=== PATIENT | male | born 1940 | race Caucasian/White ===

== ENCOUNTER → 2018-01-30 08:17 | Outpatient (CLI) | payer MEDICARE, BC, SELFPAY ==
[2018-01-30 08:24] LABS: Bacteria 0 SEEN /hpf (None Seen); Mucous, Urine 0 SEEN /hpf (<or=2+); Red Blood Cells-Urine 0 SEEN /hpf (0-5); Squamous Epithelial Cells - UA 0 SEEN /hpf (0-5); White Blood Cells 0 SEEN /hpf (0-5)
[2018-01-30 08:40] LABS: Color, Urine Yellow (Yellow); Glucose, Dipstick Normal (Normal); Ketone-Dipstick Negative (Negative); Leukocyte Esterase-Dipstick Negative /ul (Negative); Nitrite-Dipstick Negative (Negative); Occult Blood-Urine Negative /ul (Negative); Protein-Dipstick Negative (Negative); Urine Bilirubin Dipstick Negative (Negative); Urine Clarity Clear (Clear); Urine Urobilinogen Normal (Normal)
[2018-01-30 08:49] LABS: Absolute Lymphocyte Count 3.23 X10^3/ul (0.83-4.51); Absolute Neutrophil Count 3.1 X10^3/uL (2.0-7.7); Basophil# 0.02 X10^3/uL; Basophil% 0.3 % (0-1); Eosinophil# 0.36 X10^3/uL; Eosinophils% 4.9 % (0-5); Hematocrit 42.1 % (40-54); Hemoglobin 13.7 g/dl (13.0-16.5); Lymphocyte # 3.23 X10^3/ul (4.0); Lymphocyte % 44.3 % (19-41); Mean Corp Hgb Conc 32.5 g/gl (32-36); Mean Corpuscular Hgb 29.4 pg (27.0-32.0); Mean Corpuscular Volume 90.3 fL (80-94); Mean Platelet Vol. 9.2 fl (6.2-12.0); Monocyte# 0.57 X10^3/uL; Monocyte% 7.8 % (0-10); Neutrophil % 42.6 % (47-70); Platelet Count 190 K/mm3 (150-450); RBC Distribution Width CV 13.6 % (11.6-14.6); RBC Distribution Width SD 44.4 fl (35.1-43.9); Red Blood Count 4.66 M/mm3 (4.6-6.2); White Blood Count 7.3 K/mm3 (4.4-11.0)
[2018-01-30 08:51] LABS: POSITIVE COUNT NO; POSITIVE DIFFERENTIAL NO; POSITIVE MORPHOLOGY NO
[2018-01-30 09:15] LABS: Microalbumin,Random Urine < 5.0 mg/L (NO RANGE EST.)
[2018-01-30 09:20] LABS: ALB/GLOB Ratio 0.9 RATIO (0.9-2.4); AST(SGOT) 22 U/L (15-37); Alanine Aminotransfer ALT/SGPT 15 U/L (16-61); Albumin, Serum 3.4 g/dL (3.2-5.0); Alkaline Phosphatase 64 U/L (45-117); Anion Gap 5 (5-15); BUN 14 mg/dL (7-18); BUN/Creat Ratio 13.3 RATIO (10-20); CRP, High Sensitivity Cardiac 1.38 mg/L; Calcium,Total 8.2 mg/dL (8.5-10.1); Chloride 102 mmol/L (98-107); Cholesterol 106 mg/dL (200); Creatinine, Serum 1.05 mg/dL (0.70-1.30); EST Glomerular Filtration Rate 73 mL/min (>60); Est Glom Filt Rate - Afr Amer 88 mL/min (>60); Globulin 3.7 g/dL (2.2-4.2); Glucose 92 mg/dL (74-106); High Density Lipoprotein 62 mg/dL; PSA,Total - Annual Screen 2.02 ng/mL (0.00-4.00); Potassium 4.5 mmol/L (3.5-5.1); Protein, Total 7.1 g/dL (6.4-8.2); Sodium Level 137 mmol/L (136-145); Thyroid Stim Hormone (TSH) 2.31 uIU/mL (0.358-3.74); Triglycerides 43 mg/dL; Very Low Density Lipoprotein 9 mg/dL (5-40)
[2018-02-01 03:06] LABS: CHOLESTEROL TOTAL 116 mg/dL (100-199); HDL-C 57 mg/dL (>39); SMALL LDL-P 232 nmol/L (<=527); TRIGLYCERIDES 46 mg/dL (0-149)
[2018-02-01 11:08] LABS: LDL SIZE 20.3 nm (>20.5); LDL-C 50 mg/dL (0-99); LDL-P 465 nmol/L (<1000); LP-IR SCORE ** 30 (<=45)
== END ==
PROVIDERS: Family Provider Internal Medicine; PCP Internal Medicine; Referring Provider Internal Medicine; Visit Provider Internal Medicine
DX: I25.10 Atherosclerotic heart disease of native coronary artery without angina pectoris (principal); E78.00 Pure hypercholesterolemia, unspecified; E16.2 Hypoglycemia, unspecified; N40.0 Benign prostatic hyperplasia without lower urinary tract symptoms; Z12.5 Encounter for screening for malignant neoplasm of prostate
CPT/HCPCS: 36415; 80053; 80061; 81001; 82043; 82570; 83704; 84153; 84443; 85025; 86141; G0103

== ENCOUNTER → 2018-08-21 13:40 | Outpatient (CLI) | payer MEDICARE, BC, SELFPAY ==
[2018-02-13 14:21] VITALS: BMI 23.2
[2018-08-21 14:34] LABS: PSA,Total- Diagnostic 1.34 ng/mL (0.0-4.0)
== END ==
PROVIDERS: Family Provider Internal Medicine; PCP Internal Medicine; Referring Provider Urology; Visit Provider Urology
DX: R97.20 Elevated prostate specific antigen [PSA] (principal)
CPT/HCPCS: 36415; 84153

== ENCOUNTER → 2019-02-06 07:32 | Outpatient (CLI) | payer MEDICARE, BC, SELFPAY ==
[2018-02-13 14:21] VITALS: BMI 23.2
[2019-02-06 08:10] LABS: PSA,Total- Diagnostic 1.12 ng/mL (0.0-4.0)
== END ==
PROVIDERS: Family Provider Internal Medicine; PCP Internal Medicine; Referring Provider Urology; Visit Provider Urology
DX: R97.20 Elevated prostate specific antigen [PSA] (principal)
CPT/HCPCS: 36415; 84153

== ENCOUNTER → 2019-02-13 08:15 | Outpatient (CLI) | payer MEDICARE, BC, SELFPAY ==
[2018-02-13 14:21] VITALS: BMI 23.2
[2019-02-13 09:07] LABS: Absolute Lymphocyte Count 2.75 X10^3/uL (0.83-4.51); Absolute Neutrophil Count 2.7 X10^3/uL (2.0-7.7); Basophil# 0.02 X10^3/uL; Basophil% 0.3 % (0-1); Eosinophil# 0.32 X10^3/uL; Eosinophils% 5.1 % (0-5); Hematocrit 42.4 % (40-54); Hemoglobin 13.9 g/dL (13.0-16.5); Lymphocyte # 2.75 X10^3/ul (4.0); Lymphocyte % 43.6 % (19-41); Mean Corp Hgb Conc 32.8 g/dL (32-36); Mean Corpuscular Hgb 29.6 pg (27.0-32.0); Mean Corpuscular Volume 90.2 fL (80-94); Mean Platelet Vol. 9.2 fl (6.2-12.0); Monocyte% 7.9 % (0-10); NRBC Flagged by Analyzer 0 % (0-5); Neutrophil # 2.71 X10^3/uL (2.7-7.7); Neutrophil % 42.9 % (47-70); Platelet Count 193 K/mm3 (150-450); RBC Distribution Width SD 42.9 fl (35.1-43.9); White Blood Count 6.3 K/mm3 (4.4-11.0)
[2019-02-13 09:33] LABS: AST(SGOT) 25 U/L (15-37); Alanine Aminotransfer ALT/SGPT 14 U/L (16-61); Albumin, Serum 3.6 g/dL (3.2-5.0); Alkaline Phosphatase 58 U/L (45-117); Anion Gap 8 (5-15); BUN 13 mg/dL (7-18); BUN/Creat Ratio 10.8 RATIO (10-20); Calcium,Total 8.6 mg/dL (8.5-10.1); Chloride 104 mmol/L (98-107); EST Glomerular Filtration Rate 62 mL/min (>60); Est Glom Filt Rate - Afr Amer 76 mL/min (>60); Globulin 3.6 g/dL (2.2-4.2); Glucose 95 mg/dL (74-106); Potassium 4.4 mmol/L (3.5-5.1); Protein, Total 7.2 g/dL (6.4-8.2); Sodium Level 140 mmol/L (136-145); Thyroid Stim Hormone (TSH) 2.84 uIU/mL (0.358-3.74)
[2019-02-16 12:07] LABS: CHOLESTEROL TOTAL 135 mg/dL (100-199); HDL-C 63 mg/dL (>39); HDL-P TOTAL 31.8 umol/L (>=30.5); SMALL LDL-P 168 nmol/L (<=527); TRIGLYCERIDES 48 mg/dL (0-149)
[2019-02-16 14:53] LABS: INSULIN RESISTANCE SCORE <25 (<=45); LDL SIZE 21.1 nm (>20.5); LDL-C 62 mg/dL (0-99); LDL-P 601 nmol/L (<1000)
== END ==
PROVIDERS: Family Provider Internal Medicine; PCP Internal Medicine; Referring Provider Internal Medicine; Visit Provider Internal Medicine
DX: E78.00 Pure hypercholesterolemia, unspecified (principal)
CPT/HCPCS: 36415; 80053; 80061; 83704; 84443; 85025

== ENCOUNTER → 2019-03-02 14:41 | Outpatient (CLI) | payer MEDICARE, BC, SELFPAY ==
[2019-02-19 13:06] VITALS: BMI 23.6
--- NOTE | 2019-03-02 14:43 | CT_ITS ---
STUDY: CTA CHEST REASON FOR EXAM: Male, 78 years old. A ascending aortic dilatation RADIATION DOSAGE (If Supplied By Facility): CTDIvol = ( 6.68 ) mGy, DLP = ( 219.56 ) mGycm TECHNIQUE: The examination was performed with the intravenous administration of IV Isovue 370 100. Post-processing of the angiographic images was performed, with multiplanar reformation and 3D reconstruction. Individualized dose optimization techniques were used for this CT. COMPARISON: February 20, 2016 FINDINGS: The ascending thoracic aorta measures 4.6 x 4.2 cm in diameter, previously measuring 4.5 x 4.2 cm in diameter by my measurements. The descending thoracic aorta measures 2.2 x 2.5 cm in diameter. There are peripheral calcifications of the aortic arch and descending thoracic aorta. Normal enhancement of the main pulmonary artery and right and left pulmonary arteries. Normal enhancement of the bilateral peripheral pulmonary arteries. There is no demonstrated pulmonary embolism. There are calcifications of the coronary arteries. Normal mediastinum. Normal hilar regions. Normal visualized trachea and bronchi. There is a stable subpleural 5.5 mm nodule within the left upper lobe. Normal chest wall structures. There are degenerative changes of thoracic spine. Normal visualized upper abdomen. CT/CTA Chest W/WO Contrast IMPRESSION: Interval increase in size of a ascending thoracic aortic aneurysm. Atherosclerosis. Electronically Signed: Evelyn Paniagua MD at 16:05 EST Tel , Service support ,
== END ==
PROVIDERS: Family Provider Internal Medicine; PCP Internal Medicine; Referring Provider Internal Medicine Cardiovascular Disease; Visit Provider Internal Medicine Cardiovascular Disease
DX: I77.810 Thoracic aortic ectasia (principal)
CPT/HCPCS: 71275; Q9967

== ENCOUNTER 2019-06-26 11:18 | Emergency (ER) | payer MEDICARE, BC, SELFPAY ==
[2019-02-19 13:06] VITALS: BMI 23.6
[2019-06-26 11:19] VITALS: BP 158/77; PULSE 52; RESP 17; TEMP 36.4; O2SAT 100; BMI 22.6
--- NOTE | 2019-06-26 11:36 | RAD_ITS ---
STUDY: X-RAY - LEFT HAND REASON FOR EXAM: Male, 79 years old. Fell yesterday, thumb pain TECHNIQUE: 3 view(s) of the hand. COMPARISON: None. FINDINGS: Normal radiocarpal articulation. Normal distal radioulnar joint. Normal visualized carpal bones. Normal carpal articulations Normal carpometacarpal articulation of the thumb. Normal second through fifth carpometacarpal joints. Normal metacarpi. Normal metacarpophalangeal joint of the thumb. Normal interphalangeal joint of the thumb. There is an intra-articular slightly displaced fracture of the base of the distal phalanx of the thumb. Normal metacarpophalangeal joints of the second through fifth fingers. Normal proximal and distal interphalangeal joints of the second through fifth fingers. Normal phalanges of the second through fifth fingers. The soft tissue structures are unremarkable. RAD/Hand Min 3 Views IMPRESSION: Fracture of the distal phalanx of the thumb. Electronically Signed: Rahul Pastor MD at 12:23 EDT Tel , Service support ,
--- NOTE | 2019-06-26 11:36 | RAD_ITS ---
STUDY: X-RAY - LEFT WRIST REASON FOR EXAM: Male, 79 years old. Thumb pain, fell yesterday TECHNIQUE: 3 view(s) of the wrist were obtained. COMPARISON: None. FINDINGS: Normal visualized distal radius and ulna. Normal radiocarpal articulation. Normal distal radioulnar articulation. There is questionable hairline nondisplaced fracture of the scaphoid seen only on the oblique view. Normal carpal articulations. There is mild degenerative arthrosis of the carpometacarpal articulation of the thumb. Normal second through fifth carpometacarpal articulations. Normal visualized metacarpal bones. The soft tissue structures are unremarkable. RAD/Wrist min 3 Views IMPRESSION: Questionable hairline nondisplaced fracture of the scaphoid. Electronically Signed: Rahul Pastor MD at 12:25 EDT Tel , Service support ,
--- NOTE | 2019-06-26 11:37 | ED.DCSUM_ITS ---
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 he has no other complaints Past Medical History - Allergies and Home Meds Allergies/Adverse Reactions: Allergies No Known Allergies Allergy (Verified 06/26/19 11:19) Primary Care Physician: Siva Willams MD [STAFF PHYSICIAN] - Sia Trevizo DO [Primary Care Provider] - Past Medical History: None Smoking Status: Never smoker Review of Systems General: Reports: - - Facial trauma left face chin Musculoskeletal: Reports: - - Left thumb trauma Physical Exam Vital Signs/Narrative: Vital Signs Temp Pulse Resp BP Pulse Ox 06/26/19 11:19 97.5 F L 52 L 17 158/77 H 100 General: Well nourished, Well developed, No Acute Distress, - - He has a small contusion to the left lateral chin his HEENT exam is unremarkable mouth opening closing unremarkable Head: Normocephalic, Atraumatic Eyes: Perrl, EOMI ENT: Moist mucous membranes, No rhinorrhea Neck: - - No complaints of neck pain full range of motion Cardiovascular: Regular rate, Regular rhythm Respiratory: No distress, CTA bilaterally, Chest nontender Extremities: - - Only complaint is pain to the left thumb there is contusion diffusely about the thumb he has normal flexion extension of the IP joint MCP joint nail nailbed intact, contusion at the level of the nailbed but the skin is intact as is the nailbed sensation intact finger exam unremarkable hand exam otherwise unremarkable skin is intact neurovascular function normal, the patient also complains of very mild left wrist discomfort forearm and elbow unremarkable Skin: Normal color, No rash Neurological: Alert, Oriented x3, Cranial nerves II-XII grossly intact, Normal Strength, Normal Sensation Psychological: Normal affect, Normal Mood Diagnostic/Tx/Re-eval - Medical Decision Making Given all the above x-rays were obtained X-rays of the hand and wrist obtained from radiology there appears to be a distal phalanx fracture of the wrist is unremarkable see those reports discussed this with the patient discussed the concept of an the fracture and other occult injury he is fitted with a thumb spica splint, ice elevation he is referred to Dr. willams of hand service and will return for change in symptoms Home stable final impression left thumb distal phalanx fracture injury ED Disposition - Plan for ED Patient: Diagnosis: Injury of thumb, left, Thumb fracture Instructions: FRACTURE, Thumb Referrals: Sia Trevizo DO [Primary Care Provider] - Siva Willams MD [STAFF PHYSICIAN] - Additional Instructions: Dr. Dunlap [facility] [phone] hand follow-up of thumb fracture if you cannot see Dr. willams
[2019-06-26 12:53] VITALS: RESP 16
== END 2019-06-26 12:53 | disposition home or self-care (01) ==
LOC: ED 11:41
PROVIDERS: Emergency Provider Emergency Medicine; PCP Internal Medicine
DX: S62.522A Displaced fracture of distal phalanx of left thumb, initial encounter for closed fracture (principal); W01.0XXA Fall on same level from slipping, tripping and stumbling without subsequent striking against object, initial encounter; Y93.01 Activity, walking, marching and hiking; Y92.9 Unspecified place or not applicable
CPT/HCPCS: 73110; 73130; 99283

== ENCOUNTER → 2019-09-10 10:32 | Outpatient (CLI) | payer MEDICARE, BC, SELFPAY ==
[2019-09-11 07:11] LABS: SARS-COV-2 TOTAL ABS Nonreactive (Nonreactive)
== END ==
PROVIDERS: PCP Internal Medicine; Referring Provider Otolaryngology; Visit Provider Otolaryngology
DX: Z11.59 Encounter for screening for other viral diseases (principal)
CPT/HCPCS: 86769; G2023

== ENCOUNTER → 2019-10-17 | Outpatient (CLI) | payer MEDICARE, BC, SELFPAY ==
--- NOTE | 2019-10-18 | IMM_PTH ---
PATIENT: KAT LEGER LOC: [facility] U#:[id number] AGE/SX: 79/M ROOM: RE10/17/[address]: Dr. Carl Leger MD : 1940 BED: DIS: 10/17/2019 SPEC #: [id number] RECD: 10/21/19 13:26 STATUS: MEIR REChamp #: [id number] ILEANA: 10/18/19 00:[address]: Carl Leger DEPT: IMMUNOHISTOCHEMISTRY RECD BY: Reagan Aggarwal ENTERED: 10/21/19 13:28 SP TYPE: IMMUNO OTHR DR: Dr. Sia Trevizo, Tissues: Skin of forehead Procedures: MART1 (add) S100 (initial) PHYSICIAN & INSTITUTION [place] [id number] SPECIMEN INFORMATION: Tissue Source: Forehead lesion Clinical Info: Forehead lesion Specimen Number: [id number] #2 CPT code: 62183, 92456 METHODOLOGY: Deparaffinized sections of prefer/formalin-fixed tissue or PAP/DQ stained slides are incubated with monoclonal/polyclonal antibodies/oligonucleotide probes. Localization is made via biotin free immunoperoxidase method. Appropriate controls are performed and reacted as expected. Results on target cell population are indicated in the following table: RESULTS: ANTIBODY / CLONE RESULT S-100 (4C4.9) positive MART-1 (A-103) positive These tests were developed and their performance characteristics determined by [facility]. They may not have been cleared or approved by the U.S. Food and Drug Administration. The FDA has determined that such clearance or approval is not necessary. The above immunohistochemical/dualISH markers are ordered and reviewed by the Pathologist. INTERPRETATION: Forehead lesion, excisional biopsy: Consistent with lentigo. SJ:toma 10/22/19 Case has been reviewed in consultation with Dr. Archuleta who concurs with the above diagnosis. IDC:AM
--- NOTE | 2019-10-18 16:08 | LES_PTH ---
PATIENT: KAT LEGER LOC: [facility] U#:[id number] AGE/SX: 79/M ROOM: RE10/17/[address]: Dr. Carl Leger MD : 1940 BED: DIS: 10/17/2019 SPEC #: [id number] RECD: 10/19/19 14:58 STATUS: MEIR FRIDA #: [id number] ILEANA: 10/18/19 16:[address]: Carl Leger DEPT: SURGICAL PATHOLOGY RECD BY: Chris Rosario ENTERED: 10/20/19 11:17 SP TYPE: Lesion OTHR DR: Dr. Sia Trevizo, [facility] Tissues: Skin of forehead Procedures: Surgery Specimen Level IV HEADER OPERATION: Excision forehead lesion PRE-OP DIAGNOSIS: Neoplasm of uncertain behavior of skin TISSUE SUBMITTED: Forehead lesion, short stitch at 6 o'clock, long stitch at 9 o'clock MICROSCOPIC DIAGNOSIS Forehead lesion, excisional biopsy: Consistent with lentigo. Negative for malignancy. See comment. NAIF:toma 10/21/19 COMMENT Clinical correlation and appropriate follow up are necessary. Immunohistochemistry ([id number]) supports the above diagnosis. Case has been reviewed in consultation with Dr. Archuleta who concurs with the above diagnosis. IDC:AM MICROSCOPIC DESCRIPTION Slides are reviewed. GROSS DESCRIPTION Received in fixative is one container labeled with the patient's name and designated forehead lesion. The specimen consists of a piece of powell-white skin measuring 1.5 x 0.7 cm and up to 0.3 cm in thickness. The specimen is oriented by a suture, short stitch at 6 o'clock and long stitch at 9 o'clock. The specimen is inked as follows: 6 o'clock tip - green, 9 o'clock tip - yellow, 12 o'clock margin - black and 6 o'clock margin - blue. The specimen is serially sectioned and submitted entirely in two cassettes. Cassette 1 contains the tips of skin ellipse. / NAIF:toma 10/20/19 TC:5 CPT: 81400
== END | disposition home or self-care (01) ==
PROVIDERS: PCP Internal Medicine; Referring Provider Otolaryngology; Visit Provider Otolaryngology
DX: D48.5 Neoplasm of uncertain behavior of skin (principal)
CPT/HCPCS: 88305; 88341; 88342

== ENCOUNTER → 2020-02-28 | Outpatient (CLI) | payer MEDICARE, BC, SELFPAY ==
[2020-02-18 12:51] VITALS: BMI 22.8
[2020-02-28 13:38] LABS: Bacteria 0 SEEN /hpf (None Seen); Mucous, Urine 0 SEEN /hpf (<or=2+); Squamous Epithelial Cells - UA 0 SEEN /hpf (0-5); White Blood Cells 0 SEEN /hpf (0-5)
[2020-02-28 14:12] LABS: Color, Urine Yellow (Yellow); Glucose, Dipstick Normal (Normal); Ketone-Dipstick Negative (Negative); Leukocyte Esterase-Dipstick Negative /ul (Negative); Nitrite-Dipstick Negative (Negative); Occult Blood-Urine 10 /ul (Negative); Protein-Dipstick Negative (Negative); Urine Bilirubin Dipstick Negative (Negative); Urine Clarity Clear (Clear); Urine Urobilinogen Normal (Normal)
[2020-02-28 14:28] LABS: Red Blood Cells-Urine 0-5 SEEN /hpf (0-5)
== END | disposition home or self-care (01) ==
LOC: LABSPEC 12:48
PROVIDERS: PCP Internal Medicine; Visit Provider Urology
DX: R31.9 Hematuria, unspecified (principal)
CPT/HCPCS: 81001

== ENCOUNTER → 2021-01-05 08:00 | Outpatient (CLI) | payer MEDICARE, BC, SELFPAY ==
--- NOTE | 2021-01-05 08:02 | CT_ITS ---
STUDY: CTA CHEST REASON FOR EXAM: Male, 80 years old. Dilated aorta RADIATION DOSAGE (If Supplied By Facility): CTDIvol = ( 7.74 ) mGy, DLP = ( 258.92 ) mGycm TECHNIQUE: The examination was performed with the intravenous administration of IV 75mL Isovue-300. Post-processing of the angiographic images was performed, with multiplanar reformation and 3D reconstruction. Individualized dose optimization techniques were used for this CT. COMPARISON: Comparison is made with prior study dated 03/02/2019. FINDINGS: Normal enhancement of the main pulmonary artery and right and left pulmonary arteries. Normal enhancement of the bilateral peripheral pulmonary arteries. There is no demonstrated pulmonary embolism. There is aneurysmal dilatation of the ascending aorta. The transverse diameter of the ascending aorta measures 44 mm''s. This is essentially unchanged. Scattered atherosclerotic plaque of the aortic arch and descending thoracic aorta. There is no demonstrated aortic dissection. There are calcifications of the coronary arteries. Normal mediastinum. Normal hilar regions. Normal visualized trachea and bronchi. The lungs are well expanded. Normal pulmonary parenchyma. Normal pleura. Normal chest wall structures. There are degenerative changes of thoracic spine. Small hiatal hernia. CT/CTA Chest W/WO Contrast IMPRESSION: Stable examination. Electronically Signed: Joshua Johnson MD at 9:18 EDT , Service support ,
== END ==
PROVIDERS: PCP Internal Medicine; Referring Provider Internal Medicine Cardiovascular Disease; Visit Provider Internal Medicine Cardiovascular Disease
DX: I77.810 Thoracic aortic ectasia (principal)
CPT/HCPCS: 71275; Q9967

== ENCOUNTER → 2021-01-09 | Outpatient (CLI) | payer MEDICARE, BC, SELFPAY | END | disposition home or self-care (01) | LOC: LABSPEC 15:47 | PROVIDERS: PCP Internal Medicine; Visit Provider Otolaryngology | DX: M27.2 Inflammatory conditions of jaws (principal) | CPT/HCPCS: 87070; 87075; 87077; 87186; 87205 ==

== ENCOUNTER → 2021-02-23 06:15 | Outpatient (CLI) | payer MEDICARE, BC, SELFPAY ==
--- NOTE | 2021-02-23 06:17 | ECHOD_ITS ---
Reason For Study: CAD Procedure This was a 2D Doppler, Color Flow transthoracic echocardiogram. Exam performed in department. Left Ventricle Normal LV size. Left ventricular systolic function is normal. The estimated ejection fraction is 65 %. Stage 1 diastolic dysfunction. No regional wall motion abnormalities noted. Right Ventricle Normal RV size. Normal systolic function. Atria Normal left atrium. Normal right atrium. Mitral Valve Normal mitral valve. Tricuspid Valve Normal tricuspid valve. Mild tricuspid valve insufficiency. Pulmonary artery systolic pressure is 26 mmHg. Aortic Valve Normal aortic valve. Trisinus/trileaflet aortic valve. Pulmonic Valve Normal pulmonic valve. Great Vessels Mildly dilated aortic root. The pulmonary artery is normal size. Normal inferior vena cava. Pericardium/Pleural No pericardial effusion. MMode/2D Measurements & Calculations LVIDd: 4.3 cm IVSd: 0.67 cm Ao root diam: 4.2 cm LVIDs: 2.8 cm LVPWd: 0.68 cm RVDd: 3.5 cm FS: 34.0 % LAV(MOD-bp): 28.1 ml LA A4 area: 11.9 cm2 LA dimension(2D): 3.7 cm LAV(MOD-bp) Indexed: 16.2 ml/m2 LAV(MOD-sp2): 27.8 ml LAV(MOD-sp4): 26.8 ml RA A4 area: 7.0 cm2 Doppler Measurements & Calculations MV E max marlon: 62.0 cm/sec Lat Peak E' Marlon: 9.8 cm/sec Med Peak E' Marlon: 6.2 cm/sec MV A max marlon: 111.0 cm/sec E/E' lat: 6.3 E/E' med: 10.0 MV E/A: 0.56 Ao V2 max: 118.6 cm/sec LV V1 max: 90.2 cm/sec TR max marlon: 235.8 cm/sec Ao max P.6 mmHg LV V1 max P.3 mmHg TR max P.2 mmHg ECHO/Echo Complete Interpretation Summary Normal LV size. Left ventricular systolic function is normal. The estimated ejection fraction is 65 %. Stage 1 diastolic dysfunction. Mildly dilated aortic root. Structurally normal valves. Ordering Physician: Dave Beckham Referring Physician: EMA TINAJERO Performed By: Tianna Zhu, RDCS, RVT
--- NOTE | 2021-02-23 09:39 | STRESSREP ---
Stress Test Report Exercise mild atrial perfusion stress test. 80-year-old man with a history of abnormal EKG. Stress protocol: Resting EKG demonstrates sinus bradycardia with a rate of 50 bpm resting blood pressure is 140/78 mmHg. The patient exercised according to the regular Waylon protocol for a total duration of 10 minutes. Patient completed 1 minute into stage IV of the Waylon protocol. The maximum heart rate attained was 171 bpm which was 120% of max impact at heart rate the maximum workload was 13.4 metabolic equivalents. At rest there were no ST or T wave changes noted to suggest ischemia and at peak exercise upsloping ST changes were noted with did not meet the criteria for ischemia. No clinical angina was noted. The test was terminated due to attainment of target heart rate. Occasional premature ventricular complexes was noted. At peak exercise there was development of a left bundle branch block morphology present. The peak blood pressure was 180/80 mmHg. Myocardial perfusion protocol. 11.5 mCi of technetium 99m sestamibi was injected at rest. The patient exercised according to regular Waylon protocol for total duration of 10 minutes and at peak exercise 33.7 mCi of technetium 99m sestamibi was injected stress images were obtained stress and rest images were reconstructed and compared in the short axis vertical long and horizontal long axis. Gated images were also obtained. Perfusion SPECT analysis: Review of the stress images demonstrate normal uptake of tracer noted in all areas of the myocardium. The resting images similarly demonstrate normal uptake of tracer noted in all areas of the myocardium. No areas of reversibility are noted to suggest ischemia and no previous infarct is noted. Gated SPECT analysis: The gated ejection fraction is 87%. Conclusion: Normal exercise myocardial perfusion stress test at a high workload. No clinical angina noted. Excellent functional capacity.
== END ==
PROVIDERS: PCP Internal Medicine; Referring Provider Internal Medicine Cardiovascular Disease; Visit Provider Internal Medicine Cardiovascular Disease
DX: I25.10 Atherosclerotic heart disease of native coronary artery without angina pectoris (principal); I77.810 Thoracic aortic ectasia; E78.5 Hyperlipidemia, unspecified; R94.31 Abnormal electrocardiogram [ECG] [EKG]
CPT/HCPCS: 78452; 93017; 93306; A9500; A4216

== ENCOUNTER 2021-04-30 15:19 | Outpatient (CLI) | payer MEDICARE, BC, SELFPAY ==
--- NOTE | 2021-04-30 12:51 | LES_PTH ---
PATIENT: KAT LEGER LOC: [facility] U#:[id number] AGE/SX: 80/M ROOM: RE04/30/[address]: Dr. Carl Leger MD : 1940 BED: DIS: 04/30/2021 SPEC #: [id number] RECD: 04/30/21 15:05 STATUS: MEIR FRIDA #: [id number] ILEANA: 04/30/21 12:[address]: Carl Leger DEPT: SURGICAL PATHOLOGY RECD BY: Janina Hook ENTERED: 05/01/21 11:03 SP TYPE: Lesion OTHR DR: Dr. Sia Trevizo, [facility] Tissues: Skin of forehead Procedures: Surgery Specimen Level IV HEADER OPERATION: Excision left forehead lesion PRE-OP DIAGNOSIS: Left forehead lesion TISSUE SUBMITTED: Left forehead lesion, short stitch - medial, long stitch - interior MICROSCOPIC DIAGNOSIS Lesion of left forehead, excisional biopsy: Verrucoid keratosis, mildly inflamed. Solar elastosis. No evidence of malignancy. AM:toma 05/02/2021 COMMENT Case has been reviewed in consultation with Dr. Santana who concurs with the above diagnosis. IDC:NAIF MICROSCOPIC DESCRIPTION Slides are reviewed. GROSS DESCRIPTION Received in fixative is one container labeled with the patient's name and designated forehead lesion. The specimen consists of a piece of powell-white skin ellipse measuring 1 x 0.5 cm and up to 0.2 cm in thickness. The specimen is oriented by sutures as follows: short stitch ? medial and long stitch ? interior. The specimen is inked as follows: superior margin ? black, inferior margin ? blue, medial tip ? green and lateral trip ? yellow. The specimen is serially sectioned and submitted entirely in one cassette. / SJ:toma 05/01/2021 TC:5 CPT: 10648
== END 2021-04-30 23:59 | disposition short-term general hospital (02) ==
LOC: LABSPEC 15:23
PROVIDERS: PCP Internal Medicine; Visit Provider Otolaryngology
DX: L82.0 Inflamed seborrheic keratosis (principal); L57.8 Other skin changes due to chronic exposure to nonionizing radiation
CPT/HCPCS: 88305

== ENCOUNTER 2021-07-23 17:09 | Outpatient (CLI) | payer MEDICARE, BC, SELFPAY | END 2021-07-23 23:59 | disposition home or self-care (01) | PROVIDERS: PCP Internal Medicine; Visit Provider Otolaryngology Otolaryngology/Facial Plastic Surgery | DX: J32.9 Chronic sinusitis, unspecified (principal) | CPT/HCPCS: 87070; 87077; 87205 ==

== ENCOUNTER → 2021-12-21 | Outpatient (CLI) | payer MEDICARE, BC, SELFPAY ==
--- NOTE | 2021-12-21 06:52 | CT_ITS ---
STUDY: CT CHEST WITH CONTRAST REASON FOR EXAM: Male, 81 years old. Dilated aorta RADIATION DOSAGE (If Supplied By Facility): CTDIvol = ( 12.59 ) mGy, DLP = ( 305.60 ) mGycm TECHNIQUE: Transaxial imaging was performed following intravenous administration of IV 75mL Isovue-370. Multiplanar coronal and sagittal images were reformatted. Individualized dose optimization techniques were used for this CT. COMPARISON: Comparison is made with prior examination 01/05/2021. FINDINGS: CHEST Stable small benign-appearing bilateral axillary lymph nodes. Stable mild degree of scarring at the right lung apex. There is no demonstrated pleural abnormality. There are calcifications of the coronary arteries. Normal mediastinum. Normal hilar regions. Normal unenhanced pulmonary arteries. Stable mild dilatation of the root of the ascending thoracic aorta measuring 4.2 cm. Scattered atherosclerotic plaque formation is seen. There are degenerative changes of the thoracic spine. There is no demonstrated abnormality of the visualized upper abdomen. CT/Chest WITH Contrast IMPRESSION: Stable examination. Electronically Signed: Joshua Johnson MD at 8:57 EDT ,
[2021-12-21 07:20] LABS: CREATININE FINGERSTICK < 0.9 mg/dL (0.70-1.30); EGFR FINGERSTICK > 60.0000 mL/min (>60)
== END | disposition home or self-care (01) ==
PROVIDERS: PCP Internal Medicine; Referring Provider Internal Medicine Cardiovascular Disease; Visit Provider Internal Medicine Cardiovascular Disease
DX: I77.810 Thoracic aortic ectasia (principal)
CPT/HCPCS: 71260; Q9967; A4216

== ENCOUNTER → 2022-02-20 | Outpatient (CLI) | payer MEDICARE, BC, SELFPAY ==
[2022-02-20 14:17] LABS: PSA,Total - Annual Screen 1.19 ng/mL (0.00-4.00)
== END | disposition home or self-care (01) ==
LOC: LAB 11:32
PROVIDERS: PCP Internal Medicine; Referring Provider Urology; Visit Provider Urology
DX: Z12.5 Encounter for screening for malignant neoplasm of prostate (principal)
CPT/HCPCS: 36415; 84153; G0103

== ENCOUNTER → 2022-03-18 | Outpatient (CLI) | payer MEDICARE, BC, SELFPAY ==
[2022-03-18 18:04] LABS: Bacteria 0 SEEN /hpf (None Seen); Mucous, Urine 0 SEEN /hpf (<or=2+); Red Blood Cells-Urine 0 SEEN /hpf (0-5); Squamous Epithelial Cells - UA 0 SEEN /hpf (0-5); White Blood Cells 0 SEEN /hpf (0-5)
[2022-03-18 18:33] LABS: Color, Urine Yellow (Yellow); Glucose, Dipstick Normal (Normal); Ketone-Dipstick Negative (Negative); Leukocyte Esterase-Dipstick Negative /ul (Negative); Nitrite-Dipstick Negative (Negative); Occult Blood-Urine 10 /ul (Negative); Protein-Dipstick Negative (Negative); Specific Gravity, Urine 1.015 (1.002-1.030); Urine Bilirubin Dipstick Negative (Negative); Urine Clarity Clear (Clear); Urine Urobilinogen Normal (Normal)
== END | disposition home or self-care (01) ==
PROVIDERS: PCP Internal Medicine; Visit Provider Urology
DX: R31.21 Asymptomatic microscopic hematuria (principal)
CPT/HCPCS: 81001

== ENCOUNTER 2022-08-18 16:57 | Observation (INO) | payer MEDICARE, BC, SELFPAY ==
[2022-08-18 16:58] VITALS: BP 141/77; PULSE 83; RESP 18; TEMP 36.1; O2SAT 98; BMI 22.2
--- NOTE | 2022-08-18 17:02 | EDS_ITS ---
HPI History of Present Illness Chief Complaint: GI Bleed [facility] Medical History Abnormal electrocardiogram Ascending aorta dilatation Hyperlipidemia Home Medications simvastatin 10 mg tablet (Zocor) 10 mg PO QHS 02/13/18 [History Last Taken Unknown] Allergy/AdvReac Type Severity Reaction Status Date / Time No Known Allergies Allergy Verified 08/18/22 17:01 Family History Grandfather No problems noted. Father Sudden cardiac Age 65 Hypertension Other Heart disease Surgical History History of left heart catheterization (11/19/12) History of surgery on lower extremity Social History Smoking Status: Never smoker EXAM Physical Exam Const Vital Signs: 08/18/22 16:58 Temperature 96.9 F L Temperature Source Temporal Pulse Rate 83 Respiratory Rate 18 Blood Pressure 141/77 H Blood Pressure Mean 98 Pulse Ox 98 Oxygen Delivery Method Room Air MDM MDM MDM Narrative Medical decision making narrative: HISTORY OF PRESENT ILLNESS: 82 M here with abdominal pain. The patient states he developed acute onset of generalized abdominal pain started yesterday approximately 5 PM. He states this then turned to heartburn which lasted until about 4 AM. At this time he started developing dark but not coffee-ground vomitus. He states after this he started developing dark stools. He is concerned he may be having a GI bleed. Denies any liver dysfunction. Denies any history of esophageal pathology or varices. Denies any recent alcohol use. He denies any urinary complaints. Denies any fever. Denies any chest pain or shortness of breath at this time. REVIEW OF SYSTEMS: Pertinent positives: Abdominal pain, dark vomit, dark stools Pertinent negatives: Syncope, urinary complaint PHYSICAL EXAM: Nursing triage notes reviewed, Vital signs reviewed Constitutional: please see mdm HENT: MMM Eyes: Pupils equal round and reactive to light, Extraocular muscles intact Neck: No stridor, no JVD, full neck ROM Lungs: Clear to auscultation, No wheezing or rales. No increased work of breathing, no conversational dyspnea, no accessory muscle use, no nasal flaring. No respiratory distress noted Heart: Regular rate and rhythm, No murmurs, No rubs and No gallops, 2+ distal pulses (radial, femoral, posterior tibial) in all extremities Abdomen: Soft, there is no tenderness, rigidity, rebound or guarding, no obvious peritoneal signs, no palpable pulsatile abdominal masses, no auscultated abdominal bruit : No CVAT Rectal: No obvious melena or hematochezia noted on rectal exam. Will send for Hemoccult Extremities: No edema Neuro: No focal neurological deficits, cranial nerves II through XII intact, 5/5 strength in all extremities. Intact sensation to light touch in all extremities, 2+ reflexes bilateral patella tendons. Normal gait. No ataxia. Skin: No rash or lesions noted MEDICAL DECISION MAKING: Chief Complaint: Abdominal pain, melena External records reviewed: No recent advanced imaging of the abdomen or pelvis MDM Narrative: Patient was hemodynamically stable, afebrile, abdominal exam was benign, minimally tender. There are no peritoneal signs. He had no jaundice or signs of liver dysfunction. He had no signs of thrombocytopenia on exam. I considered the following differential diagnosis: GI bleed, acute intra- abdominal mass, acute intra-abdominal pathology including obstruction, perforation, mesenteric ischemia, pancreatitis, hepatobiliary obstruction, coagulopathy. I obtained a broad lab and imaging work-up to further elucidate the etiology the patient complaints. I treat the patient symptomatically with normal saline and Zofran. Labs without evidence of acute kidney injury, severe electrolyte abnormalities or signs of endorgan hypoperfusion with a negative anion gap and negative lactate (lower suspicion for mesenteric ischemia). CBC without leukocytosis to suggest systemic inflammation. CBC did show signs of hemoconcentration with elevated hemoglobin. BMP showed signs of mild renal insufficiency. These findings suggest dehydration. Fluid resuscitation was continued with 100 cc of normal saline per hour. No significant anemia to suggest severe GI bleed. EKG and troponin without evidence of myocardial ischemia. There is no evidence of liver dysfunction, acute hepatitis or signs of coagulopathy to explain the patient's bleeding. Chest x-ray showed NO evidence of pneumomediastinum to suggest esophageal rupture explain the patient's dark vomitus. CT scan abdomen pelvis was remarkable for signs of small bowel distention, possible partial bowel obstruction, enterocolitis. Given concerning findings I did consult general surgery Dr. Middleton. He reviewed the patient's history, labs, images and recommended inpatient admission for hydration and to advance his diet slowly. He agreed he agreed to admit the patient to his service. I had a shared decision-making discussion with the patient described his lab and imaging findings. Patient decided to be admitted. Patient admitted under the general surgery service in stable condition. Factors affecting care: Hyperlipidemia Social determinants of health: Never smoker, elderly History obtained from others: Shared decision making: I will have a discussion with the patient and or visitors regarding risk/benefits of further testing or admission. They will be made aware of of the risk/benefits inherent in this decision they will be given the opportunity to voice understanding. Consults: General surgery Lab Data Attestation: I reviewed the patient's lab results. Lab results narrative: EKG with normal sinus rhythm, left ax deviation, no intervals, no STEMI CBC without leukocytosis, severe anemia, no thrombocytopenia. No evidence of coagulopathy Lactate is wnl indicating no end-organ hypoperfusion and/or hypoxia. BMP with mild hyponatremia, no other significant electrolyte abnormalities, no acute kidney injury, no anion gap to suggest endorgan hypoperfusion LFTs with essentially baseline hyperbilirubinemia, no significant elevation liver enzymes, no obstructive liver pathology noted with a normal alkaline phosphatase Lipase is mildly elevated but not consistent with acute pancreatitis Troponin is negative, no evidence of myocardial ischemia Labs: Laboratory Results - last 24 hr 08/18/22 08/18/22 08/18/22 17:25 17:25 17:25 WBC 7.5 RBC 5.45 Hgb 16.0 Hct 49.8 MCV 91.4 MCH 29.4 MCHC 32.1 RDW Std Deviation 46.1 H RDW Coeff of Dalia 13.6 Plt Count 228 MPV 9.6 Immature Gran % (Auto) 0.300 Neut % (Auto) 75.3 H Lymph % (Auto) 16.1 L [place] % (Auto) 7.0 Eos % (Auto) 0.9 Baso % (Auto) 0.4 Absolute Neuts (auto) 5.6 Absolute Lymphs (auto) 1.20 Nucleated RBC % 0 PT INR APTT Sodium 133 L Potassium 4.7 Chloride 99 Carbon Dioxide 25.0 Anion Gap 9 BUN 24 H Creatinine 1.35 H Estim Creat Clear Calc 38.64 Est GFR (MDRD) Af Amer 65 Est GFR (MDRD) Non-Af 54 L BUN/Creatinine Ratio 17.8 Glucose 139 H Lactic Acid 1.7 Calcium 9.8 Total Bilirubin 1.30 H Direct Bilirubin 0.29 AST 33 ALT 18 Alkaline Phosphatase 69 Troponin I High Sens 5 Total Protein 8.7 H Albumin 4.0 Globulin 4.7 H Lipase 85 H 08/18/22 17:25 WBC RBC Hgb Hct MCV MCH MCHC RDW Std Deviation RDW Coeff of Dalia Plt Count MPV Immature Gran % (Auto) Neut % (Auto) Lymph % (Auto) [place] % (Auto) Eos % (Auto) Baso % (Auto) Absolute Neuts (auto) Absolute Lymphs (auto) Nucleated RBC % PT 13.1 INR 1.0 APTT 25.0 Sodium Potassium Chloride Carbon Dioxide Anion Gap BUN Creatinine Estim Creat Clear Calc Est GFR (MDRD) Af Amer Est GFR (MDRD) Non-Af BUN/Creatinine Ratio Glucose Lactic Acid Calcium Total Bilirubin Direct Bilirubin AST ALT Alkaline Phosphatase Troponin I High Sens Total Protein Albumin Globulin Lipase Radiography Chest X-Ray - ED: Read by ED Physician Diagnostic Testing: Clinical Impression(s) from Imaging Studies Abdomen/Pelvis CT 08/18/22 17:18 IMPRESSION: There are some nonspecific fluid-filled loops of proximal small bowel with gradual transition to some small fluid-filled loops of distal small bowel. No focal transition point appreciated. There is some colonic fluid. Consider infectious or inflammatory enterocolitis in the appropriate clinical setting. Partial early obstruction is not excluded given the disproportionate prominence of jejunal loops compared with more collapsed ileal loops. Electronically Signed: Thang Yeung MD at 18:54 EDT , Chest X-Ray 08/18/22 18:15 IMPRESSION: No acute cardiopulmonary disease identified radiographically. Electronically Signed: Thang Yeung MD at 18:31 EDT , I have personally reviewed the patient's chest x-ray. Chest x-ray is unremarkable for pulmonary edema, pneumothorax, pneumonia or focal cardiopulmonary abnormality. Specifically no signs of esophageal rupture, no pneumo-mediastinum Discharge Plan Triage Chief Complaint: GI Bleed ED Provider: Jean-Claude Fletcher Dx/Rx/DC Orders Primary Care Provider: Sia Trevzio
--- NOTE | 2022-08-18 17:18 | EKG12_ITS ---
Test Reason : Blood Pressure : / mmHG Vent. Rate : 072 BPM Atrial Rate : 072 BPM P-R Int : 196 ms QRS Dur : 088 ms QT Int : 382 ms P-R-T Axes : 016 -20 021 degrees QTc Int : 418 ms Normal sinus rhythm Inferior infarct , age undetermined Abnormal ECG Confirmed by LUIS GREENFIELD, LEORA ([id number]), index editor ABY MALONE ([id number]) on 08/20/2022 10:52:01 AM Referred By: Confirmed By:LEORA SMITH MD
--- NOTE | 2022-08-18 17:18 | CT_ITS ---
INDICATION: abdominal pain, n/v, EXAMINATION: CT ABDOMEN AND PELVIS WITH CONTRAST - CT Abdomen And Pelvis W/ Contrast Injection TECHNIQUE: Helically acquired images were obtained of the abdomen and pelvis following IV contrast. A radiation dose optimization technique was used for this scan. IV Contrast dosage and agent: 100 cc Isovue-300 Oral contrast: None. COMPARISON: None. FINDINGS: LOWER CHEST: Basilar atelectasis or scarring. Coronary artery disease. No cardiomegaly or pericardial effusion. LIVER: Homogeneous. No focal mass. GALLBLADDER AND BILIARY TREE: No calcified gallstones. No gallbladder distension or wall edema. No intra- or extrahepatic biliary ductal dilation. PANCREAS: No focal cystic or solid mass. SPLEEN: Normal size without focal cystic or solid mass. ADRENAL GLANDS: No nodules. KIDNEYS AND URETERS: Normal renal size and position. No hydronephrosis. PERITONEUM: No ascites or free air. No other fluid collection. BOWEL: Small hiatus hernia. Stomach is relatively collapsed. Duodenum is normal size. There are some prominent loops of proximal jejunum with fluid-filled loops of proximal and mid jejunum. There do appear to be fluid-filled loops of ileum within the deep pelvis and there appears to be gradual transition of prominent jejunal loops to decompressed bowel or distally. No focal transition. No appendicitis. LYMPH NODES: No enlarged mesenteric or retroperitoneal lymph nodes. VESSELS: Aorta is non-dilated. Atherosclerotic disease is present. URINARY BLADDER: Unremarkable. REPRODUCTIVE ORGANS: Enlarged prostate. ABDOMINAL WALL: No discrete abdominal or pelvic wall hernia. BONES: Degenerative changes of the spine. CT/Abdomen/Pelvis W IV Cont ONLY IMPRESSION: There are some nonspecific fluid-filled loops of proximal small bowel with gradual transition to some small fluid-filled loops of distal small bowel. No focal transition point appreciated. There is some colonic fluid. Consider infectious or inflammatory enterocolitis in the appropriate clinical setting. Partial early obstruction is not excluded given the disproportionate prominence of jejunal loops compared with more collapsed ileal loops. Electronically Signed: Thang Yeung MD at 18:54 EDT ,
[2022-08-18] MEDS: 0.9% Normal Saline 1,000 ML 1000 ML IV (17:34)
[2022-08-18] MEDS: Ondansetron 4 MG/2 ML Vial IV (17:34)
[2022-08-18 17:35] LABS: Absolute Neutrophil Count 5.6 X10^3/uL (2.0-7.7); Basophil# 0.03 X10^3/uL; Basophil% 0.4 % (0-1); Eosinophil# 0.07 X10^3/uL; Eosinophils% 0.9 % (0-5); Hematocrit 49.8 % (40-54); Lymphocyte % 16.1 % (19-41); Mean Corp Hgb Conc 32.1 g/dL (32-36); Mean Corpuscular Hgb 29.4 pg (27.0-32.0); Mean Corpuscular Volume 91.4 fL (80-94); Mean Platelet Vol. 9.6 fl (6.2-12.0); Monocyte# 0.52 X10^3/uL; NRBC Flagged by Analyzer 0 % (0-5); Neutrophil # 5.62 X10^3/uL (2.7-7.7); Neutrophil % 75.3 % (47-70); Platelet Count 228 K/mm3 (150-450); RBC Distribution Width CV 13.6 % (11.6-14.6); RBC Distribution Width SD 46.1 fl (35.1-43.9); Red Blood Count 5.45 M/mm3 (4.6-6.2); White Blood Count 7.5 K/mm3 (4.4-11.0)
[2022-08-18 17:55] LABS: AST(SGOT) 33 U/L (15-37); Alanine Aminotransfer ALT/SGPT 18 U/L (16-61); Alkaline Phosphatase 69 U/L (45-117); Anion Gap 9 (5-15); BUN 24 mg/dL (7-18); BUN/Creat Ratio 17.8 RATIO (10-20); Bilirubin, Direct 0.29 mg/dL (0.00-0.30); Calcium,Total 9.8 mg/dL (8.5-10.1); Chloride 99 mmol/L (98-107); Creatinine, Serum 1.35 mg/dL (0.70-1.30); EST Glomerular Filtration Rate 54 mL/min (>60); Est Glom Filt Rate - Afr Amer 65 mL/min (>60); Estimated Creatinine Clearance 38.64 ml/min; Globulin 4.7 g/dL (2.2-4.2); Glucose 139 mg/dL (74-106); Lipase 85 U/L (13-75); Potassium 4.7 mmol/L (3.5-5.1); Protein, Total 8.7 g/dL (6.4-8.2); Sodium Level 133 mmol/L (136-145); Troponin-I HS 5 pg/mL (3.0-78.0)
[2022-08-18 18:00] LABS: Prothrombin Time (Protime)PT. 13.1 SECONDS (11.7-14.9)
[2022-08-18 18:09] LABS: Lactic Acid 1.7 mmol/L (0.4-1.9)
--- NOTE | 2022-08-18 18:15 | RAD_ITS ---
INDICATION: chest pain EXAMINATION/TECHNIQUE: X-RAY - XR Chest 1 View COMPARISON: CT December 21. FINDINGS: The cardiac silhouette and mediastinal contours are within normal limits. No focal airspace consolidation or pleural effusion is definitively identified. There is no pneumothorax. Degenerative changes of the spine are present. RAD/Chest 1 View (Portable) IMPRESSION: No acute cardiopulmonary disease identified radiographically. Electronically Signed: Thang Yeung MD at 18:31 EDT ,
[2022-08-18] MEDS: 0.9% Normal Saline 1,000 ML 100 ML IV (19:40)
--- NOTE | 2022-08-18 20:17 | PCM.HP.STD ---
HPI - General HPI Narrative KAT LEGER, is a 82 M who presents with nausea diarrhea. Patient reports this started yesterday afternoon. He says that whenever he ate anything he began to have indigestion and hiccups. He says that he has been having dark diarrhea and dark vomiting. He had some epigastric pain but currently he is having no abdominal pain. He reports he does not know the last time he passed flatus but he has been having liquid stools. [facility] Medical History Abnormal electrocardiogram Ascending aorta dilatation Hyperlipidemia Home Medications simvastatin 10 mg tablet (Zocor) 10 mg PO QHS 02/13/18 [History Last Taken Unknown] Allergy/AdvReac Type Severity Reaction Status Date / Time No Known Allergies Allergy Verified 08/18/22 17:01 Family History Grandfather No problems noted. Father Sudden cardiac Age 65 Hypertension Other Heart disease Surgical History History of left heart catheterization (11/19/12) History of surgery on lower extremity Social History Smoking Status: Never smoker ROS Constitutional Constitutional: Reports anorexia; Denies chills or fatigue Eyes Eyes: Denies blurry vision ENT HEENT: Denies abnormal hearing Cardiovascular Cardiovascular: Denies chest pain Gastrointestinal Gastrointestinal: Reports abdominal pain, diarrhea, nausea and vomiting; Denies coffee ground emesis, constipation or rectal bleeding Genitourinary Genitourinary: Denies change in urinary stream Musculoskeletal Musculoskeletal: Denies abnormal gait Integumentary Integumentary: Denies new lesions Neurologic Neurologic: Denies abnormal gait Psychiatric Psychiatric: Denies anxiety Endocrine Endocrinology: Denies flushing Hematologic/Lymphatic Hematologic/Lymphatic: Denies easy bleeding Vital Signs Vital Signs Vital Signs: 08/18/22 16:58 Temperature 96.9 F L Temperature Source Temporal Pulse Rate 83 Respiratory Rate 18 Blood Pressure 141/77 H Blood Pressure Mean 98 Pulse Ox 98 Oxygen Delivery Method Room Air Weight Weight: 138 lb Body Mass Index (BMI) 22.2 Physical Exam Const oriented x3 Resp normal respiratory effort Cardio regular rate and regular rhythm GI normal to inspection, nondistended, normoactive bowel sounds Extremity normal to inspection Results Lab / Micro Data Result Diagrams: 08/18/22 17:25 08/18/22 17:25 Labs: Laboratory Results - last 24 hr 08/18/22 17:25: WBC 7.5, RBC 5.45, Hgb 16.0, Hct 49.8, MCV 91.4, MCH 29.4, MCHC 32.1, RDW Std Deviation 46.1 H, RDW Coeff of Dalia 13.6, Plt Count 228, MPV 9.6, Immature Gran % (Auto) 0.300, Neut % (Auto) 75.3 H, Lymph % (Auto) 16.1 L, [place] % (Auto) 7.0, Eos % (Auto) 0.9, Baso % (Auto) 0.4, Absolute Neuts (auto) 5.6, Absolute Lymphs (auto) 1.20, Nucleated RBC % 0 08/18/22 17:25: Sodium 133 L, Potassium 4.7, Chloride 99, Carbon Dioxide 25.0, Anion Gap 9, BUN 24 H, Creatinine 1.35 H, Estim Creat Clear Calc 38.64, Est GFR (MDRD) Af Amer 65, Est GFR (MDRD) Non-Af 54 L, BUN/Creatinine Ratio 17.8, Glucose 139 H, Calcium 9.8, Total Bilirubin 1.30 H, Direct Bilirubin 0.29, AST 33, ALT 18, Alkaline Phosphatase 69, Troponin I High Sens 5, Total Protein 8.7 H, Albumin 4.0, Globulin 4.7 H, Lipase 85 H 08/18/22 17:25: Lactic Acid 1.7 08/18/22 17:25: PT 13.1, INR 1.0, APTT 25.0 Micro: Microbiology 08/18/22 17:35 Stool Stool Occult Blood (SILVER) - Final Radiology Impression Abdomen/Pelvis CT 08/18/22 17:18 IMPRESSION: There are some nonspecific fluid-filled loops of proximal small bowel with gradual transition to some small fluid-filled loops of distal small bowel. No focal transition point appreciated. There is some colonic fluid. Consider infectious or inflammatory enterocolitis in the appropriate clinical setting. Partial early obstruction is not excluded given the disproportionate prominence of jejunal loops compared with more collapsed ileal loops. Electronically Signed: Thang Yeung MD at 18:54 EDT , Chest X-Ray 08/18/22 18:15 IMPRESSION: No acute cardiopulmonary disease identified radiographically. Electronically Signed: Thang Yeung MD at 18:31 EDT , Assessment & Plan Assessment/Plan (1) Gastroenteritis: PLAN: Patient came in with nausea vomiting and diarrhea. I reviewed the patient CT scan shows some dilation of bowel but it seems like before and after these areas of dilation there were normal caliber bowel with liquid. Patient is never had surgery so there is no reason for adhesions. White count is normal. Patient has also got a fluid-filled colon and he has been having diarrhea along with his vomiting. Patient denies any abdominal pain at this time but he did have some abdominal pain and epigastric pain earlier today. Patient likely has gastroenteritis. Due to his elevated creatinine and hematocrit I recommended him being admitted for observation and hydration. I will start him on IV fluids and clear liquids as tolerated. If he is tolerating clear liquids and his nausea has resolved tomorrow I will advance his diet and hopefully discharge him home. Shahriar Middleton MD Pager: [facility] [address] [place] [address], [address] [place] [address] Office:
[2022-08-18 20:36] VITALS: BP 138/64; PULSE 69; RESP 16; TEMP 37.2; O2SAT 94
[2022-08-18 21:31] VITALS: BMI 22.8
[2022-08-18 21:48] VITALS: BP 134/72; PULSE 69; RESP 16; TEMP 37.3; O2SAT 97
[2022-08-18] MEDS: Atorvastatin Calcium 10 MG Tablet 5 MG PO (22:14)
[2022-08-19] MEDS: 0.9% Normal Saline 1,000 ML 100 ML IV (01:55)
[2022-08-19 06:01] VITALS: BP 107/46; PULSE 54; RESP 16; TEMP 36.6; O2SAT 95
[2022-08-19 07:13] LABS: Anion Gap 6 (5-15); BUN 19 mg/dL (7-18); BUN/Creat Ratio 20.2 RATIO (10-20); Calcium,Total 7.8 mg/dL (8.5-10.1); Chloride 109 mmol/L (98-107); Creatinine, Serum 0.94 mg/dL (0.70-1.30); EST Glomerular Filtration Rate 82 mL/min (>60); Est Glom Filt Rate - Afr Amer 99 mL/min (>60); Estimated Creatinine Clearance 56.56 ml/min; Glucose 94 mg/dL (74-106); Potassium 4.2 mmol/L (3.5-5.1); Sodium Level 139 mmol/L (136-145)
--- NOTE | 2022-08-19 08:11 | PN.SURG_ITS ---
Subjective Subjective Patient reports feeling much better today. No nausea or vomiting. No epigastric pain. Objective Data Objective Data Vital Signs: Vital Signs Temp Pulse Resp BP Pulse Ox O2 Del Method 97.8 F 54 L 16 107/46 L 95 Room Air 08/19/22 06:01 08/19/22 06:01 08/19/22 06:01 08/19/22 06:01 08/19/22 06:01 08/19/22 06:01 Oxygen Delivery Method Room Air Weight: 142 lb Body Mass Index (BMI) 22.8 Intake & Output: Intake and Output for Last 24 Hours 08/17/22 08/18/22 08/19/22 23:59 23:59 23:59 Intake Total 1000 / 1300 1030 / 1030 Output Total 600 / 600 Balance 1000 / 1000 430 / 430 Lab / Micro Data Result Diagrams: 08/18/22 17:25 08/19/22 06:00 Labs: Laboratory Results - last 24 hr 08/18/22 17:25: WBC 7.5, RBC 5.45, Hgb 16.0, Hct 49.8, MCV 91.4, MCH 29.4, MCHC 32.1, RDW Std Deviation 46.1 H, RDW Coeff of Dalia 13.6, Plt Count 228, MPV 9.6, Immature Gran % (Auto) 0.300, Neut % (Auto) 75.3 H, Lymph % (Auto) 16.1 L, [place] % (Auto) 7.0, Eos % (Auto) 0.9, Baso % (Auto) 0.4, Absolute Neuts (auto) 5.6, Absolute Lymphs (auto) 1.20, Nucleated RBC % 0 08/18/22 17:25: Sodium 133 L, Potassium 4.7, Chloride 99, Carbon Dioxide 25.0, Anion Gap 9, BUN 24 H, Creatinine 1.35 H, Estim Creat Clear Calc 38.64, Est GFR (MDRD) Af Amer 65, Est GFR (MDRD) Non-Af 54 L, BUN/Creatinine Ratio 17.8, Glucose 139 H, Calcium 9.8, Total Bilirubin 1.30 H, Direct Bilirubin 0.29, AST 33, ALT 18, Alkaline Phosphatase 69, Troponin I High Sens 5, Total Protein 8.7 H , Albumin 4.0, Globulin 4.7 H, Lipase 85 H 08/18/22 17:25: Lactic Acid 1.7 08/18/22 17:25: PT 13.1, INR 1.0, APTT 25.0 08/19/22 06:00: Sodium 139, Potassium 4.2, Chloride 109 H, Carbon Dioxide 24.0, Anion Gap 6, BUN 19 H, Creatinine 0.94, Estim Creat Clear Calc 56.56, Est GFR (MDRD) Af Amer 99, Est GFR (MDRD) Non-Af 82, BUN/Creatinine Ratio 20.2 H, Glucose 94, Calcium 7.8 L Micro: Microbiology 08/18/22 17:35 Stool Stool Occult Blood (SILVER) - Final Radiography Diagnostic Testing: Radiology Impression Abdomen/Pelvis CT 08/18/22 17:18 IMPRESSION: There are some nonspecific fluid-filled loops of proximal small bowel with gradual transition to some small fluid-filled loops of distal small bowel. No focal transition point appreciated. There is some colonic fluid. Consider infectious or inflammatory enterocolitis in the appropriate clinical setting. Partial early obstruction is not excluded given the disproportionate prominence of jejunal loops compared with more collapsed ileal loops. Electronically Signed: Thang Yeung MD at 18:54 EDT , Chest X-Ray 08/18/22 18:15 IMPRESSION: No acute cardiopulmonary disease identified radiographically. Electronically Signed: Thang Yeung MD at 18:31 EDT , Physical Exam Const oriented x3 Resp normal respiratory effort GI soft to palpation and non-tender Assessment & Plan Assessment/Plan (1) Gastroenteritis: PLAN: Patient's creatinine has improved and he feels much better. As long as he is able to tolerate clear liquids and keep himself high. He can go home and advance diet as tolerated. Shahriar Middleton MD Pager: [facility] [address] [place] [address], [address] [place] [address] Office:
--- NOTE | 2022-08-19 08:12 | PCM.DC.SUM ---
Providers Date of Admission: 08/18/22 Primary Care Physician: Dr. Sia Trevizo DO Reason For Visit: GASTROENTERITIS Diagnosis Discharge Diagnosis (1) Gastroenteritis: Status: Acute Code(s): K52.9 - Noninfective gastroenteritis and colitis, unspecified Plan: Patient's creatinine has improved and he feels much better. As long as he is able to tolerate clear liquids and keep himself high. He can go home and advance diet as tolerated. Shahriar Middleton MD Pager: [facility] [address] [place] [address], [address] [place] [address] Office: Medications at Discharge Home Medications simvastatin 10 mg tablet (Zocor) 10 mg PO QHS 02/13/18 Hospital Course Summary of Care Provided Hospital Course: Patient was admitted due to dehydration and gastroenteritis. Overnight the patient says he is feeling better and he is tolerating clear liquids. Weight / BMI Weight Weight: 142 lb Body Mass Index (BMI) 22.8 ABG / Lab / Microbiology Data Result Diagrams: 08/18/22 17:25 08/19/22 06:00 Laboratory: Laboratory Results - last 24 hr 08/18/22 17:25: WBC 7.5, RBC 5.45, Hgb 16.0, Hct 49.8, MCV 91.4, MCH 29.4, MCHC 32.1, RDW Std Deviation 46.1 H, RDW Coeff of Dalia 13.6, Plt Count 228, MPV 9.6, Immature Gran % (Auto) 0.300, Neut % (Auto) 75.3 H, Lymph % (Auto) 16.1 L, Zapata % (Auto) 7.0, Eos % (Auto) 0.9, Baso % (Auto) 0.4, Absolute Neuts (auto) 5.6, Absolute Lymphs (auto) 1.20, Nucleated RBC % 0 08/18/22 17:25: Sodium 133 L, Potassium 4.7, Chloride 99, Carbon Dioxide 25.0, Anion Gap 9, BUN 24 H, Creatinine 1.35 H, Estim Creat Clear Calc 38.64, Est GFR (MDRD) Af Amer 65, Est GFR (MDRD) Non-Af 54 L, BUN/Creatinine Ratio 17.8, Glucose 139 H, Calcium 9.8, Total Bilirubin 1.30 H, Direct Bilirubin 0.29, AST 33, ALT 18, Alkaline Phosphatase 69, Troponin I High Sens 5, Total Protein 8.7 H, Albumin 4.0, Globulin 4.7 H, Lipase 85 H 08/18/22 17:25: Lactic Acid 1.7 08/18/22 17:25: PT 13.1, INR 1.0, APTT 25.0 08/19/22 06:00: Sodium 139, Potassium 4.2, Chloride 109 H, Carbon Dioxide 24.0, Anion Gap 6, BUN 19 H, Creatinine 0.94, Estim Creat Clear Calc 56.56, Est GFR (MDRD) Af Amer 99, Est GFR (MDRD) Non-Af 82, BUN/Creatinine Ratio 20.2 H, Glucose 94, Calcium 7.8 L Microbiology: Microbiology 08/18/22 17:35 Stool Stool Occult Blood (SILVER) - Final Radiography Diagnostic Testing: Radiology Impression Abdomen/Pelvis CT 08/18/22 17:18 IMPRESSION: There are some nonspecific fluid-filled loops of proximal small bowel with gradual transition to some small fluid-filled loops of distal small bowel. No focal transition point appreciated. There is some colonic fluid. Consider infectious or inflammatory enterocolitis in the appropriate clinical setting. Partial early obstruction is not excluded given the disproportionate prominence of jejunal loops compared with more collapsed ileal loops. Electronically Signed: Thang Yeung MD at 18:54 EDT Reading Location ID and State: [address] [place] [address] Tel , Service support , Chest X-Ray 08/18/22 18:15 IMPRESSION: No acute cardiopulmonary disease identified radiographically. Electronically Signed: Thang Yeung MD at 18:31 EDT , D/C Instructions Discharge Diet: Light diet - advance as tolerated Discharge Activity: Return to Normal Activity Call your doctor if your incision/area has: Increased Pain/ Swelling Call your doctor if you observe: Inability to have a bowel movement Please Follow Up With: Shahriar Middleton MD When: As needed [phone] Meaningful Use Info Meaningful Use Diagnoses (Choose all that apply): None applicable Discharge Plan Admission Admit Date/Time: 08/18/22 20:13 Attending Provider: Shahriar Middleton Primary Care Provider: Sia Trevizo Discharge Orders/Prescriptions Prescriptions: Continued simvastatin [Zocor] 10 mg tablet 10 mg PO QHS Referrals / Follow Up: Sia Trevizo DO [Primary Care Provider] - Disposition Disposition (needs filled in before D/C Order can be placed): Home, Self Care
[2022-08-19 08:30] VITALS: BP 118/62; PULSE 56; RESP 18; TEMP 36.4; O2SAT 96
--- NOTE | 2022-08-19 09:04 | PHA.DC.MR ---
Pharmacy Service has performed discharge medication reconciliation for this patient. The patient's discharge medication list was reviewed for discrepancies and discrepancies were resolved. Home Medications simvastatin 10 mg tablet (Zocor) 10 mg PO QHS 02/13/18
--- NOTE | 2022-08-19 09:28 | CASEMGMT ---
RN CM into pt room, pt sitting up in bed with at bedside. Pt denies any homegoing needs at this time.
== END 2022-08-19 10:24 | disposition home or self-care (01) ==
LOC: ED 20:23 → MS3 20:35
PROVIDERS: Admitting Provider Surgery; Emergency Provider Emergency Medicine; PCP Internal Medicine; Visit Provider Surgery
DX: K52.9 Noninfective gastroenteritis and colitis, unspecified (principal); E86.0 Dehydration; E78.5 Hyperlipidemia, unspecified; Z79.899 Other long term (current) drug therapy
CPT/HCPCS: 36415; 71045; 74177; 80048; 80076; 82274; 83605; 83690; 84484; 85025; 85610; 85730; 93005; 96361; 96374; 99221; 99284; J7030; Q9967; A4216; G0378; J2405

== ENCOUNTER → 2023-01-17 | Outpatient (CLI) | payer MEDICARE, BC, SELFPAY ==
--- NOTE | 2023-01-17 06:43 | ECHOD_ITS ---
Reason For Study: Chest pain, Dilated Ao root Procedure This was a 2D Doppler, Color Flow transthoracic echocardiogram. Exam performed in department. Left Ventricle Normal LV size. Left ventricular systolic function is normal. The estimated ejection fraction is 70 %. No regional wall motion abnormalities noted. Right Ventricle Normal RV size. Normal systolic function. Atria Normal left atrium. Normal right atrium. Bubble contrast study negative for right to left interatrial shunt. Mitral Valve Normal mitral valve. There is mild mitral annular calcification. Mild (1+) eccentric mitral valve insufficiency. Tricuspid Valve Normal tricuspid valve. Mild tricuspid valve insufficiency. Pulmonary artery systolic pressure is 24 mmHg. Aortic Valve Trisinus/trileaflet aortic valve. Pulmonic Valve Normal pulmonic valve. Mild (1+) pulmonic valve insufficiency. Great Vessels Mildly dilated aortic root. Compared to the previous the aortic root is unchanged. The pulmonary artery is normal size. Normal inferior vena cava. Pericardium/Pleural No pericardial effusion. Medication Performed a rapid injection of agitated mix of 9 cc saline and 1cc air to assess for atrial septal defect. MMode/2D Measurements & Calculations LVIDd: 3.4 cm IVSd: 0.99 cm Ao root diam: 4.2 cm LVIDs: 1.6 cm LVPWd: 0.91 cm RVDd: 3.8 cm FS: 52.4 % LAV(MOD-bp): 36.5 ml LVAd ap4: 21.7 cm2 LVAd ap2: 22.4 cm2 LAV(MOD-bp) Indexed: 21.1 ml/m2 LVLd ap4: 7.4 cm LVLd ap2: 7.5 cm LAV(MOD-sp2): 41.1 ml EDV(MOD-sp4): 51.1 ml EDV(MOD-sp2): 55.2 ml LAV(MOD-sp4): 33.8 ml EDV(sp4-el): 54.0 ml EDV(sp2-el): 56.6 ml LVAs ap4: 11.0 cm2 LVAs ap2: 11.1 cm2 LVLs ap4: 6.2 cm LVLs ap2: 6.3 cm ESV(MOD-sp4): 16.8 ml ESV(MOD-sp2): 17.1 ml ESV(sp4-el): 16.4 ml ESV(sp2-el): 16.6 ml EF(MOD-sp4): 67.1 % EF(MOD-sp2): 69.1 % EF(sp4-el): 69.6 % SV(MOD-sp4): 34.3 ml SV(MOD-sp2): 38.1 ml SV(sp4-el): 37.6 ml LA A4 area: 14.2 cm2 LA dimension(2D): 3.1 cm RA A4 area: 13.9 cm2 TAPSE: 2.1 cm Time Measurements MV dec time: 0.37 sec Doppler Measurements & Calculations MV E max marlon: 77.8 cm/sec Lat Peak E' Marlon: 11.7 cm/sec Med Peak E' Marlon: 4.9 cm/sec MV A max marlon: 113.8 cm/sec E/E' lat: 6.6 E/E' med: 15.8 MV E/A: 0.68 Ao V2 max: 145.2 cm/sec LV V1 max: 89.9 cm/sec MV dec slope: 207.5 cm/sec2 Ao max P.4 mmHg LV V1 max P.2 mmHg Ao V2 mean: 96.4 cm/sec LV V1 mean P.8 mmHg Ao mean P.3 mmHg LV V1 mean: 60.8 cm/sec Ao V2 VTI: 34.9 cm LV V1 VTI: 22.5 cm AV (velocity ratio): 0.64 PA V2 max: 89.8 cm/sec TR max marlon: 237.8 cm/sec TR max P.6 mmHg ECHO/Echo Complete Interpretation Summary Normal LV size. Left ventricular systolic function is normal. The estimated ejection fraction is 70 %. Mild (1+) eccentric mitral valve insufficiency. Mildly dilated aortic root. Compared to the previous the aortic root is unchanged. The global longitudinal strain is normal. The global longitudinal strain = -19. 8 % (normal). Ordering Physician: Dave Beckham Referring Physician: Sia Trevizo M.D. Performed By: Jamila, Paloma, RDCS
--- NOTE | 2023-01-17 19:28 | STRESSREP_ITS ---
Stress Test Report Exercise myocardial perfusion stress test. 82-year-old man with no evidence of coronary artery disease Stress protocol: Resting EKG demonstrates sinus bradycardia with a rate of 50 bpm resting blood pressure is 130/70 mmHg. The patient exercised according to the regular Waylon protocol for a total duration of 9 minutes and 15 seconds attaining a maximum heart rate of 137 bpm which was 97% of maximum predicted heart rate; the maximum workload was 10.8 metabolic equivalents. At rest there were no ST or T wave changes noted to suggest ischemia and at peak exercise upsloping ST changes only were noted which did not meet the criteria for ischemia. No clinical angina was noted the test was terminated due to the target heart rate being a chieved/fatigue. The peak blood pressure was 170/80 mmHg. Rate-pressure product was 22,600. Myocardial perfusion protocol. 11.5 mCi of technetium 99m sestamibi was injected at rest. The patient ex ercised according to regular Waylon protocol for total duration of 9 minutes and 15 seconds and at peak exercise 33.1 mCi of technetium 99m sestamibi was injected stress images were obtained stress and rest images were reconstructed in comparing the short axis vertical long and horizontal long axis. Gated images were also obtained. Perfusion SPECT analysis: Review of the stress images demonstrate normal uptake of tracer noted in all areas of the myocardium. The resting images similarly demonstrate normal uptake of tracer noted in all areas of the myocardium. No areas of reversibility are noted to suggest ischemia no previous infarct was noted. Gated SPECT analysis: The gated ejection fraction is 81%. Conclusion: Normal exercise myocardial perfusion stress test at a high workload Preserved ejection fraction.
== END | disposition home or self-care (01) ==
LOC: CVS 06:43
PROVIDERS: PCP Internal Medicine; Referring Provider Internal Medicine Cardiovascular Disease; Visit Provider Internal Medicine Cardiovascular Disease
DX: R07.9 Chest pain, unspecified (principal); I77.810 Thoracic aortic ectasia
CPT/HCPCS: 78452; 93017; 93306; A9500; A4216

== ENCOUNTER → 2023-03-25 | Outpatient (CLI) | payer MEDICARE, BC, SELFPAY ==
[2023-03-25 09:15] LABS: PSA,Total - Annual Screen 1.51 ng/mL (0.00-4.00)
== END | disposition home or self-care (01) ==
LOC: LAB 08:26
PROVIDERS: PCP Internal Medicine; Referring Provider Nurse Practitioner; Visit Provider Nurse Practitioner
DX: Z12.5 Encounter for screening for malignant neoplasm of prostate (principal)
CPT/HCPCS: 36415; 84153; G0103

== ENCOUNTER → 2024-01-03 | Outpatient (CLI) | payer MEDICARE, BC, SELFPAY ==
[2024-01-03 10:36] LABS: AST(SGOT) 24 U/L (15-37); Alanine Aminotransfer ALT/SGPT 13 U/L (16-61); Albumin, Serum 3.5 g/dL (3.2-5.0); Alkaline Phosphatase 67 U/L (45-117); Anion Gap 5 (5-15); BUN 14 mg/dL (7-18); BUN/Creat Ratio 13.5 RATIO (10-20); Bilirubin, Direct 0.26 mg/dL (0.00-0.30); Calcium,Total 8.9 mg/dL (8.5-10.1); Chloride 101 mmol/L (98-107); Cholesterol 119 mg/dL (200); Creatinine, Serum 1.04 mg/dL (0.70-1.30); EST Glomerular Filtration Rate 73 mL/min (>60); Est Glom Filt Rate - Afr Amer 88 mL/min (>60); Globulin 3.8 g/dL (2.2-4.2); Glucose 75 mg/dL (74-106); High Density Lipoprotein 66 mg/dL; Potassium 4.4 mmol/L (3.5-5.1); Protein, Total 7.3 g/dL (6.4-8.2); Sodium Level 133 mmol/L (136-145); Triglycerides 65 mg/dL; Very Low Density Lipoprotein 13 mg/dL (5-40)
== END | disposition home or self-care (01) ==
LOC: LAB 09:54
PROVIDERS: PCP Internal Medicine; Referring Provider Internal Medicine Cardiovascular Disease; Visit Provider Internal Medicine Cardiovascular Disease
DX: E78.5 Hyperlipidemia, unspecified (principal); I77.810 Thoracic aortic ectasia
CPT/HCPCS: 36415; 80048; 80061; 80076

== ENCOUNTER → 2024-03-26 | Outpatient (CLI) | payer MEDICARE, BC, SELFPAY ==
--- NOTE | 2024-03-26 18:40 | CT_ITS ---
STUDY: CTA Chest WO/W Contrast Injection 03/28/2024 9:50 PM REASON FOR EXAM: Male, 83 years old. aneurysm TECHNIQUE: The examination was performed with the intravenous administration of IV 75mL Isovue-370 contrast material. Post-processing of the angiographic images was performed, with axial imaging and 3D reconstruction. MIPS images were obtained. Individualized dose optimization techniques were used for this CT. COMPARISON: 12.21.21 FINDINGS: There are degenerative changes of the shoulders. There is no pneumothorax. There is no demonstrated pleural abnormality. There are calcifications of the coronary arteries. Normal mediastinum. Normal hilar regions. Normal pulmonary arteries. There is atherosclerotic calcification of the aortic arch with tortuosity and elongation of the aortic arch and descending thoracic aorta. There is aneurysmal dilatation of the ascending aorta. The transverse diameter of the ascending aorta measures (in mm): 47. There are multi-level degenerative changes of the thoracic spine. There are no acute findings of the upper abdomen. 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 This is slightly larger than the previous study. No PE Electronically Signed: Raji Bowen MD at 21:54 EST ,
[2024-03-26 18:47] LABS: CREATININE FINGERSTICK < 1.0 mg/dL (0.70-1.30); EGFR FINGERSTICK > 60.0000 mL/min (>60)
== END | disposition home or self-care (01) ==
LOC: CT 17:43
PROVIDERS: PCP Internal Medicine; Referring Provider Internal Medicine Cardiovascular Disease; Visit Provider Internal Medicine Cardiovascular Disease
DX: I77.810 Thoracic aortic ectasia (principal); E78.5 Hyperlipidemia, unspecified
CPT/HCPCS: 71275

== ENCOUNTER → 2024-03-27 | Outpatient (CLI) | payer MEDICARE, BC, SELFPAY ==
[2024-03-27 09:07] LABS: AST(SGOT) 28 U/L (15-37); Alanine Aminotransfer ALT/SGPT 16 U/L (16-61); Albumin, Serum 3.5 g/dL (3.2-5.0); Alkaline Phosphatase 66 U/L (45-117); Anion Gap 3 (5-15); BUN 16 mg/dL (7-18); BUN/Creat Ratio 15.4 RATIO (10-20); Calcium,Total 8.9 mg/dL (8.5-10.1); Chloride 104 mmol/L (98-107); Creatinine, Serum 1.04 mg/dL (0.70-1.30); EST Glomerular Filtration Rate 73 mL/min (>60); Est Glom Filt Rate - Afr Amer 88 mL/min (>60); Globulin 3.6 g/dL (2.2-4.2); Glucose 97 mg/dL (74-106); Potassium 4.8 mmol/L (3.5-5.1); Protein, Total 7.1 g/dL (6.4-8.2); Sodium Level 136 mmol/L (136-145)
[2024-03-30 03:06] LABS: PSA, Total 1.2 ng/mL (0.0-4.0)
== END | disposition home or self-care (01) ==
LOC: LAB 08:18
PROVIDERS: PCP Internal Medicine; Referring Provider Internal Medicine; Visit Provider Internal Medicine
DX: I25.10 Atherosclerotic heart disease of native coronary artery without angina pectoris (principal); Z12.5 Encounter for screening for malignant neoplasm of prostate
CPT/HCPCS: 36415; 80053; 84153

== ENCOUNTER → 2024-07-14 | Outpatient (CLI) | payer MEDICARE, BC, SELFPAY | END | disposition home or self-care (01) | LOC: LABSPEC 15:11 | PROVIDERS: PCP Internal Medicine; Referring Provider Otolaryngology; Visit Provider Otolaryngology | DX: J02.9 Acute pharyngitis, unspecified (principal) | CPT/HCPCS: 87070 ==

== ENCOUNTER → 2025-02-11 | Outpatient (CLI) | payer MEDICARE, BC, SELFPAY ==
--- NOTE | 2025-02-11 12:43 | CT_ITS ---
PROCEDURE: LIMITED CHEST CT CARDIAC ONLY 02/11/2025 REASON FOR EXAM: CHEST PAIN History of dilated aortic root. TECHNIQUE: Procedure Code: [id number] Modality: CT Procedure: LIMITED CHEST CT CARDIAC ONLY Coronal and Sagittal reconstruction series were provided. CONTRAST: Isovue 370 VOLUME: 56 mL One or more dose reduction techniques were used (e.g., Automated exposure control, adjustment of the mA and/or kV according to patient size, use of iterative reconstruction technique). RADIATION DOSE SUMMARY: CTDlvol: 32 mGy DLP: 1275.9 mGycm COMPARISON: Prior study dated March 26, 2024. FINDINGS: The root of the ascending thoracic aorta measures 42 mm in transverse dimension by 45 mm in AP dimension. This is essentially unchanged. Coronary artery calcification. Calcification of the aortic arch. The visualized portions of the lung are unremarkable. CT/Limited Chest CT Cardiac Only IMPRESSION: Stable examination. Reading Location: [id number]
[2025-02-11 12:59] VITALS: BP 169/58; PULSE 55; RESP 16; TEMP 36.2; O2SAT 99; BMI 22.6
[2025-02-11 13:04] VITALS: BP 169/58; PULSE 55
[2025-02-11] MEDS: Nitroglycerin SL (ED/IMG/CATH) 0.4 MG TABLET SL (13:04)
[2025-02-11 13:20] VITALS: BP 127/57; PULSE 62; RESP 18; O2SAT 98
--- NOTE | 2025-02-18 15:57 | CCTA.WCONT ---
CCTA w/Cont Coronary Arteries Date of Study:: 02/11/25 Hyperlipidemia dilated aortic root Coronary Calcium Scoring: High-resolution Computed Tomographic imaging of the chest was performed on [02/11/2025], with particular attention paid to the coronary arteries. Intravenous contrast agent was administered per protocol and images reconstructed and displayed. LEFT MAIN CORONARY ARTERY: This appears to be angiographically normal and bifurcates the left anterior descending artery and left circumflex artery. No significant calcification is noted in this vessel. [] LEFT ANTERIOR DESCENDING CORONARY ARTERY: This is a medium size vessel with proximal areas of calcification noted of at least moderate stenosis. There is a first diagonal vessel noted with mild focal calcification present. The left anterior descending artery continues towards the apex of the ventricle. [] LEFT CIRCUMFLEX CORONARY ARTERY: Nondominant vessel with proximal moderate calcification with likely moderate stenosis. The AV groove branch continues and gives off a second obtuse marginal branch with no significant calcification noted variant. [] RIGHT CORONARY ARTERY: Dominant large right coronary artery arising from the right coronary cusp with proximal and mid focal calcification with probable moderate stenosis and focal distal right coronary calcification present. [] THORACIC AORTA: Mildly dilated ascending aorta noted [] PULMONARY ARTERY: [] LEFT ATRIUM/APPENDAGE: [] MITRAL VALVE: [] AORTIC VALVE: [] LEFT VENTRICLE: [] CORONARY CALCIUM SCORE: [] Calcium Scoring Interpretation: Different methods to categorize the overall amount of coronary plaque. Overall amount CAC SIS Visual of coronary plaque P1 Mild -100 <2 1-2 vessels with mild amount of plaque P2 Moderate 101-300 3-4 1-2 vessels with moderate amount, 3 vessels with mild amount of plaque P3 Severe 301-999 5-7 3 vessels with moderate amount, 1 vessel with severe amount of plaque P4 Extensive >1000 >8 2-3 vessels with severe amount of plaque Conclusion: Moderate three-vessel calcification noted in the proximal to mid LAD, first obtuse marginal branch, and proximal and mid right coronary artery. There appears to be at least moderate stenosis present Mildly dilated aortic root noted.
== END | disposition home or self-care (01) ==
LOC: CT 12:35
PROVIDERS: PCP Internal Medicine; Referring Provider Internal Medicine Cardiovascular Disease; Visit Provider Internal Medicine Cardiovascular Disease
DX: R07.9 Chest pain, unspecified (principal); E78.5 Hyperlipidemia, unspecified
CPT/HCPCS: 75574; 76380; Q9967

== ENCOUNTER → 2025-02-24 | Outpatient (CLI) | payer MEDICARE, BC, SELFPAY ==
--- OUTSIDE RECORDS SUMMARY | 2025-02-24 07:10 | XMS RPT_ITS | CCD ---
Author Organization [facility] Care Team Providers Care Deputy Court Clerk Name Role Phone Sia Tinajero Unavailable Keren Vanessa Unavailable Raina Tatum Unavailable Unavailable Gravius, Rebekah Unavailable Unavailable Unavailable Unavailable JESENIA Montana Unavailable Unavailable Sia Tinajero Unavailable Keren Vanessa Unavailable Gravius, Rebekah Unavailable Unavailable Margie Hall Unavailable Unavailable Unavailable Unavailable Sia Tinajero DO Unavailable [phone] [place] , Dr. Michaud Unavailable Keren Vanessa MD Unavailable [phone] Myrna Hayward LPN Unavailable Unavailable Manbree MATA, Edna Unavailable Unavailable Unavailable Unavailable Sia Tinajero DO Attending Unavailable Keren Vanessa MD Referring Unavailable Sia Tinajero DO Consulting Unavailable Dr. Sia Tinajero Primary Care Provider [phone] Dr. Sia Tinajero Referring Provider [phone] Dr. Dave Beckham Attending Provider [phone] Sia Tinajero DO Unavailable [phone] Shauna MATA, Rebekah Unavailable Unavailable Hector Tamayo LPN Unavailable Unavailable Dr. Sia Tinajero Primary Care Provider [phone] Dr. Sia Tinajero Referring Provider Dr. Dave Beckham Attending Provider [phone] Sia Tinajero Primary Care Provider [phone] Dr. Jean-Claude Fletcher Emergency Provider [phone] Dr. Shahriar Middleton Attending Provider Dr. Shahriar Middleton Admit Provider [phone] Dr. Shahriar Middleton Other Provider Dr. Sia Tinajero Primary Care Provider [phone] Dr. Sia Tinajero Referring Provider [phone] Dr. Dave Beckham Attending Provider [employer], MEDICAL INSURANCE CODER-C Marcelino Diaz Attending Provider Dr. Sia Tinajero Primary Care Provider [phone] Dr. Sia Tinajero Referring Provider Dr. Dave Beckham Attending Provider [phone] [employer], MEDICAL INSURANCE CODER-C Marcelino Diaz Attending Provider Dr. Sia Tinajero DO Primary Care Provider [phone] Aleena GREENFIELD, Dr. Acosta Attending Provider Aleena GREENFIELD, Dr. Acosta Referring Provider Dr. Sia Tinajero DO Attending Provider [phone] Dr. Sia Tinajero DO Referring Provider [phone] Gail GREENFIELD, Dr. Kendall Rico Other Provider Dr. Wisam Sheets MD Attending Provider Dr. Wisam Sheets MD Referring Provider Dr. Sia Tinajero DO Primary Care Physician Referred, Self Attending Physician Unavailable Referred, Self Referring Provider Unavailable Dr. Sia Tinajero DO Referring Provider [phone] Aleena GREENFIELD, Dr. Acosta Attending Physician Sia Tinajero Primary Care Unavailable Dave Beckham Referring Unavailable Dave Beckham Attending Unavailable Sia Tinajero Primary Care Unavailable Sia Tinajero Referring Unavailable Aleena, Dustin Attending Unavailable Referred, Self Referring Unavailable Referred, Self Attending Unavailable Santhosh, Sia Primary Care Unavailable Sudeep, Pauler Referring Unavailabl e Wartmann, Robinopher Attending Unavailabl e Santhosh, Sia Primary Care Unavailable Santhosh, Sia Referring Unavailable Santhosh, Sia Attending Unavailable Santhosh, Sia Primary Care Unavailable Gail Tito Consulting Unavailable Santhosh, Sia Primary Care Unavailable Aleena, Dave Referring Unavailable Aleena, Dave Attending Unavailable Medications Current Medications Medication Drug Class(es) Dates Sig (Normalized) Sig (Original) simvastatin 10 mg oral tablet (20 sources) HMG-CoA Reductase Inhibitor Start: 02-13-2018 take 1 tablet by mouth at bedtime Simvastatin (Zocor) 10 mg tablet Active 10 mg PO AT BEDTIME February 13, 2018 1:00am Complies with drug therapy Start: 02-06-2018 take 1 tablet by lizette th once daily Zocor 10 MG Oral Tablet 1 Tablet QD for 0 days Quantity: 180 {Tablet} Refills: 1 Ordered: 06-Feb-2018 Raina Tatum LPN Start : 06-Feb-2018 Active Comments: patient would like 6 months at a time Start: 02-14-2017 take 1 tablet by lizette th once daily Zocor 10 MG Oral Tablet 1 Tablet QD for 0 days Quantity: 30 {Tablet} Refills: 5 Ordered: 14-Feb-2017 Santhosh DO, Sia Tinajero DOSia Start : 14-Feb-2017 Active Comment on above: patient would like 6 months at a time Completed/Discontinued Medications Medication Drug Class(es) Dates Sig (Normalized) Sig (Original) aspirin 81 mg delayed release oral tablet (20 sources) Nonsteroidal Anti-inflammatory Drug Start: 02-13-2018 End: 02-19-2019 take 1 tablet by mouth once daily Aspirin (Adult Aspirin Regimen) 81 mg tablet,delayed release (DR/EC) Discontinued 81 mg PO DAILY February 13, 2018 1:00am February 19, 2019 2:27pm End: 02-12-2019 take 1 tablet by mouth once daily ASPIRIN LOW DOSE, 81MG (PO Tab) 1 QD for 0 days Refills: 0 Ordered: 12-Feb-2019 Rebekah Villatoro CMA End : 12-Feb-2019 Discontinued Comments: This order discontinued per [facility]. Comment on above: This order discontin ued per [facility]. codeine phosphate 2 mg/ml / guaiFENesin 20 mg/ml oral solution (15 sources) Opioid Agonist Start: 03-10-20 End: 01-04-20 08 GUAIATUSSIN AC, 100-10MG/5ML (Oral Syrup) 1 Syrup QID/PRN for 0 days Quantity: 6 {Ounce(s)} Refills: 0 Ordered: 10-Mar-2007 JESENIA Montana LPN Start : 10-Mar-2007 End : 04-Jan-2008 Inactive tadalafil 10 mg oral tablet (15 sources) Phosphodiesterase 5 Inhibitor Start: 01-12-20 take 1 tablet by mouth every week as needed Cialis 10 MG Oral Tablet 1 Tablet 2times per week prn for 0 days Quantity: 10 {Tablet} Refills: 3 Ordered: 11-Jan-2022 Sia Tinajero DO, DO, Kathleen Start : 11-Jan-2022 Active Start: 12-28-2020 take 1 tablet by lizette th every week as needed Cialis 10 MG Oral Tablet 1 Tablet 2times per week prn for 0 days Quantity: 10 {Tablet} Refills: 3 Ordered: 28-Dec-2020 Sia Tinajero DO, DO, Kathleen Start : 28-Dec-2020 Active Start: 10-29-2011 End: 02-14-2017 Cialis 10 MG Oral Tablet 1 T ablet Tablet uad for 0 days Quantity: 10 {Tablet} Refills: 0 Ordered: 14-Feb-2017 Raina Tatum RN Start : 29-Oct-2011 End : 14-Feb-2017 Inactive 0.65 ml varicella-zoster vir us vaccine live (oka-merck) strain [id number] unt/ml injection (1 source) Start: 01-04-2008 End: 10-29-2011 ZOSTAVAX, 81800AEY/0.65ML (Subcutaneous Solution Reconstituted) 1 For Solution once for 0 days Quantity: 1 {For_Solution} Refills: 0 Ordered: 29-Oct-2011 Jordyn Mora LPN Start : 04-Jan-2008 End : 29-Oct-2011 Inactive Problems Active Problems Problem Classification Problem Date Documented Date Episodic/Chronic Aortic; peripheral; and visceral artery aneurysms (20 sources) Aortic aneurysm of unspecified site without mention of rupture; Translations: [Aortic aneurysm] Onset: 5 02-14-2017 Chronic Comment on above: will let aleena aguirre w will let aleena aguirre w-- no chg in 10+yrs stable - last ct 2 There is aneurysmal dilatation of the ascending aorta. The transversediameter of the ascending aorta measures [address] 01/2021 Chronic obstructive pulmonary disease and bronchiectasis (20 sources) Bronchitis; Translations: [Bronchitis] Resolved: 8 02-14-2017 Episodic Comment on above: viral getting better Chronic obstructive pulmonary disease and bronchiectasis (18 sources) Chronic obstructive pulmonary disease and bronchiectasis Coronary atherosclerosis and other heart disease (20 sources) Coronary arteriosclerosis; Translations: [Coronary artery disease] Onset: 5 01-19-2018 Chronic Comment on above: dr Beckham manages dr Beckham manages- to ld nomral cath Disorders of lipid metabolism (20 sources) Hypercholesterolemia; Translations: [Hypercholesteremia] Onset: 5 01-19-2018 Chronic Fluid and electrolyte disorders (8 sources) Dehydration; Translations: [Dehydration] 08-18-2022 Episodic Hyperplasia of prostate (20 sources) Benign prostatic hypertrophy without outflow obstruction; Translations: [BPH without urinary obstruction] 01-19-2018 Chronic Comment on above: sees dr Reinoso and follows psa and exam sees dr Reynolds and maribel strong psa and exam Noninfectious gastroenteritis (8 sources) Gastroenteritis; Translations: [Noninfective gastroenteritis and colitis, unspecified] 08-18-2022 Episodic Nonspecific chest pain (2 sources) Chest pain, unspecified; Translations: [Chest pain, unspecified] Onset: 5 Episodic Other endocrine disorders (20 sources) Hypoglycemia; Translations: [Hypoglycemia, unspecified] Resolved: 8 01-19-2018 Chronic Other gastrointestinal disorders (14 sources) Stool DNA-based colorectal cancer screening positive; Translations: [Positive colorectal cancer screening using Cologuard test] 01-31-2021 Episodic Other injuries and conditions due to external causes (10 sources) Thumb injury ; Translations: [Unspecified injury of left wrist, hand and finger(s), initial encounter] 06-27-2019 Episodic Other male genital disorders (20 sources) Impotence; Translations: [Male erectile dysfunction, unspecified] 02-12-2019 Chronic Comment on above: viagra 25 mg cause b ad headache. told about tyelnol with dose. try cialis lower dose talk about daily use Other male genital disorders (2 sources) Impotence of organic origin; Translations: [Erectile dysfunction] 02-14-2017 Chronic Comment on above: viagra 25 mg cause b ad headache. told about tyelnol with dose. try cialis lower dose talk about daily use Other male genital disorders (14 sources) Male erectile dysfunction, unspecified; Translations: [Erectile dysfunction] 02-11-2020 Chronic Comment on above: viagra 25 mg cause b ad headache. told about tyelnol with dose. try cialis lower dose talk about daily use Other nutritional; endocrine; and metabolic disorders (20 sources) Hypocalcemia; Translations: [Hypocalcemia] 02-06-2018 Chronic Comment on above: pt to do more calc r ich foods and nataliia - doesnt like taking big tabs Other nutritional; endocrine; and metabolic disorders (8 sources) Body mass index 25-29 - overweight; Translations: [BMI 28.0-28.9,adult] 02-06-2018 Chronic Other nutritional; endocrine; and metabolic disorders (9 sources) Body mass index 25-29 - overweight; Translations: [BMI 27.0-27.9,adult] 12-28-2020 Episodic Other nutritional; endocrine; and metabolic disorders (20 sources) Overweight in adulthood with body mass index of 25 or more but less than 30; Translations: [BMI 27.0-27.9,adult] 01-11-2022 Episodic Other screening for suspected conditions (not mental disorders or infectious disease) (20 sources) Patient encounter status; Translations: [Colon cancer screening (Renamed from Screening for colon cancer)] 12-28-2020 Episodic Comment on above: last colonoscopy 201 6- normal /jabuorsigned cologard 12/26 last psa 02/23 last colonoscopy 202 1 bengn polpy /jabuorsigned cologard 12/26 Residual codes; unclassified (17 sources) Other ill-defined conditions; Translations: [SYNDROME, NOS] Resolved: 8 02-14-2017 Episodic Comment on above: Anterior compartment , left leg Residual codes; unclassified (10 sources) Influenza vaccination declined; Translations: [Influenza vaccination declined (Renamed from Refused influenza vaccine)] 12-28-2020 Episodic Residual codes; unclassified (20 sources) Non-smoker; Translations: [Non-smoker] 12-28-2020 Episodic Unclassified (20 sources) Body mass index (BMI) 23.0-23.9, adult; Translations: [Other ill-defined conditions] Resolved: 8 02-14-2017 Episodic Comment on above: Anterior compartment , left leg Unclassified (20 sources) Hypercholesteremia Unclassified (20 sources) BPH without urinary obstruction Unclassified (20 sources) Unclassified (20 sources) WMV Resolved: 9 02-14-2017 Comment on above: angel 12-13 good ch shen up--psa lower ? testosterone low will checkscope 2005 , recommend shingles vaccine, talk about finishing vaccin hep b and a Unclassified (11 sources) Well Male Exam (V70.0) Unclassified (20 sources) Hypercholesteremia (272.0) Unclassified (20 sources) Hypoglycemia, unspecified Unclassified (11 sources) BPH without Urin. Obst (600.00) Unclassified (11 sources) SYNDROME, NOS (799.8) Unclassified (11 sources) BMI 23.0-23.9, adult Unclassified (20 sources) Non-smoker; Translations: [Non-smoker] 02-14-2017 Unclassified (19 sources) BMI 28.0-28.9,adult Unclassified (18 sources) Screening status; Translations: [Encounter for screening for malignant neoplasm of prostate (Renamed from Screening for prostate cancer)] 02-12-2019 Comment on above: last psa 02/23 Unclassified (11 sources) Colon cancer screening (Renamed from Screening for colon cancer) Unclassified (10 sources) Influenza vaccination declined; Translations: [Influenza vaccination declined (Renamed from Refused influenza vaccine)] 02-11-2020 Unclassified (6 sources) BMI 24.0-24.9, adult Unclassified (2 sources) BMI 27.0-27.9,adult Unclassified (4 sources) BRONCHITIS, NOT SPECIFIED ACUTE OR CHRONIC (490.) Past or Other Problems Problem Classification Problem Date Documented Date Episodic/Chronic Other upper respiratory infections (1 source) Acute pharyngitis, unspecified; Translations: [Acute pharyngitis, unspecified] Onset: 07-19-2024 Episodic Unclassified (15 sources) CATHETERIZATION 02-14-2017 Comment on above: Normal 2003 Unclassified (20 sources) Patient encounter status; Translations: [Encounter for routine history and physical exam for male] 02-14-2017 Comment on above: colonscopy 2006 last colonoscopy 201 6- normal /jabuor Unclassified (7 sources) Non-smoker; Translations: [Non-smoker] 02-12-2019 Unclassified (11 sources) Body mass index 20-24 - normal; Translations: [BMI 23.0-23.9, adult] Resolved: 02-06-2018 01-28-2020 Unclassified (9 sources) Annual Medicare Physical WITH abnormal findings (Renamed from Encounter for general adult medical examination with abnormal findings) Unclassified (2 sources) Positive colorectal cancer screening using Cologuard test Results Test Name Value Interpretation Reference Range Facility Limited Chest CT Cardiac Onl yo 02-11-[address] Cardiac Only [facility] [address] [place] [id number] Cardiac Only MR#: [id number] Acct: [id number] Name: KAT LEGER Rep #: [id number] : 1940 M 84 From: Joshua nolasco MD PCP: Dr. Sia Tinajero, Status: [facility] [address] Study: Limited Chest CT Cardiac Only Date of Exam: Exam# [id number] Ordering Dr: Dave Beckham MD PROCEDURE: LIMITED CHEST CT CARDIAC ONLY 02/11/2025 REASON FOR EXAM: CHEST PAIN History of dilated aortic root. TECHNIQUE: Procedure Code: CTCCTACHLIM Modality: CT Procedure: LIMITED CHEST CT CARDIAC ONLY Coronal and Sagittal reconstruction series were provided. CONTRAST: Isovue 370 VOLUME: 56 mL One or more dose reduction techniques were used (e.g., Automated exposure control, adjustment of the mA and/or kV according to patient size, use of iterative reconstruction technique). RADIATION DOSE SUMMARY: CTDlvol: 32 mGy DLP: 1275.9 mGycm COMPARISON: Prior study dated March 26, 2024. FINDINGS: The root of the ascending thoracic aorta measures 42 mm in transverse dimension by 45 mm in AP dimension. This is essentially unchanged. Coronary artery calcification. Calcification of the aortic arch. The visualized portions of the lung are unremarkable. CT/Limited Chest CT Cardiac Only IMPRESSION: Stable examination. Reading Location: [id number] CC: Dr. Dave Beckham MD; Dr. Sia Tinajero DO Hand Welt Butter: Signed Normal [facility] Cardiology Visit Reporton Cardiology Visit Report [facility] [address] [place] [address] OFFICE VISIT Date of Service: 12/23/24 MR#: [id number] Acct: [id number] Name: KAT LEGER Rep #: [id number] : 1940 Provider: Dr. Dave Beckham MD Age/Sex: 84/M Location: [facility] Status: Signed HPI HPI History of Present Illness Details: 84-year-old man with a history of hyperlipidemia mildly dilated aortic root who presents for a follow-up visit. He remains active and continues to play tennis and still works. He denies any chest pain or shortness of breath or paroxysmal nocturnal dyspnea or pedal edema, he has had no dizziness or diaphoresis no near syncope or syncope. He has been compliant with all his medications. He is actually on very little other than lipid-lowering medications. His blood pressure today is elevated and on recheck it was still elevated. His physical exam otherwise is unremarkable. He remembered that he underwent a stress test in January 2023 demonstrating no evidence of ischemia at a high workload. His echocardiogram also demonstrated preserved ejection fraction, mild mitral regurgitation and a mildly dilated aortic root. Intake Vital Signs 01/02/24 13:03 12/23/24 11:46 Height 5 ft 6 in 5 ft 6 in Weight: 140 lb BMI 22.6 BP 170/68 H Blood Pressure Location Lt brachial Position Sitting Respiration 16 Pulse 51 L Pulse Source Monitor Intake Visit Reasons: 1 Y [employer] Controller Required: No Accompanied by: Self Is patient in pain?: No Allergies No Known Allergies Allergy (Verified 12/23/24 11:50) Medications ???Medication ???Instructions ???Recorded ???Confirmed ???Type simvastatin 10 mg tablet (Zocor) 10 mg PO QHS 02/13/18 12/23/24 His tory Ejection fraction %: 70 Have you fallen in the past year?: No PFSH Medical History Abnormal electrocardiogram Ascending aorta dilatation Hyperlipidemia Surgical History History of surgery on lower extremity History of left heart catheterization (11/19/12) Family History Grandfather No problems noted. Father Sudden cardiac Age 65 Hypertension Other Heart disease Social History Smoking Status: Never smoker alcohol intake: current alcohol intake frequency: holidays/special occasions only substance use type: does not use caffeine: No ROS Const Const: Negative for fatigue, weakness, daytime sleepiness or difficulty sleeping ENT ENT: Negative for dizziness or Nosebleed/epistaxis Cardio Chest Pain: No Palpitations: No Edema: None Resp Respiratory: Negative for SOB with activity, SOB at rest, SOB orthopnea SOB lying down or Cough GI GI: Negative nausea, vomiting or heartburn Neuro Neuro: Negative for dizziness, lightheadedness, near syncope or weakness Endo Endo: Negative for fatigue Cardiology Exam Const Appearance: cooperative, healthy appearing, no acute distress, well developed and well groomed Nutritional Appearance: average body habitus and well nourished Orientation: alert, awake and oriented x3 Head Head: normal to inspection, normocephalic and atraumatic Ears: hearing grossly normal bilaterally and external ears normal Nose: external nose normal, nares normal, nasal mucous membranes and turbinates normal, septum normal and no nasal discharge Face and Sinus: face symmetric Mouth: oral mucosae normal, tongue normal, oropharynx normal and moist mucous membranes Teeth and gingiva: dentition normal Throat: posterior oropharynx normal, tonsils normal and uvula midline Eyes General: appearance normal, both eyes and all related structures Eyelids: eyelids normal Conjunctivae: conjunctivae normal Pupils: PERRL, normal by confrontation and accommodation normal EOM: EOM intact bilaterally Neck Neck: normal visual inspection, trachea midline and no JVD JVD: +5 Carotids: normal carotid upstroke and bounding pulses Chest Chest inspection: normal inspection of the chest, symmetric chest movement and normal respiratory effort Auscultation: Bilateral: Clear to Auscultation Cardio Palpation: normal PMI Rate: regular rate Rhythm: regular rhythm Heart sounds: S1 normal, S2 normal and normal, physiologic split S2; Negative rub, gallop or murmur GI GI: normal to inspection, soft, no hepatosplenomegaly and bowel sounds present Neuro General: patient alert, patient awake, patient oriented x3, gait normal, moves all extremities and no focal sensory deficit Skin Skin: no rashes or lesions noted Extremities Pulses: Normal: Right Femoral Pulse, Left Femoral Pulse, Right Dorsalis Pedis Pulse, Left D (more content not included)... Normal [facility] Culture, Throaton 07-16-2024 CUT Normal throat lenore isolated. No beta-hemolytic streptococcus isolated. Normal [facility] Comment on above: Performed By: #### M 100.1000 #### [facility] [address] [place], [place], [id number] PSA Total (Rflx Free)on 03-08 COMMENT Comment Normal . [facility] Comment on above: Result Comment: The percent free PSA is performed on a reflex basis only when the total PSA is between 4.0 and 10.0 ng/mL. Performed at: [address] [id number] Blood Tester Fowl: Jaswant Woodson PhD, Phone: [phone] Performed By: #### L 1158.0100, V989.8978 #### [facility] [address] [place], [place], [id number] PSA, TOTAL 1.2 ng/mL Normal 0.0-4.0 [facility] Comment on above: Result Comment: Danni PIERRE methodology. According to the [employer], Serum PSA should decrease and remain at undetectable levels after radical prostatectomy. The AUA defines biochemical recurrence as an initial PSA value 0.2 ng/mL or greater followed by a subsequent confirmatory PSA value 0.2 ng/mL or greater. Values obtained with different assay methods or kits cannot be used interchangeably. Results cannot be interpreted as absolute evidence of the presence or absence of malignant disease. Performed By: #### L 3110.0100, L500.4050 #### [facility] [address] [place], [place], [id number] Albumin to globulin ratioOrd ered By: Sia Tinajero on 03-27-2024 Albumin/Globulin [Mass ratio] 1.0 {ratio} 0.9-2.4 [facility] Bilirubin, totalOrdered By: Sia Tinajero on 03-27-2024 Bilirubin [Mass/Vol] 0.70 mg/dL 0.20-1.00 [facility] Comment on above: For patients on eltr ombopag therapy, use of Dimension Sandwich TBIL is not recommended. Blood urea nitrogen (BUN)/cr eatinine ratioOrdered By: Sia Tinajero on 03-27-2024 Urea nitrogen/Creatinine [Mass ratio] 15.4 mg/mg 10-20 [facility] Carbon dioxide measurementOr dered By: Sia Tinajero on 03-27-2024 CO2 [Moles/Vol] 30.0 mmol/L 21.0-32.0 [facility] Chloride measurementOrdered By: Sia Tinajero on 03-27-2024 Chloride [Moles/Vol] 104 mmol/L 98-107 [facility] Comprehensive Metabolic Prof ilon 03-27-2024 Albumin [Mass/Vol] 3.5 g/dL Normal 3.2-5.0 [facility] Comment on above: Order Comment: SEND PSA TO Performed By: #### L 3110.0100, L500.4050 #### [facility] [address] [place], [address] Albumin/Globulin [Mass ratio] 1.0 {ratio} Normal 0.9-2.4 [facility] Comment on above: Order Comment: SEND PSA TO Performed By: #### L 3110.0100, L500.4050 #### [facility] [address] [place], [address] ALK P 66 U/L Normal 45-117 [facility] Comment on above: Order Comment: SEND PSA TO Performed By: #### L 3110.0100, L500.4050 #### [facility] [address] [place], [address] ALT [Catalytic activity/Vol] 16 U/L Normal 16-61 [facility] Comment on above: Order Comment: SEND PSA TO Performed By: #### L 3110.0100, L500.4050 #### [facility] [address] [place], [address] AST [Catalytic activity/Vol] 28 U/L Normal 15-37 [facility] Comment on above: Order Comment: SEND PSA TO Performed By: #### L 3110.0100, L500.4050 #### [facility] [address] [place], [address] Bilirubin [Mass/Vol] 0.70 mg/dL Normal 0.20-1.00 [facility] Comment on above: Order Comment: SEND PSA TO Result Comment: For patients on eltrombopag therapy, use of Dimension Sandwich TBIL is not recommended. Performed By: #### L 3110.0100, L500.4050 #### [facility] [address] [place], [address] BUN/CRE 15.4 RATIO Normal 10-20 [facility] Comment on above: Order Comment: SEND PSA TO Performed By: #### L 3110.0100, L500.4050 #### [facility] [address] [place], [address] CA,Total 8.9 mg/dL Normal 8.5-10.1 [facility] Comment on above: Order Comment: SEND PSA TO Performed By: #### L 3110.0100, L500.4050 #### [facility] [address] [place], [address] Chloride [Moles/Vol] 104 mmol/L Normal 98-107 [facility] Comment on above: Order Comment: SEND PSA TO Performed By: #### L 3110.0100, L500.4050 #### [facility] [address] [place], [address] CO2 [Moles/Vol] 30.0 mmol/L Normal 21.0-32.0 [facility] Comment on above: Order Comment: SEND PSA TO Performed By: #### L 3110.0100, L500.4050 #### [facility] [address] [place], [address] Creatinine [Mass/Vol] 1.04 mg/dL Normal 0.70-1.30 [facility] Comment on above: Order Comment: SEND PSA TO Result Comment: The validity of the calculated GFR GFRAA in patients over 70 years has not been determined. Clinical correlation is essential. Performed By: #### L 3110.0100, L500.4050 #### [facility] [address] [place], [address] EST GFR - AA 88 mL/min Normal >60 [facility] Comment on above: Order Comment: SEND PSA TO Result Comment: Afri can Filipino GFR Calc Performed By: #### L 3110.0100, L500.4050 #### [facility] [address] [place], [address] GAP 3 Low 5-15 [facility] Comment on above: Order Comment: SEND PSA TO Performed By: #### L 3110.0100, L500.4050 #### [facility] [address] [place], [address] GFR/1.73 sq M.predicted among non-blacks MDRD (S/P/Bld) [Vol rate/Area] 73 mL/min/{1.73_m2} Normal >60 [facility] Comment on above: Order Comment: SEND PSA TO Result Comment: Non- GFR Calc Performed By: #### L 3110.0100, L500.4050 #### [facility] [address] [place], [address] Globulin (S) [Mass/Vol] 3.6 g/dL Normal 2.2-4.2 [facility] Comment on above: Order Comment: SEND PSA TO Performed By: #### L 3110.0100, L500.4050 #### [facility] [address] [place], [address] Glucose [Mass/Vol] 97 mg/dL Normal 74-106 [facility] Comment on above: Order Comment: SEND PSA TO Performed By: #### L 3110.0100, L500.4050 #### [facility] [address] [place], [address] Potassium [Moles/Vol] 4.8 mmol/L Normal 3.5-5.1 [facility] Comment on above: Order Comment: SEND PSA TO Performed By: #### L 3110.0100, L500.4050 #### [facility] [address] [place], [address] Sodium [Moles/Vol] 136 mmol/L Normal 136-145 [facility] Comment on above: Order Comment: SEND PSA TO Performed By: #### L 3110.0100, L500.4050 #### [facility] [address] [place], [address] T PROT 7.1 g/dL Normal 6.4-8.2 [facility] Comment on above: Order Comment: SEND PSA TO Performed By: #### L 3110.0100, L500.4050 #### [facility] [address] [place], [address] Urea nitrogen [Mass/Vol] 16 mg/dL Normal 7-18 [facility] Comment on above: Order Comment: SEND PSA TO Performed By: #### L 3110.0100, L500.4050 #### [facility] [address] [place], [address] Estimated glomerular filtrat ion rate (GFR) AmericanOrdered By: Sia Tinajero on 03-27-2024 Estimated GFR (MDRD) Amer 88 mL/min >60 [facility] Comment on above: GFR Calc Glomerular filtration rate ( GFR) estimationOrdered By: Sia Tinajero on 03-27-2024 Estimated GFR (MDRD) Non-Af Amer 73 mL/min >60 [facility] Comment on above: Non- GFR Calc Glucose measurementOrdered B y: Sia Tinajero on 03-27-2024 Glucose [Mass/Vol] 97 mg/dL 74-106 [facility] - Chemistry and C hemistry - challengeOrdered By: Sia Tinajero on 03-27-2024 AST [Catalytic activity/Vol] 28 U/L 15-37 [facility] No Panel InformationOrdered By: Sia Tinajero on 03-27-2024 Prostate Specific Antigen Comment . [facility] Comment on above: The percent free PSA is performed on a reflex basis onlywhen the total PSA is between 4.0 and 10.0 ng/mL.Performed at: - [facility] [id number] Director: Jaswant Woodson PhD, Phone: [phone] PSA, totalOrdered By: Alfred Tinajero on 03-27-2024 Prostate Specific Antigen Total 1.2 ng/mL 0.0-4.0 [facility] Comment on above: Ariana ECLIA methodol ogy.According to the [place] [employer], Serum PSAshould decrease and remain at undetectable levels afterradical prostatectomy. The AUA defines biochemicalrecurrence as an initial PSA value 0.2 ng/mL or greaterfollowed by a subsequent confirmatory PSA value 0.2 ng/mLor greater. Values obtained with different assay methods orkits cannot be used interchangeably. Results cannot beinterpreted as absolute evidence of the presence or absenceof malignant disease. Potassium measurementOrdered By: Sia Tinajero on 03-27-2024 Potassium [Moles/Vol] 4.8 mmol/L 3.5-5.1 [facility] Serum anion gap measurementO rdered By: Sia Tinajero on 03-27-2024 Anion gap [Moles/Vol] 3 mmol/L Low 5-15 [facility] Serum globulin measurementOr dered By: Sia Tinajero on 03-27-2024 Globulin (S) [Mass/Vol] 3.6 g/dL 2.2-4.2 [facility] Serum or plasma alanine hunt otransferase (ALT) measurementOrdered By: Sia Tinajero on 03-27-2024 ALT [Catalytic activity/Vol] 16 U/L 16-61 [facility] Serum or plasma albumin ji urement (mass/volume)Ordered By: Sia Tinajero on 03-27-2024 Albumin [Mass/Vol] 3.5 g/dL 3.2-5.0 [facility] Serum or plasma alkaline wilbert sphatase measurementOrdered By: Sia Tinajero on 03-27-2024 ALP [Catalytic activity/Vol] 66 U/L 45-117 [facility] Serum or plasma calcium ji urement (mass/volume)Ordered By: Sia Tinajero on 03-27-2024 Calcium [Mass/Vol] 8.9 mg/dL 8.5-10.1 [facility] Serum or plasma creatinine m easurement (mass/volume)Ordered By: Sia Tinajero on 03-27-2024 Creatinine [Mass/Vol] 1.04 mg/dL 0.70-1.30 [facility] Comment on above: The validity of the calculated GFR & GFRAA in patients over 70 years has not been determined. Clinical correlation is essential. Serum or plasma urea nitroge n measurement (mass/volume)Ordered By: Sia Tinajero on 03-27-2024 Urea nitrogen [Mass/Vol] 16 mg/dL 7-18 [facility] Sodium levelOrdered By: Mary Lou Hameedon on 03-27-2024 Sodium [Moles/Vol] 136 mmol/L 136-145 [facility] Total proteinOrdered By: Kori Tinajero on 03-27-2024 Protein [Mass/Vol] 7.1 g/dL 6.4-8.2 [facility] CREATININE FINGERSTICKon CREATININE WB < 1.0 Normal 0.70-1.30 [facility] Comment on above: Performed By: #### L 9100.0200 #### [facility] [address] [place], [address] EGFR WB > 60.0000 Normal >60 [facility] Comment on above: Performed By: #### L 9100.0200 #### [facility] [address] [place], [address] CTA Chest W/WO Contraston CTA Chest W/WO Contrast [facility] Services [address] [place], [place] [address] CTA Chest W/WO Contrast MR#: [id number] Acct: [id number] Name: KAT LEGER Rep #: [id number] : 1940 M 83 From: Raji Collins PCP: Dr. Sia Tinajero, DO Status: REG CLI Study: CTA Chest W/WO Contrast Date of Exam: 03/26/24 Exam# [id number] Ordering Dr: Dave Beckham MD ADDENDUM by Dr. Kianna Lacey MD on 03/29/24 at 0932 ADDENDUM [id number] The ascending aorta measures 4.5 cm in AP diameter on image 115/247, compared to 4.2 cm on image 66/120 of the prior examination. Electronically Signed: Kianna Lacey MD at 9:32 EST , 03/29/24 0932 Date cc: Dr. Dave Beckham MD; Dr. Sia Tinajero, DO * Signed ADDENDUM by Dr. Kianna Lacey MD on 03/29/[address]/CTA Chest W/WO Contrast IMPRESSION: undefined 03/29/24 0939 Date cc: Dr. Dave Beckham MD; Dr. Sia Tinajero, DO * Signed [id number] STUDY: CTA Chest WO/W Contrast Injection 03/28/2024 9:50 PM REASON FOR EXAM: Male, 83 years old. aneurysm TECHNIQUE: The examination was performed with the intravenous administration of IV 75mL Isovue-370 contrast material. Post-processing of the angiographic images was performed, with axial imaging and 3D reconstruction. MIPS images were obtained. Individualized dose optimization techniques were used for this CT. COMPARISON: 12.21.21 FINDINGS: There are degenerative changes of the shoulders. There is no pneumothorax. There is no demonstrated pleural abnormality. There are calcifications of the coronary arteries. Normal mediastinum. Normal hilar regions. Normal pulmonary arteries. There is atherosclerotic calcification of the aortic arch with tortuosity and elongation of the aortic arch and descending thoracic aorta. There is aneurysmal dilatation of the ascending aorta. The transverse diameter of the ascending aorta measures (in mm): 47. There are multi-level degenerative changes of the thoracic spine. There are no acute findings of the upper abdomen. 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 This is slightly larger than the previous study. No PE Electronically Signed: Raji Bowen MD at 21:54 EST , CC: Dr. Dave Beckham MD; Dr. Sia Tinajero DO Hand Welt Butter: Signed Normal [facility] Creatinine measurement at dsideOrdered By: Dave Beckham on 03-26-2024 Bedside Creatinine < 1.0 mg/dL 0.70-1.30 [facility] EGFROrdered By: Dave Beckham on 03-26-2024 Bedside Estimated GFR (eGFR) > 60.0000 mL/min >60 [facility] No Panel InformationOrdered By: Diane Holbrook on 03-25-2023 Prostate Specific Antigen Screen 1.51 ng/mL 0.00-4.00 [facility] Comment on above: This test was perfor med using the TPSA assay method for theDimension chemistry system. Values obtained with differentassay methods cannot be used interchangably.When changing PSA assays in the course of monitoring apatient, additional sequential testing should be carriedout to confirm baseline values. Basophil percentageOrdered B y: Dr. Middleton on 08-19-2022 Chloride [Moles/Vol] 109 mmol/L 98-107 [facility] Glucose [Mass/Vol] 94 mg/dL 74-106 [facility] Potassium [Moles/Vol] 4.2 mmol/L 3.5-5.1 [facility] Sodium [Moles/Vol] 139 mmol/L 136-145 [facility] - Chemistry and C hemistry - challengeOrdered By: Dr. Middleton on 08-19-2022 CO2 [Moles/Vol] 24.0 mmol/L 21.0-32.0 [facility] Urea nitrogen/Creatinine [Mass ratio] 20.2 mg/mg 10-20 [facility] No Panel InformationOrdered By: Dr. Middleton on 08-19-2022 Estimated Creatinine Clearance Calc 56.56 ml/min [facility] Estimated GFR (MDRD) Amer 99 mL/min >60 [facility] Comment on above: GFR Calc Estimated GFR (MDRD) Non-Af Amer 82 mL/min >60 [facility] Comment on above: Non- GFR Calc Serum or plasma calcium ji urement (mass/volume)Ordered By: Dr. Middleton on 08-19-2022 Calcium [Mass/Vol] 7.8 mg/dL 8.5-10.1 [facility] Serum or plasma creatinine m easurement (mass/volume)Ordered By: Dr. Middleton on 08-19-2022 Creatinine [Mass/Vol] 0.94 mg/dL 0.70-1.30 [facility] Comment on above: The validity of the calculated GFR & GFRAA in patients over 70 years has not been determined. Clinical correlation is essential. Serum or plasma urea nitroge n measurement (mass/volume)Ordered By: Dr. Middleton on 08-19-2022 Urea nitrogen [Mass/Vol] 19 mg/dL 7-18 [facility] Thin prep Papanicolaou smear with manual screeningOrdered By: Dr. Middleton on 08-19-2022 Thin prep Papanicolaou smear with manual screening 6 - [facility] Absolute lymphocyte countOrd ered By: Dr. Fletcher on 08-18-2022 Lymphocytes Auto (Unsp spec) [#/Vol] 1.20 10*3/uL 0.83-4.51 [facility] Basophil percentageOrdered B y: Dr. Fletcher on 08-18-2022 Basophils/100 WBC (Bld) 0.4 % 0-1 [facility] Bilirubin [Mass/Vol] 1.30 mg/dL 0.20-1.00 [facility] Comment on above: For patients on eltr ombopag therapy, use of Dimension Sandwich TBIL is not recommended. Chloride [Moles/Vol] 99 mmol/L 98-107 [facility] Eosinophils/100 WBC (Bld) 0.9 % 0-5 [facility] Glucose [Mass/Vol] 139 mg/dL 74-106 [facility] Comment on above: Fasting Glucose resu lt greater than or equal to 126 mg/dL suggests DIABETES MELLITUS per A.D.A. criteria. Lactate [Moles/Vol] 1.7 mmol/L 0.4-2.0 [facility] Neutrophils (Bld) [#/Vol] 5.6 10*3/uL 2.0-7.7 [facility] Neutrophils/100 WBC (Bld) 75.3 % 47-70 [facility] Potassium [Moles/Vol] 4.7 mmol/L 3.5-5.1 [facility] Protein [Mass/Vol] 8.7 g/dL 6.4-8.2 [facility] Sodium [Moles/Vol] 133 mmol/L 136-145 [facility] WBC (Bld) [#/Vol] 7.5 10*3/uL 4.4-11.0 [facility] Blood erythrocytes count (nu mber/volume)Ordered By: Dr. Fletcher on 08-18-2022 RBC (Bld) [#/Vol] 5.45 10*6/uL 4.6-6.2 [facility] Blood hemoglobin measurement (mass/volume)Ordered By: Dr. Fletcher on 08-18-2022 Hemoglobin (Bld) [Mass/Vol] 16.0 g/dL 13.0-16.5 [facility] Blood lymphocytes/100 leukoc ytesOrdered By: Dr. Fletcher on 08-18-2022 Lymphocytes/100 WBC (Bld) 16.1 % 19-41 [facility] Blood monocytes/100 leukocyt esOrdered By: Dr. Fletcher on 08-18-2022 Monocytes/100 WBC (Bld) 7.0 % 0-10 [facility] Blood platelet mean volumeOr dered By: Dr. Fletcher on 08-18-2022 Platelet mean volume (Bld) [Entitic vol] 9.6 fL 6.2-12.0 [facility] Determination of erythrocyte mean corpuscular volume (MCV)Ordered By: Dr. Fletcher on 08-18-2022 MCV (RBC) [Entitic vol] 91.4 fL 80-94 [facility] Direct bilirubinOrdered By: Dr. Fletcher on 08-18-2022 Bilirubin.direct [Mass/Vol] 0.29 mg/dL 0.00-0.30 [facility] Hematocrit Auto (Bld) [Volum e fraction]Ordered By: Dr. Fletcher on 08-18-2022 Hematocrit (Bld) [Volume fraction] 49.8 % 40-54 [facility] INR in Blood by Coagulation assayOrdered By: Dr. Fletcher on 08-18-2022 INR Coag (Bld) [Relative time] 1.0 {INR} [facility] - Chemistry and C hemistry - challengeOrdered By: Dr. Fletcher on 08-18-2022 ALP [Catalytic activity/Vol] 69 U/L 45-117 [facility] ALT [Catalytic activity/Vol] 18 U/L 16-61 [facility] CO2 [Moles/Vol] 25.0 mmol/L 21.0-32.0 [facility] Globulin (S) [Mass/Vol] 4.7 g/dL 2.2-4.2 [facility] Lipase [Catalytic activity/Vol] 85 U/L 13-75 [facility] Comment on above: Please note:LIPASE r evised reference range effective 22. New Lipase methodology. Expected to produce lower values than the previous assay method. NEW Reference Range: 13 - 75 U/L Urea nitrogen/Creatinine [Mass ratio] 17.8 mg/mg 10-20 [facility] - CoagulationOrde red By: Dr. Fletcher on 08-18-2022 aPTT Coag (Bld) [Time] 25.0 s 24.1-36.2 [facility] PT Coag (PPP) [Time] 13.1 s 11.7-14.9 [facility] - Hematology and Cell countsOrdered By: Dr. Fletcher on 08-18-2022 Erythrocyte distribution width (RBC) [Entitic vol] 46.1 fL 35.1-43.9 [facility] Erythrocyte distribution width (RBC) [Ratio] 13.6 % 11.6-14.6 [facility] Immature granulocytes/100 WBC (Bld) 0.300 % 0.0-0.9 [facility] Comment on above: IG% - Immature Granu locytes (promyelocytes, myelocytes and metamyelocytes) > 1% indicates that a LEFT SHIFT is Present. MCH (RBC) [Entitic mass] 29.4 pg 27.0-32.0 [facility] Nucleated RBC/100 WBC (Bld) [Ratio] 0 % 0-5 [facility] MCHC Auto (RBC) [Mass/Vol]Or dered By: Dr. Fletcher on 08-18-2022 MCHC (RBC) [Mass/Vol] 32.1 g/dL 32-36 [facility] No Panel InformationOrdered By: Dr. Fletcher on 08-18-2022 Estimated Creatinine Clearance Calc 38.64 ml/min [facility] Estimated GFR (MDRD) Amer 65 mL/min >60 [facility] Comment on above: GFR Calc Estimated GFR (MDRD) Non-Af Amer 54 mL/min >60 [facility] Comment on above: Non- GFR Calc Troponin I High Sensitivity 5 pg/mL 3.0-78.0 [facility] Comment on above: Please Note: [place] t Units and Gender Specific Reference Ranges. For more information see Policy Stat Procedure Sandwich High Sensitivity Troponin (TNIH) and attachments. Platelets bldOrdered By: Dr. Fletcher on 08-18-2022 Platelets (Bld) [#/Vol] 228 10*3/uL 150-450 [facility] Serum or plasma albumin ji urement (mass/volume)Ordered By: Dr. Fletcher on 08-18-2022 Albumin [Mass/Vol] 4.0 g/dL 3.2-5.0 [facility] Serum or plasma calcium ji urement (mass/volume)Ordered By: Dr. Fletcher on 08-18-2022 Calcium [Mass/Vol] 9.8 mg/dL 8.5-10.1 [facility] Serum or plasma creatinine m easurement (mass/volume)Ordered By: Dr. Fletcher on 08-18-2022 Creatinine [Mass/Vol] 1.35 mg/dL 0.70-1.30 [facility] Comment on above: The validity of the calculated GFR & GFRAA in patients over 70 years has not been determined. Clinical correlation is essential. Serum or plasma urea nitroge n measurement (mass/volume)Ordered By: Dr. Fletcher on 08-18-2022 Urea nitrogen [Mass/Vol] 24 mg/dL 7-18 [facility] Stool gastrointestinal hemog lobin detection by immunologic methodOrdered By: Dr. Fletcher on 08-18-2022 Lower GI hemoglobin IA Ql (Stl) [facility] Thin prep Papanicolaou smear with manual screeningOrdered By: Dr. Fletcher on 08-18-2022 Thin prep Papanicolaou smear with manual screening 33 U/L 15-37 [facility] Thin prep Papanicolaou smear with manual screening 9 5-15 [facility] Basophil percentageon 2021 Basophil percentage 0 SEEN /hpf 0-5 [facility] Work Phone: Bilirubin Test strip Ql (U)o n 03-18-2022 Bilirubin Ql (U) Negative Negative [facility] Work Phone: Ketones Test strip Ql (U)on 03-18-2022 Ketones Ql (U) Negative Negative [facility] Work Phone: Mucus LM Ql (Urine sed)on Mucus Ql (Urine sed) 0 SEEN /hpf [facility] Work Phone: Nitrite Test strip Ql (U)on 03-18-2022 Nitrite Ql (U) Negative Negative [facility] Work Phone: Protein Test strip Ql (U)on 03-18-2022 Protein Ql (U) Negative Negative [facility] Work Phone: Squamous epithelial cells de tection in urine sediment by light microscopyon 03-18-2022 Epithelial cells.squamous LM Ql (Urine sed) 0 SEEN /hpf 0-5 [facility] Work Phone: Urine blood detectionon 03-07 RBC Ql (U) 10 /ul Negative [facility] Work Phone: RBC Ql (U) 0 SEEN /hpf 0-5 [facility] Work Phone: Urine clarityon 03-18-2022 Clarity (U) Clear Clear [facility] Work Phone: Urine color determinationon 03-18-2022 Color (U) Yellow Yellow [facility] Work Phone: Urine glucose detectionon Glucose Ql (U) Normal mg/dl Normal [facility] Work Phone: Urine leukocyte esterase det ection by dipstickon 03-18-2022 Leukocyte esterase Test strip Ql (U) Negative Negative [facility] Work Phone: Urine pHon 03-18-2022 pH (U) 6.0 [pH] 5.0 - 8.0 [facility] Work Phone: Urine sediment bacteria coun t by microscopy (number/high power field)on 03-18-2022 Bacteria LM.HPF (Urine sed) [#/Area] 0 /[HPF] None Seen [facility] Work Phone: Urine specific gravity measu rementon 03-18-2022 Specific gravity (U) [Rel density] 1.015 1.002-1.03 0 [facility] Work Phone: Urobilinogen Auto test strip Ql (U)on 03-18-2022 Urobilinogen Ql (U) Normal mg/dl Normal [facility] Work Phone: No Panel Informationon 02-20 Prostate Specific Antigen Screen 1.19 ng/mL 0.00-4.00 [facility] Work Phone: Comment on above: This test was perfor med using the TPSA assay method for the[facility] chemistry system. Values obtained with differentassay methods cannot be used interchangably.When changing PSA assays in the course of monitoring apatient, additional sequential testing should be carriedout to confirm baseline values. Basophil percentageon 2021 Basophil percentage < 0.9 mg/dL 0.70-1.30 [facility] Work Phone: CBC, PLATELETS & AUT DIFF ([phone])Ordered By: Bed Maker on 12-21-2021 Basophils (Bld) [#/Vol] 0.0 10*3/uL Normal 0.0-0.2 [facility] Work Phone: Comment on above: PATIENT WAS FASTINGP ERFORMED BY: WANDY [facility] [id number]Dublin [place] [id number] Basophils/100 WBC (Bld) 1 % Normal [facility]; [facility] Work Phone: Comment on above: PATIENT WAS FASTINGP ERFORMED BY: WANDY [facility] [id number] RoadDublin [place] [id number] Eosinophils (Bld) [#/Vol] 0.2 10*3/uL Normal 0.0-0.4 [facility]; [facility] Work Phone: Comment on above: PATIENT WAS FASTINGP ERFORMED BY: WANDY [facility] [id number] RoadDublin [place] [id number] Eosinophils/100 WBC (Bld) 4 % Normal [facility]; [facility] Work Phone: Comment on above: PATIENT WAS FASTINGP ERFORMED BY: WANDY [facility] [id number] [facility] [place] [id number] Erythrocyte distribution width (RBC) [Ratio] 12.9 % Normal 11.6-15.4 [facility]; [facility] Work Phone: Comment on above: PATIENT WAS FASTINGP ERFORMED BY: CB [facility] [id number] RoadCarolinas Continuecare Hospital At [facility] Mountainin [place] [id number] Hematocrit (Bld) [Volume fraction] 43.8 % Normal 37.5-51.0 [facility]; [facility] Work Phone: Comment on above: PATIENT WAS FASTINGP ERFORMED BY: CB [facility] [id number] [facility] [place] [id number] Hemoglobin (Bld) [Mass/Vol] 14.6 g/dL Normal 13.0-17.7 [facility]; [facility] Work Phone: Comment on above: PATIENT WAS FASTINGP ERFORMED BY: [facility] [id number] [facility] [place] [id number] Immature granulocytes (Bld) [#/Vol] 0.0 10*3/uL Normal 0.0-0.1 [facility]; [facility] Work Phone: Comment on above: PATIENT WAS FASTINGP ERFORMED BY: [facility] [facility] [place] [id number] Immature granulocytes/100 WBC (Bld) 0 % Normal [facility]; [facility] Work Phone: Comment on above: PATIENT WAS FASTINGP ERFORMED BY: [place] [id number] [facility] [id number] Lymphocytes (Bld) [#/Vol] 2.3 10*3/uL Normal 0.7-3.1 [facility]; [facility] Work Phone: Comment on above: PATIENT WAS FASTINGP ERFORMED BY: [place] [id number] [facility] [id number] Lymphocytes/100 WBC (Bld) 41 % Normal [facility]; [facility] Work Phone: Comment on above: PATIENT WAS FASTINGP ERFORMED BY: [facility]6[address] [facility] [id number] MCH (RBC) [Entitic mass] 29.3 pg Normal 26.6-33.0 [facility]; [facility] Work Phone: Comment on above: PATIENT WAS FASTINGP ERFORMED BY: [facility] [facility] [id number] MCHC (RBC) [Mass/Vol] 33.3 g/dL Normal 31.5-35.7 [facility]; [facility] Work Phone: Comment on above: PATIENT WAS FASTINGP ERFORMED BY: [facility]6[address] [facility] [id number] MCV (RBC) [Entitic vol] 88 fL Normal 79-97 [facility]; [facility] Work Phone: Comment on above: PATIENT WAS FASTINGP ERFORMED BY: CB [facility] Ebtktj1377 [address] RoadDublin [place] [id number] Monocytes (Bld) [#/Vol] 0.6 10*3/uL Normal 0.1-0.9 [facility]; [facility] Work Phone: Comment on above: PATIENT WAS FASTINGP ERFORMED BY: CB [facility] Kxrgbl7346 [address] RoadDublin [place] [id number] Monocytes/100 WBC (Bld) 10 % Normal [facility]; [facility] Work Phone: Comment on above: PATIENT WAS FASTINGP ERFORMED BY: CB [facility] Hqikzk5594 [address] RoadDublin [place] [id number] Neutrophils (Bld) [#/Vol] 2.6 10*3/uL Normal 1.4-7.0 [facility]; [facility] Work Phone: Comment on above: PATIENT WAS FASTINGP ERFORMED BY: CB [facility] Tkfdcs9204 [address] RoadDublin [place] [id number] Neutrophils/100 WBC (Bld) 44 % Normal [facility]; [facility] Work Phone: Comment on above: PATIENT WAS FASTINGP ERFORMED BY: CB [facility] Hvimvk4541 [address] RoadDublin [place] [id number] Platelets (Bld) [#/Vol] 227 10*3/uL Normal 150-450 [facility]; [facility] Work Phone: Comment on above: PATIENT WAS FASTINGP ERFORMED BY: CB [facility] Lreewa2352 [address] RoadDublin [place] [id number] RBC (Bld) [#/Vol] 4.99 10*6/uL Normal 4.14-5.80 [facility]; [facility] Work Phone: Comment on above: PATIENT WAS FASTINGP ERFORMED BY: CB [facility] Lfcmbe8632 [address] RoadDublin [place] [id number] WBC (Bld) [#/Vol] 5.7 10*3/uL Normal 3.4-10.8 [facility]; [facility] Work Phone: Comment on above: PATIENT WAS FASTINGP ERFORMED BY: WANDY Labazeb BritoSsdlmw[address] [facility] [place] [id number] HEPATIC FUNCTION PANEL (8007 6)Ordered By: Bed Maker on 12-21-2021 Bilirubin.direct [Mass/Vol] 0.16 mg/dL Normal 0.00-0.40 [facility]; [facility] Work Phone: Comment on above: PATIENT WAS FASTINGP ERFORMED BY: WANDY Labazeb BritoGjhlsx2[address] [facility] [place] [id number] LIPID PANEL (86287)Ordered B y: Bed Maker on 12-21-2021 Cholesterol [Mass/Vol] 121 mg/dL Normal 100-199 [facility]; [facility] Work Phone: Comment on above: PATIENT WAS FASTINGP ERFORMED BY: WANDY Britolin[address] [facility] [id number] Cholesterol in HDL [Mass/Vol] 51 mg/dL Normal [facility]; [facility] Work Phone: Comment on above: PATIENT WAS FASTINGP ERFORMED BY: WANDY Avelinaazeb BritoIrkhou6661 [address] [facility] [id number] Triglyceride [Mass/Vol] 39 mg/dL Normal 0-149 [facility]; [facility] Work Phone: Comment on above: PATIENT WAS FASTINGP ERFORMED BY: WANDY Britolin6[address] [facility] [id number] LIPID PANEL (94285) 10 mg/dL Normal 5-40 Compr ensive Internal Medicine; [facility] Work Phone: Comment on above: PATIENT WAS FASTINGP ERFORMED BY: WANDY Labazeb BritoCdmbvn0894 [address] [facility] [place] [id number] LIPID PANEL (01551) 60 mg/dL Normal 0-99 Compr ehensive Internal Medicine; [facility] Work Phone: Comment on above: PATIENT WAS FASTINGP ERFORMED BY: WANDY Alicea Exbmyr9789 [facility] [id number] LIPID PANEL (15278) 1.2 {ratio} Normal 0.0-3.6 [facility] Internal Medicine; [facility] Work Phone: Comment on above: LDL/HDL Ratio Men Wo men 1/2 Avg.Risk 1.0 1.5 Avg.Risk 3.6 3.2 2X Avg.Risk 6.2 5.0 3X Avg.Risk 8.0 6.1 PATIENT WAS FASTINGP ERFORMED BY: WANDY Alicea Spsamd1811 [facility] [id number] METABOLIC PANEL, COMPREHENSI VE (34727)Ordered By: Bed Maker on 12-21-2021 Albumin [Mass/Vol] 4.2 g/dL Normal 3.7-4.7 [facility] Internal Medicine; [facility] Work Phone: Comment on above: PATIENT WAS FASTINGP ERFORMED BY: WANDY Alicea Zxkezg3635 [facility] [id number] Albumin/Globulin [Mass ratio] 1.6 {ratio} Normal 1.2-2.2 [facility]; [facility] Work Phone: Comment on above: PATIENT WAS FASTINGP ERFORMED BY: WANDY Britolin6370 [facility] [id number] ALP [Catalytic activity/Vol] 77 U/L Normal 44-121 [facility]; [facility] Work Phone: Comment on above: PATIENT WAS FASTINGP ERFORMED BY: WANDY Avelinaflora Odnehl7146 [facility] [id number] ALT [Catalytic activity/Vol] 10 U/L Normal 0-44 [facility]; [facility] Work Phone: Comment on above: PATIENT WAS FASTINGP ERFORMED BY: WANDY [facility]velinasaint [facility] Iwueic4403 [facility] [id number] AST [Catalytic activity/Vol] 22 U/L Normal 0-40 [facility]; [facility] Work Phone: Comment on above: PATIENT WAS FASTINGP ERFORMED BY: WANDY [facility]6[address] RoadDublin [place] [id number] Bilirubin [Mass/Vol] 0.5 mg/dL Normal 0.0-1.2 [facility] rehensive Internal Medicine; [facility] Work Phone: Comment on above: PATIENT WAS FASTINGP ERFORMED BY: Labsaint [facility] Spxern1450 [address] RoadDublin [place] [id number] Calcium [Mass/Vol] 8.9 mg/dL Normal 8.6-10.2 [facility] Internal Medicine; [facility] Work Phone: Comment on above: PATIENT WAS FASTINGP ERFORMED BY: LabChildren's Mercy HospitalZtrbkz9876 [address] RoadDublin [place] [id number] Chloride [Moles/Vol] 98 mmol/L Normal 96-106 [facility] rehensive Internal Medicine; [facility] Work Phone: Comment on above: PATIENT WAS FASTINGP ERFORMED BY: LabMcL[facility]6370 [address] Roadblin [place] [id number] CO2 [Moles/Vol] 25 mmol/L Normal 20-29 [facility]; [facility] Work Phone: Comment on above: PATIENT WAS FASTINGP ERFORMED BY: Labsaint [facility] Sbklyn2930 [address] [facility]blin [place] [id number] Creatinine [Mass/Vol] 1.05 mg/dL Normal 0.76-1.27 [facility]; [facility] Work Phone: Comment on above: PATIENT WAS FASTINGP ERFORMED BY: Labsaint [facility] Acytgl4[address] [facility]in [place] [id number] GFR/1.73 sq M.predicted among non-blacks MDRD (S/P/Bld) [Vol rate/Area] 72 mL/min/{1.73_m2} Normal Comprehensiv e Internal Medicine; [facility] Work Phone: Comment on above: PATIENT WAS FASTINGP ERFORMED BY: Labsaint [facility] Fnvbmp2556 [address] RoadDublin [place] [id number] Globulin (S) [Mass/Vol] 2.6 g/dL Normal 1.5-4.5 [facility] Internal Medicine; [facility] Work Phone: Comment on above: PATIENT WAS FASTINGP ERFORMED BY: CB [facility] Fhxdmc1549 [address] RoadDublin [place] [id number] Glucose [Mass/Vol] 92 mg/dL Normal 65-99 [facility] Internal Medicine; [facility] Work Phone: Comment on above: PATIENT WAS FASTINGP ERFORMED BY: CB [facility] Atlkzx1244 [address] RoadDublin [place] [id number] Potassium [Moles/Vol] 5.2 mmol/L Normal 3.5-5.2 [facility]; [facility] Work Phone: Comment on above: PATIENT WAS FASTINGP ERFORMED BY: CB [facility] Kajmpf5278 [address] RoadDublin [place] [id number] Protein [Mass/Vol] 6.8 g/dL Normal 6.0-8.5 [facility] Internal Medicine; [facility] Work Phone: Comment on above: PATIENT WAS FASTINGP ERFORMED BY: CB [facility] Enclrm8021 [address] RoadDublin [place] [id number] Sodium [Moles/Vol] 135 mmol/L Normal 134-144 [facility] Internal Medicine; [facility] Work Phone: Comment on above: PATIENT WAS FASTINGP ERFORMED BY: CB [facility] Ihzudt4341 [address] RoadDublin [place] [id number] Urea nitrogen [Mass/Vol] 14 mg/dL Normal 8-27 [facility] Internal Medicine; [facility] Work Phone: Comment on above: PATIENT WAS FASTINGP ERFORMED BY: CB [facility] Freyop5683 [address] RoadDublin [place] [id number] Urea nitrogen/Creatinine [Mass ratio] 13 mg/mg Normal 10-24 [facility] Internal Medicine; [facility] Work Phone: Comment on above: PATIENT WAS FASTINGP ERFORMED BY: CB [facility] Tzffki7236 [address] RoadDublin [place] [id number] No Panel Informationon 12-21 Bedside Estimated GFR (eGFR) > 60.0000 mL/min >60 [facility] Work Phone: TSH (THYROID STIMULATING HOR SID) (15951)Ordered By: Bed Maker on 12-21-2021 TSH Qn 3.600 {uIU/mL} Normal 0.450-4.50 0 [facility]; [facility] Work Phone: Comment on above: PATIENT WAS FASTINGP ERFORMED BY: ZANY OX6370 [facility] [place] [id number] Gram stain for investigation of transfusion reactionon 07-23-2021 Microscopic observation Gram stain Nom (Unsp spec) [facility] Work Phone: No Panel Informationon 07-23 Nasopharyngeal Culture Haemophilus influenzae [facility] Work Phone: PSA (PROSTATE SPECIFIC ANTIG EN) (V76.44)Ordered By: Bed Maker on 02-16-2021 Prostate specific Ag [Mass/Vol] 1.1 ng/mL Normal 0.0-4.0 [facility]; [facility] Work Phone: Comment on above: Ariana ECLIA methodol ogy. .According to the [employer] [employer], Serum PSA shoulddecrease and remain at undetectable levels after radicalprostatectomy. The AUA defines biochemical recurrence as an initialPSA value 0.2 ng/mL or greater followed by a subsequent confirmatoryPSA value 0.2 ng/mL or greater.Values obtained with different assay methods or kits cannot be usedinterchangeably. Results cannot be interpreted as absolute evidenceof the presence or absence of malignant disease. send results to dr clemencia stroud after 01-31-21; A courtesy copy of this report has been sent to [phone] NOT FASTINGPERFORMED BY: The [employer] [facility] [place] [id number] CBC, PLATELETS & MANUAL DIFF (75228)Ordered By: Bed Maker on 12-14-2020 Basophils (Bld) [#/Vol] 0.0 10*3/uL Normal 0.0-0.2 [facility]; [facility] Work Phone: Comment on above: Test(s) 458269-MBW-S ; 062773-DVW-V; 213747-Mdbnvzybvtjro; 483647-Uzbtzfggdys, Total; 632964-KLV-H (Total); 116384-Fbeue LDL-P; 866293-LSA Size; 348805-SV-FL Scorewas developed and its performance characteristics determinedby QReca!. It has not been cleared or approved by the Foodand Drug Administration.PATIENT WAS FASTINGPERFORMED BY: Fundbox [address] [id number] BY: 99 [employer] Lxuhrt5424 [facility] [id number] Basophils/100 WBC (Bld) 1 % Normal [facility]; [facility] Work Phone: Comment on above: Test(s) 747162-QVP-V ; 672757-NWJ-C; 260727-Ymblhucevncxs; 355276-Ghrzmpdtzal, Total; 072168-IGB-I (Total); 365546-Xbucj LDL-P; 890295-WTV Size; 354381-MZ-IT Scorewas developed and its performance characteristics determinedby QReca!. It has not been cleared or approved by the Foodand Drug Administration.PATIENT WAS FASTINGPERFORMED BY: [employer] [address] [id number] BY: 99 [employer] Aggpsx6979 [facility] [id number] Eosinophils (Bld) [#/Vol] 0.3 10*3/uL Normal 0.0-0.4 [facility]; [facility] Work Phone: Comment on above: Test(s) 159306-FXD-W ; 249528-JSI-H; 830944-Npmpaqgfxfizf; 444807-Bxkadqvmjvj, Total; 726527-SCK-P (Total); 923770-Sferz LDL-P; 684613-UNZ Size; 029683-WU-OA Scorewas developed and its performance characteristics determinedby QReca!. It has not been cleared or approved by the Foodand Drug Administration.PATIENT WAS FASTINGPERFORMED BY: BN LabCo[address] [id number] BY: RebelMouseEast Orange General HospitalZtrkiz8757 [facility] [id number] Eosinophils/100 WBC (Bld) 5 % Normal [facility]; [facility] Work Phone: Comment on above: Test(s) 552042-EKB-L ; 729509-EPU-J; 487251-Sqdnkhnaizefd; 292960-Krhstlpmjyi, Total; 752127-ZBF-A (Total); 892893-Ztboz LDL-P; 827857-OGP Size; 041011-XK-VB Scorewas developed and its performance characteristics determinedby QReca!. It has not been cleared or approved by the Foodand Drug Administration.PATIENT WAS FASTINGPERFORMED BY: [employer] [address] [id number] BY: LightSide Labslin[address] [facility] [id number] Erythrocyte distribution width (RBC) [Ratio] 12.9 % Normal 11.6-15.4 [facility]; [facility] Work Phone: Comment on above: Test(s) 002228-CYF-V ; 057793-WTL-Q; 986612-Nytglilxncxos; 892282-Pcduinjiykw, Total; 492118-XDT-S (Total); 248322-Lnzcr LDL-P; 707954-KBV Size; 759132-QU-IA Scorewas developed and its performance characteristics determinedby QReca!. It has not been cleared or approved by the Foodand Drug Administration.PATIENT WAS FASTINGPERFORMED BY: Phreesia[address] [id number] BY: RebelMouseEast Orange General HospitalXnbesj2369 [facility] [id number] Hematocrit (Bld) [Volume fraction] 42.2 % Normal 37.5-51.0 [facility]; [facility] Work Phone: Comment on above: Test(s) 638472-MPM-D ; 265632-LWH-E; 558610-Zryjmxdaznsjk; 759136-Ehklkrsfcwr, Total; 077200-IRE-Z (Total); 012319-Mvyqj LDL-P; 780190-WGE Size; 993712-KN-PQ Scorewas developed and its performance characteristics determinedby QReca!. It has not been cleared or approved by the Foodand Drug Administration.PATIENT WAS FASTINGPERFORMED BY: Fund[employer] [address] [id number] BY: [employer]70 [facility] [id number] Hemoglobin (Bld) [Mass/Vol] 14.1 g/dL Normal 13.0-17.7 [facility]; [facility] Work Phone: Comment on above: Test(s) 982618-MYE-Q ; 016529-UGZ-N; 357613-Cxbhpcztecvbx; 135352-Jilqrbcmgrk, Total; 823091-VKF-N (Total); 538105-Zgpee LDL-P; 162321-WAA Size; 686339-AL-SB Scorewas developed and its performance characteristics determinedby QReca!. It has not been cleared or approved by the Foodand Drug Administration.PATIENT WAS FASTINGPERFORMED BY: [employer] [address] [id number] BY: BridgeXs[address] [facility] [id number] Immature granulocytes (Bld) [#/Vol] 0.0 10*3/uL Normal 0.0-0.1 [facility]; [facility] Work Phone: Comment on above: Test(s) 359856-RYP-R ; 995732-FMW-Q; 963157-Oucmhjzyitadw; 932961-Draexzgzbcc, Total; 423518-TIV-D (Total); 022387-Zytfm LDL-P; 554433-OTE Size; 992602-FS-EV Scorewas developed and its performance characteristics determinedby QReca!. It has not been cleared or approved by the Foodand Drug Administration.PATIENT WAS FASTINGPERFORMED BY: Fundbox [address] [id number] BY: BridgeXs70 [facility] [id number] Immature granulocytes/100 WBC (Bld) 0 % Normal [facility]; [facility] Work Phone: Comment on above: Test(s) 164837-CGM-D ; 253891-OLJ-C; 759110-Rkhgvcehmltjj; 668565-Kyyoscmxnyr, Total; 295720-VAE-R (Total); 925886-Oexhy LDL-P; 226907-HCG Size; 135744-EP-OC Scorewas developed and its performance characteristics determinedby QReca!. It has not been cleared or approved by the Foodand Drug Administration.PATIENT WAS FASTINGPERFORMED BY: [employer] [address] [id number] BY: BridgeXs70 [facility] [id number] Lymphocytes (Bld) [#/Vol] 3.0 10*3/uL Normal 0.7-3.1 [facility]; [facility] Work Phone: Comment on above: Test(s) 202694-DZC-L ; 219383-KTM-S; 706921-Gmzbhihkyxjxc; 055105-Mccieipjydk, Total; 312054-BZR-A (Total); 083240-Ixuxq LDL-P; 064849-MYX Size; 376038-NB-OY Scorewas developed and its performance characteristics determinedby QReca!. It has not been cleared or approved by the Foodand Drug Administration.PATIENT WAS FASTINGPERFORMED BY: Fundbox [address] [id number] BY: LightSide Labslin6370 [facility] [id number] Lymphocytes/100 WBC (Bld) 45 % Normal [facility]; [facility] Work Phone: Comment on above: Test(s) 343097-YCA-V ; 361154-DKM-D; 372409-Nkcirnkgbwxse; 924737-Hcocgpqocuk, Total; 143827-BZK-C (Total); 895847-Hjjge LDL-P; 357336-ZMT Size; 633606-SV-BH Scorewas developed and its performance characteristics determinedby QReca!. It has not been cleared or approved by the Foodand Drug Administration.PATIENT WAS FASTINGPERFORMED BY: judo[address] [id number] BY: judoCibola General HospitalUyobsb8000 [facility] [id number] MCH (RBC) [Entitic mass] 30.1 pg Normal 26.6-33.0 [facility]; [facility] Work Phone: Comment on above: Test(s) 510361-CAY-E ; 216605-XJC-C; 873107-Xgwlbpqxzjrqn; 620029-Uoqbtznodmz, Total; 417324-TYW-C (Total); 018170-Zoklp LDL-P; 129808-YTZ Size; 800908-WI-DW Scorewas developed and its performance characteristics determinedby QReca!. It has not been cleared or approved by the Foodand Drug Administration.PATIENT WAS FASTINGPERFORMED BY: Fundbox [address] [id number] BY: [employer] [employer]70 [facility] [id number] MCHC (RBC) [Mass/Vol] 33.4 g/dL Normal 31.5-35.7 [facility] Internal Medicine; [facility] Work Phone: Comment on above: Test(s) 553429-XSB-D ; 313021-RKB-R; 102240-Izhjyhglswawl; 767077-Emwurucstlz, Total; 158500-GLL-C (Total); 264387-Zlwyy LDL-P; 485545-HJF Size; 203523-TN-AM Scorewas developed and its performance characteristics determinedby QReca!. It has not been cleared or approved by the Foodand Drug Administration.PATIENT WAS FASTINGPERFORMED BY: judo[address] [id number] BY: judoEast Orange General HospitalWeeeyr5399 [facility] [id number] MCV (RBC) [Entitic vol] 90 fL Normal 79-97 [facility]; [facility] Work Phone: Comment on above: Test(s) 913698-EHW-B ; 702460-RFO-X; 440312-Sugmcebpukpcr; 826291-Xesfxnnqgih, Total; 556908-ALJ-F (Total); 936780-Mveew LDL-P; 428563-XYH Size; 534853-GA-CR Scorewas developed and its performance characteristics determinedby QReca!. It has not been cleared or approved by the Foodand Drug Administration.PATIENT WAS FASTINGPERFORMED BY: Fundbox [address] [id number] BY: BridgeXs70 [facility]amarFirstHealth [facility] [id number] Monocytes (Bld) [#/Vol] 0.6 10*3/uL Normal 0.1-0.9 [facility]; [facility] Work Phone: Comment on above: Test(s) 236559-PVU-Z ; 980849-YAV-K; 432642-Ywshjjoveeppu; 148634-Pwkpqqzitjl, Total; 936766-YAF-P (Total); 645728-Renjt LDL-P; 838023-BVD Size; 729423-GQ-VD Scorewas developed and its performance characteristics determinedby QReca!. It has not been cleared or approved by the FoodCoreXchange Drug Administration.PATIENT WAS FASTINGPERFORMED BY: Fundbox [address] [id number] BY: The Optima[address] [facility] Bioimaging SystemsFirstHealth [facility] [id number] Monocytes/100 WBC (Bld) 9 % Normal [facility]; [facility] Work Phone: Comment on above: Test(s) 192420-EEU-Q ; 060800-MAL-I; 140113-Larifezhzefbp; 932080-Moqqpaakycr, Total; 079343-CSU-J (Total); 136935-Lpdxb LDL-P; 108372-IWK Size; 217772-DG-IH Scorewas developed and its performance characteristics determinedby QReca!. It has not been cleared or approved by the Foodand Drug Administration.PATIENT WAS FASTINGPERFORMED BY: Fundbox [address] [id number] BY: judo Cbobzt[address] [facility] PharmaceuticalsAtrium Health [facility] [id number] Neutrophils (Bld) [#/Vol] 2.6 10*3/uL Normal 1.4-7.0 [facility]; [facility] Work Phone: Comment on above: Test(s) 242134-LHI-J ; 054889-MSG-P; 956606-Pnjkhuuotdpjx; 073471-Vbbrzeatfpn, Total; 166359-LJG-T (Total); 147713-Jkfhb LDL-P; 857362-MBH Size; 495112-IX-JS Scorewas developed and its performance characteristics determinedby QReca!. It has not been cleared or approved by the Foodand Drug Administration.PATIENT WAS FASTINGPERFORMED BY: InterEx[address] [id number] BY: The Optima6370 [facility] [id number] Neutrophils/100 WBC (Bld) 40 % Normal [facility]; [facility] Work Phone: Comment on above: Test(s) 088868-YTV-D ; 114367-SSD-I; 728396-Plkknurrckzzz; 994934-Vpmqwbzgwcx, Total; 042184-FXW-O (Total); 866216-Gxzjf LDL-P; 661038-ZFX Size; 297639-IF-YX Scorewas developed and its performance characteristics determinedby QReca!. It has not been cleared or approved by the Foodand Drug Administration.PATIENT WAS FASTINGPERFORMED BY: Phreesia[address] [id number] BY: RebelMouseEast Orange General HospitalWkjpky9340 [facility] [id number] Platelets (Bld) [#/Vol] 215 10*3/uL Normal 150-450 [facility]; [facility] Work Phone: Comment on above: Test(s) 369718-SZU-R ; 724737-EUI-L; 311619-Lwhgdbiyippzq; 603796-Lxdqszviynr, Total; 858965-KCP-H (Total); 512425-Txqbt LDL-P; 294784-QKX Size; 431319-RK-AQ Scorewas developed and its performance characteristics determinedby QReca!. It has not been cleared or approved by the Foodand Drug Administration.PATIENT WAS FASTINGPERFORMED BY: WP [employer] [address] [id number] BY: WP [employer] Kjubwp6771 [facility] [id number] RBC (Bld) [#/Vol] 4.69 10*6/uL Normal 4.14-5.80 [facility] Internal Medicine; [facility] Work Phone: Comment on above: Test(s) 793787-LQZ-D ; 701976-PWN-C; 774239-Zjjoqmpmmzffy; 407230-Ypopswgeuzh, Total; 752651-MLI-T (Total); 501170-Ijxni LDL-P; 382622-BJB Size; 203881-GE-WP Scorewas developed and its performance characteristics determinedby QReca!. It has not been cleared or approved by the Foodand Drug Administration.PATIENT WAS FASTINGPERFORMED BY: WP [employer] [address] [id number] BY: judoCibola General HospitalJiniwa5500 [facility] [id number] WBC (Bld) [#/Vol] 6.5 10*3/uL Normal 3.4-10.8 [facility] Internal Medicine; [facility] Work Phone: Comment on above: Test(s) 976808-LVL-M ; 478916-QNB-G; 723771-Powlevxgohjur; 847912-Wkpixponpdf, Total; 604737-HBX-Y (Total); 054371-Lbggp LDL-P; 590653-KVH Size; 970589-SF-WZ Scorewas developed and its performance characteristics determinedby QReca!. It has not been cleared or approved by the Foodand Drug Administration.PATIENT WAS FASTINGPERFORMED BY: BN LabCo[address] [id number] BY: judo Lxelyr3144 [facility] [id number] METABOLIC PANEL, COMPREHENSI VE (71780)Ordered By: Bed Maker on 12-14-2020 Albumin [Mass/Vol] 4.1 g/dL Normal 3.7-4.7 [facility] Internal Medicine; [facility] Work Phone: Comment on above: Test(s) 300303-RFZ-D ; 730265-ZIF-N; 115609-Bkkficeguhtfw; 657392-Ilommilbfde, Total; 215136-VUU-M (Total); 148015-Wdjbk LDL-P; 062888-ATA Size; 450589-ZX-NL Scorewas developed and its performance characteristics determinedby QReca!. It has not been cleared or approved by the Foodand Drug Administration.PATIENT WAS FASTINGPERFORMED BY: Fundbox [address] [id number] BY: Keepy6370 [facility] [id number] Albumin/Globulin [Mass ratio] 1.5 {ratio} Normal 1.2-2.2 [facility]; [facility] Work Phone: Comment on above: Test(s) 913871-PFS-V ; 155645-SUA-O; 399696-Opcfemawgrlpv; 545067-Cdeqjtwkeow, Total; 554707-DRJ-K (Total); 832772-Anumt LDL-P; 395894-OJW Size; 231340-VL-UL Scorewas developed and its performance characteristics determinedby QReca!. It has not been cleared or approved by the Foodand Drug Administration.PATIENT WAS FASTINGPERFORMED BY: Fundbox [address] [id number] BY: WP Fail-Safe Mzdyoo4523 [facility] [id number] ALP [Catalytic activity/Vol] 63 U/L Normal 48-121 [facility]; [facility] Work Phone: Comment on above: Effective Septembe r 2020 Alkaline Phosphatase reference interval will be changing to: Age Male Female 0 - 5 days 47 - 127 47 - 127 6 - 10 days 29 - 242 29 - 242 11 - 20 days 109 - 357 109 - 357 21 - 30 days 94 - 494 94 - 494 1 - 2 months 149 - 539 149 - 539 3 - 6 months 131 - 452 131 - 452 7 - 11 months 117 - 401 117 - 401 12 months - 6 years 158 - 369 158 - 369 7 - 12 years 150 - 409 150 - 409 13 years 156 - 435 78 - 227 14 years 114 - 375 64 - 161 15 years 88 - 279 56 - 134 16 years 74 - 207 51 - 121 17 years 63 - 161 47 - 113 18 - 20 years 51 - 125 42 - 106 >20 years 44 - 121 44 - 121 Test(s) 303768-QLX-Z ; 070410-WLD-N; 128082-Stujlrninyess; 050848-Lnxkdzbtavg, Total; 407511-ATL-D (Total); 222616-Fzkdd LDL-P; 844417-TOG Size; 230210-QX-TP Scorewas developed and its performance characteristics determinedby QReca!. It has not been cleared or approved by the Foodand Drug Administration.PATIENT WAS FASTINGPERFORMED BY: Ala-Septic[address] [place] [address] [id number] BY: Siteminis [facility] [id number] ALT [Catalytic activity/Vol] 6 U/L Normal 0-44 [facility]; [facility] Work Phone: Comment on above: Test(s) 714079-QJM-E ; 622836-IMI-X; 765650-Kgcitictjkvrx; 206677-Geswkxixpas, Total; 958356-VCH-G (Total); 477039-Lxqdr LDL-P; 218256-QOF Size; 588370-AK-QC Scorewas developed and its performance characteristics determinedby QReca!. It has not been cleared or approved by the Foodand Drug Administration.PATIENT WAS FASTINGPERFORMED BY: InterEx[address] [id number] BY: [facility]aint [facility] [place] [facility] [place] [id number] AST [Catalytic activity/Vol] 27 U/L Normal 0-40 [facility]; [facility] Work Phone: Comment on above: Test(s) 228085-VAA-O ; 161970-WYX-T; 970425-Uhujteztffacg; 821407-Tsopbshdgxj, Total; 531589-CNF-G (Total); 727375-Fdaip LDL-P; 864762-DAT Size; 125438-JT-BC Scorewas developed and its performance characteristics determinedby QReca!. It has not been cleared or approved by the Foodand Drug Administration.PATIENT WAS FASTINGPERFORMED BY: InterEx[address] [id number] BY: The Optima6370 [facility] [id number] Bilirubin [Mass/Vol] 0.9 mg/dL Normal 0.0-1.2 [facility] Internal Medicine; [facility] Internal Medicine Work Phone: Comment on above: Test(s) 333821-ADO-Y ; 454865-CQU-G; 875151-Tmgdxeaxocuxr; 832390-Zfhpkmojryu, Total; 831662-UQJ-L (Total); 368284-Isrli LDL-P; 470562-HOR Size; 268816-DQ-IM Scorewas developed and its performance characteristics determinedby QReca!. It has not been cleared or approved by the Foodand Drug Administration.PATIENT WAS FASTINGPERFORMED BY: InterEx[address] [id number] BY: [address] Trkuye6280 [facility] [id number] Calcium [Mass/Vol] 9.0 mg/dL Normal 8.6-10.2 [facility] Internal Medicine; [facility] Internal Medicine Work Phone: Comment on above: Test(s) 152566-KJW-L ; 722252-IFN-C; 356158-Eichsxnkrwrwz; 043209-Xeikmiobrvh, Total; 993321-OHX-P (Total); 957674-Lerny LDL-P; 086339-TZX Size; 838095-NL-KG Scorewas developed and its performance characteristics determinedby QReca!. It has not been cleared or approved by the Foodand Drug Administration.PATIENT WAS FASTINGPERFORMED BY: Fundbox [address] [id number] BY: The Optima[address] [facility] [id number] Chloride [Moles/Vol] 101 mmol/L Normal 96-106 [facility]; [facility] Work Phone: Comment on above: Test(s) 954401-XER-R ; 206243-FTZ-B; 945298-Ndigxuiqpnpfr; 618396-Qlykmbycayr, Total; 314828-FCJ-C (Total); 862458-Hpusf LDL-P; 178626-GNN Size; 639971-BR-AZ Scorewas developed and its performance characteristics determinedby QReca!. It has not been cleared or approved by the Foodand Drug Administration.PATIENT WAS FASTINGPERFORMED BY: InterEx[address] [id number] BY: The Optima6370 [facility] [id number] CO2 [Moles/Vol] 25 mmol/L Normal 20-29 [facility] Internal Medicine; [facility] Work Phone: Comment on above: Test(s) 049226-TZB-K ; 209114-KPZ-V; 183627-Mnyswlrxrpjji; 679852-Mzdckssdroh, Total; 376057-KGT-P (Total); 689924-Tfyhk LDL-P; 971367-XFO Size; 198004-WH-AO Scorewas developed and its performance characteristics determinedby QReca!. It has not been cleared or approved by the Foodand Drug Administration.PATIENT WAS FASTINGPERFORMED BY: Fundbox [address] [id number] BY: The Optima6370 [facility] [id number] Creatinine [Mass/Vol] 1.17 mg/dL Normal 0.76-1.27 Com prehensive [facility]; [facility] Work Phone: Comment on above: Test(s) 294543-CLA-B ; 488787-VTZ-U; 717877-Llabuxygqiopg; 783418-Zlrqrceqmyc, Total; 236340-XOD-A (Total); 072712-Wimbl LDL-P; 827351-VWR Size; 238409-DV-ON Scorewas developed and its performance characteristics determinedby QReca!. It has not been cleared or approved by the Foodand Drug Administration.PATIENT WAS FASTINGPERFORMED BY: Fundbox [address] [id number] BY: WP Fail-Safe Gmvmgx6223 [facility] [id number] GFR/1.73 sq M.predicted among blacks CKD-EPI (S/P/Bld) [Vol rate/Area] 69 mL/min/1.73 Normal [facility]; [facility] Work Phone: Comment on above: [facility] currently reports eGFR in compliance with the current recommendations of the National Kid[employer]. [facility] will update reporting as new guidelines are published from the NKF-ASN Task force. Test(s) 161777-AFY-P ; 142227-PMU-P; 633691-Xquafcreqxsas; 550102-Aenvylneguv, Total; 011718-LAU-K (Total); 750480-Sfxea LDL-P; 777049-SIV Size; 640079-GV-CH Scorewas developed and its performance characteristics determinedby QReca!. It has not been cleared or approved by the Foodand Drug Administration.PATIENT WAS FASTINGPERFORMED BY: Fundbox [address] [id number] BY: WP Fail-Safe Zblvfn7121 [facility] [id number] GFR/1.73 sq M.predicted among non-blacks CKD-EPI (S/P/Bld) [Vol rate/Area] 59 mL/min/1.73 Abnormal [facility]; [facility] Work Phone: Comment on above: Test(s) 141889-JGL-P ; 198550-BUH-A; 798831-Ugfodjugyvpow; 434035-Qaynuimgrmy, Total; 353057-HJV-Y (Total); 998348-Ioulg LDL-P; 448582-XBG Size; 897043-GQ-TB Scorewas developed and its performance characteristics determinedby QReca!. It has not been cleared or approved by the Foodand Drug Administration.PATIENT WAS FASTINGPERFORMED BY: Fundbox [address] [id number] BY: BridgeXs70 [facility] [id number] Globulin (S) [Mass/Vol] 2.7 g/dL Normal 1.5-4.5 [facility] Internal Medicine; [facility] Work Phone: Comment on above: Test(s) 050102-FSO-K ; 839348-ILO-J; 560266-Gmqqahujcbqwc; 033264-Gkxxmxlhlev, Total; 582574-NDY-P (Total); 215097-Hjvfs LDL-P; 113107-LLR Size; 157629-DP-MB Scorewas developed and its performance characteristics determinedby QReca!. It has not been cleared or approved by the Foodand Drug Administration.PATIENT WAS FASTINGPERFORMED BY: Fundbox [address] [id number] BY: [address] Zevrxq5320 [facility] [id number] Glucose [Mass/Vol] 95 mg/dL Normal 65-99 [facility] Internal Medicine; [facility] Work Phone: Comment on above: Test(s) 602050-LXK-N ; 698521-QOG-B; 310528-Seyqdqewncpiz; 297554-Bbbvqgcuasy, Total; 803220-BMZ-M (Total); 478096-Jqear LDL-P; 151166-LED Size; 567917-QN-OB Scorewas developed and its performance characteristics determinedby QReca!. It has not been cleared or approved by the Foodand Drug Administration.PATIENT WAS FASTINGPERFORMED BY: Fundbox [address] [id number] BY: judo Djhpzd2475 [facility] [id number] Potassium [Moles/Vol] 4.8 mmol/L Normal 3.5-5.2 [facility]; [facility] Work Phone: Comment on above: Test(s) 833394-UQR-T ; 015118-RYX-N; 256785-Cxtqfxiroalsr; 283449-Gollwrtydxc, Total; 500763-JZO-T (Total); 749644-Bhldf LDL-P; 373316-WWO Size; 133583-YK-VD Scorewas developed and its performance characteristics determinedby QReca!. It has not been cleared or approved by the Foodand Drug Administration.PATIENT WAS FASTINGPERFORMED BY: Fundbox [address] [id number] BY: The Optima6370 [facility] [id number] Protein [Mass/Vol] 6.8 g/dL Normal 6.0-8.5 [facility] Internal Medicine; [facility] Work Phone: Comment on above: Test(s) 658866-CVM-S ; 268186-DTS-V; 639142-Kgbacejhtxals; 078159-Ystnfrbxjqf, Total; 065855-KEP-Y (Total); 350881-Hylhe LDL-P; 524196-NSD Size; 301344-PF-BD Scorewas developed and its performance characteristics determinedby QReca!. It has not been cleared or approved by the Foodand Drug Administration.PATIENT WAS FASTINGPERFORMED BY: judo[address] [id number] BY: judoEast Orange General HospitalRqkzob4456 [facility] [id number] Sodium [Moles/Vol] 137 mmol/L Normal 134-144 [facility] Internal Medicine; [facility] Work Phone: Comment on above: Test(s) 190540-GXG-Y ; 688308-WUZ-W; 687534-Etrvfxpntovws; 957958-Nzlljjpxipe, Total; 324200-EGG-U (Total); 583618-Pzves LDL-P; 577308-MEU Size; 218393-XJ-EV Scorewas developed and its performance characteristics determinedby QReca!. It has not been cleared or approved by the Foodand Drug Administration.PATIENT WAS FASTINGPERFORMED BY: Phreesia[address] [id number] BY: judo Nigeha9748 Lema21[facility] [id number] Urea nitrogen [Mass/Vol] 14 mg/dL Normal 8-27 [facility]; [facility] Work Phone: Comment on above: Test(s) 736791-ZBF-C ; 617421-GMB-T; 999239-Ouqygeckocnkx; 160980-Hbxfrmazhks, Total; 341936-PDM-K (Total); 949961-Naunn LDL-P; 038409-JOX Size; 247623-CX-QR Scorewas developed and its performance characteristics determinedby QReca!. It has not been cleared or approved by the Foodand Drug Administration.PATIENT WAS FASTINGPERFORMED BY: Fundbox [address] [id number] BY: BridgeXs70 Lema21[facility] [id number] Urea nitrogen/Creatinine [Mass ratio] 12 mg/mg Normal 10-24 [facility]; [facility] Work Phone: Comment on above: Test(s) 147591-TFG-O ; 861829-RAI-R; 193759-Flmvjbngwvprp; 787961-Lxlqzpuffva, Total; 838980-QAT-P (Total); 991273-Uskrw LDL-P; 400284-EZJ Size; 607359-DN-XP Scorewas developed and its performance characteristics determinedby QReca!. It has not been cleared or approved by the Foodand Drug Administration.PATIENT WAS FASTINGPERFORMED BY: Fundbox [address] [id number] BY: RebelMouse Eatlzm[address] [facility] [facility] [id number] NMR Profile (96134)Ordered B y: Bed Maker on 12-14-2020 Cholesterol [Mass/Vol] 135 mg/dL Normal 100-199 [facility]; [facility] Work Phone: Comment on above: Test(s) 735959-JRT-R ; 602443-LQS-W; 245236-Dzutixbmddcrm; 184041-Ucivgujtxcb, Total; 777611-NCQ-U (Total); 164252-Ghdyx LDL-P; 714628-QQK Size; 032044-ZR-WS Scorewas developed and its performance characteristics determinedby QReca!. It has not been cleared or approved by the Foodand Drug Administration.PATIENT WAS FASTINGPERFORMED BY: [facility] [id number] BY: [employer] Private LimitedLake [facility] [id number] Lipoprotein.alpha [Moles/Vol] 30.5 umol/L Normal [facility]; [facility] Work Phone: Comment on above: Test(s) 999487-QIE-E ; 699445-PBE-T; 870532-Ssunrzhbvfkzo; 107748-Lgkizpfsbmw, Total; 633738-BJE-C (Total); 434450-Kkibs LDL-P; 518623-GVV Size; 577541-YD-BU Scorewas developed and its performance characteristics determinedby QReca!. It has not been cleared or approved by the Foodand Drug Administration.PATIENT WAS FASTINGPERFORMED BY: [facility] [id number] BY: BridgeXs70 [facility] ResearchL[facility] [id number] Lipoprotein.beta.subp article [Entitic length] 20.6 nm Normal [facility]; [facility] Work Phone: Comment on above: INTERPRETATIVE INFORMATION PARTICLE CONCENTRATION AND SIZE <--Lower CVD Risk Higher CVD Risk--> LDL AND HDL PARTICLES Percentile in Reference Population HDL-P (total) High 75th 50th 25th Low >34.9 34.9 30.5 26.7 <26.7 . Small LDL-P Low 25th 50th 75th High <117 117 527 839 >839 . LDL Size <-Large (Pattern A)-> <-Small (Pattern B)-> 23.0 20.6 20.5 19.0 Small LDL-P and LDL Size are associated with CVD risk, but not afterLDL-P is taken into account. Test(s) 239706-XAO-A ; 625451-FFW-M; 346095-Glijavmdvlitq; 588880-Dcfmnvixyzh, Total; 208975-VEQ-C (Total); 817905-Nhedo LDL-P; 080459-OFQ Size; 931041-JU-IK Scorewas developed and its performance characteristics determinedby QReca!. It has not been cleared or approved by the Foodand Drug Administration.PATIENT WAS FASTINGPERFORMED BY: WP Fail-Safe [address] [id number] BY: WP Fail-Safe Hyuyse6970 [facility] [id number] Lipoprotein.beta.subp article [Moles/Vol] 577 nmol/L Normal Comprehensiv e Internal Medicine; [facility] Work Phone: Comment on above: Low < 1000 Moderate 1000 - 1299 Borderline-High 1300 - 1599 High 1600 - 2000 Very High > 2000 Test(s) 897989-DKU-F ; 519756-IJN-G; 889093-Mbvyrygmhblgl; 785851-Nqqqqgubrjs, Total; 142992-KWK-M (Total); 137952-Lcusu LDL-P; 904264-VWK Size; 375801-IB-KX Scorewas developed and its performance characteristics determinedby QReca!. It has not been cleared or approved by the Foodand Drug Administration.PATIENT WAS FASTINGPERFORMED BY: Fundbox [address] [id number] BY: judoEast Orange General HospitalPpnfra1981 [facility] [id number] Lipoprotein.beta.subp article.small [Moles/Vol] 164 nmol/L Normal [facility]; [facility] Work Phone: Comment on above: Test(s) 858826-BAY-R ; 709766-UUO-A; 132396-Ztelgqpslwvmc; 115624-Cishervucne, Total; 394335-JJR-F (Total); 688408-Tfevn LDL-P; 775567-FZE Size; 820420-LT-FN Scorewas developed and its performance characteristics determinedby QReca!. It has not been cleared or approved by the Foodand Drug Administration.PATIENT WAS FASTINGPERFORMED BY: Fundbox [address] [id number] BY: The Optima6370 [facility] [id number] Triglyceride [Mass/Vol] 45 mg/dL Normal 0-149 [facility]; [facility] Work Phone: Comment on above: Test(s) 203205-AMG-A ; 239743-MEL-B; 760518-Utjtqsvinzhzu; 275904-Mhqbhmmsrui, Total; 692146-PGH-X (Total); 041829-Gngra LDL-P; 234045-QGA Size; 345331-SL-AT Scorewas developed and its performance characteristics determinedby QReca!. It has not been cleared or approved by the Foodand Drug Administration.PATIENT WAS FASTINGPERFORMED BY: Fundbox [address] [id number] BY: RebelMouseEast Orange General HospitalLspxmn5677 [facility] [id number] NMR Profile (79224) 62 mg/dL Normal Compr ehensive Internal Medicine; [facility] Work Phone: Comment on above: . Optimal < 100 Abov e optimal 100 - 129 Borderline 130 - 159 High 160 - 189 Very high > 189 . Test(s) 312763-BRH-E ; 048653-MFM-R; 839015-Anqhrjwapjzby; 221915-Ndgdizooepy, Total; 167678-XRA-G (Total); 179543-Wfaab LDL-P; 955700-LUZ Size; 433567-RT-HA Scorewas developed and its performance characteristics determinedby QReca!. It has not been cleared or approved by the Foodand Drug Administration.PATIENT WAS FASTINGPERFORMED BY: Fundbox [address] [id number] BY: BridgeXs70 [facility] [id number] TSH (THYROID STIMULATING HOR SID) (96496)Ordered By: Bed Maker on 12-14-2020 TSH Qn 4.170 {uIU/mL} Normal 0.450-4.50 0 [facility]; [facility] Work Phone: Comment on above: Test(s) 925725-ULO-E ; 738460-UGR-X; 610457-Qwwpqvqvmovcr; 128546-Gtwtjbsnxyp, Total; 967053-HGJ-M (Total); 973212-Xirdj LDL-P; 485106-FMO Size; 921938-VX-PI Scorewas developed and its performance characteristics determinedby QReca!. It has not been cleared or approved by the Foodand Drug Administration.PATIENT WAS FASTINGPERFORMED BY: Fundbox [address] [id number] BY: The Optima6370 [facility] [id number] CBC, PLATELETS & AUT DIFF (8 9391)Ordered By: Bed Maker on 02-01-2020 Basophils (Bld) [#/Vol] 0.0 {x10E3/uL} Normal 0.0-0.2 [facility] Work Phone: Comment on above: Test(s) 975787-GBA-M ; 478590-VXK-G; 579831-Rajklqfjrophq; 862847-Yfzliidarmu, Total; 950513-DSN-R (Total); 716528-Oxoph LDL-P; 005520-MIQ Size; 604275-RT-MB Scorewas developed and its performance characteristics determinedby WP Fail-Safe. It has not been cleared or approved by the Foodand Drug Administration.PATIENT WAS FASTINGPERFORMED BY: Fundbox [address] [id number] BY: RebelMouse Ffvxpj8120 [facility] [id number] Basophils (Bld) [#/Vol] 0.0 10*3/uL Normal 0.0-0.2 [facility]; [facility] Work Phone: Comment on above: Test(s) 484023-RGQ-F ; 264513-RFK-F; 645062-Cgrxdtysaimtk; 241492-Mlyokogkbtd, Total; 909068-JOB-G (Total); 658239-Efxwm LDL-P; 685405-ILJ Size; 085618-RB-UM Scorewas developed and its performance characteristics determinedby WP Fail-Safe. It has not been cleared or approved by the Foodand Drug Administration.PATIENT WAS FASTINGPERFORMED BY: Fundbox [address] [id number] BY: BridgeXs70 [employer] [facility] Bioimaging SystemsFirstHealth [facility] [id number] Basophils/100 WBC (Bld) 0 % Normal [facility] Work Phone: Comment on above: Test(s) 237118-SNI-T ; 191995-CRU-C; 004046-Yqfiorzoefjsj; 833459-Pxmkuarpsme, Total; 546039-YWO-F (Total); 045837-Ovqya LDL-P; 117942-WXG Size; 190403-PS-YM Scorewas developed and its performance characteristics determinedby WP Fail-Safe. It has not been cleared or approved by the Foodand Drug Administration.PATIENT WAS FASTINGPERFORMED BY: Fundbox [address] [id number] BY: 99 [address] Neyfug4254 [facility] [id number] Eosinophils (Bld) [#/Vol] 0.3 {x10E3/uL} Normal 0.0-0.4 [facility] Work Phone: Comment on above: Test(s) 231596-LQU-I ; 739078-FOG-H; 601156-Fygalireragzt; 790761-Mcyfxneoavw, Total; 104053-RPJ-R (Total); 718553-Lfdzd LDL-P; 408958-HMC Size; 779548-EQ-CP Scorewas developed and its performance characteristics determinedby WP Fail-Safe. It has not been cleared or approved by the Foodand Drug Administration.PATIENT WAS FASTINGPERFORMED BY: Fundbox [address] [id number] BY: 99 [address] Grjdbk6620 [facility] [id number] Eosinophils (Bld) [#/Vol] 0.3 10*3/uL Normal 0.0-0.4 [facility]; [facility] Work Phone: Comment on above: Test(s) 410506-CZO-N ; 710271-TCS-L; 035515-Ydqtqzdmaiqqj; 696754-Qfnhncudcyy, Total; 159911-TYM-C (Total); 899692-Oxjjo LDL-P; 532425-KZC Size; 800549-UF-LY Scorewas developed and its performance characteristics determinedby WP Fail-Safe. It has not been cleared or approved by the Foodand Drug Administration.PATIENT WAS FASTINGPERFORMED BY: Fundbox [address] [id number] BY: 99 [address] Nxdmri3453 [facility] [id number] Eosinophils/100 WBC (Bld) 4 % Normal [facility] Work Phone: Comment on above: Test(s) 008989-YTI-V ; 364682-RPG-P; 448267-Kbcwmaxrxrfii; 593237-Klphlgtnrsy, Total; 456551-UBH-J (Total); 951108-Gmzpr LDL-P; 775408-VHM Size; 952341-UJ-GQ Scorewas developed and its performance characteristics determinedby WP Fail-Safe. It has not been cleared or approved by the Foodand Drug Administration.PATIENT WAS FASTINGPERFORMED BY: Fundbox [address] [id number] BY: judo Mupmtj0593 [facility] [id number] Erythrocyte distribution width (RBC) [Ratio] 12.6 % Normal 11.6-15.4 [facility] Work Phone: Comment on above: Test(s) 459063-BHA-N ; 765891-OYB-C; 798868-Ahzcynphyikcw; 026565-Ymjhmzwwxye, Total; 554988-BYK-P (Total); 487858-Oacmw LDL-P; 880857-LHI Size; 725424-LU-CU Scorewas developed and its performance characteristics determinedby WP Fail-Safe. It has not been cleared or approved by the Foodand Drug Administration.PATIENT WAS FASTINGPERFORMED BY: Fundbox [address] [id number] BY: The Optima6370 [facility] [id number] Hematocrit (Bld) [Volume fraction] 43.8 % Normal 37.5-51.0 [facility] Work Phone: Comment on above: Test(s) 387561-KUC-R ; 385533-ISQ-I; 987315-Edzvsldfyzadu; 725665-Qzcogiseyzq, Total; 270899-FBT-N (Total); 015754-Dskwb LDL-P; 224158-TPQ Size; 818315-OU-BO Scorewas developed and its performance characteristics determinedby WP Fail-Safe. It has not been cleared or approved by the Foodand Drug Administration.PATIENT WAS FASTINGPERFORMED BY: Fundbox [address] [id number] BY: RebelMouseEast Orange General HospitalQuynnw4735 [facility] [id number] Hemoglobin (Bld) [Mass/Vol] 15.0 g/dL Normal 13.0-17.7 [facility] Work Phone: Comment on above: Test(s) 338834-JOJ-V ; 229867-YPB-H; 632494-Jkpcgkhbkgirh; 200923-Rcgxpsdjcrn, Total; 824128-ZVW-P (Total); 333055-Bsjmo LDL-P; 580251-WMO Size; 061761-QA-BY Scorewas developed and its performance characteristics determinedby WP Fail-Safe. It has not been cleared or approved by the Foodand Drug Administration.PATIENT WAS FASTINGPERFORMED BY: WP Fail-Safe [address] [id number] BY: judoRachel Ville 9971570 [facility] [id number] Immature granulocytes (Bld) [#/Vol] 0.0 {x10E3/uL} Normal 0.0-0.1 [facility] Work Phone: Comment on above: Test(s) 536138-JIW-F ; 505627-VVT-Q; 764338-Czrgecqizpniu; 355229-Gmxawzcwzht, Total; 458943-OGR-B (Total); 276820-Txfxa LDL-P; 071016-SMO Size; 088160-IK-ZT Scorewas developed and its performance characteristics determinedby WP Fail-Safe. It has not been cleared or approved by the Foodand Drug Administration.PATIENT WAS FASTINGPERFORMED BY: WP Fail-Safe [address] [id number] BY: judoEast Orange General HospitalBragpn8090 [facility] [id number] Immature granulocytes (Bld) [#/Vol] 0.0 10*3/uL Normal 0.0-0.1 [facility]; [facility] Work Phone: Comment on above: Test(s) 541692-PMN-W ; 181658-MEZ-I; 635730-Yhqxvjvljmhgk; 121006-Jdokaouxfpa, Total; 037468-MNU-Q (Total); 871551-Fnfrh LDL-P; 827343-DRX Size; 406663-VV-NJ Scorewas developed and its performance characteristics determinedby WP Fail-Safe. It has not been cleared or approved by the Foodand Drug Administration.PATIENT WAS FASTINGPERFORMED BY: judo[address] [id number] BY: The Optima6370 [facility] [id number] Immature granulocytes/100 WBC (Bld) 0 % Normal [facility] Work Phone: Comment on above: Test(s) 880775-BHB-V ; 789289-YVI-Y; 611566-Hafrjrpfytlgv; 830493-Bnqnygsjeev, Total; 136180-KKN-Q (Total); 176289-Dnoin LDL-P; 564036-OTI Size; 231413-VM-WC Scorewas developed and its performance characteristics determinedby WP Fail-Safe. It has not been cleared or approved by the Foodand Drug Administration.PATIENT WAS FASTINGPERFORMED BY: InterEx[address] [id number] BY: The Optima6370 [facility] [id number] Lymphocytes (Bld) [#/Vol] 3.1 {x10E3/uL} Normal 0.7-3.1 [facility] Work Phone: Comment on above: Test(s) 964460-KYU-A ; 266036-WPU-A; 840303-Dsntvvevdjzzl; 749907-Hrakwlsztui, Total; 113527-LAN-W (Total); 880480-Kmlmy LDL-P; 024067-NBU Size; 773359-XB-HZ Scorewas developed and its performance characteristics determinedby WP Fail-Safe. It has not been cleared or approved by the Foodand Drug Administration.PATIENT WAS FASTINGPERFORMED BY: Fundbox [address] [id number] BY: 99 Fahrenheit Ylsbaj7638 [facility] [id number] Lymphocytes (Bld) [#/Vol] 3.1 10*3/uL Normal 0.7-3.1 [facility]; [facility] Work Phone: Comment on above: Test(s) 068902-JVQ-L ; 389450-YXB-Q; 128544-Rmyllzbuiykik; 024621-Tpormqewysw, Total; 056917-VHK-V (Total); 456581-Bdgnj LDL-P; 261320-IKF Size; 656073-PB-TF Scorewas developed and its performance characteristics determinedby WP Fail-Safe. It has not been cleared or approved by the Foodand Drug Administration.PATIENT WAS FASTINGPERFORMED BY: Phreesia[address] [id number] BY: [employer]70 [facility] [id number] Lymphocytes/100 WBC (Bld) 43 % Normal [facility] Work Phone: Comment on above: Test(s) 126176-GKM-N ; 447602-OXS-P; 779236-Kixucvbtmkwla; 533943-Kownnrwehkn, Total; 476690-CFQ-L (Total); 909753-Vbkgp LDL-P; 355127-WSJ Size; 926864-HC-TQ Scorewas developed and its performance characteristics determinedby WP Fail-Safe. It has not been cleared or approved by the Foodand Drug Administration.PATIENT WAS FASTINGPERFORMED BY: Fundbox [address] [id number] BY: BridgeXs70 [facility] [id number] MCH (RBC) [Entitic mass] 30.5 pg Normal 26.6-33.0 [facility] Internal Medicine Work Phone: Comment on above: Test(s) 426103-ZTP-P ; 676079-SBD-C; 780039-Kcjauxcuifgru; 529131-Hlqknthlquo, Total; 144550-LCF-J (Total); 175912-Vxwqd LDL-P; 902238-LKW Size; 824713-FY-BZ Scorewas developed and its performance characteristics determinedby WP Fail-Safe. It has not been cleared or approved by the Foodand Drug Administration.PATIENT WAS FASTINGPERFORMED BY: Fundbox [address] [id number] BY: LightSide Labslin6370 [facility] [id number] MCHC (RBC) [Mass/Vol] 34.2 g/dL Normal 31.5-35.7 [facility] Work Phone: Comment on above: Test(s) 836529-VLU-R ; 525918-MPW-R; 965986-Fimigzqbkxcee; 433462-Jrwwpjfnsuk, Total; 026400-MUT-F (Total); 509158-Brkht LDL-P; 275443-FCO Size; 970830-MT-NI Scorewas developed and its performance characteristics determinedby WP Fail-Safe. It has not been cleared or approved by the Foodand Drug Administration.PATIENT WAS FASTINGPERFORMED BY: Fundbox [address] [id number] BY: 99 F[address]heit Ehbpaa9123 [facility] [id number] MCV (RBC) [Entitic vol] 89 fL Normal 79-97 [facility] Internal Medicine Work Phone: Comment on above: Test(s) 348702-PQT-D ; 922373-FKL-Z; 066791-Etfxxwsfhuoch; 634092-Uwlbabibrzy, Total; 275283-VCP-T (Total); 020407-Vkqjj LDL-P; 750513-FHM Size; 153717-XN-KL Scorewas developed and its performance characteristics determinedby WP Fail-Safe. It has not been cleared or approved by the Foodand Drug Administration.PATIENT WAS FASTINGPERFORMED BY: Fundbox [address] [id number] BY: 99 F[address]heit Peevql0183 [facility] [id number] Monocytes (Bld) [#/Vol] 0.6 {x10E3/uL} Normal 0.1-0.9 [facility] Internal Medicine Work Phone: Comment on above: Test(s) 043116-TVZ-C ; 672436-MDS-H; 664308-Xaferhzaqyywf; 729405-Joiodafgrwo, Total; 793297-AEW-N (Total); 880537-Snyjw LDL-P; 293051-YYG Size; 507865-BG-HD Scorewas developed and its performance characteristics determinedby WP Fail-Safe. It has not been cleared or approved by the Foodand Drug Administration.PATIENT WAS FASTINGPERFORMED BY: Fundbox [address] [id number] BY: RebelMouse Ieedin3181 [facility] [id number] Monocytes (Bld) [#/Vol] 0.6 10*3/uL Normal 0.1-0.9 [facility]; [facility] Work Phone: Comment on above: Test(s) 380548-WAO-S ; 785231-FDX-N; 261728-Aefqkounftycq; 018510-Mgeekomlvsz, Total; 127964-XLX-E (Total); 081142-Ywnpa LDL-P; 968020-BBT Size; 599243-TG-WQ Scorewas developed and its performance characteristics determinedby WP Fail-Safe. It has not been cleared or approved by the Foodand Drug Administration.PATIENT WAS FASTINGPERFORMED BY: InterEx[address] [id number] BY: The Optima6370 [facility] [id number] Monocytes/100 WBC (Bld) 9 % Normal [facility] Work Phone: Comment on above: Test(s) 987339-AAN-D ; 189696-FJP-J; 624208-Blhfdtqflxrqv; 647846-Olqjxyshycc, Total; 374393-WOA-K (Total); 796503-Gsbyt LDL-P; 108318-DJZ Size; 770985-HB-EM Scorewas developed and its performance characteristics determinedby WP Fail-Safe. It has not been cleared or approved by the Foodand Drug Administration.PATIENT WAS FASTINGPERFORMED BY: Fundbox [address] [id number] BY: RebelMouse Fnpzwe8312 [facility] [id number] Neutrophils (Bld) [#/Vol] 3.1 {x10E3/uL} Normal 1.4-7.0 [facility] Work Phone: Comment on above: Test(s) 575557-DRU-U ; 931094-SCD-J; 256680-Ygyjvtpamhpqy; 075344-Rhbkgvyenzf, Total; 230372-PTU-V (Total); 773625-Qpzbi LDL-P; 643610-QIC Size; 433420-KH-FV Scorewas developed and its performance characteristics determinedby WP Fail-Safe. It has not been cleared or approved by the Foodand Drug Administration.PATIENT WAS FASTINGPERFORMED BY: Fundbox [address] [id number] BY: BridgeXs70 [facility] [id number] Neutrophils (Bld) [#/Vol] 3.1 10*3/uL Normal 1.4-7.0 [facility]; [facility] Work Phone: Comment on above: Test(s) 200850-IXW-D ; 074893-GNO-S; 021449-Pofothfefmakd; 559021-Duzwtceryze, Total; 093868-NGZ-Z (Total); 752455-Klpoa LDL-P; 833236-OSZ Size; 285209-JA-AQ Scorewas developed and its performance characteristics determinedby WP Fail-Safe. It has not been cleared or approved by the Foodand Drug Administration.PATIENT WAS FASTINGPERFORMED BY: Fundbox [address] [id number] BY: BridgeXs70 [facility] [id number] Neutrophils/100 WBC (Bld) 44 % Normal [facility] Work Phone: Comment on above: Test(s) 898626-NJW-Q ; 544803-STK-E; 716180-Odlcwxqdqcmtd; 831678-Hjxckjhobsx, Total; 118657-ZGL-W (Total); 839984-Immfg LDL-P; 416339-DBK Size; 826638-YO-QQ Scorewas developed and its performance characteristics determinedby WP Fail-Safe. It has not been cleared or approved by the Foodand Drug Administration.PATIENT WAS FASTINGPERFORMED BY: Fundbox [address] [id number] BY: BridgeXs[address] [facility] [id number] Platelets (Bld) [#/Vol] 230 {x10E3/uL} Normal 150-450 [facility] Internal Medicine Work Phone: Comment on above: Test(s) 078092-GXW-F ; 417061-OIV-J; 290579-Tvqflcgwwuqto; 272280-Mlypwverqsp, Total; 453877-EVM-F (Total); 726742-Mcvog LDL-P; 519014-QXF Size; 209285-KS-QJ Scorewas developed and its performance characteristics determinedby WP Fail-Safe. It has not been cleared or approved by the Foodand Drug Administration.PATIENT WAS FASTINGPERFORMED BY: InterEx[address] [id number] BY: The Optima6370 [facility] [id number] Platelets (Bld) [#/Vol] 230 10*3/uL Normal 150-450 [facility] Internal Medicine; [facility] Internal [facility] Work Phone: Comment on above: Test(s) 490513-YBM-E ; 169047-TLP-S; 301262-Zmvvwpuurgtmc; 843951-Dvblvcxkoez, Total; 554214-PQF-C (Total); 933491-Knqml LDL-P; 683493-QBY Size; 488201-MG-XP Scorewas developed and its performance characteristics determinedby WP Fail-Safe. It has not been cleared or approved by the Foodand Drug Administration.PATIENT WAS FASTINGPERFORMED BY: Fundbox [address] [id number] BY: The Optima6370 [facility] [id number] RBC (Bld) [#/Vol] 4.92 {x10E6/uL} Normal 4.14-5.80 [facility] Internal Medicine Work Phone: Comment on above: Test(s) 894922-JUA-W ; 581151-SOE-J; 955204-Heouywidvudqt; 602783-Yfxntsqnpmo, Total; 530439-SHY-Q (Total); 882817-Pmdqe LDL-P; 369349-DVJ Size; 834053-DR-PD Scorewas developed and its performance characteristics determinedby WP Fail-Safe. It has not been cleared or approved by the Foodand Drug Administration.PATIENT WAS FASTINGPERFORMED BY: Fundbox [address] [id number] BY: judoCibola General HospitalFdasjr2394 [facility] [id number] RBC (Bld) [#/Vol] 4.92 10*6/uL Normal 4.14-5.80 [facility] ehensive Internal Medicine; [facility] Internal Medicine Work Phone: Comment on above: Test(s) 541381-IBY-C ; 762950-KDP-B; 369087-Fbowmhojvygtx; 714095-Isnrwxypqzg, Total; 675573-OBZ-A (Total); 138802-Orwgk LDL-P; 380862-ENX Size; 715190-EK-NW Scorewas developed and its performance characteristics determinedby WP Fail-Safe. It has not been cleared or approved by the Foodand Drug Administration.PATIENT WAS FASTINGPERFORMED BY: Fundbox [address] [id number] BY: judo Vcviwq6826 [facility] [id number] WBC (Bld) [#/Vol] 7.1 {x10E3/uL} Normal 3.4-10.8 [facility] Internal Medicine Work Phone: Comment on above: Test(s) 710889-WWQ-M ; 086766-HYK-U; 341470-Ovdyiadrbdmgj; 127350-Lrkxfzctiev, Total; 844118-OWG-K (Total); 239692-Zhwjz LDL-P; 737753-DKC Size; 182724-CK-ZE Scorewas developed and its performance characteristics determinedby WP Fail-Safe. It has not been cleared or approved by the Foodand Drug Administration.PATIENT WAS FASTINGPERFORMED BY: Fundbox [address] [id number] BY: Keepy6370 [facility] [id number] WBC (Bld) [#/Vol] 7.1 10*3/uL Normal 3.4-10.8 [facility] Internal Medicine; [facility] Work Phone: Comment on above: Test(s) 062515-NEF-C ; 057496-OTV-Q; 188520-Sjvzxpfkwvluq; 015714-Uoqlzbkovlj, Total; 521558-IPM-I (Total); 073362-Nvnfz LDL-P; 309507-ZFK Size; 285047-CO-SR Scorewas developed and its performance characteristics determinedby WP Fail-Safe. It has not been cleared or approved by the Foodand Drug Administration.PATIENT WAS FASTINGPERFORMED BY: Ala-Septic1447 [facility] [id number] BY: BridgeXs70 Lema21[facility] [id number] METABOLIC PANEL, COMPREHENSI VE (28041)Ordered By: Bed Maker on 02-01-2020 Albumin [Mass/Vol] 4.3 g/dL Normal 3.7-4.7 [facility] Internal Medicine Work Phone: Comment on above: Test(s) 516106-DLB-M ; 131214-WQW-Y; 927262-Swwvczqxgooru; 330842-Zxokymimduv, Total; 937348-ZZV-K (Total); 318771-Ftbtj LDL-P; 844159-DQU Size; 446476-YN-KB Scorewas developed and its performance characteristics determinedby WP Fail-Safe. It has not been cleared or approved by the Foodand Drug Administration.PATIENT WAS FASTINGPERFORMED BY: InterEx[address] [id number] BY: BridgeXs70 Lema21[facility] [id number] Albumin/Globulin [Mass ratio] 1.4 {ratio} Normal 1.2-2.2 [facility] Internal Medicine Work Phone: Comment on above: Test(s) 205016-DWS-G ; 893849-FWL-H; 412772-Vjqaogfjxvudf; 265125-Dbmhnkqdfug, Total; 674976-TUB-D (Total); 531448-Seqjl LDL-P; 139563-DQZ Size; 867433-LL-LT Scorewas developed and its performance characteristics determinedby WP Fail-Safe. It has not been cleared or approved by the Foodand Drug Administration.PATIENT WAS FASTINGPERFORMED BY: judo[address] [id number] BY: judo Lcvzce4374 [employer] [facility] SystemsFirst[facility] [id number] ALP [Catalytic activity/Vol] 72 [iU]/L Normal 39-117 [facility] Work Phone: Comment on above: Test(s) 658324-NOT-Z ; 009833-TLS-U; 844408-Yisgupbtfmkbs; 072412-Jhmzzranvbg, Total; 508255-PXY-L (Total); 664490-Yvqfh LDL-P; 903843-CJI Size; 512695-KK-IP Scorewas developed and its performance characteristics determinedby WP Fail-Safe. It has not been cleared or approved by the Foodand Drug Administration.PATIENT WAS FASTINGPERFORMED BY: WP Fail-Safe [address] [id number] BY: [employer]70 [facility]amarFirst[facility] [id number] ALP [Catalytic activity/Vol] 72 U/L Normal 39-117 [facility]; [facility] Work Phone: Comment on above: Test(s) 964310-UGE-F ; 514394-VCQ-Q; 283848-Rmxnsfpwcwuqp; 862829-Xbrhfpkkiif, Total; 765318-BIP-O (Total); 232193-Ftvtr LDL-P; 248461-CKO Size; 853590-AE-UW Scorewas developed and its performance characteristics determinedby WP Fail-Safe. It has not been cleared or approved by the Foodand Drug Administration.PATIENT WAS FASTINGPERFORMED BY: judo[address] [id number] BY: judo Ztlopr5847 [employer] [facility] SystemsFirst[facility] [id number] ALT [Catalytic activity/Vol] 9 [iU]/L Normal 0-44 [facility] Work Phone: Comment on above: Test(s) 478984-CBO-E ; 749572-MFK-G; 066010-Duvycvmedkyxz; 048061-Bsgzchszoch, Total; 833701-FPE-I (Total); 036304-Apabg LDL-P; 549851-IZR Size; 607538-YA-QY Scorewas developed and its performance characteristics determinedby WP Fail-Safe. It has not been cleared or approved by the Foodand Drug Administration.PATIENT WAS FASTINGPERFORMED BY: Fundbox [address] [id number] BY: [facility]Time[facility] [id number] ALT [Catalytic activity/Vol] 9 U/L Normal 0-44 [facility]; [facility] Work Phone: Comment on above: Test(s) 792415-SHO-V ; 144459-TEV-I; 935867-Xgyfqrqtnfflp; 049567-Enrkvrqokzo, Total; 188733-OLZ-B (Total); 399845-Wkadu LDL-P; 401820-YLB Size; 772550-PF-HR Scorewas developed and its performance characteristics determinedby WP Fail-Safe. It has not been cleared or approved by the Foodand Drug Administration.PATIENT WAS FASTINGPERFORMED BY: WP [facility]ail-Safe [address] [id number] BY: BridgeXs70 [facility] [id number] AST [Catalytic activity/Vol] 27 [iU]/L Normal 0-40 [facility] Work Phone: Comment on above: Test(s) 675595-RIZ-L ; 814204-KVN-C; 612312-Tmgykbcsareky; 144482-Rlvwushgaqf, Total; 132169-MBV-Y (Total); 574930-Cfcgz LDL-P; 658964-ROQ Size; 344222-TR-NK Scorewas developed and its performance characteristics determinedby WP Fail-Safe. It has not been cleared or approved by the Foodand Drug Administration.PATIENT WAS FASTINGPERFORMED BY: Fundbox [address] [id number] BY: RebelMouse Gzirnb7654 [employer] [facility] Bio[facility] SystemsFirst[facility] [id number] AST [Catalytic activity/Vol] 27 U/L Normal 0-40 [facility]; [facility] Work Phone: Comment on above: Test(s) 545153-USL-R ; 464237-EFJ-M; 300134-Mhhblogfizuwe; 110295-Dddhawazxub, Total; 076669-PRV-O (Total); 645512-Cwunc LDL-P; 200177-SRB Size; 311180-AK-CY Scorewas developed and its performance characteristics determinedby WP Fail-Safe. It has not been cleared or approved by the Foodand Drug Administration.PATIENT WAS FASTINGPERFORMED BY: Fundbox [address] [id number] BY: The Optima6370 [place] [facility] Bio[facility] SystemsFirst[facility] [id number] Bilirubin [Mass/Vol] 0.9 mg/dL Normal 0.0-1.2 [facility] Internal Medicine Work Phone: Comment on above: Test(s) 957485-WQR-U ; 269106-HCX-Z; 565760-Llxhvjkhsajvb; 071458-Wsoccxqttie, Total; 077822-VIJ-T (Total); 230745-Yhzyz LDL-P; 252583-DZB Size; 512714-OR-AX Scorewas developed and its performance characteristics determinedby WP Fail-Safe. It has not been cleared or approved by the Foodand Drug Administration.PATIENT WAS FASTINGPERFORMED BY: Fundbox [address] [id number] BY: RebelMouse Zlgsed6755 [place] [facility] Bio[facility] SystemsFirstHealth [facility] [id number] Calcium [Mass/Vol] 9.4 mg/dL Normal 8.6-10.2 [facility] Internal Medicine Work Phone: Comment on above: Test(s) 352975-JRQ-S ; 865589-GKO-W; 053689-Laydahlgznwat; 017800-Wzfucvrggip, Total; 224234-LHZ-P (Total); 361160-Pnhjn LDL-P; 234262-MVP Size; 974421-AM-PE Scorewas developed and its performance characteristics determinedby WP Fail-Safe. It has not been cleared or approved by the Foodand Drug Administration.PATIENT WAS FASTINGPERFORMED BY: Fundbox [address] [id number] BY: BridgeXs70 Lema21[facility] [id number] Chloride [Moles/Vol] 98 mmol/L Normal 96-106 [facility] Internal Medicine Work Phone: Comment on above: Test(s) 828712-VOV-Q ; 455219-YDO-D; 555215-Meyemyjtclrtl; 004755-Mgjldwmhrla, Total; 658330-SFX-M (Total); 915542-Vrlvi LDL-P; 609012-MFQ Size; 410459-FF-PS Scorewas developed and its performance characteristics determinedby WP Fail-Safe. It has not been cleared or approved by the Foodand Drug Administration.PATIENT WAS FASTINGPERFORMED BY: InterEx[address] [id number] BY: BridgeXs70 Lema21[facility] [id number] CO2 [Moles/Vol] 26 mmol/L Normal 20-29 [facility] Internal Medicine Work Phone: Comment on above: Test(s) 172125-NJE-I ; 217144-KKG-Y; 742969-Ijtrikxtjgzeq; 987846-Tsnughjhsys, Total; 882096-FNJ-R (Total); 024009-Fncqf LDL-P; 746097-QBA Size; 713739-IW-KC Scorewas developed and its performance characteristics determinedby WP Fail-Safe. It has not been cleared or approved by the Foodand Drug Administration.PATIENT WAS FASTINGPERFORMED BY: Fundbox [address] [id number] BY: BridgeXs70 Lema21[facility] [id number] Creatinine [Mass/Vol] 1.06 mg/dL Normal 0.76-1.27 [facility] Internal Medicine Work Phone: Comment on above: Test(s) 450224-ZPJ-G ; 810650-KWS-U; 929675-Xsiqmezrsbazq; 334643-Ibedzlacaqs, Total; 312816-FAO-X (Total); 101077-Upliv LDL-P; 707304-FMQ Size; 374059-XT-XC Scorewas developed and its performance characteristics determinedby WP Fail-Safe. It has not been cleared or approved by the Foodand Drug Administration.PATIENT WAS FASTINGPERFORMED BY: InterEx[address] [id number] BY: BridgeXs70 [facility] [id number] GFR/1.73 sq M predicted among blacks CKD-EPI (S/P/Bld) [Vol rate/Area] 78 mL/min/1.73 [facility] Internal Medicine Work Phone: Comment on above: Test(s) 494381-WJB-U ; 654327-SWF-Z; 703111-Rjkxebecfpxwy; 654946-Nxhmukadxnq, Total; 531931-JME-H (Total); 908171-Pffgn LDL-P; 290331-NGH Size; 704768-LO-VP Scorewas developed and its performance characteristics determinedby WP Fail-Safe. It has not been cleared or approved by the Foodand Drug Administration.PATIENT WAS FASTINGPERFORMED BY: Fundbox [address] [id number] BY: 99 Fahrenheit Fbekfa4257 [facility] [id number] GFR/1.73 sq M predicted among non-blacks CKD-EPI (S/P/Bld) [Vol rate/Area] 67 mL/min/1.73 [facility] Internal Medicine Work Phone: Comment on above: Test(s) 822712-NHO-P ; 524933-JWY-L; 779716-Oesaibjxdkkdg; 679468-Ffapanubpsb, Total; 384403-FUT-O (Total); 574388-Bqqpl LDL-P; 773749-RDT Size; 062441-NY-QZ Scorewas developed and its performance characteristics determinedby WP Fail-Safe. It has not been cleared or approved by the Foodand Drug Administration.PATIENT WAS FASTINGPERFORMED BY: Phreesia[address] [id number] BY: judo Suymjq2078 [facility]amarFirstHealth [facility] [id number] Globulin (S) [Mass/Vol] 3.1 g/dL Normal 1.5-4.5 [facility] Internal Medicine Work Phone: Comment on above: Test(s) 136394-YAY-Y ; 686443-IRB-I; 926833-Yjzeakuwnbvdu; 085190-Nmisyksoubl, Total; 288324-QJB-C (Total); 229808-Rkgqo LDL-P; 240125-VQP Size; 401205-IE-BN Scorewas developed and its performance characteristics determinedby WP Fail-Safe. It has not been cleared or approved by the Foodand Drug Administration.PATIENT WAS FASTINGPERFORMED BY: Fundbox [address] [id number] BY: BridgeXs70 Lema21[facility] [id number] Glucose [Mass/Vol] 91 mg/dL Normal 65-99 [facility] Internal Medicine Work Phone: Comment on above: Test(s) 131032-JOM-Q ; 686841-YXT-W; 972765-Pwkklbygdmxzj; 304980-Lbfolwrfwaa, Total; 844090-JMD-I (Total); 791257-Zwtba LDL-P; 495648-XUX Size; 142544-BW-GR Scorewas developed and its performance characteristics determinedby WP Fail-Safe. It has not been cleared or approved by the Foodand Drug Administration.PATIENT WAS FASTINGPERFORMED BY: Fundbox [address] [id number] BY: The Optima6370 Lema21[facility] [id number] Potassium [Moles/Vol] 4.8 mmol/L Normal 3.5-5.2 [facility] Internal Medicine Work Phone: Comment on above: Test(s) 084485-BHL-F ; 509284-YYQ-B; 053473-Kicduifmkdcnc; 946303-Bgxgyaercep, Total; 316980-QDW-V (Total); 938561-Cugfc LDL-P; 025474-RRL Size; 206604-RT-XU Scorewas developed and its performance characteristics determinedby WP Fail-Safe. It has not been cleared or approved by the Foodand Drug Administration.PATIENT WAS FASTINGPERFORMED BY: Fundbox [address] [id number] BY: BridgeXs70 [facility]amarFirst[facility] [id number] Protein [Mass/Vol] 7.4 g/dL Normal 6.0-8.5 [facility] Internal Medicine Work Phone: Comment on above: Test(s) 452875-XYP-Z ; 679316-EDY-E; 928817-Sbusyyeefgybg; 262916-Czmfcdkdnxq, Total; 639492-AYX-P (Total); 602874-Aeojb LDL-P; 513341-XWH Size; 631189-OE-HK Scorewas developed and its performance characteristics determinedby WP Fail-Safe. It has not been cleared or approved by the Foodand Drug Administration.PATIENT WAS FASTINGPERFORMED BY: Fundbox [address] [id number] BY: The Optima[address] [facility] [id number] Sodium [Moles/Vol] 137 mmol/L Normal 134-144 [facility] Internal Medicine Work Phone: Comment on above: Test(s) 078943-OLI-S ; 750056-OMQ-W; 309428-Ustwrjgaapavi; 201899-Tnmltfnbail, Total; 781705-IIC-A (Total); 908897-Jcxqx LDL-P; 108632-EXF Size; 949353-KU-LZ Scorewas developed and its performance characteristics determinedby [employer]. It has not been cleared or approved by the Foodand Drug Administration.PATIENT WAS FASTINGPERFORMED BY: Phreesia[address] [id number] BY: judo Dfscqy2315 [facility] [id number] Urea nitrogen [Mass/Vol] 14 mg/dL Normal 8- [facility] Work Phone: Comment on above: Test(s) 672407-FSH-J ; 248785-WRH-T; 679237-Nqydntzhggjsh; 275111-Onliyreqhzb, Total; 067215-FXZ-D (Total); 726847-Oqxpp LDL-P; 007408-PEW Size; 638187-XF-AG Scorewas developed and its performance characteristics determinedby [employer]. It has not been cleared or approved by the Foodand Drug Administration.PATIENT WAS FASTINGPERFORMED BY: [employer] [address] [id number] BY: [facility]s[address] [facility] [id number] Urea nitrogen/Creatinine [Mass ratio] 13 mg/mg Normal 10- [facility] Work Phone: Comment on above: Test(s) 297137-GDU-N ; 579395-LME-K; 835433-Mewsokbqppfnj; 109427-Ispfujahfjx, Total; 440354-WRX-S (Total); 939017-Ouikt LDL-P; 944310-WDG Size; 597681-FW-PK Scorewas developed and its performance characteristics determinedby [employer]. It has not been cleared or approved by the Foodand Drug Administration.PATIENT WAS FASTINGPERFORMED BY: Phreesia[address] [id number] BY: RebelMouseEast Orange General HospitalTykoss8442 [facility] [id number] NMR Profile (51364)Ordered B y: Bed Maker on 02-01-2020 Cholesterol [Mass/Vol] 142 mg/dL Normal 100-199 [facility] Work Phone: Comment on above: Test(s) 048760-JGA-J ; 931259-HMZ-Q; 850969-Byrcpfczpsjov; 264178-Mrskncfxghq, Total; 610142-NBK-I (Total); 784469-Rttgw LDL-P; 041296-ODH Size; 402712-XG-JU Scorewas developed and its performance characteristics determinedby [employer]. It has not been cleared or approved by the Foodand Drug Administration.PATIENT WAS FASTINGPERFORMED BY: [employer] [address] [id number] BY: [employer]70 [facility] [id number] Cholesterol in HDL [Mass/Vol] 69 mg/dL Normal [facility] Work Phone: Comment on above: Test(s) 092420-PWE-W ; 456736-VOB-T; 833783-Xzcyungqqxwjr; 591328-Toavsravqll, Total; 808551-ZJM-T (Total); 665877-Inbzc LDL-P; 005873-YLO Size; 150443-LM-MO Scorewas developed and its performance characteristics determinedby [employer]. It has not been cleared or approved by the Foodand Drug Administration.PATIENT WAS FASTINGPERFORMED BY: [employer] [address] [id number] BY: BridgeXs70 [facility] [id number] Lipoprotein.alpha [Moles/Vol] 32.3 umol/L Normal [facility] Work Phone: Comment on above: Test(s) 748599-BUH-J ; 776786-RFD-D; 606362-Hwebtukwtpnah; 772849-Apjyxgrnpjt, Total; 353984-AVE-N (Total); 487286-Zcski LDL-P; 000843-JWL Size; 475397-RO-UO Scorewas developed and its performance characteristics determinedby [employer]. It has not been cleared or approved by the Foodand Drug Administration.PATIENT WAS FASTINGPERFORMED BY: Fund[employer] [address] [id number] BY: BridgeXs70 [address] RoadFirstHealth [facility] [id number] Lipoprotein.beta.subp article [Entitic length] 21.0 nm Normal [facility] Work Phone: Comment on above: INTERPRETATIVE INFORMATION PARTICLE CONCENTRATION AND SIZE <--Lower CVD Risk Higher CVD Risk--> LDL AND HDL PARTICLES Percentile in Reference Population HDL-P (total) High 75th 50th 25th Low >34.9 34.9 30.5 26.7 <26.7 . Small LDL-P Low 25th 50th 75th High <117 117 527 839 >839 . LDL Size <-Large (Pattern A)-> <-Small (Pattern B)-> 23.0 20.6 20.5 19.0 Small LDL-P and LDL Size are associated with CVD risk, but not afterLDL-P is taken into account. Test(s) 332263-EDW-O ; 019035-AET-G; 600804-Wobibrxpamhzr; 675390-Whxbjeconfj, Total; 754392-CJQ-H (Total); 414816-Gonhg LDL-P; 702392-PQF Size; 425326-SW-UJ Scorewas developed and its performance characteristics determinedby [employer]. It has not been cleared or approved by the Foodand Drug Administration.PATIENT WAS FASTINGPERFORMED BY: LabHonesty Online[address] [id number] BY: LabCoEast Orange General HospitalHpcwof3058 Eliu [facility] [id number] Lipoprotein.beta.subp article [Moles/Vol] 484 nmol/L Normal Comprehensiv e [facility] Work Phone: Comment on above: Low < 1000 Moderate 1000 - 1299 Borderline-High 1300 - 1599 High 1600 - 2000 Very High > 2000 Test(s) 340451-MQO-S ; 530892-KDO-I; 773177-Gjzkowwsdfeyl; 600912-Zxlcfeepneq, Total; 631169-XVB-A (Total); 453697-Iogup LDL-P; 630733-FET Size; 591437-GP-GX Scorewas developed and its performance characteristics determinedby [employer]. It has not been cleared or approved by the Foodand Drug Administration.PATIENT WAS FASTINGPERFORMED BY: InterEx[address] [id number] BY: BridgeXs70 [facility] [id number] Lipoprotein.beta.subp article.small [Moles/Vol] <90 Normal [facility] Work Phone: Comment on above: Test(s) 062642-UDA-Y ; 838012-ZJK-T; 319595-Gnpglfvwskhqc; 377136-Vfkwhefnqad, Total; 936417-NMV-M (Total); 775757-Fyjys LDL-P; 253384-RAQ Size; 263694-UE-QD Scorewas developed and its performance characteristics determinedby [employer]. It has not been cleared or approved by the Foodand Drug Administration.PATIENT WAS FASTINGPERFORMED BY: InterEx[address] [id number] BY: The [employer] [facility] [id number] Triglyceride [Mass/Vol] 46 mg/dL Normal 0-149 [facility] Work Phone: Comment on above: Test(s) 429068-RGQ-E ; 723321-VOL-T; 741173-Bgfbjwnwllynx; 109739-Jpnefuinwpf, Total; 591670-JHY-A (Total); 592457-Pempa LDL-P; 403775-TME Size; 551360-YI-LP Scorewas developed and its performance characteristics determinedby [facility] [employer]. It has not been cleared or approved by the Foodand Drug Administration.PATIENT WAS FASTINGPERFORMED BY: Fundbox [address] [id number] BY: [facility] [employer] Ncsssl5968 [facility] [id number] NMR Profile (85606) 62 mg/dL Normal 0-99 [facility] Internal Medicine Work Phone: Comment on above: . Optimal < 100 Abov e optimal 100 - 129 Borderline 130 - 159 High 160 - 189 Very high > 189 . Test(s) 757131-LVJ-F ; 442118-YDV-A; 281797-Vtwhnkzyqobpx; 245009-Kfhumwnwcpb, Total; 531710-KZN-P (Total); 929222-Ysfzr LDL-P; 551710-XLP Size; 423350-JR-AM Scorewas developed and its performance characteristics determinedby [facility] [employer]. It has not been cleared or approved by the Foodand Drug Administration.PATIENT WAS FASTINGPERFORMED BY: [facility] [address] [id number] BY: [facility] Szabmy5937 [facility] [id number] PSA (PROSTATE SPECIFIC ANTIG EN) (88169)Ordered By: Bed Maker on 02-01-2020 Prostate specific Ag [Mass/Vol] 1.0 ng/mL Normal 0.0-4.0 [facility] Internal Medicine Work Phone: Comment on above: Ariana ECLIA methodol ogy. .According to the [employer] [employer], Serum PSA shoulddecrease and remain at undetectable levels after radicalprostatectomy. The AUA defines biochemical recurrence as an initialPSA value 0.2 ng/mL or greater followed by a subsequent confirmatoryPSA value 0.2 ng/mL or greater.Values obtained with different assay methods or kits cannot be usedinterchangeably. Results cannot be interpreted as absolute evidenceof the presence or absence of malignant disease. Test(s) 450585-DAB-S ; 162263-UWT-A; 864175-Sxlrasirmpews; 793119-Bpbktwekwjs, Total; 122858-PQY-D (Total); 199856-Gdafe LDL-P; 675313-LEY Size; 940032-QH-AA Scorewas developed and its performance characteristics determinedby [employer]. It has not been cleared or approved by the Foodand Drug Administration.PATIENT WAS FASTINGPERFORMED BY: judo[address] [id number] BY: judoRachel Ville [id number] [facility] [id number] TSH (THYROID STIMULATING HOR SID) (97087)Ordered By: Bed Maker on 02-01-2020 TSH Qn 2.990 {uIU/mL} Normal 0.450-4.50 0 [facility] Work Phone: Comment on above: Test(s) 091904-TUB-Y ; 378255-QJH-T; 235220-Kgvuwufpimztf; 489689-Htrlnezsvsc, Total; 834830-UCL-M (Total); 740489-Viddt LDL-P; 545297-YHW Size; 098669-SJ-KV Scorewas developed and its performance characteristics determinedby [employer]. It has not been cleared or approved by the Foodand Drug Administration.PATIENT WAS FASTINGPERFORMED BY: [facility] Ewuadgjubv5222 [facility] [id number] BY: judoEast Orange General HospitalCvtnul6384 [facility] [id number] CBC W/Diff, AutomatedOrdered By: Bed Maker on 01-30-2018 Absolute Lymph 3.23 {X10_3/ul} Normal 0.83-4.51 Compr ehensive [facility] Medicine Work Phone: Absolute Neut 3.1 {X10_3/uL} Normal 2.0-7.7 Compreh ensive Internal Medicine Work Phone: Basophils/100 WBC Auto (Bld) 0.3 % Normal 0-1 [facility] Work Phone: Eosinophils/100 WBC Auto (Bld) 4.9 % Normal 0-5 [facility] Work Phone: Erythrocyte distribution width Auto Ratio (RBC) 13.6 % Normal 11.6-14.6 [facility] Work Phone: Hematocrit Auto Volume Fraction (Bld) 42.1 % Normal 40-54 Comprehens jane Internal Medicine Work Phone: Hemoglobin mass conc (Bld) 13.7 g/dL Normal 13.0-16.5 [facility] Work Phone: IM GRAN % 0.100 % Normal 0.0-0.9 [facility] Internal Medicine Work Phone: Comment on above: IG% - Immature Granu locytes (promyelocytes, myelocytes andmetamyelocytes) > 1% indicates that a LEFT SHIFT is Present. Lymphocytes/100 WBC Auto (Bld) 44.3 % Abnormal 19-41 [facility] Work Phone: MCH Auto Entitic mass (RBC) 29.4 pg Normal 27.0-32.0 [facility] Work Phone: MCHC Auto mass conc (RBC) 32.5 {g/gl} Normal 32-36 [facility] Internal Medicine Work Phone: MCV Auto Entitic volume (RBC) 90.3 fL Normal 80-94 [facility] Internal Medicine Work Phone: Monocytes/100 WBC Auto (Bld) 7.8 % Normal 0-10 [facility] Internal [facility] Work Phone: Neutrophils/100 WBC Auto (Bld) 42.6 % Abnormal 47-70 [facility] Internal [facility] Work Phone: Platelet mean volume Auto Entitic volume (Bld) 9.2 fL Normal 6.2-12.0 [facility] Internal Medicine Work Phone: Platelets Auto #/vol (Bld) 190 10*3/uL Normal 150-450 [facility] Internal Medicine Work Phone: RBC Auto #/vol (Bld) 4.66 {M/mm3} Normal 4.6-6.2 Co mprehensive [facility] Medicine Work Phone: RDW SD 44.4 fL Abnormal 35.1-43.9 [facility] Internal Medicine Work Phone: WBC Auto #/vol (Bld) 7.3 10*3/uL Normal 4.4-11.0 Com prehensive Internal Medicine Work Phone: CRP, High Sensitivity Cardia cOrdered By: Bed Maker on 01-30-2018 CRP HIGH SENS 1.38 mg/L Normal Comprehensi ve Internal Medicine Work Phone: Comment on above: Low Relative Risk of CVD <1.0 mg/L Average Relative Risk of CVD 1.0 - 3.0 mg/L High Relative Risk of CVD >3.0 mg/L Comprehensive Metabolic Prof ilOrdered By: Bed Maker on 01-30-2018 Comprehensive metabolic 2000 panel 88 mL/min Normal Comprehensi ve Internal Medicine Work Phone: Comment on above: GFR Calc Comprehensive metabolic 2000 panel 73 mL/min Normal Comprehensi ve [facility] Work Phone: Comment on above: Non- GFR Calc Comprehensive metabolic 2000 panel 1.05 mg/dL Normal 0.70-1.30 Comprehensi ve [facility] Work Phone: Comment on above: The validity of the calculated GFR AND GFRAA in patients over70 years has not been determined. Clinical correlation isessential. Comprehensive metabolic 2000 panel 14 mg/dL Normal 7-18 Comprehensi ve Internal Medicine Work Phone: Comprehensive metabolic 2000 panel 30.0 mmol/L Normal 21.0-32.0 Comprehensi ve [facility] Work Phone: Comprehensive metabolic 2000 panel 102 mmol/L Normal 98-107 Comprehensi ve [facility] Work Phone: Comprehensive metabolic 2000 panel 92 mg/dL Normal 74-106 Comprehensi ve [facility] Work Phone: Comment on above: Please note revised GLUCOSE reference range hgbuntmmm87/02/2018. Comprehensive metabolic 2000 panel 0.70 mg/dL Normal 0.20-1.00 Comprehensi ve [facility] Work Phone: Comprehensive metabolic 2000 panel 137 mmol/L Normal 136-145 Comprehensi ve [facility] Work Phone: Comprehensive metabolic 2000 panel 15 U/L Abnormal 16-61 Comprehensi ve [facility] Work Phone: Comprehensive metabolic 2000 panel 64 U/L Normal 45-117 Comprehensi ve [facility] Work Phone: Comprehensive metabolic 2000 panel 22 U/L Normal 15-37 Comprehensi ve [facility] Work Phone: Comprehensive metabolic 2000 panel 8.2 mg/dL Abnormal 8.5-10.1 Comprehensi ve [facility] Work Phone: Comprehensive metabolic 2000 panel 0.9 {RATIO} Normal 0.9-2.4 Comprehensi ve [facility] Work Phone: Comprehensive metabolic 2000 panel 5 1 Normal 5-15 Comprehensi ve [facility] Work Phone: Comprehensive metabolic 2000 panel 4.5 mmol/L Normal 3.5-5.1 Comprehensi ve [facility] Work Phone: Comprehensive metabolic 2000 panel 3.7 g/dL Normal 2.2-4.2 Comprehensi ve [facility] Work Phone: Comprehensive metabolic 2000 panel 3.4 g/dL Normal 3.2-5.0 Comprehensi ve [facility] Work Phone: Comprehensive metabolic 2000 panel 7.1 g/dL Normal 6.4-8.2 Comprehensi ve [facility] Work Phone: Comprehensive metabolic 2000 panel 13.3 {RATIO} Normal 10-20 Comprehensi ve [facility] Work Phone: Lipid ProfileOrdered By: Ileana tem Cobbler Sole on 01-30-2018 Cholesterol in HDL mass conc 62 mg/dL Normal [facility] Internal Medicine Work Phone: Comment on above: The drugs N-Acetylcy steine and Metamizole may falselydepress this assay. Reference Range HDL <40 mg/dL Low HDL Cholesterol HDL >or= 60 mg/dL High HDL Cholesterol Cholesterol in LDL mass conc 35 mg/dL Normal 0-130 [facility] Work Phone: Cholesterol in VLDL mass conc 9 mg/dL Normal 5-40 [facility] Work Phone: Cholesterol mass conc 106 mg/dL Normal Com prehensive Internal Medicine Work Phone: Comment on above: <200 mg/dL Desirable 200-240 mg/dL Borderline >240 mg/dL High Risk Triglyceride mass conc 43 mg/dL Normal [facility] Work Phone: Comment on above: The drugs N-Acetylcy steine and Metamizole may falselydepress this assay.Serum Triglycerides Reference Interval Normal <150 mg/dL Borderline high 150 - 199 mg/dL High 200 - 499 mg/dL Very High > or = 500 mg/dL MicroalbOrdered By: Do faye on 01-30-2018 Creatinine mass conc Test not performed Normal [facility] Work Phone: MICROALBUMIN,UR < 5.0 Normal Comprehen sive Internal Medicine Work Phone: UR CREAT 83.50 mg/dL Normal [facility] Work Phone: NMR LipoprofileOrdered By: Angeles hernandez Cobbler Sole on 01-30-2018 Cholesterol mass conc 116 mg/dL Normal 100-199 Com prehensive [facility] Medicine Work Phone: HDL-C 57 mg/dL Normal [facility] Work Phone: HDL-P TOTAL 31.0 umol/L Normal Comprehensiv e Internal Medicine Work Phone: LDL SIZE 20.3 nm Normal [facility] Work Phone: Comment on above: INTERPRETATIVE INFORMATION PARTICLE CONCENTRATION AND SIZE <--Lower CVD Risk Higher CVD Risk--> LDL AND HDL PARTICLES Percentile in Reference Population HDL-P (total) High 75th 50th 25th Low >34.9 34.9 30.5 26.7 <26.7 Small LDL-P Low 25th 50th 75th High <117 117 527 839 >839 LDL Size <-Large (Pattern A)-> <-Small (Pattern B)-> 23.0 20.6 20.5 19.0 Small LDL-P and LDL Size are associated with CVD risk, butnot after LDL-P is taken into account.These assays were developed and their performancecharacteristics determined by [employer]. These assayshave not been cleared by the [place] Food and DrugAdministration. The clinical utility of these laboratoryvalues have not been fully established. LDL-C 50 mg/dL Normal 0-99 [facility] Internal Medicine Work Phone: Comment on above: Optimal < 100 Above optimal 100 - 129 Borderline 130 - 159 High 160 - 189 Very high > 189LDL-C is inaccurate if patient is non-fasting. LDL-P 465 nmol/L Normal [facility] Internal Medicine Work Phone: Comment on above: Low < 1000 Moderate 1000 - 1299 Borderline-High 1300 - 1599 High 1600 - 2000 Very High > 2000 LIPIDS . Normal [facility] Internal Medicine Work Phone: LP-IR SCORE 30 1 Normal [facility] Work Phone: Comment on above: INSULIN RESISTANCE Salome VILLEGAS <--Insulin Sensitive Insulin Resistant--> Percentile in Reference PopulationInsulin Resistance ScoreLP-IR Score Low 25th 50th 75th High <27 27 45 63 >63LP-IR Score is inaccurate if patient is non-fasting.The LP-IR score is a laboratory developed index that hasbeen associated with insulin resistance and diabetes riskand should be used as one component of a physician'sclinical assessment. The LP-IR score listed above has notbeen cleared by the US Food and Drug Administration.Performed at: [address] [id number] Director: Erik Lucia MD, Phone: [phone] SMALL LDL-P 232 nmol/L Normal [facility] Internal Medicine Work Phone: Triglyceride mass conc 46 mg/dL Normal 0-149 [facility] Internal Medicine Work Phone: PSA,Total - Annual ScreenOrd ered By: Bed Maker on 01-30-2018 Prostate specific Ag mass conc 2.02 ng/mL Normal 0.00-4.00 [facility] Internal Medicine Work Phone: Comment on above: This test was perfor med using the TPSA assay method for the[employer] chemistry system. Values obtained with differentassay methods cannot be used interchangably.When changing PSA assays in the course of monitoring apatient, additional sequential testing should be carriedout to confirm baseline values. Thyroid Stim Hormone (TSH)Or dered By: Bed Maker on 01-30-2018 Thyrotropin Qn 2.31 {uIU/mL} Normal 0.358-3.74 Compreh ensive Internal Medicine Work Phone: Urinalysis, CompleteOrdered By: Bed Maker on 01-30-2018 RBC Test strip #/vol (U) 0 SEEN Normal 0-5 [facility] Work Phone: Urinalysis complete panel - Urine 0 SEEN Normal [facility] Work Phone: Urinalysis complete panel - Urine Negative Normal [facility] Work Phone: Urinalysis complete panel - Urine Yellow Normal [facility] Work Phone: Urinalysis complete panel - Urine Clear Normal [facility] Work Phone: Urinalysis complete panel - Urine Normal Normal [facility] Work Phone: Urinalysis complete panel - Urine 1.010 1 Normal 1.002-1.03 0 [facility] Work Phone: Urinalysis complete panel - Urine 7.0 1 Normal 5.0 - 8.0 [facility] Work Phone: CRPOrdered By: System Manage r on 01-28-2017 CRP High sensitivity method mass conc mg/L Normal 0.0-3.0 [facility] Internal Medicine Work Phone: Comment on above: C-Reactive Protein ( CRP) provides useful information for thediagnosis, therapy and monitoring of inflammatory processesand associated diseases. For the evaluation of Relative Riskfor Cardiovascular Disease, a High Sensitivity CRP (HSCRP)should be ordered. Lipid ProfileOrdered By: [employer] tem Cobbler Sole on 01-28-2017 Cholesterol in HDL mass conc 70 mg/dL Normal [facility] Work Phone: Comment on above: The drugs N-Acetylcy steine and Metamizole may falselydepress this assay. Reference Range HDL <40 mg/dL Low HDL Cholesterol HDL >or= 60 mg/dL High HDL Cholesterol Cholesterol in LDL mass conc 52 mg/dL Normal 0-130 [facility] Work Phone: Cholesterol in VLDL mass conc 10 mg/dL Normal 5-40 [facility] Internal Medicine Work Phone: Cholesterol mass conc 132 mg/dL Normal [facility] Work Phone: Comment on above: <200 mg/dL Desirable 200-240 mg/dL Borderline >240 mg/dL High Risk Triglyceride mass conc 48 mg/dL Normal [facility] Internal Medicine Work Phone: Comment on above: The drugs N-Acetylcy steine and Metamizole may falselydepress this assay.Serum Triglycerides Reference Interval Normal <150 mg/dL Borderline high 150 - 199 mg/dL High 200 - 499 mg/dL Very High > or = 500 mg/dL Liver ProfileOrdered By: Ileana tem Cobbler Sole on 01-28-2017 Albumin mass conc 4.0 g/dL Normal 3.4-5.0 [facility] Work Phone: Comment on above: Please note revised Albumin AND Globulin reference rangeeffective 2017. ALP enzyme act/vol 62 U/L Normal 45-117 [facility] Internal Medicine Work Phone: ALT enzyme act/vol 16 U/L Normal 12-78 [facility] Internal Medicine Work Phone: AST enzyme act/vol 25 U/L Normal 15-37 [facility] Internal Medicine Work Phone: Bilirubin mass conc 1.10 mg/dL Abnormal 0.20-1.00 [facility] Internal Medicine Work Phone: Bilirubin.direct mass conc 0.26 mg/dL Normal 0.00-0.30 [facility] Internal Medicine Work Phone: Globulin Calculated mass conc (S) 3.8 g/dL Normal 2.2-4.2 [facility] Internal Medicine Work Phone: Protein mass conc 7.8 g/dL Normal 6.4-8.2 [facility] Internal Medicine Work Phone: PSA,Total - Annual ScreenOrd ered By: Bed Maker on 01-28-2017 Prostate specific Ag mass conc 0.85 ng/mL Normal 0.00-4.00 [facility] Internal Medicine Work Phone: Comment on above: This test was perfor med using the TPSA assay method for [employer] chemistry system. Values obtained with differentassay methods cannot be used interchangably.When changing PSA assays in the course of monitoring apatient, additional sequential testing should be carriedout to confirm baseline values. COLON BIOPSY (CHOOSE SITE)Or dered By: Bed Maker on 02-23-2016 COLON BIOPSY (CHOOSE SITE) See Note Normal [facility] Work Phone: Comment on above: Patient: KAT LEGER : 1940 (75/M) Acct Num: [id number] Phys: Jaswant Connelly Unit Num: [id number] Loc: LABSPEC Specimen: [id number] Received: 02/23/161618 Spec Type: COLON BX TISSUES TISSUES: GROSS DESCRIPTION Received is one container labeled with the patient's name and designated polyp biopsy right colon. The specimen consists of two irregular fragments of light powell soft tissue that in aggregate measure 0.3 x 0.1 x 0.1 cm. The specimen is totally submitted in one cassette. / SJ:toma 02/26/16 TC:1 CPT:68570 HEADER OPERATION: Colonoscopy with biopsies PRE-OP DIAGNOSIS: Screening / polyp TISSUE SUBMITTED: Polyp biopsy right colon, rule out adenoma MICROSCOPIC DESCRIPTION Slides are reviewed. MICROSCOPIC DIAGNOSIS Polyp right colon, biopsy: Tubular adenoma. SJ:toma 02/27/16 Signed Demetrio Santana 02/27/16 Basic Metabolic Profile (BMP )Ordered By: Bed Maker on 02-17-2016 Basic metabolic 2000 panel 103 mmol/L Normal 98-107 [facility] Work Phone: Basic metabolic 2000 panel 83 mL/min Normal [facility] Work Phone: Comment on above: GFR Calc Basic metabolic 2000 panel 69 mL/min Normal [facility] Work Phone: Comment on above: Non- GFR Calc Basic metabolic 2000 panel 1.11 mg/dL Normal 0.70-1.30 [facility] Work Phone: Comment on above: The validity of the calculated GFR AND GFRAA in patients over70 years has not been determined. Clinical correlation isessential. Basic metabolic 2000 panel 86 mg/dL Normal 70-110 [facility] Work Phone: Basic metabolic 2000 panel 8.5 mg/dL Normal 8.5-10.1 Comprehensive Internal Medicine Work Phone: Basic metabolic 2000 panel 29.0 mmol/L Normal 21.0-32.0 [facility] Work Phone: Basic metabolic 2000 panel 139 mmol/L Normal 136-145 [facility] Work Phone: Basic metabolic 2000 panel 4.2 mmol/L Normal 3.5-5.1 [facility] Work Phone: Basic metabolic 2000 panel 17 mg/dL Normal 7-18 [facility] Work Phone: Basic metabolic 2000 panel 7 1 Normal 5-15 [facility] Work Phone: Basic metabolic 2000 panel 15.3 {RATIO} Normal 10-20 [facility] Work Phone: CRP, High Sensitivity Cardia cOrdered By: Bed Maker on 11-30-2015 CRP High sensitivity method mass conc 0.76 mg/L Normal [facility] Work Phone: Comment on above: Low Relative Risk of CVD <1.0 mg/L Average Relative Risk of CVD 1.0 - 3.0 mg/L High Relative Risk of CVD >3.0 mg/L Lipid ProfileOrdered By: Ileana tem Cobbler Sole on 11-30-2015 Cholesterol in HDL mass conc 63 mg/dL Normal [facility] Work Phone: Comment on above: The drugs N-Acetylcy steine and Metamizole may falsely deressthis assay. Reference Range HDL <40 mg/dL Low HDL Cholesterol HDL >or= 60 mg/dL High HDL Cholesterol Cholesterol in LDL mass conc 59 mg/dL Normal 0-130 [facility] Work Phone: Cholesterol in VLDL mass conc 8 mg/dL Normal 5-40 [facility] Work Phone: Cholesterol mass conc 130 mg/dL Normal [facility] Work Phone: Comment on above: <200 mg/dL Desirable 200-240 mg/dL Borderline >240 mg/dL High Risk Triglyceride mass conc 41 mg/dL Normal [facility] Internal Medicine Work Phone: Comment on above: The drugs N-Acetylcy steine and Metamizole may falsely deressthis assay.Serum Triglycerides Reference Interval Normal <150 mg/dL Borderline high 150 - 199 mg/dL High 200 - 499 mg/dL Very High > or = 500 mg/dL Liver ProfileOrdered By: Ileana tem Cobbler Sole on 11-30-2015 Albumin mass conc 3.9 g/dL Normal 3.4-5.0 [facility]pre[facility] Internal Medicine Work Phone: ALP enzyme act/vol 64 U/L Normal 50-136 [facility] Internal Medicine Work Phone: ALT enzyme act/vol 17 U/L Normal 12-78 [facility] Internal Medicine Work Phone: AST enzyme act/vol 26 U/L Normal 15-37 [facility] Internal Medicine Work Phone: Bilirubin mass conc 0.90 mg/dL Normal 0.20-1.00 [facility] Internal Medicine Work Phone: Bilirubin.direct mass conc 0.18 mg/dL Normal 0.00-0.30 [facility] Internal Medicine Work Phone: Globulin Calculated mass conc (S) 3.7 g/dL Abnormal 2.3-3.5 [facility] Internal Medicine Work Phone: Protein mass conc 7.6 g/dL Normal 6.4-8.2 Compreh [facility] Internal Medicine Work Phone: PSA,Total - Annual ScreenOrd ered By: Bed Maker on 11-30-2015 Prostate specific Ag mass conc 0.80 ng/mL Normal 0.00-4.00 [facility] Internal Medicine Work Phone: Comment on above: This test was perfor med using the TPSA assay method for the[employer] chemistry system. Values obtained with differentassay methods cannot be used interchangably.When changing PSA assays in the course of monitoring apatient, additional sequential testing should be carriedout to confirm baseline values. CRP, High Sensitivity Cardia cOrdered By: Bed Maker on 12-30-2014 CRP High sensitivity method mass conc 0.74 mg/L Normal [facility] Internal Medicine Work Phone: Comment on above: Low Relative Risk of CVD <1.0 mg/L Average Relative Risk of CVD 1.0 - 3.0 mg/L High Relative Risk of CVD >3.0 mg/L Lipid ProfileOrdered By: [employer] tem Cobbler Sole on 12-30-2014 Cholesterol in HDL mass conc 65 mg/dL Normal [facility] Internal Medicine Work Phone: Comment on above: Reference Range HDL <40 mg/dL Low HDL Cholesterol HDL >or= 60 mg/dL High HDL Cholesterol Cholesterol in LDL mass conc 50 mg/dL Normal 0-130 [facility] Internal Medicine Work Phone: Cholesterol in VLDL mass conc 11 mg/dL Normal 5-40 [facility] Internal Medicine Work Phone: Cholesterol mass conc 126 mg/dL Normal [facility] Internal Medicine Work Phone: Comment on above: <200 mg/dL Desirable 200-240 mg/dL Borderline >240 mg/dL High Risk Triglyceride mass conc 55 mg/dL Normal [facility] Internal Medicine Work Phone: Comment on above: Serum Triglycerides Reference Interval Normal <150 mg/dL Borderline high 150 - 199 mg/dL High 200 - 499 mg/dL Very High > or = 500 mg/dL Liver ProfileOrdered By: [employer] tem Cobbler Sole on 12-30-2014 Albumin mass conc 3.6 g/dL Normal 3.4-5.0 [facility] Internal Medicine Work Phone: ALP enzyme act/vol 59 U/L Normal 50-136 Compre [facility] Internal Medicine Work Phone: ALT enzyme act/vol 15 U/L Normal 12-78 [facility] Internal [facility] Work Phone: AST enzyme act/vol 25 U/L Normal 15-37 [facility] Internal Medicine Work Phone: Bilirubin mass conc 0.90 mg/dL Normal 0.20-1.00 [facility] Internal Medicine Work Phone: Bilirubin.direct mass conc 0.25 mg/dL Normal 0.00-0.30 [facility] Work Phone: Globulin Calculated mass conc (S) 3.5 g/dL Normal 2.3-3.5 [facility] Work Phone: Protein mass conc 7.1 g/dL Normal 6.4-8.2 Compreh ensive Internal Medicine Work Phone: PSA,Total - Annual ScreenOrd ered By: Bed Maker on 12-30-2014 Prostate specific Ag mass conc 0.81 ng/mL Normal 0.00-4.00 [facility] Work Phone: Comment on above: This test was perfor med using the TPSA assay method for [employer] chemistry system. Values obtained with differentassay methods cannot be used interchangably.When changing PSA assays in the course of monitoring apatient, additional sequential testing should be carriedout to confirm baseline values. CBCOrdered By: System Manage r on 12-18-2013 Erythrocyte distribution width Auto Ratio (RBC) 13.3 % Normal 11.6-14.6 [facility] Work Phone: Hematocrit Auto Volume Fraction (Bld) 43.6 % Normal 40-54 Comprehens jane Internal Medicine Work Phone: Hemoglobin mass conc (Bld) 14.4 g/dL Normal 13.0-16.5 [facility] Work Phone: MCH Auto Entitic mass (RBC) 29.4 pg Normal 27.0-32.0 [facility] Work Phone: MCHC Auto mass conc (RBC) 33.0 {g/gl} Normal 32-36 [facility] Work Phone: MCV Auto Entitic volume (RBC) 89.2 fL Normal 80-94 [facility] Work Phone: Platelet mean volume Auto Entitic volume (Bld) 9.3 fL Normal 6.2-12.0 [facility] Work Phone: Platelets Auto #/vol (Bld) 199 10*3/uL Normal 150-450 [facility] Work Phone: RBC Auto #/vol (Bld) 4.89 {M/mm3} Normal 4.6-6.2 Co mprehensive Internal Medicine Work Phone: WBC Auto #/vol (Bld) 6.5 10*3/uL Normal 4.4-11.0 [facility] prehensive Internal Medicine Work Phone: CBC 43.3 fL Normal 35.1-43.9 [facility] Work Phone: CRPOrdered By: [employer] on 12-18-2013 CRP mass conc mg/L Normal 0.0-3.0 Comprehensi Internal Medicine Work Phone: Comment on above: C-Reactive Protein ( CRP) provides useful information for thediagnosis, therapy and monitoring of inflammatory processesand associated diseases. For the evaluation of Relative Riskfor Cardiovascular Disease, a High Sensitivity CRP (HSCRP)should be ordered. GLUOrdered By: [employer] on 12-18-2013 Glucose mass conc 86 mg/dL Normal 70-110 Compreh ensive Internal Medicine Work Phone: LIPIDOrdered By: [email or web address] on 12-18-2013 Cholesterol in HDL mass conc 66 mg/dL Normal [facility] Internal Medicine Work Phone: Comment on above: Reference RangeHDL < 40 mg/dL Low HDL CholesterolHDL >or= 60 mg/dL High HDL Cholesterol Cholesterol in LDL mass conc 49 mg/dL Normal 0-130 [facility] Work Phone: Cholesterol mass conc 123 mg/dL Normal [facility] prehensive Internal Medicine Work Phone: Comment on above: <200 mg/dL Desirable 200-240 mg/dL Borderline>240 mg/dL High Risk Triglyceride mass conc 39 mg/dL Normal 0-199 [facility] Work Phone: Comment on above: Serum Triglycerides Reference IntervalNormal <150 mg/dLBorderline high 150 - 199 mg/dLHigh 200 - 499 mg/dLVery High > or = 500 mg/dL LIPID 8 mg/dL Normal 5-40 [facility] Work Phone: LIVEROrdered By: [email or web address] on 12-18-2013 Albumin mass conc 3.9 g/dL Normal 3.4-5.0 Compreh ensive Internal Medicine Work Phone: ALT enzyme act/vol 15 U/L Normal 12-78 Compre [facility] Internal Medicine Work Phone: AST enzyme act/vol 22 U/L Normal 15-37 [facility] Internal [facility] Work Phone: Protein mass conc 7.3 g/dL Normal 6.4-8.2 Compreh ensive Internal Medicine Work Phone: LIVER 0.28 mg/dL Normal 0.00-0.30 [facility] Work Phone: LIVER 61 U/L Normal 45-117 [facility] Work Phone: LIVER 1.20 mg/dL Abnormal 0.00-1.00 [facility] Work Phone: PSAOrdered By: System Manage r on 12-18-2013 PSA 0.70 ng/mL Normal 0.00-4.00 [facility] Internal Medicine Work Phone: Comment on above: This test was perfor med using the TPSA assay method for [employer] system. Values obtained with differentassay methods cannot be used interchangably.When changing PSA assays in the course of monitoring apatient, additional sequential testing should be carriedout to confirm baseline values. HEPATITIS B SURFACE ANTIBODY (46020)Ordered By: Bed Maker on 10-29-2011 HBV surface Ab Radioimmunoassay (TRISTEN) Qn (S) 23.21 {Index_Value} Abnormal 0.00-0.99 Comprehensiv e Internal Medicine Work Phone: Comment on above: Status of Immunity A nti-HBs Level Inconsistent with Immunity 0.00 - 0.99 Consistent with Immunity >0.99 . An Index Value of 1.00 is equivalent to 10 mIU/mL. However the magnitude of the Index Value is not indicative of the total amount of antibody present. PATIENT NOT FASTINGP ERFORMED BY: [facility] [id number] Hep A Ab, IgMOrdered By: Ileana tem Cobbler Sole on 10-29-2011 HAV IgM IA Ql Negative Normal Comprehensi ve Internal Medicine Work Phone: Hep A Ab, TotalOrdered By: Angeles ystem Cobbler Sole on 10-29-2011 HAV Ab IA Ql (S) Positive Abnormal Comprehe nsive Internal Medicine Work Phone: Written AuthorizationOrdered By: Bed Maker on 10-29-2011 Written Authorization WAR Normal Com prehensive Internal Medicine Work Phone: Comment on above: Written Authorizatio n Received.Authorization received from ABDIRAHMAN DE OLIVEIRA / ASHLEY [id number] by Osmani Del Toro C-REACTIVE PROTOrdered By: S ystem Cobbler Sole on 06-09-2009 CRP mass conc mg/L Normal 0.0-3.0 Comprehensi ve Internal Medicine Work Phone: Comment on above: C-Reactive Protein ( CRP) provides useful information for thediagnosis, therapy and monitoring of inflammatory processesand associated diseases. For the evaluation of Relative Riskfor Cardiovascular Disease, a High Sensitivity CRP (HSCRP)should be ordered. CBCDOrdered By: System Manag er on 06-09-2009 Basophils/100 WBC Auto (Bld) 0.4 % Normal 0-1 [facility] Work Phone: Eosinophils/100 WBC Auto (Bld) 6.5 % Abnormal 0-5 [facility] Work Phone: Erythrocyte distribution width Auto Ratio (RBC) 13.2 % Normal 11.6-14.6 [facility] Work Phone: Hematocrit Auto Volume Fraction (Bld) 44.0 % Normal 40-54 Comprehens jane Internal Medicine Work Phone: Hemoglobin mass conc (Bld) 14.4 g/dL Normal 14.0-18.0 [facility] Work Phone: Lymphocytes/100 WBC Auto (Bld) 42.2 % Abnormal 19-41 [facility] Work Phone: MCH Auto Entitic mass (RBC) 29.3 pg Normal 27.0-32.0 [facility] Work Phone: MCHC Auto mass conc (RBC) 32.7 g/dL Normal 32-36 [facility] Work Phone: MCV Auto Entitic volume (RBC) 89.6 fL Normal 80-94 [facility] Work Phone: Monocytes/100 WBC Auto (Bld) 7.8 % Normal 0-10 [facility] Work Phone: Neutrophils Auto #/vol (Bld) 3.1 3/uL Normal 2.0-7.7 [facility] Work Phone: Neutrophils/100 WBC Auto (Bld) 43.1 % Abnormal 47-70 [facility] Work Phone: Platelet mean volume Auto Entitic volume (Bld) 7.9 fL Normal 6.5-12.0 [facility] Work Phone: Platelets Auto #/vol (Bld) 190 10*3/uL Normal 150-450 [facility] Work Phone: RBC Auto #/vol (Bld) 4.91 {M/mm3} Normal 4.6-6.2 Co mprehensive Internal Medicine Work Phone: WBC Auto #/vol (Bld) 7.1 10*3/uL Normal 4.4-11.0 [facility] prehensive Internal Medicine Work Phone: COMP METABOLICOrdered By: Sy stem Cobbler Sole on 06-09-2009 Albumin mass conc 3.6 g/dL Normal 3.4-5.0 Compreh ensive Internal Medicine Work Phone: Albumin/Globulin mass ratio 0.9 {RATIO} Normal 0.9-2.4 [facility] Work Phone: ALP enzyme act/vol 57 U/L Normal 50-136 Compre [facility] Internal Medicine Work Phone: ALT enzyme act/vol 16 U/L Normal 12-78 Compre [facility] Internal Medicine Work Phone: Anion gap 3 molar conc 4 mmol/L Abnormal 5-15 [facility] Work Phone: AST enzyme act/vol 21 U/L Normal 15-37 Compre hensive Internal Medicine Work Phone: Bilirubin mass conc 1.00 mg/dL Normal 0.00-1.00 Compr ehensive Internal Medicine Work Phone: Calcium mass conc 8.6 mg/dL Normal 8.5-10.1 Compreh ensive Internal Medicine Work Phone: Chloride molar conc 104 mmol/L Normal 98-107 Compr ehensive Internal Medicine Work Phone: CO2 molar conc 31.0 mmol/L Normal 21.0-32.0 Comprehen sive Internal Medicine Work Phone: Creatinine mass conc 1.3 mg/dL Normal 0.8-1.3 Comp rehensive Internal Medicine Work Phone: GFR/1.73 sq M predicted among blacks MDRD vol rate/area (S/P/Bld) 72 mL/min/{1.73_m2} Normal Comprehe nsive Internal Medicine Work Phone: GFR/1.73 sq M.predicted MDRD vol rate/area 59 mL/min/{1.73_m2} Abnormal Comprehensiv e Internal Medicine Work Phone: Globulin Calculated mass conc (S) 3.8 g/dL Normal 2.7-4.2 [facility] Work Phone: Glucose mass conc 89 mg/dL Normal 70-110 Compreh ensive Internal Medicine Work Phone: Potassium molar conc 4.2 mmol/L Normal 3.5-5.1 Comp rehensive Internal Medicine Work Phone: Protein mass conc 7.4 g/dL Normal 6.4-8.2 Compreh ensive Internal Medicine Work Phone: Sodium molar conc 139 mmol/L Normal 136-145 Compreh ensive Internal Medicine Work Phone: Urea nitrogen mass conc 14 mg/dL Normal 7-18 [facility] Work Phone: Urea nitrogen/Creatinine mass ratio 10.8 {RATIO} Normal 10-20 [facility] Work Phone: D BILIOrdered By: System Man ager on 06-09-2009 Bilirubin.direct mass conc 0.23 mg/dL Normal 0.00-0.30 [facility] Work Phone: LIPIDOrdered By: Do thomas on 06-09-2009 Cholesterol in HDL mass conc 61 mg/dL Normal [facility] Work Phone: Comment on above: Reference RangeHDL < 40 mg/dL Low HDL CholesterolHDL >or= 60 mg/dL High HDL Cholesterol Cholesterol in LDL mass conc 57 mg/dL Normal 0-130 [facility] Work Phone: Cholesterol in VLDL mass conc 10 mg/dL Normal 5-40 [facility] Work Phone: Cholesterol mass conc 128 mg/dL Normal Com prehensive Internal Medicine Work Phone: Comment on above: <200 mg/dL Desirable 200-240 mg/dL Borderline>240 mg/dL High Risk Triglyceride mass conc 50 mg/dL Normal [facility] Internal Medicine Work Phone: Comment on above: Serum Triglycerides Reference IntervalNormal <150 mg/dLBorderline high 150 - 199 mg/dLHigh 200 - 499 mg/dLVery High > or = 500 mg/dL PSA, SCREENOrdered By: Antoni holland Cobbler Sole on 06-09-2009 Prostate specific Ag mass conc 0.6 ng/mL Normal 0.0-4.0 [facility] Internal Medicine Work Phone: C-REACTIVE PROTOrdered By: Angeles hernandez Cobbler Sole on 11-26-2007 CRP mass conc 1.07 mg/L Normal 0.0-6.0 Comprehensi Internal Medicine Work Phone: Comment on above: Test performed using the Dimension C-Reactive ProteinExtended Range assay method. This assay meets the AHA/CDC 2003 recommendations fordetermining patients at high risk for cardiovasculardisease. Reference: High risk CRP >3.0 mg/L CBCOrdered By: System Manage r on 11-26-2007 Erythrocyte distribution width Auto Ratio (RBC) 13.0 % Normal 11.6-14.6 [facility] Internal Medicine Work Phone: Hematocrit Auto Volume Fraction (Bld) 40.8 % Normal 40-54 Comprehens jane Internal Medicine Work Phone: Hemoglobin mass conc (Bld) 14.0 g/dL Normal 14.0-18.0 [facility] Work Phone: MCH Auto Entitic mass (RBC) 29.7 pg Normal 27.0-32.0 [facility] Work Phone: MCHC Auto mass conc (RBC) 34.3 g/dL Normal 32-36 [facility] Work Phone: MCV Auto Entitic volume (RBC) 86.6 fL Normal 80-94 [facility] Work Phone: Platelet mean volume Auto Entitic volume (Bld) 7.6 fL Normal 6.5-12.0 [facility] Work Phone: Platelets Auto #/vol (Bld) 202 10*3/uL Normal 150-450 [facility] Internal Medicine Work Phone: RBC Auto #/vol (Bld) 4.71 {M/mm3} Normal 4.6-6.2 Co mprehensive Internal Medicine Work Phone: WBC Auto #/vol (Bld) 7.3 10*3/uL Normal 4.4-11.0 Com prehensive Internal Medicine Work Phone: COMP METABOLICOrdered By: Jarvis stem Cobbler Sole on 11-26-2007 Albumin mass conc 3.5 g/dL Normal 3.4-5.0 Compreh ensive Internal Medicine Work Phone: Albumin/Globulin mass ratio 1.0 {RATIO} Normal 0.9-2.4 [facility] Internal Medicine Work Phone: ALP enzyme act/vol 63 U/L Normal 50-136 Compre [facility] Internal Medicine Work Phone: ALT enzyme act/vol 30 U/L Normal 30-65 [facility] Internal Medicine Work Phone: Anion gap 3 molar conc 4 mmol/L Abnormal 5-15 [facility] Work Phone: AST enzyme act/vol 28 U/L Normal 15-37 [facility] Internal Medicine Work Phone: Bilirubin mass conc 0.76 mg/dL Normal 0.00-1.00 Compr ehensive Internal Medicine Work Phone: Calcium mass conc 8.4 mg/dL Abnormal 8.5-10.1 Compreh ensive Internal Medicine Work Phone: Chloride molar conc 104 mmol/L Normal 98-107 Compr ensive Internal Medicine Work Phone: CO2 molar conc 30.8 mmol/L Normal 21.0-32.0 Comprehen sive Internal Medicine Work Phone: Creatinine mass conc 1.2 mg/dL Normal 0.8-1.3 Comp rehensive Internal Medicine Work Phone: Globulin Calculated mass conc (S) 3.5 g/dL Normal 2.7-4.2 [facility] Work Phone: Glucose mass conc 92 mg/dL Normal 70-110 Compreh ensive Internal Medicine Work Phone: Potassium molar conc 4.2 mmol/L Normal 3.5-5.1 Comp rehensive Internal Medicine Work Phone: Protein mass conc 7.0 g/dL Normal 6.4-8.2 Compreh ensive Internal Medicine Work Phone: Sodium molar conc 139 mmol/L Normal 136-145 Compreh ensive Internal Medicine Work Phone: Urea nitrogen mass conc 15 mg/dL Normal 7-18 [facility] Work Phone: Urea nitrogen/Creatinine mass ratio 12.5 {RATIO} Normal 10-20 [facility] Work Phone: D BILIOrdered By: System Man ketanr on 11-26-2007 Bilirubin.direct mass conc 0.12 mg/dL Normal 0.00-0.30 [facility] Work Phone: LIPIDOrdered By: System Farhana martha on 11-26-2007 Cholesterol in HDL mass conc 47 mg/dL Normal [facility] Work Phone: Comment on above: Reference Range HDL <40 mg/dL Low HDL Cholesterol HDL >or= 60 mg/dL High HDL Cholesterol Cholesterol in LDL mass conc 52 mg/dL Normal 0-130 [facility] Work Phone: Cholesterol in VLDL mass conc 9 mg/dL Normal 5-40 [facility] Work Phone: Cholesterol mass conc 108 mg/dL Normal Com prehensive Internal Medicine Work Phone: Comment on above: <200 mg/dL Desirable 200-240 mg/dL Borderline >240 mg/dL High Risk Triglyceride mass conc 45 mg/dL Normal [facility] Work Phone: Comment on above: Serum Triglycerides Reference Interval Normal <150 mg/dL Borderline high 150 - 199 mg/dL High 200 - 499 mg/dL Very High > or = 500 mg/dL PSA,TOT SCREENOrdered By: Jarvis stem Cobbler Sole on 11-26-2007 Prostate specific Ag mass conc 0.76 ng/mL Normal 0.00-4.00 [facility] Work Phone: Comment on above: This test was perfor med using the TPSA method for the[employer] chemistry system.Values obtained with different assay methods cannot be usedinterchangably.When changing PSA assays in the course of monitoring apatient, additional sequential testing should be carriedout to confirm baseline values. HEPATITIS B SURFACE ANTIBODY (50508)Ordered By: Keren Vanessa on 03-10-2007 HBV surface Ab Radioimmunoassay (TRISTEN) Qn (S) 0.93 {Index_Value} Normal 0.00-0.99 [facility] Internal Medicine Work Phone: Comment on above: Status of Immunity A nti-HBs Level Inconsistent with Immunity 0.00 - 0.99 Consistent with Immunity >0.99 . An Index Value of 1.00 is equivalent to 10 mIU/mL. However the magnitude of the Index Value is not indicative of the total amount of antibody present. . Please note reference interval change PATIENT NOT FASTINGC linical Information: ADD DRAW FEE [id number] ADD [id number] PERFORMED BY: [facility] [id number] [id number] C-REACTIVE PROTOrdered By: Angeles ystem Cobbler Sole on 02-21-2007 CRP mass conc 1.02 mg/L Normal 0.0-6.0 [facility] Work Phone: Comment on above: Test performed using the Dimension C-Reactive ProteinExtended Range assay method. This assay meets the AHA/CDC 2003 recommendations fordetermining patients at high risk for cardiovasculardisease. Reference: High risk CRP >3.0 mg/L CBCD,SMEAR DIFFOrdered By: Angeles tem Cobbler Sole on 02-21-2007 Eosinophils/100 WBC Auto (Bld) 3 % Normal 0-5 [facility] Internal Medicine Work Phone: Erythrocyte distribution width Auto Ratio (RBC) 13.3 % Normal 11.6-14.6 [facility] Internal Medicine Work Phone: Hematocrit Auto Volume Fraction (Bld) 44.9 % Normal 40-54 [facility] Internal Medicine Work Phone: Hemoglobin mass conc (Bld) 15.1 g/dL Normal 14.0-18.0 [facility] Internal Medicine Work Phone: Lymphocytes/100 WBC Auto (Bld) 54 % Abnormal 19-41 [facility] Internal Medicine Work Phone: MCH Auto Entitic mass (RBC) 29.8 pg Normal 27.0-32.0 [facility] Internal Medicine Work Phone: MCHC Auto mass conc (RBC) 33.6 g/dL Normal 32-36 [facility] Internal Medicine Work Phone: MCV Auto Entitic volume (RBC) 88.6 fL Normal 80-94 [facility] Internal Medicine Work Phone: Monocytes/100 WBC Auto (Bld) 3 % Normal 0-10 [facility] Internal Medicine Work Phone: Platelets Auto #/vol (Bld) 247 10*3/uL Normal 150-450 [facility] Internal Medicine Work Phone: RBC Auto #/vol (Bld) 5.07 {M/mm3} Normal 4.6-6.[address] [facility] [facility] Work Phone: WBC Auto #/vol (Bld) 8.2 10*3/uL Normal 4.4-11.0 [facility] prehensive Internal Medicine Work Phone: CBCD,SMEAR DIFF 100 1 Normal [facility] Internal Medicine Work Phone: CBCD,SMEAR DIFF 40 % Abnormal 47-70 [facility] Internal Medicine Work Phone: CBCD,SMEAR DIFF SeeNote Normal [facility] Internal Medicine Work Phone: Comment on above: Result: NORM C&C Result: ADEQUATE COMP METABOLICOrdered By: Jarvis stem Cobbler Sole on 02-21-2007 Albumin mass conc 3.9 g/dL Normal 3.4-5.0 [facility] Internal Medicine Work Phone: Albumin/Globulin mass ratio 1.1 {RATIO} Normal 0.9-2.4 [facility] Internal Medicine Work Phone: ALP enzyme act/vol 73 U/L Normal 50-136 [facility] Internal Medicine Work Phone: ALT enzyme act/vol 28 [iU]/L Abnormal 30-65 [facility] Internal Medicine Work Phone: Anion gap 3 molar conc 6 mmol/L Normal 5-15 [facility] Internal Medicine Work Phone: AST enzyme act/vol 31 U/L Normal 15-37 [facility] Internal Medicine Work Phone: Bilirubin mass conc 1.17 mg/dL Abnormal 0.00-1.00 [facility] Internal Medicine Work Phone: Calcium mass conc 8.8 mg/dL Normal 8.5-10.1 [facility] Internal Medicine Work Phone: Chloride molar conc 101 mmol/L Normal 98-107 [facility] Internal Medicine Work Phone: CO2 molar conc 31.1 mmol/L Normal 21.0-32.0 [facility] Internal Medicine Work Phone: Comment on above: Please Note Refer ence Interval Change Creatinine mass conc 1.1 mg/dL Normal 0.8-1.3 [facility] Internal Medicine Work Phone: Globulin Calculated mass conc (S) 3.7 g/dL Normal 2.7-4.2 [facility] Internal Medicine Work Phone: Comment on above: Please Note Refer ence Interval Change Glucose mass conc 81 mg/dL Normal 70-110 [facility] Work Phone: Potassium molar conc 4.3 mmol/L Normal 3.5-5.1 [facility] Work Phone: Protein mass conc 7.6 g/dL Normal 6.4-8.2 [facility] Work Phone: Sodium molar conc 138 mmol/L Normal 136-145 [facility] Work Phone: Urea nitrogen mass conc 17 mg/dL Normal 7-18 [facility] Work Phone: Urea nitrogen/Creatinine mass ratio 15.5 {RATIO} Normal 10-20 [facility] Work Phone: D BILIOrdered By: System Man ager on 02-21-2007 Bilirubin.direct mass conc 0.16 mg/dL Normal 0.00-0.30 [facility] Work Phone: LIPIDOrdered By: System Farhana martha on 02-21-2007 Cholesterol in HDL mass conc 55 mg/dL Normal [facility] Work Phone: Comment on above: Reference Range HDL <40 mg/dL Low HDL Cholesterol HDL >or= 60 mg/dL High HDL Cholesterol Cholesterol in LDL mass conc 57 mg/dL Normal 0-130 [facility] Work Phone: Cholesterol in VLDL mass conc 8 mg/dL Normal 5-40 [facility] Work Phone: Cholesterol mass conc 120 mg/dL Normal [facility] Work Phone: Comment on above: <200 mg/dL Desirable 200-240 mg/dL Borderline >240 mg/dL High Risk Triglyceride mass conc 38 mg/dL Normal [facility] Work Phone: Comment on above: Serum Triglycerides Reference Interval Normal <150 mg/dL Borderline high 150 - 199 mg/dL High 200 - 499 mg/dL Very High > or = 500 mg/dL PSA,TOT SCREENOrdered By: ActSocial stem Cobbler Sole on 02-21-2007 Prostate specific Ag mass conc 0.58 ng/mL Normal 0.00-4.00 [facility] Work Phone: Comment on above: This test was perfor med using the TPSA method for [employer] chemistry system.Values obtained with different assay methods cannot be usedinterchangably.When changing PSA assays in the course of monitoring apatient, additional sequential testing should be carriedout to confirm baseline values. TSHOrdered By: System Manage r on 02-21-2007 Thyrotropin Qn 2.72 {uIU/mL} Normal 0.34-4.82 [facility] Work Phone: Vital Signs Date Time Vital Sign Value Performing Clinician Facility 12-23-2024 11:46-0400 Body height 167.[address] Sia Tinajero DO Work Phone: [facility] 12-23-2024 11:46-0400 Body mass index (BMI) [Ratio] 22.6 kg/m2 Dr. Sia Tinajero DO Work Phone: [facility] 12-23-2024 11:46-0400 Body weight 63.[address] Sia Tinajero DO Work Phone: [facility] 12-23-2024 11:46-0400 Diastolic blood pressure 68 mm[Hg] Dr. Sia Tinajero DO Work Phone: [facility] 12-23-2024 11:46-0400 Heart rate 51 /min Dr. Sia Tinajero DO Work Phone: [facility] 12-23-2024 11:46-0400 Respiratory rate 16 /min Dr. Sia Tinajero DO Work Phone: [facility] 12-23-2024 11:46-0400 Systolic blood pressure 170 mm[Hg] Dr. Sia Tinajero DO Work Phone: [facility] 12-27-2022 09:57-0400 Body height 167.[address] Sia Tinajero Work Phone: [facility] 12-27-2022 09:57-0400 Body mass index (BMI) [Ratio] 23.1 kg/m2 Dr. Sia Tinajero Work Phone: [facility] 12-27-2022 09:57-0400 Body weight 64.[address] Sia Tinajero Work Phone: [facility] 12-27-2022 09:57-0400 Diastolic blood pressure 64 mm[Hg] Dr. Sia Tinajero Work Phone: [facility] 12-27-2022 09:57-0400 Heart rate 55 /min Dr. Sia Tinajero Work Phone: [facility] 12-27-2022 09:57-0400 Respiratory rate 16 /min Dr. Sia Tinajero Work Phone: [facility] 12-27-2022 09:57-0400 Systolic blood pressure 110 mm[Hg] Dr. Sia Tinajero Work Phone: [facility] 08-19-2022 08:30-0400 Body temperature 97.6 [degF] Dr. Sia Tinajero Work Phone: [facility] 08-19-2022 08:30-0400 Diastolic blood pressure 62 mm[Hg] Dr. Sia Tinajero Work Phone: [facility] 08-19-2022 08:30-0400 Heart rate 56 /min Dr. Sia Tinajero Work Phone: [facility] 08-19-2022 08:30-0400 Respiratory rate 18 /min Dr. Sia Tinajero Work Phone: [facility] 08-19-2022 08:30-0400 SaO2% (BldA) [Mass fraction] 96 % Dr. Sia Tinajero Work Phone: [facility] 08-19-2022 08:30-0400 Systolic blood pressure 118 mm[Hg] Dr. Sia Tinajero Work Phone: [facility] 08-18-2022 21:31-0400 Body height 167.[address] Sia Tinajero Work Phone: [facility] 08-18-2022 21:31-0400 Body mass index (BMI) [Ratio] 22.8 kg/m2 Dr. Sia Tinajero Work Phone: [facility] 08-18-2022 21:31-0400 Body weight 64.[address] Sia Tinajero Work Phone: [facility] 08-18-2022 20:36-0400 Body temperature 99 [degF] Dr. Sia Tinajero Work Phone: [facility] 08-18-2022 20:36-0400 Diastolic blood pressure 64 mm[Hg] Dr. Sia Tinajero Work Phone: [facility] 08-18-2022 20:36-0400 Heart rate 69 /min Dr. Sia Tinajero Work Phone: [facility] 08-18-2022 20:36-0400 Respiratory rate 16 /min Dr. Sia Tinajero Work Phone: [facility] 08-18-2022 20:36-0400 SaO2% (BldA) [Mass fraction] 94 % Dr. Sia Tinajero Work Phone: [facility] 08-18-2022 20:36-0400 Systolic blood pressure 138 mm[Hg] Dr. Sia Tinajero Work Phone: [facility] 08-18-2022 16:58-0400 Body height 167.[address] Sia Tinajero Work Phone: [facility] 08-18-2022 16:58-0400 Body mass index (BMI) [Ratio] 22.2 kg/m2 Dr. Sia Tinajero Work Phone: [facility] 08-18-2022 16:58-0400 Body weight 62.[address] Sia Tinajero Work Phone: [facility] 01-11-2022 09:29-0400 Body height 152.4 cm Hector Tamayo LPN [facility]; [facility] Work Phone: 01-11-2022 09:29-0400 Body mass index (BMI) [Ratio] 28.28 kg/m2 Hector Tamayo LPN [facility]; [facility] Work Phone: 01-11-2022 09:29-0400 Body surface area Derived from formula 1.63 m2 Hector Tamayo LPN [facility]; [facility] Work Phone: 01-11-2022 09:29-0400 Body weight 65.68 kg Hector Tamayo LPN [facility]; [facility] Work Phone: 01-11-2022 09:29-0400 Diastolic blood pressure 70 mm[Hg] Hector Tamayo LPN [facility]; [facility] Work Phone: Comment on above: Patient Position: Sitting; Cuff Location : Left Arm; Cuff Size: Standard 01-11-2022 09:29-0400 Heart rate 57 /min Hector Tamayo LPN [facility]; [facility] Work Phone: Comment on above: Pattern: Regular 01-11-2022 09:29-0400 Respiratory rate 16 /min Hector Tamayo LPN [facility]; [facility] Work Phone: Comment on above: Pattern: Unlabored 01-11-2022 09:29-0400 SaO2% (BldA) [Mass fraction] 99 % Hector Tamayo LPN [facility]; [facility] Work Phone: Comment on above: Room air 01-11-2022 09:29-0400 Systolic blood pressure 120 mm[Hg] Hector Tamayo LPN [facility]; [facility] Work Phone: Comment on above: Patient Position: Sitting; Cuff Location : Left Arm; Cuff Size: Standard 12-14-2021 06:53-0400 Body height 167.[address] Sia Tinajero Work Phone: [facility] Work Phone: 12-14-2021 06:53-0400 Body mass index (BMI) [Ratio] 22.8 kg/m2 Dr. Sia Tinajero Work Phone: [facility] Work Phone: 12-14-2021 06:53-0400 Body weight 64.[address] Sia Tinajero Work Phone: [facility] Work Phone: 12-14-2021 06:53-0400 Diastolic blood pressure 71 mm[Hg] Dr. Sia Tinajero Work Phone: [facility] Work Phone: 12-14-2021 06:53-0400 Heart rate 52 /min Dr. Sia Tinajero Work Phone: [facility] Work Phone: 12-14-2021 06:53-0400 Respiratory rate 16 /min Dr. Sia Tinajero Work Phone: [facility] Work Phone: 12-14-2021 06:53-0400 SaO2% (BldA) [Mass fraction] 99 % Dr. Sia Tinajero Work Phone: [facility] Work Phone: 12-14-2021 06:53-0400 Systolic blood pressure 135 mm[Hg] Dr. Sia Tinajero Work Phone: [facility] Work Phone: 12-28-2020 12:27-0400 Body height 152.4 cm Myrna Hayward LPN [facility]; [facility] Work Phone: 12-28-2020 12:27-0400 Body mass index (BMI) [Ratio] 27.54 kg/m2 Myrna Hayward LPN [facility]; [facility] Work Phone: 12-28-2020 12:27-0400 Body surface area Derived from formula 1.61 m2 Myrna Hayward LPN [facility]; [facility] Work Phone: 12-28-2020 12:27-0400 Body temperature 97.1 [degF] Myrna Slarb [employer]ICAL OPERATIONS LEADER [facility]; [facility] Work Phone: 12-28-2020 12:27-0400 Body weight 63.96 kg Myrna Slarb CLINICAL OPERATIONS LEADER [facility]; [facility] Work Phone: 12-28-2020 12:27-0400 Diastolic blood pressure 80 mm[Hg] Myrna Slarb CL[employer]ICAL OPERATIONS LEADER [facility]; [facility] Work Phone: Comment on above: Patient Position: Sitting; Cuff Location : Left Arm; Cuff Size: Standard 12-28-2020 12:27-0400 Heart rate 50 /min Myrna Slarb [employer]ICAL OPERATIONS LEADER [facility]; [facility] Work Phone: Comment on above: Pattern: Regular 12-28-2020 12:27-0400 Respiratory rate 16 /min Myrna Slarb [employer]ICAL OPERATIONS LEADER [facility]; [facility] Work Phone: Comment on above: Pattern: Unlabored 12-28-2020 12:27-0400 SaO2% (BldA) [Mass fraction] 99 % Myrna Slarb CLINICAL OPERATIONS LEADER [facility]; [facility] Work Phone: Comment on above: Room air 12-28-2020 12:27-0400 Systolic blood pressure 102 mm[Hg] Myrna Slarb CLINICAL OPERATIONS LEADER [facility]; [facility] Work Phone: Comment on above: Patient Position: Sitting; Cuff Location : Left Arm; Cuff Size: Standard 02-11-2020 07:58-0500 BMI (Body Mass Index) 27.54 kg/m2 Rebekah Villatoro [facility] Work Phone: 02-11-2020 07:58-0500 Body Temperature 97.3 [degF] Rebekah Villatoro [facility] Work Phone: Comment on above: Method: Infrared 02-11-2020 07:58-0500 Body weight 63.96 kg Rebekah Villatoro [facility] Work Phone: 02-11-2020 07:58-0500 BP Diastolic 74 mm[Hg] Rebekah Villatoro [facility] Work Phone: Comment on above: Patient Position: Sitting; Cuff Location : Left Arm; Cuff Size: Standard 02-11-2020 07:58-0500 BP Systolic 128 mm[Hg] Rebekah Villatoro [facility] Work Phone: Comment on above: Patient Position: Sitting; Cuff Location : Left Arm; Cuff Size: Standard 02-11-2020 07:58-0500 BSA (Body Surface Area) 1.61 m2 Rebekah Villatoro [facility] Work Phone: 02-11-2020 07:58-0500 Height 152.4 cm Rebekah Villatoro [facility] Internal Medicine Work Phone: 02-11-2020 07:58-0500 Pulse (Heart Rate) 61 /min Rebekah Villatoro [facility] Internal Medicine Work Phone: Comment on above: Pattern: Regular 02-11-2020 07:58-0500 Pulse Oximetry 98 % Sia Santhosh [facility] Internal Medicine Work Phone: Comment on above: Room air 02-11-2020 07:58-0500 Respiratory Rate 16 /min Rebekah Villatoro [facility] Internal Medicine Work Phone: Comment on above: Pattern: Unlabored 02-11-2020 07:58-0500 SaO2% (BldA) [Mass fraction] 98 % Rebekah Villatoro [facility]; [facility] Work Phone: Comment on above: Room air 02-12-2019 14:27-0500 BMI (Body Mass Index) 28.71 kg/m2 Rebekah Villatoro [facility] Work Phone: 02-12-2019 14:27-0500 Body Temperature 97.7 [degF] Rebekah Villatoro [facility] Internal Medicine Work Phone: Comment on above: Method: Temporal 02-12-2019 14:27-0500 Body weight 66.68 kg Rebekah Villatoro [facility] Work Phone: 02-12-2019 14:27-0500 BP Diastolic 78 mm[Hg] Rebekah Villatoro [employer] [facility] Work Phone: Comment on above: Patient Position: Sitting; Cuff Location : Left Arm; Cuff Size: Standard 02-12-2019 14:27-0500 BP Systolic 122 mm[Hg] Rebekah Villatoro [facility] Work Phone: Comment on above: Patient Position: Sitting; Cuff Location : Left Arm; Cuff Size: Standard 02-12-2019 14:27-0500 BSA (Body Surface Area) 1.64 m2 Rebekah Villatoro [facility] Work Phone: 02-12-2019 14:27-0500 Height 152.4 cm Rebekah Villatoro [facility] Work Phone: 02-12-2019 14:27-0500 Pulse (Heart Rate) 90 /min Rebekah Villatoro [facility] Work Phone: Comment on above: Pattern: Regular 02-12-2019 14:27-0500 Pulse Oximetry 98 % Sia Tinajero [facility] Internal Medicine Work Phone: Comment on above: Room air 02-12-2019 14:27-0500 Respiratory Rate 16 /min Rebekah Villatoro [facility] Work Phone: Comment on above: Pattern: Unlabored 02-12-2019 14:27-0500 SaO2% (BldA) [Mass fraction] 98 % Rebekah Villatoro [facility]; [facility] Work Phone: Comment on above: Room air 02-06-2018 13:44-0400 BMI (Body Mass Index) 28.32 kg/m2 [facility] Work [facility]: 02-06-2018 13:44-0400 Body Temperature 97.6 [degF] JESENIA Montana LPN [facility] Internal Medicine Work Phone: Comment on above: Method: Temporal 02-06-2018 13:44-0400 Body weight 65.77 kg JESENIA Montana LPN [facility] Internal [facility] Work Phone: 02-06-2018 13:44-0400 BP Diastolic 70 mm[Hg] JESENIA Montana LPN [facility] Work Phone: Comment on above: Patient Position: Sitting; Cuff Location : Left Arm; Cuff Size: Standard 02-06-2018 13:44-0400 BP Systolic 112 mm[Hg] JESENIA Montana LPN [facility] Work Phone: Comment on above: Patient Position: Sitting; Cuff Location : Left Arm; Cuff Size: Standard 02-06-2018 13:44-0400 BSA (Body Surface Area) 1.63 m2 JESENIA Montana LPN [facility] Work Phone: 02-06-2018 13:44-0400 Height 152.4 cm JESENIA Montana LPN [facility] Work Phone: 02-06-2018 13:44-0400 Pulse (Heart Rate) 64 /min JESENIA Montana LPN [facility] Work Phone: Comment on above: Pattern: Regular 02-06-2018 13:44-0400 Pulse Oximetry 98 % Siakitty Tinajero [facility] Work Phone: Comment on above: Room air 02-06-2018 13:44-0400 Respiratory Rate 18 /min JESENIA Montana [employer] OPERATIONS LEADER [facility] Work Phone: Comment on above: Pattern: Unlabored 02-06-2018 13:44-0400 SaO2% (BldA) [Mass fraction] 98 % JESENIA Montana LPN [facility]; [facility] Work Phone: Comment on above: Room air 02-06-2018 13:44-0400 Weight 65.77 kg Sia Tinajero [facility] Work Phone: 02-14-2017 13:58-0500 BMI (Body Mass Index) 23.46 kg/m2 Raina Tatum RN [facility] Work Phone: 02-14-2017 13:58-0500 Body weight 65.94 kg Raina Tatum RN [facility] Work Phone: 02-14-2017 13:58-0500 BP Diastolic 74 mm[Hg] Raina Tatum RN [facility] Work Phone: Comment on above: Patient Position: Sitting; Cuff Location : Left Arm; Cuff Size: Standard 02-14-2017 13:58-0500 BP Systolic 118 mm[Hg] Raina Tatum RN [facility] Work Phone: Comment on above: Patient Position: Sitting; Cuff Location : Left Arm; Cuff Size: Standard 02-14-2017 13:58-0500 BSA (Body Surface Area) 1.75 m2 Raina Tatum RN [facility] Work Phone: 02-14-2017 13:58-0500 Height 167.64 cm Raina Tatum RN [facility] Work Phone: 02-14-2017 13:58-0500 Pulse (Heart Rate) 60 /min Raina Tatum RN [facility] Work Phone: Comment on above: Pattern: Regular 02-14-2017 13:58-0500 Pulse Oximetry 98 % Sia Santhosh [facility] Work Phone: Comment on above: Room air 02-14-2017 13:58-0500 Respiratory Rate 18 /min Raina Tatum RN [facility] Work Phone: Comment on above: Pattern: Unlabored 02-14-2017 13:58-0500 SaO2% (BldA) [Mass fraction] 98 % Raina Tatum RN [facility]; [facility] Work Phone: Comment on above: Room air 02-14-2017 13:58-0500 Weight 65.94 kg Sia Tinajero [facility] Work Phone: 12-22-2015 07:45-0400 BMI (Body Mass Index) 22.98 kg/m2 Raina Tatum RN [facility] Work Phone: 12-22-2015 07:45-0400 Body weight 64.58 kg Raina Tatum RN [facility] Work Phone: 12-22-2015 07:45-0400 BP Diastolic 68 mm[Hg] Raina Tatum RN [facility] Work Phone: Comment on above: Patient Position: Sitting; Cuff Location : Left Arm; Cuff Size: Standard 12-22-2015 07:45-0400 BP Systolic 126 mm[Hg] Raina Tatum RN [facility] Work Phone: Comment on above: Patient Position: Sitting; Cuff Location : Left Arm; Cuff Size: Standard 12-22-2015 07:45-0400 BSA (Body Surface Area) 1.73 m2 Raina Tatum RN [facility] Work Phone: 12-22-2015 07:45-0400 Height 167.64 cm Raina Tatum RN [facility] Work Phone: 12-22-2015 07:45-0400 Pulse (Heart Rate) 56 /min Raina Tatum RN [facility] Work Phone: Comment on above: Pattern: Regular 12-22-2015 07:45-0400 Pulse Oximetry 97 % Sia Tinajero [facility] Work Phone: Comment on above: Room air 12-22-2015 07:45-0400 Respiratory Rate 18 /min Raina Tatum RN [facility] Work Phone: Comment on above: Pattern: Unlabored 12-22-2015 07:45-0400 SaO2% (BldA) [Mass fraction] 97 % Raina Tatum RN [facility]; [facility] Work Phone: Comment on above: Room air 12-22-2015 07:45-0400 Weight 64.58 kg Sia Tinajero [facility] Work Phone: 10-29-2011 15:15-0400 BMI (Body Mass Index) 22.6 kg/m2 Keren Vanessa MD Work Phone: [facility] Work Phone: 10-29-2011 15:15-0400 Body Temperature 97.9 [degF] Keren Vanessa MD Work Phone: [facility] Work Phone: Comment on above: Method: Oral 10-29-2011 15:15-0400 Body weight 63.5 kg Keren Vanessa MD Work Phone: [facility] Work Phone: 10-29-2011 15:15-0400 BP Diastolic 74 mm[Hg] Keren Vanessa MD Work Phone: [facility] Work Phone: Comment on above: Patient Position: Sitting; Cuff Location : Left Arm; Cuff Size: Standard 10-29-2011 15:15-0400 BP Systolic 120 mm[Hg] Keren Vanessa MD Work Phone: [facility] Work Phone: Comment on above: Patient Position: Sitting; Cuff Location : Left Arm; Cuff Size: Standard 10-29-2011 15:15-0400 BSA (Body Surface Area) 1.72 m2 Keren Vanessa MD Work Phone: [facility] Work Phone: 10-29-2011 15:15-0400 Height 167.64 cm Keren Vanessa MD Work Phone: [facility] Work Phone: 10-29-2011 15:15-0400 Pulse (Heart Rate) 72 /min Keren Vanessa MD Work Phone: [facility] Work Phone: Comment on above: Pattern: Regular 10-29-2011 15:15-0400 Respiratory Rate 16 /min Keren Vanessa MD Work Phone: [facility] Work Phone: Comment on above: Pattern: Unlabored 10-29-2011 15:15-0400 Weight 63.5 kg Sia Tinajero [facility] Work Phone: 01-04-2008 16:47-0400 Body Temperature 97.8 [degF] JESENIA Montana LPN [facility] Work Phone: Comment on above: Method: Oral 01-04-2008 16:47-0400 Body weight 66.23 kg JESENIA Montana LPN [facility] Work Phone: 01-04-2008 16:47-0400 BP Diastolic 76 mm[Hg] JESENIA Montana LPN [facility] Work Phone: Comment on above: Patient Position: Sitting; Cuff Location : Left Arm; Cuff Size: Standard 01-04-2008 16:47-0400 BP Systolic 118 mm[Hg] JESENIA Montana LPN [facility] Work Phone: Comment on above: Patient Position: Sitting; Cuff Location : Left Arm; Cuff Size: Standard 01-04-2008 16:47-0400 Head Circumference 0 cm Sia Tinajero [facility] Work Phone: 01-04-2008 16:47-0400 Head Occipital-frontal circumference 0 cm JESENIA Montana LPN [facility]; [facility] Work Phone: 01-04-2008 16:47-0400 Height 0 cm JESENIA Montana LPN [facility] Work Phone: 01-04-2008 16:47-0400 Pulse (Heart Rate) 58 /min JESENIA Montana LPN [facility] Work Phone: Comment on above: Pattern: Regular 01-04-2008 16:47-0400 Respiratory Rate 16 /min JESENIA Montana LPN [facility] Work Phone: Comment on above: Pattern: Unlabored 01-04-2008 16:47-0400 Weight 66.23 kg Sia Tinajero [facility] Work Phone: 03-10-2007 15:48-0500 Body Temperature 98.7 [degF] JESENIA Montana LPN [facility] Work Phone: Comment on above: Method: Oral 03-10-2007 15:48-0500 Body weight 65.32 kg JESENIA Montana LPN [facility] Work Phone: 03-10-2007 15:48-0500 BP Diastolic 78 mm[Hg] JESENIA Montana CLINICAL OPERATIONS LEADER [facility] Work Phone: Comment on above: Patient Position: Sitting; Cuff Location : Left Arm; Cuff Size: Standard 03-10-2007 15:48-0500 BP Systolic 118 mm[Hg] JESENIA Montana LPN [facility] Work Phone: Comment on above: Patient Position: Sitting; Cuff Location : Left Arm; Cuff Size: Standard 03-10-2007 15:48-0500 Head Circumference 0 cm Sia Tinajero [facility] Work Phone: 03-10-2007 15:48-0500 Head Occipital-frontal circumference 0 cm JESENIA Montana BEAU [facility] Work Phone: 03-10-2007 15:48-0500 Height 0 cm JESENIA Montana LPN [facility] Work Phone: 03-10-2007 15:48-0500 Pulse (Heart Rate) 62 /min JESENIA Montana LPN [facility] Work Phone: Comment on above: Pattern: Regular 03-10-2007 15:48-0500 Respiratory Rate 18 /min JESENIA Montana LPN [facility] Work Phone: Comment on above: Pattern: Unlabored 03-10-2007 15:48-0500 Weight 65.32 kg Sia Tinajero [facility] Work Phone: Encounters Encounter Date Encounter Type Care Provider Facility Start: 02-11-2025 ambulatory Sia Tinajero Facilit y:[facility] Start: 12-23-2024 End: 12-23-[address] Dave Beckham MD -[facility] Work Phone: Start: 12-23-2024 End: 12-23-[address] Sia Tinajero DO Work Phone: -[facility] Start: 12-10-2024 Registered Referred Self Referred -[facility] Work Phone: Start: 12-10-2024 ambulatory Self Referred Facility: [facility] Start: 07-14-2024 End: 07-14-[address] Sia Tinajero DO Work Phone: [facility] Work Phone: Start: 07-14-2024 End: 07-14-[address] Wisam Sheets MD -Laboratory, Specimen Work Phone: Start: 07-14-2024 End: 07-14-2024 ambulatory Wisam Sheets Facility:[facility] Start: 03-27-2024 End: 03-27-[address] Sia Tinajero DO -Laboratory Work Phone: Start: 03-27-2024 End: 03-27-2024 ambulatory Sia Tinajero Facility:[facility] Start: 03-26-2024 End: 03-26-[address] Dave Beckham MD -Cat Scan, [facility] Work Phone: Start: 03-26-2024 End: 03-26-2024 ambulatory Sia Tinajero Facility:[facility] Start: 03-25-2023 End: 03-25-[address] Sia Tinajero Work Phone: [facility] Work Phone: Start: 03-25-2023 End: 03-25-[address] Sia Tinajero Work Phone: [facility] Work Phone: Start: 01-21-2023 Non-patient / Non-visit Dr. Sia Tinajero Work Phone: [facility] Work Phone: Start: 01-17-2023 Non-patient / Non-visit Dr. Sia Tinajero Work Phone: [facility] Start: 01-17-2023 End: 01-17-[address] Sia Tinajero Work Phone: [facility] Work Phone: Start: 01-17-2023 End: 01-17-[address] [facility] Start: 12-27-2022 End: 12-27-[address] Sia Tinajero Work Phone: [facility] Work Phone: Start: 08-19-2022 Non-patient / Non-visit Dr. Sia Tinajero Work Phone: [facility] Start: 08-18-2022 Non-patient / Non-visit Dr. Sia Tinajero Work Phone: [facility] Start: 08-18-2022 End: 08-19-2022 Evaluation and management of inpatient Dr[facility] Start: 08-18-2022 End: 08-19-[address] Sia Tinajero Work Phone: [facility] Work Phone: Start: 03-18-2022 End: 03-18-[address] Sia Tinajero Work Phone: [facility] Work Phone: Start: 03-18-2022 End: 03-18-[address] Sia Tinajero Work Phone: [facility], Specimen Start: 02-20-2022 End: 02-20-[address] Sia Tinajero Work Phone: [facility] Work Phone: Start: 02-20-2022 End: 02-20-[address] Sia Tinajero Work Phone: [facility] Start: 01-11-2022 Review Sia pérez DO Work Phone: [facility] Start: 01-11-2022 End: 01-11-2022 Patient encounter procedure Sia Tinajero DO Work Phone: [facility] Work Phone: Start: 01-11-2022 End: 01-11-2022 Periodic preventive med est patient 65yrs& older Sia Tinajero DO Work Phone: [facility] Start: 12-21-2021 End: 12-21-[address] Sia Tinajero Work Phone: [facility] Work Phone: Start: 12-21-2021 End: 12-21-[address] Sia Tinajero Work Phone: [facility] Start: 12-19-2021 End: 12-19-2021 Phone Encounter Sia Tinajero DO Work Phone: [facility] Start: 12-19-2021 ambulatory Sia Tinajero DO [facility] Start: 12-14-2021 End: 12-14-[address] Sia Tinajero Work Phone: [facility] Start: 07-23-2021 End: 07-23-2021 Patient encounter procedure [facility], Spec[facility] Start: 04-30-2021 End: 04-30-2021 Patient encounter procedure [facility] Start: 01-31-2021 End: 01-31-2021 Phone Encounter Sia Tinajero DO Work Phone: [facility] Start: 12-28-2020 End: 12-29-2020 Office outpatient visit 15 minutes Sia Tinajero DO Work Phone: [facility] Start: 12-08-2020 End: 12-08-2020 Lab Order Sia Tinajero DO Work Phone: [facility] Start: 02-11-2020 End: 02-11-2020 Office outpatient visit 15 minutes Sia Tinajero [facility] Start: 02-11-2020 Review Sia Tinajero [facility] Start: 01-28-2020 End: 01-28-2020 Annotation/Addendum Sia Tinajero [facility] Start: 02-12-2019 End: 02-12-2019 Office outpatient visit 25 minutes Sia Tinajero [facility] Start: 02-12-2019 End: 02-12-2019 Patient encounter procedure Sia Tinajero DO Work Phone: [facility] Start: 02-06-2018 End: 02-06-2018 Office outpatient visit 25 minutes Sia Tinajero [facility] Start: 01-19-2018 End: 01-19-2018 Phone Encounter Sia Tinajero [facility] Start: 02-14-2017 End: 02-14-2017 Office outpatient visit 15 minutes Sia Tinajero [facility] Start: 12-22-2015 End: 12-22-2015 Office outpatient visit 15 minutes Sia Tinajero [facility] Start: 10-29-2011 End: 10-30-2011 Patient encounter Sia Tinajero [facility] Start: 10-29-2011 End: 10-30-2011 Patient encounter status Sia Tinajero DO Work Phone: [facility] Start: 10-12-2008 End: 10-12-2008 Historical Summary Sia Tinajero [facility] Start: 01-04-2008 End: 01-04-2008 Patient encounter Sia Tinajero [facility] Start: 03-11-2007 End: 03-11-2007 Patient encounter Sia Tinajero [facility] Start: 03-10-2007 End: 03-10-2007 Patient encounter Sia Tinajero [facility] Start: 03-09-2007 End: 03-09-2007 Historical Summary Sia Tinajero [facility] Patient encounter procedure Myrna Yesy CLINICAL OPERATIONS LEADER [facility] Work Phone: Physical examination Myrna Hayward CLINICAL OPERATIONS LEADER [facility]; [facility] Work Phone: Comment on above: colonscopy 2006 Physical examination Hector Tamayo CLINICAL OPERATIONS LEADER [facility]; [facility] Work Phone: Comment on above: colonscopy 2006 Procedures Date Procedure Procedure Detail Performing Clinician Start: 07-14-[address] Sia Tinajero DO Work Phone: Start: 07-14-[address] Sia Tinajero DO Work Phone: Start: 03-26-2024 CT angiography of chest with contrast Dr. Sia Tinajero DO Work Phone: Start: 01-17-2023 Radionuclide imaging of perfusion of myocardium under exercise stress Dr. Sia Tinajero Work Phone: Start: 08-18-2022 Plain chest X-ray Dr. Sia Tinajero Work Phone: Start: 08-18-2022 Computed tomography of abdomen and pelvis with intravenous contrast Dr. Sia Tinajero Work Phone: Start: 12-21-2021 CT of thorax with contrast Dr. Sia Tinajero Work Phone: Start: 12-21-2021 End: 12-21-2021 Chest WITH Contrast Procedure Note: See Note; NOTES: [facility] Imaging Services [address] [place] [address] Chest WITH Contrast MR#: [id number] Acct: [id number] Name: KAT LEGER Rep #: [id number] : 1940 M 81 From: Joshua nolasco MD PCP: Dr. Sia Tinajero, DO Status: REG CLI Study: Chest WITH Contrast Date of Exam: 12/21/21 Exam# [id number] Ordering Dr: Dave Beckham MD STUDY: CT CHEST WITH CONTRAST REASON FOR EXAM: Male, 81 years old. Dilated aorta RADIATION DOSAGE (If Supplied By Facility): CTDIvol = ( 12.59 ) mGy, DLP = ( 305.60 ) mGycm TECHNIQUE: Transaxial imaging was performed following intravenous administration of IV 75mL Isovue-370. Multiplanar coronal and sagittal images were reformatted. Individualized dose optimization techniques were used for this CT. COMPARISON: Comparison is made with prior examination 01/05/2021. FINDINGS: CHEST Stable small benign-appearing bilateral axillary lymph nodes. Stable mild degree of scarring at the right lung apex. There is no demonstrated pleural abnormality. There are calcifications of the coronary arteries. Normal mediastinum. Normal hilar regions. Normal unenhanced pulmonary arteries. Stable mild dilatation of the root of the ascending thoracic aorta measuring 4.2 cm. Scattered atherosclerotic plaque formation is seen. There are degenerative changes of the thoracic spine. There is no demonstrated abnormality of the visualized upper abdomen. CT/Chest WITH Contrast IMPRESSION: Stable examination. Electronically Signed: Joshua Johnson MD at 8:57 EDT Reading Location ID and State: [facility] / [place] , Service support , CC: Dr. Dave Beckham MD; Dr. Sia Tinajero DO [employer]: Signed Sia Tinajero DO Work Phone: Start: 12-14-2021 End: 12-14-2021 Cardiology Visit Report Procedure Note: See Note; NOTES: [facility] [place], [place] [address] OFFICE VISIT Date of Service: 12/14/21 MR#: [id number] Acct: [id number] Name: KAT LEGER Rep #: [id number] : 1940 Provider: Dr. Dave Beckham MD Age/Sex: 81/M Location: [facility] [place] Status: Signed [facility] History of Present Illness Details: 81-year-old man with a history of hyperlipidemia mildly dilated aortic root who presents for a follow-up visit. He remains active and continues to play tennis and still work. He denies any chest pain or shortness of breath or paroxysmal nocturnal dyspnea or pedal edema, he has had no dizziness or diaphoresis no near syncope or syncope. He has been compliant with all his medications. He is actually on very little other than lipid-lowering medications. His blood pressure has been under excellent control and his physical exam demonstrates clear lung cam regular rate and rhythm and no pedal edema. He did have a stress test last year where he exercised to a high metabolic workload of 13.4 metabolic equivalents as well as an echocardiogram demonstrating preserved ejection fraction of 65% with no wall motion abnormalities. Aortic root measured 4.[address] measured 44 mm. Intake Vital Signs 12/22/20 07:35 12/14/21 06:53 Height 5 ft 6 in 5 ft 6 in Weight: 142 lb BMI 22.8 BP 135/71 H Respiration 16 Pulse 52 L Pulse Oximetry (%) 99 Intake Visit Reasons: 1 Y FU Allergies No Known Allergies Allergy (Verified 12/14/21 10:47) Medications simvastatin 10 mg tablet (Zocor) 10 mg PO QHS 02/13/18 [History Confirmed 12/14/21] Ejection fraction %: 65 to 70 PFSH Medical History Abnormal electrocardiogram Ascending aorta dilatation Hyperlipidemia Surgical History History of left heart catheterization (11/19/12) History of surgery on lower extremity Family History Grandfather No problems noted. Father Sudden cardiac Age 65 Hypertension Other Heart disease Social History Smoking Status: Never smoker ROS Const Const: Negative for fatigue, weakness, headache(s), frequent falls, difficulty sleeping or excessive sweating Eyes Eyes: Negative for loss of peripheral vision, transient loss of vision, blurry vision, double vision or tunnel vision ENT ENT: Negative for headache(s), dizziness, Nosebleed/epistaxis or balance problems Cardio Chest Pain: No Palpitations: No Edema: None Muscle aches with walking: None Resp Respiratory: Negative for SOB with activity, SOB at rest, SOB orthopnea SOB lying down, Cough or paroxysmal nocturnal dyspnea GI GI: Negative nausea, vomiting, heartburn or black,tarry stools : Negative for hematuria Musc Musc: Negative for muscle aches/ myalgia, muscle weakness, joint pain or balance problems Skin Skin: Negative non-healing lesions, rash or unusual bruising Neuro Neuro: Negative for dizziness, lightheadedness, near syncope, syncope, orthostatic symptoms, frequent falls, headache(s), weakness, confusion, memory loss, blurry vision, double vision, vertigo or lack of coordination Abdiel Hematologic/Lymphatic: Negative for easy bleeding or easy bruising Endo Endo: Negative for fatigue, excessive sweating, flushing or increased thirst/drinking Psych Psych: Negative for anxiety or depression Allergy Allergy/Immunology: Negative for hives and Negative for rash Cardiology Exam Const Appearance: cooperative, healthy appearing, no acute distress, well developed and well groomed Nutritional Appearance: average body habitus and well nourished Orientation: alert, awake and oriented x3 Head Head: normal to inspection, normocephalic and atraumatic Ears: hearing grossly normal bilaterally and external ears normal Nose: external nose normal, nares normal, nasal mucous membranes and turbinates normal, septum normal and no nasal discharge Face and Sinus: face symmetric Mouth: oral mucosae normal, tongue normal, oropharynx normal and moist mucous membranes Teeth and gingiva: dentition normal Throat: posterior oropharynx normal, tonsils normal and uvula midline Eyes General: appearance normal, both eyes and all related structures Eyelids: eyelids normal Conjunctivae: conjunctivae normal Pupils: PERRL, normal by confrontation and accommodation normal EOM: EOM intact bilaterally Neck Neck: normal visual inspection, trachea midline and no JVD JVD: +5 Carotids: normal carotid upstroke and bounding pulses Chest Chest inspection: normal inspection of the chest, symmetric chest movement and normal respiratory effort Auscultation: Bilateral: Clear to Auscultation Cardio Palpation: normal PMI Rate: regular rate Rhythm: regular rhythm Heart sounds: S1 normal, S2 normal and normal, physiologic split S2; Negative rub, gallop or murmur GI GI: normal to inspection, soft, no hepatosplenomegaly and bowel sounds present Neuro General: patient alert, patient awake, patient oriented x3, gait normal, moves all extremities and no focal sensory deficit Skin Skin: no rashes or lesions noted Extremities Pulses: Normal: Right Femoral Pulse, Left Femoral Pulse, Right Dorsalis Pedis Pulse, Left Dorsalis Pedis Pulse, Right Posterior Tibial Pulse, Left Posterior Tibial Pulse, Right Radial Pulse and Left Radial Pulse Lower Extremity Edema: None: Bilateral Musculoskel Musculoskeletal: No joint tenderness Psych Psychological: normal affect Supplemental Info Supplemental Information ECHOCARDIOGRAM 02/23/2021 Interpretation Summary Normal LV size. Left ventricular systolic function is normal. The estimated ejection fraction is 65 %. Stage 1 diastolic dysfunction. Mildly dilated aortic root. Structurally normal valves. ??? MYOCARDIAL PERFUSION STRESS TEST 02/23/2021 80-year-old man with a history of abnormal EKG. Stress protocol: Resting EKG demonstrates sinus bradycardia with a rate of 50 bpm resting blood pressure is 140/78 mmHg.??? The patient exercised according to the regular Waylon protocol for a total duration of 10 minutes.??? Patient completed 1 minute into stage IV of the Waylon protocol.??? The maximum heart rate attained was 171 bpm which was 120% of max impact at heart rate the maximum workload was 13.4 metabolic equivalents.??? At rest there were no ST or T wave changes noted to suggest ischemia and at peak exercise upsloping ST changes were noted with did not meet the criteria for ischemia.??? No clinical angina was noted.??? The test was terminated due to attainment of target heart rate.??? Occasional premature ventricular complexes was noted.??? At peak exercise there was development of a left bundle branch block morphology present.??? The peak blood pressure was 180/80 mmHg. Perfusion SPECT analysis: Review of the stress images demonstrate normal uptake of tracer noted in all areas of the myocardium.??? The resting images similarly demonstrate normal uptake of tracer noted in all areas of the myocardium.??? No areas of reversibility are noted to suggest ischemia and no previous infarct is noted. Gated SPECT analysis: The gated ejection fraction is 87%. Conclusion: Normal exercise myocardial perfusion stress test at a high workload. No clinical angina noted. Excellent functional capacity. CT Chest 01/05/2021 FINDINGS: Normal enhancement of the main pulmonary artery and right and left pulmonary arteries.??? Normal enhancement of the bilateral peripheral pulmonary arteries.??? There is no demonstrated pulmonary embolism. There is aneurysmal dilatation of the ascending aorta. The transverse diameter of the ascending aorta measures??? 44 mm''s.??? This is essentially unchanged.??? Scattered atherosclerotic plaque of the aortic arch and descending thoracic aorta. There is no demonstrated aortic dissection. There are calcifications of the coronary arteries. Normal mediastinum.??? Normal hilar regions. Normal visualized trachea and bronchi.??? The lungs are well expanded. Normal pulmonary parenchyma. Normal pleura. Normal chest wall structures. There are degenerative changes of thoracic spine. Small hiatal hernia. Labs: No Data to Display Diagnostics: Echocardiogram Stress Test NM Stress Test Pulmonary: No Data to Display Assessment and Plan Assessment and Plan (1) Ascending aorta dilatation: Status: Chronic Comment: There is aneurysmal dilatation of the ascending aorta. The transverse diameter of the ascending aorta measures [address] 01/2021 Plan: He does have mild aortic root dilatation. He has been concerned about this. I will suggest that we repeat his CAT scan to have 2 consecutive stable CTs. Depending on the findings further recommendations will be made. At this time he appears to be fairly stable otherwise. He will continue with risk factor modification. 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) Coding Level of Care Code Off vis,est,level 3 Diagnoses Ascending aorta dilatation I77.810 Coding Level of Care Code Off vis,est,level 3 Diagnoses Ascending aorta dilatation I77.810 12/14/21 1111 <Electronically signed by Dave Beckham MD> Date Dave Beckham MD Cosigner Signature: Date (if applicable) CC: DO Sia Gabriel DO Work Phone: Start: 07-23-2021 Investigation of transfusion reaction Start: 07-23-2021 Nasopharyngeal Culture Start: 02-23-2021 End: 02-23-2021 Stress Report Comments: See Note; NOTES: [facility] [address] [place] [address] MR#: [id number] Acct: [id number] Name: KAT LEGER Rep #: [id number] : 1940 80 From: Dave Beckham MD Primary Care: Dr. Sia Santhosh, DO Status: REG CLI Referring Dr: Dave Beckham MD Sex: M C Stress Test Report Exercise mild atrial perfusion stress test. 80-year-old man with a history of abnormal EKG. Stress protocol: Resting EKG demonstrates sinus bradycardia with a rate of 50 bpm resting blood pressure is 140/78 mmHg. The patient exercised according to the regular Waylon protocol for a total duration of 10 minutes. Patient completed 1 minute into stage IV of the Waylon protocol. The maximum heart rate attained was 171 bpm which was 120% of max impact at heart rate the maximum workload was 13.4 metabolic equivalents. At rest there were no ST or T wave changes noted to suggest ischemia and at peak exercise upsloping ST changes were noted with did not meet the criteria for ischemia. No clinical angina was noted. The test was terminated due to attainment of target heart rate. Occasional premature ventricular complexes was noted. At peak exercise there was development of a left bundle branch block morphology present. The peak blood pressure was 180/80 mmHg. Myocardial perfusion protocol. 11.5 mCi of technetium 99m sestamibi was injected at rest. The patient exercised according to regular Waylon protocol for total duration of 10 minutes and at peak exercise 33.7 mCi of technetium 99m sestamibi was injected stress images were obtained stress and rest images were reconstructed and compared in the short axis vertical long and horizontal long axis. Gated images were also obtained. Perfusion SPECT analysis: Review of the stress images demonstrate normal uptake of tracer noted in all areas of the myocardium. The resting images similarly demonstrate normal uptake of tracer noted in all areas of the myocardium. No areas of reversibility are noted to suggest ischemia and no previous infarct is noted. Gated SPECT analysis: The gated ejection fraction is 87%. Conclusion: Normal exercise myocardial perfusion stress test at a high workload. No clinical angina noted. Excellent functional capacity. 02/23/21941 <Electronically signed by Dave Beckham MD> Date Dave Beckham MD CC: Dr. Dave Beckham MD; Dr. Sia Tinajero, Date Dictated: 02/23/21938 Date Transcribed: 02/23/21938 [employer]: [place] Signed Sia Tinajero DO Work Phone: Start: 02-23-2021 End: 02-23-2021 Echo Complete Comments: See Note; NOTES: [facility] [address] [place] [address] Echo Complete 02/23/21 0802 MR#: [id number] Acct: [id number] Name: KAT LEGER Rep #: [id number] : 1940 80 From: Dave Beckham MD Attending Dr: Dr. Dave Beckham MD Status: GARY MARTÍNEZ Ordering Dr: Dave Beckham MD Date: 02/23/21 Location: [facility] Sex: M C Admitted: Reason For Study: CAD Procedure This was a 2D Doppler, Color Flow transthoracic echocardiogram. Exam performed in department. Left Ventricle Normal LV size. Left ventricular systolic function is normal. The estimated ejection fraction is 65 %. Stage 1 diastolic dysfunction. No regional wall motion abnormalities noted. Right Ventricle Normal RV size. Normal systolic function. Atria Normal left atrium. Normal right atrium. Mitral Valve Normal mitral valve. Tricuspid Valve Normal tricuspid valve. Mild tricuspid valve insufficiency. Pulmonary artery systolic pressure is 26 mmHg. Aortic Valve Normal aortic valve. Trisinus/trileaflet aortic valve. Pulmonic Valve Normal pulmonic valve. Great Vessels Mildly dilated aortic root. The pulmonary artery is normal size. Normal inferior vena cava. Pericardium/Pleural No pericardial effusion. MMode/2D Measurements Calculations LVIDd: 4.3 cm IVSd: 0.67 cm Ao root diam: 4.2 cm LVIDs: 2.8 cm LVPWd: 0.68 cm RVDd: 3.5 cm FS: 34.0 % LAV(MOD-bp): 28.1 ml LA A4 area: 11.9 cm2 LA dimension(2D): 3.7 cm LAV(MOD-bp) Indexed: 16.2 ml/m2 LAV(MOD-sp2): 27.8 ml LAV(MOD-sp4): 26.8 ml RA A4 area: 7.0 cm2 Doppler Measurements Calculations MV E max elizabeth: 62.0 cm/sec Lat Peak E' Elizabeth: 9.8 cm/sec Med Peak E' Elizabeth: 6.2 cm/sec MV A max elizabeth: 111.0 cm/sec E/E' lat: 6.3 E/E' med: 10.0 MV E/A: 0.56 Ao V2 max: 118.6 cm/sec LV V1 max: 90.2 cm/sec TR max elizabeth: 235.8 cm/sec Ao max P.6 mmHg LV V1 max P.3 mmHg TR max P.2 mmHg ECHO/Echo Complete Interpretation Summary Normal LV size. Left ventricular systolic function is normal. The estimated ejection fraction is 65 %. Stage 1 diastolic dysfunction. Mildly dilated aortic root. Structurally normal valves. _ Ordering Physician: Dave Beckham Referring Physician: SIA TINAJERO Performed By: Tianna Zhu, SHERITA, RVT 02/23/21923 Date Dave Beckham MD CC: Dr. Dave Beckham MD; Dr. Sia Tinajero DO Date Dictated: 02/23/21801 Date Transcribed: 02/23/21923 Hand Welt Butter: Signed Sia Tinajero DO Work Phone: Start: 01-05-2021 End: 01-05-2021 CTA Chest W/WO Contrast Comments: See Note; NOTES: [facility] Imaging Services [address] [place] [address] CTA Chest W/WO Contrast MR#: [id number] Acct: [id number] Name: KAT LEGER Rep #: [id number] : 1940 80 From: Joshua nolasco MD PCP: Dr. Sia Tinajero DO Status: REG CLI Study: CTA Chest W/WO Contrast Date of Exam: 01/05/21 Exam# [id number] Ordering Dr: Dave Beckham MD STUDY: CTA CHEST REASON FOR EXAM: Male, 80 years old. Dilated aorta RADIATION DOSAGE (If Supplied By Facility): CTDIvol = ( 7.74 ) mGy, DLP = ( 258.92 ) mGycm TECHNIQUE: The examination was performed with the intravenous administration of IV 75mL Isovue-300. Post-processing of the angiographic images was performed, with multiplanar reformation and 3D reconstruction. Individualized dose optimization techniques were used for this CT. COMPARISON: Comparison is made with prior study dated 03/02/2019. FINDINGS: Normal enhancement of the main pulmonary artery and right and left pulmonary arteries. Normal enhancement of the bilateral peripheral pulmonary arteries. There is no demonstrated pulmonary embolism. There is aneurysmal dilatation of the ascending aorta. The transverse diameter of the ascending aorta measures 44 mm''s. This is essentially unchanged. Scattered atherosclerotic plaque of the aortic arch and descending thoracic aorta. There is no demonstrated aortic dissection. There are calcifications of the coronary arteries. Normal mediastinum. Normal hilar regions. Normal visualized trachea and bronchi. The lungs are well expanded. Normal pulmonary parenchyma. Normal pleura. Normal chest wall structures. There are degenerative changes of thoracic spine. Small hiatal hernia. CT/CTA Chest W/WO Contrast IMPRESSION: Stable examination. Electronically Signed: Joshua Johnson MD at 9:18 EDT , Service support , CC: Dr. Dave Beckham MD; Dr. Sia Tinajero DO Hand Welt Butter: Signed Sia Tinajero DO Work Phone: Start: 12-22-2020 End: 12-22-2020 Cardiology Visit Report Comments: See Note; NOTES: [facility] [address] [place] [address]. [address] [place], [place] [address] OFFICE VISIT Date of Service: 12/22/20 MR#: [id number] Acct: [id number] Name: KAT LEGER Rep #: [id number] : 1940 Provider: Dr. Dave Beckham MD Age/Sex: 80/M Location: [facility] [place] Status: Signed [facility] History of Present Illness Details: 80-year-old man with a history of hyperlipidemia mildly dilated aortic root who presents for a follow-up visit. He remains active and continues to play tennis and still work. He denies any chest pain or shortness of breath or paroxysmal nocturnal dyspnea or pedal edema, he has had no dizziness or diaphoresis no near syncope or syncope. He has been compliant with all his medications. He is actually on very little other than lipid-lowering medications. His blood pressure has been under excellent control and his physical exam demonstrates clear lung cam regular rate and rhythm and no pedal edema. He tells me that he recently had blood work through your office. Intake Vital Signs 12/22/20 07:35 Height 5 ft 6 in Weight: 144 lb BP 146/72 H Blood Pressure Location Lt brachial Position Sitting Respiration 18 Pulse 55 L Pulse Source Monitor Pulse Oximetry (%) 99 Intake Visit Reasons: 1 Y FU (MOVED FROM [facility]) [employer] Required: No Accompanied by: None Is patient in pain?: No Allergies No Known Allergies Allergy (Verified 12/22/20 09:53) Medications simvastatin 10 mg tablet 10 mg PO QHS 02/13/18 [History Confirmed 12/22/20] PFSH Medical History Ascending aorta dilatation Hyperlipidemia Surgical History History of left heart catheterization (11/19/12) lower extremity surgery Family History Grandfather No problems noted. Father Sudden cardiac Age 65 Hypertension Other Heart disease Social History Smoking Status: Never smoker ROS Const Const: Negative for fatigue, weakness, headache(s), frequent falls, night sweats, daytime sleepiness or excessive sweating Eyes Eyes: Negative for blind spots, loss of peripheral vision, transient loss of vision, blurry vision or double vision ENT ENT: Negative for headache(s), dizziness, Nosebleed/epistaxis, balance problems, lip swelling or tongue swelling Cardio Chest Pain: No Palpitations: No Edema: None Muscle aches with walking: None Resp Respiratory: Negative for SOB with activity, SOB at rest, SOB orthopnea SOB lying down, Cough or paroxysmal nocturnal dyspnea GI GI: Negative nausea, vomiting, heartburn, bright, red blood in stools or black,tarry stools : Negative for hematuria Musc Musc: Negative for muscle aches/ myalgia, muscle weakness, joint pain or balance problems Skin Skin: Negative non-healing lesions, rash or unusual bruising Neuro Neuro: Negative for dizziness, lightheadedness, orthostatic symptoms, frequent falls, headache(s), weakness, blurry vision, double vision or lack of coordination Abdiel Hematologic/Lymphatic: Negative for easy bleeding or easy bruising Endo Endo: Negative for fatigue, cold intolerance, heat intolerance, excessive sweating, increased thirst/drinking or hair loss Psych Psych: Negative for anxiety or depression Allergy Allergy/Immunology: Negative for throat swelling, Negative for tongue swelling, Negative for hives, Negative for rash and Negative for lip swelling Cardiology Exam Const Appearance: cooperative, healthy appearing, no acute distress, well developed and well groomed Nutritional Appearance: average body habitus and well nourished Orientation: alert, awake and oriented x3 Head Head: normal to inspection, normocephalic and atraumatic Ears: hearing grossly normal bilaterally and external ears normal Nose: external nose normal, nares normal, nasal mucous membranes and turbinates normal, septum normal and no nasal discharge Face and Sinus: face symmetric Mouth: oral mucosae normal, tongue normal, oropharynx normal and moist mucous membranes Teeth and gingiva: dentition normal Throat: posterior oropharynx normal, tonsils normal and uvula midline Eyes General: appearance normal, both eyes and all related structures Eyelids: eyelids normal Conjunctivae: conjunctivae normal Pupils: PERRL, normal by confrontation and accommodation normal EOM: EOM intact bilaterally Neck Neck: normal visual inspection, trachea midline and no JVD JVD: +5 Carotids: normal carotid upstroke and bounding pulses Chest Chest inspection: normal inspection of the chest, symmetric chest movement and normal respiratory effort Auscultation: Bilateral: Clear to Auscultation Cardio Palpation: normal PMI Rate: regular rate Rhythm: regular rhythm Heart sounds: S1 normal, S2 normal and normal, physiologic split S2; Negative rub, gallop or murmur GI GI: normal to inspection, soft, no hepatosplenomegaly and bowel sounds present Neuro General: patient alert, patient awake, patient oriented x3, gait normal, moves all extremities and no focal sensory deficit Skin Skin: no rashes or lesions noted Extremities Pulses: Normal: Right Femoral Pulse, Left Femoral Pulse, Right Dorsalis Pedis Pulse, Left Dorsalis Pedis Pulse, Right Posterior Tibial Pulse, Left Posterior Tibial Pulse, Right Radial Pulse and Left Radial Pulse Lower Extremity Edema: None: Bilateral Musculoskel Musculoskeletal: No joint tenderness Psych Psychological: normal affect Assessment and Plan Assessment and Plan (1) Hyperlipidemia: Status: Chronic Orders: Orders: Echo Complete Today Plan - Dr. Dave Beckham MD: He does have a history of hyperlipidemia. He has been on lipid-lowering medication. Due to his high activity level it would be prudent for us to obtain an exercise myocardial perfusion stress test and depending on the findings further recommendations will be made. He would also like to have an echocardiogram to assess his ventricular function and a triple screen for carotid abdominal ultrasound as well as lower extremity evaluation for peripheral vascular disease would also need to be carried out. (2) Ascending aorta dilatation: Status: Chronic Orders: Orders: CTA Chest W/WO Contrast Today Basic Metabolic Profile (BMP) Today Plan - Dr. Dave Beckham MD: He does have evidence of ascending aortic dilatation. I will like us to obtain a CAT scan to reevaluate the above. Depending on the findings further recommendations will be made. 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) Coding Level of Care Code Off vis,est,level 3 Diagnoses Hyperlipidemia E78.5 Ascending aorta dilatation I77.810 Coding Level of Care Code Off vis,est,level 3 Diagnoses Hyperlipidemia E78.5 Ascending aorta dilatation I77.810 Supplemental Info Supplemental Information Labs: LDL Cholesterol 62 mg/dL (0-99) HDL Cholesterol 63 mg/dL (>39) Diagnostics: Electrocardiogram Pulmonary: No Data to Display 12/22/20 1022 <Electronically signed by Dave Beckham MD> Date Dave Beckham MD Cosigner Signature: Date (if applicable) CC: Sia Tinajero DO Work Phone: Start: 02-18-2020 End: 02-18-2020 Cardiology Visit Report Comments: See Note; NOTES: [facility] [address] [place] [address]. [address] [place] [address] OFFICE VISIT Date of Service: 02/18/20 MR#: [id number] Acct: [id number] Name: KAT LEGER Rep #: [id number] : 1940 Provider: Dr. Dave Beckham MD Age/Sex: 79/M Location: [facility] [place] Status: Signed [facility] History of Present Illness Details: KAT LEGER, is a 79 M who presents to the office today for a follow-up visit. He is a gentleman with a history of minimal atherosclerotic cardiovascular disease and coronary risk factors he also has a mildly dilated aortic root. You do remember he underwent a cardiac catheterization [address]ogram. He demonstrated no sore obstructive significant coronary artery disease he remains very active and continues to play tennis and work. He has had no neck arm or jaw discomfort suggest angina no dizziness or diaphoresis no near syncope or syncope. He has been compliant with all his medications. His physical exam demonstrates clear lung cam regular rate and rhythm no carotid bruit no pedal edema his blood pressure is under excellent control. Intake Vital Signs 02/18/20 Height 5 ft 6 in 02/18/20 Weight: 142 lb 02/18/20 BMI 22.8 02/18/20 BP 133/69 H 02/18/20 Respiration 16 02/18/20 Pulse 64 02/18/20 Pulse Oximetry (%) 98 Intake Visit Reasons: 1 Y FU Allergies No Known Allergies Allergy (Verified 02/18/20 12:51) Medications simvastatin 10 mg tablet 10 mg PO QHS 02/13/18 [History Confirmed 02/18/20] Ejection fraction %: 65 to 70 [facility] Medical History Ascending aorta dilatation (Chronic) Hyperlipidemia (Chronic) Surgical History History of left heart catheterization (Resolved 11/19/12) lower extremity surgery (Resolved) Family History Grandfather No problems noted. Father Sudden cardiac Age 65 Hypertension Other Heart disease Social History (Updated 02/18/20 @ 14:[address] Dave Beckham MD) Smoking Status: Never smoker ROS Const Const: Negative for fatigue, weakness, headache(s), frequent falls, difficulty sleeping or excessive sweating Eyes Eyes: Negative for loss of peripheral vision, transient loss of vision, blurry vision, double vision or tunnel vision ENT ENT: Negative for headache(s), dizziness, Nosebleed/epistaxis or balance problems Cardio Chest Pain: No Palpitations: No Edema: None Muscle aches with walking: None Resp Respiratory: Negative for SOB with activity, SOB at rest, SOB orthopnea SOB lying down, Cough or paroxysmal nocturnal dyspnea GI GI: Negative nausea, vomiting, heartburn or black,tarry stools : Negative for hematuria Musc Musc: Negative for muscle aches/ myalgia, muscle weakness, joint pain or balance problems Skin Skin: Negative non-healing lesions, rash or unusual bruising Neuro Neuro: Negative for dizziness, lightheadedness, near syncope, syncope, orthostatic symptoms, frequent falls, headache(s), weakness, blurry vision, double vision or lack of coordination Abdiel Hematologic/Lymphatic: Negative for easy bleeding or easy bruising Endo Endo: Negative for fatigue, excessive sweating or increased thirst/drinking Psych Psych: Negative for anxiety or depression Allergy Allergy/Immunology: Negative for hives, Negative for rash Cardiology Exam Const Appearance: cooperative, healthy appearing, no acute distress, well developed and well groomed Nutritional Appearance: average body habitus and well nourished Orientation: alert, awake and oriented x3 Head Head: normal to inspection, normocephalic and atraumatic Ears: hearing grossly normal bilaterally and external ears normal Nose: external nose normal, nares normal, nasal mucous membranes and turbinates normal, septum normal, no nasal discharge Face and Sinus: face symmetric Mouth: oral mucosae normal, tongue normal, oropharynx normal and moist mucous membranes Teeth and gingiva: dentition normal Throat: posterior oropharynx normal, tonsils normal and uvula midline Eyes General: appearance normal, both eyes and all related structures Eyelids: eyelids normal Conjunctivae: conjunctivae normal Pupils: PERRL, normal by confrontation and accommodation normal EOM: EOM intact bilaterally Neck Neck: normal visual inspection, trachea midline and no JVD JVD: +5 Carotids: normal carotid upstroke and bounding pulses Chest Chest inspection: normal inspection of the chest, symmetric chest movement and normal respiratory effort Auscultation: Bilateral: Clear to Auscultation Cardio Palpation: normal PMI Rate: regular rate Rhythm: regular rhythm Heart sounds: S1 normal, S2 normal and normal, physiologic split S2; negative rub, gallop or murmur GI GI: normal to inspection, soft, no hepatosplenomegaly and bowel sounds present Neuro General: alert, awake, oriented x3, gait normal, moves all extremities and no focal sensory deficit Skin Skin: no rashes or lesions noted Extremities Pulses: Normal: Right Femoral Pulse, Left Femoral Pulse, Right Dorsalis Pedis Pulse, Left Dorsalis Pedis Pulse, Right Posterior Tibial Pulse, Left Posterior Tibial Pulse, Right Radial Pulse, Left Radial Pulse Lower Extremity Edema: None: Bilateral Musculoskel Musculoskeletal: No joint tenderness Psych Psychological: normal affect Assessment Plan 1. Ascending aorta dilatation I77.810 Plan He does have a mild ascending aortic dilatation. Which does not appear to have changed over the last 5 years at least. My recommendation is to continue the same. I would not recommend any other changes will consider repeating his CAT scan or echocardiogram next year. 2. Hyperlipidemia E78.5 Plan He tells me that he had a lipid profile performed through your office. Unfortunately do not have a record of the above. However he will forward a copy of this to me at a later date. Thank you once again for allowing me to participate in his care. 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) Coding Level of Care Code Off vis,est,level 3 Diagnoses Ascending aorta dilatation I77.810 Hyperlipidemia E78.5 Coding Level of Care Code Off vis,est,level 3 Diagnoses Ascending aorta dilatation I77.810 Hyperlipidemia E78.5 Supplemental Info Supplemental Information Labs LDL Cholesterol 62 mg/dL (0-99) 02/13/19 HDL Cholesterol 63 mg/dL (>39) 02/13/19 Triglycerides 43 mg/dL (-199) 01/30/18 VLDL Cholesterol 9 mg/dL (5-40) 01/30/18 Diagnostics Electrocardiogram 02/19/19 02/18/20 1431 <Electronically signed by Dave Beckham MD> Date Dave Beckham MD Cosigner Signature: Date (if applicable) CC: DO Sia Gabriel Start: 06-26-2019 End: 06-26-2019 Emergency Department Summary Comments: See Note; NOTES: [facility] Medical Records Department [address] [place] [address] Emergency Department Summary 06/26/19 1137 MR#: [id number] Acct: [id number] Name: KAT LEGER Rep #: [id number] : 1940 79 From: Francy Love MD PCP: Sia Tinajero DO Status: DEP ER 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 he has no other complaints Past Medical History - Allergies and Home Meds Allergies/Adverse Reactions: Allergies No Known Allergies Allergy (Verified 06/26/19 11:19) Primary Care Physician: Siva Hammond MD [STAFF PHYSICIAN] - Sia Tinajero DO [Primary Care Provider] - Past Medical History: None Smoking Status: Never smoker Review of Systems General: Reports: - - Facial trauma left face chin Musculoskeletal: Reports: - - Left thumb trauma Physical Exam Vital Signs/Narrative: Vital Signs 06/26/19 11:19 97.5 F L 52 L 17 158/77 H 100 General: Well nourished, Well developed, No Acute Distress, - - He has a small contusion to the left lateral chin his HEENT exam is unremarkable mouth opening closing unremarkable Head: Normocephalic, Atraumatic Eyes: Perrl, EOMI ENT: Moist mucous membranes, No rhinorrhea Neck: - - No complaints of neck pain full range of motion Cardiovascular: Regular rate, Regular rhythm Respiratory: No distress, CTA bilaterally, Chest nontender Extremities: - - Only complaint is pain to the left thumb there is contusion diffusely about the thumb he has normal flexion extension of the IP joint MCP joint nail nailbed intact, contusion at the level of the nailbed but the skin is intact as is the nailbed sensation intact finger exam unremarkable hand exam otherwise unremarkable skin is intact neurovascular function normal, the patient also complains of very mild left wrist discomfort forearm and elbow unremarkable Skin: Normal color, No rash Neurological: Alert, Oriented x3, Cranial nerves II-XII grossly intact, Normal Strength, Normal Sensation Psychological: Normal affect, Normal Mood Diagnostic/Tx/Re-eval - Medical Decision Making Given all the above x-rays were obtained X-rays of the hand and wrist obtained from radiology there appears to be a distal phalanx fracture of the wrist is unremarkable see those reports discussed this with the patient discussed the concept of an the fracture and other occult injury he is fitted with a thumb spica splint, ice elevation he is referred to Dr. hammond of hand service and will return for change in symptoms Home stable final impression left thumb distal phalanx fracture injury ED Disposition - Plan for ED Patient: Diagnosis: Injury of thumb, left, Thumb fracture Instructions: FRACTURE, Thumb Referrals: Sia Tinajero DO [Primary Care Provider] - Siva Hammond MD [STAFF PHYSICIAN] - Additional Instructions: Dr. Dunlap [facility] [phone] hand follow-up of thumb fracture if you cannot see Dr. hammond What to do if you have Problems For any increased pain, shortness of breath, bleeding, nausea or vomiting, chest pain, or any unexpected problems, contact your Primary Care Provider. Call [facility] ([phone]) or report to the closest Emergency Room. Call 911 if necessary. 06/26/19 9674 <Electronically signed by Francy Love MD> Date Francy Love MD Cosigner Signature (If Indicated): Date CC: Sia Scott Start: 06-26-2019 End: 06-26-2019 Hand Min 3 Views Comments: See Note; NOTES: [facility] Imaging Services [address] [place] [address] Hand Min 3 Views MR#: [id number] Acct: [id number] Name: KAT LEGER Rep #: [id number] : 1940 M 79 From: Rahul Pastor MD PCP: Sia Tinajero DO Status: REG ER Study: Hand Min 3 Views Date of Exam: 06/26/19 Exam# [id number] Ordering Dr: Francy Love MD STUDY: X-RAY - LEFT HAND REASON FOR EXAM: Male, 79 years old. Fell yesterday, thumb pain TECHNIQUE: 3 view(s) of the hand. COMPARISON: None. FINDINGS: Normal radiocarpal articulation. Normal distal radioulnar joint. Normal visualized carpal bones. Normal carpal articulations Normal carpometacarpal articulation of the thumb. Normal second through fifth carpometacarpal joints. Normal metacarpi. Normal metacarpophalangeal joint of the thumb. Normal interphalangeal joint of the thumb. There is an intra-articular slightly displaced fracture of the base of the distal phalanx of the thumb. Normal metacarpophalangeal joints of the second through fifth fingers. Normal proximal and distal interphalangeal joints of the second through fifth fingers. Normal phalanges of the second through fifth fingers. The soft tissue structures are unremarkable. RAD/Hand Min 3 Views IMPRESSION: Fracture of the distal phalanx of the thumb. Electronically Signed: Rahul Pastor MD at 12:23 EDT Tel , Service support , CC: Sia Tinajero DO; Francy Love MD Hand Welt Butter: Signed Sia Tinajero Start: 06-26-2019 End: 06-26-2019 Wrist min 3 Views Comments: See Note; NOTES: [facility] Imaging Services [address] [place] [address] Wrist min 3 Views MR#: [id number] Acct: [id number] Name: KAT LEGER Rep #: [id number] : 1940 M 79 From: Rahul Pastor MD PCP: Sia Tinajero DO Status: REG ER Study: Wrist min 3 Views Date of Exam: 06/26/19 Exam# [id number] Ordering Dr: Francy Love MD STUDY: X-RAY - LEFT WRIST REASON FOR EXAM: Male, 79 years old. Thumb pain, fell yesterday TECHNIQUE: 3 view(s) of the wrist were obtained. COMPARISON: None. FINDINGS: Normal visualized distal radius and ulna. Normal radiocarpal articulation. Normal distal radioulnar articulation. There is questionable hairline nondisplaced fracture of the scaphoid seen only on the oblique view. Normal carpal articulations. There is mild degenerative arthrosis of the carpometacarpal articulation of the thumb. Normal second through fifth carpometacarpal articulations. Normal visualized metacarpal bones. The soft tissue structures are unremarkable. RAD/Wrist min 3 Views IMPRESSION: Questionable hairline nondisplaced fracture of the scaphoid. Electronically Signed: Rahul Pastor MD at 12:25 EDT Tel , Service support , CC: Sia Tinajero DO; Francy Love MD Hand Welt Butter: Signed Sia Tinajero Start: 03-02-2019 End: 03-02-2019 CTA Chest W/WO Contrast Comments: See Note; NOTES: [facility] Imaging Services [address] [place] [address] CTA Chest W/WO Contrast MR#: [id number] Acct: [id number] Name: KAT LEGER Rep #: [id number] : 1940 M 78 From: Evelyn Paniagua MD PCP: Sia Tinajero DO Status: REG CLI Study: CTA Chest W/WO Contrast Date of Exam: 03/02/19 Exam# [id number] Ordering Dr: Dave Beckham MD STUDY: CTA CHEST REASON FOR EXAM: Male, 78 years old. A ascending aortic dilatation RADIATION DOSAGE (If Supplied By Facility): CTDIvol = ( 6.68 ) mGy, DLP = ( 219.56 ) mGycm TECHNIQUE: The examination was performed with the intravenous administration of IV Isovue 370 100. Post-processing of the angiographic images was performed, with multiplanar reformation and 3D reconstruction. Individualized dose optimization techniques were used for this CT. COMPARISON: February 20, 2016 FINDINGS: The ascending thoracic aorta measures 4.6 x 4.2 cm in diameter, previously measuring 4.5 x 4.2 cm in diameter by my measurements. The descending thoracic aorta measures 2.2 x 2.5 cm in diameter. There are peripheral calcifications of the aortic arch and descending thoracic aorta. Normal enhancement of the main pulmonary artery and right and left pulmonary arteries. Normal enhancement of the bilateral peripheral pulmonary arteries. There is no demonstrated pulmonary embolism. There are calcifications of the coronary arteries. Normal mediastinum. Normal hilar regions. Normal visualized trachea and bronchi. There is a stable subpleural 5.5 mm nodule within the left upper lobe. Normal chest wall structures. There are degenerative changes of thoracic spine. Normal visualized upper abdomen. CT/CTA Chest W/WO Contrast IMPRESSION: Interval increase in size of a ascending thoracic aortic aneurysm. Atherosclerosis. Electronically Signed: Evelyn Paniagua MD at 16:05 EST Tel , Service support , CC: Dave Beckham MD; Sia Tinajero DO [employer]: Signed Sia Tinajero Start: 02-19-2019 End: 02-23-2019 12 Lead EKG performed by [facility] Comments: See Note; NOTES: [facility] [address] 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 ABNORMAL Electronically signed on 02/23/2019 at 13:38 by Dave Beckham [employer] Version [id number] 02/23/19 1413 Date Dave Beckham MD CC: Sia Tinajero DO Date Dictated: 02/19/19 1346 Date Transcribed: 02/19/191345 Hand Welt Butter: [place] Signed Sia Tinajero Start: 02-19-2019 End: 02-19-2019 Cardiology Visit Report Comments: See Note; NOTES: [facility] [address] [place] [address] OFFICE VISIT Date of Service: 02/19/19 MR#: [id number] Acct: [id number] Name: KAT LEGER Rep #: [id number] : 1940 Provider: Dave Beckham MD Age/Sex: 78/M Location: [facility] Status: Signed HPI HPI History of Present Illness Details: KAT LEGER, is a 78 M who presents to the office today for a follow-up visit. He is a gentleman with a history of minimal atherosclerotic cardiovascular disease and coronary risk factors he also has a mildly dilated aortic root. You do remember he underwent a cardiac catheterization [address]ogram. He demonstrated no sore obstructive significant coronary artery disease he remains very active and continues to play tennis and work. He has had no neck arm or jaw discomfort suggest angina no dizziness or diaphoresis no near syncope or syncope. He has been compliant with all his medications. His physical exam demonstrates clear lung cam regular rate and rhythm no carotid bruit no pedal edema his blood pressure is under excellent control. Intake Vital Signs02/19/19 Height 5 ft 6 in Intake Visit Reasons: 1 Y FU (we r/s from 02-12) Allergies No Known Allergies Allergy (Unverified 02/19/19 13:06) Medications simvastatin 10 mg tablet 10 mg PO QHS 02/13/18 [History Confirmed 02/19/19] [facility] Medical History Ascending aorta dilatation (Chronic) Hyperlipidemia (Chronic) Surgical History History of left heart catheterization (Resolved 11/19/12) lower extremity surgery (Resolved) Family History Grandfather No problems noted. Father Sudden cardiac Age 65 Hypertension Other Heart disease Social History (Updated 02/19/19 @ 13:43 by Dave Beckham MD) Smoking Status: Never smoker ROS Const Const: Negative for fatigue, weakness, headache(s), frequent falls, difficulty sleeping or excessive sweating Eyes Eyes: Negative for loss of peripheral vision, transient loss of vision, blurry vision, double vision or tunnel vision ENT ENT: Negative for headache(s), dizziness, Nosebleed/epistaxis or balance problems Cardio Chest Pain: No Palpitations: No Edema: None Muscle aches with walking: None Resp Respiratory: Negative for SOB with activity, SOB at rest, SOB orthopnea\SOB lying down, Cough or paroxysmal nocturnal dyspnea GI GI: Negative nausea, vomiting, heartburn or black,tarry stools : Negative for hematuria Musc Musc: Negative for muscle aches/ myalgia, muscle weakness, joint pain or balance problems Skin Skin: Negative non-healing lesions, rash or unusual bruising Neuro Neuro: Negative for dizziness, lightheadedness, near syncope, syncope, orthostatic symptoms, frequent falls, headache(s), weakness, blurry vision, double vision or lack of coordination Abdiel Hematologic/Lymphatic: Negative for easy bleeding or easy bruising Endo Endo: Negative for fatigue, excessive sweating or increased thirst/drinking Psych Psych: Negative for anxiety or depression Allergy Allergy/Immunology: Negative for hives, Negative for rash Cardiology Exam Const Appearance: cooperative, healthy appearing, no acute distress, well developed and well groomed Nutritional Appearance: average body habitus and well nourished Orientation: alert, awake and oriented x3 Head Head: normal to inspection, normocephalic and atraumatic Ears: hearing grossly normal bilaterally and external ears normal Nose: external nose normal, nares normal, nasal mucous membranes and turbinates normal, septum normal, no nasal discharge Face and Sinus: face symmetric Mouth: oral mucosae normal, tongue normal, oropharynx normal and moist mucous membranes Teeth and gingiva: dentition normal Throat: posterior oropharynx normal, tonsils normal and uvula midline Eyes General: appearance normal, both eyes and all related structures Eyelids: eyelids normal Conjunctivae: conjunctivae normal Pupils: PERRL, normal by confrontation and accommodation normal EOM: EOM intact bilaterally Neck Neck: normal visual inspection, trachea midline and no JVD JVD: +5 Carotids: normal carotid upstroke and bounding pulses Chest Chest inspection: normal inspection of the chest, symmetric chest movement and normal respiratory effort Auscultation: Bilateral: Clear to Auscultation Cardio Palpation: normal PMI Rate: regular rate Rhythm: regular rhythm Heart sounds: S1 normal, S2 normal and normal, physiologic split S2; negative rub, gallop or murmur GI GI: normal to inspection, soft, no hepatosplenomegaly and bowel sounds present Neuro General: alert, awake, oriented x3, gait normal, moves all extremities and no focal sensory deficit Skin Skin: no rashes or lesions noted Extremities Pulses: Normal: Right Femoral Pulse, Left Femoral Pulse, Right Dorsalis Pedis Pulse, Left Dorsalis Pedis Pulse, Right Posterior Tibial Pulse, Left Posterior Tibial Pulse, Right Radial Pulse, Left Radial Pulse Lower Extremity Edema: None: Bilateral Musculoskel Musculoskeletal: No joint tenderness Psych Psychological: normal affect Assessment AND Plan 1. Ascending aorta dilatation I77.810 Plan He has a history of an ascending aortic dilatation. My recommendation is for us to obtain a routine CAT scan to measure the above dimensions. His last echocardiogram in 2016 did not demonstrate any significant changes. Blood flow screen also did not demonstrate any evidence of carotid stenosis or abdominal aneurysm and his ankle-brachial indices were normal. 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) Coding Level of Care Code Off vis,est,level 3 Diagnoses Ascending aorta dilatation I77.810 Coding Level of Care Code Off vis,est,level 3 Diagnoses Ascending aorta dilatation I77.810 Supplemental Info Supplemental Information Labs LDL Cholesterol 62 mg/dL (0-99) 02/13/19 HDL Cholesterol 63 mg/dL (>39) 02/13/19 Triglycerides 43 mg/dL (-199) 01/30/18 VLDL Cholesterol 9 mg/dL (5-40) 01/30/18 02/19/19 1343 <Electronically signed by Dave Beckham MD> Date Dave Beckham MD Cosigner Signature: Date (if applicable) CC: Sia Scott Start: 02-20-2018 End: 02-20-2018 TXT - Blood Flow Screening Comments: See Note; NOTES: [facility] Cardiovascular Services [address] [place] [id number] 02/20/18 0803 MR#: [id number] Acct: [id number] Name: KAT LEGER Rep #: [id number] : 1940 77 From: Ambrosio Agudelo MD Attending Dr: Self Referred Status: REG REF Ordering Dr: Date: 02/20/18 Location: [facility] Sex: M C Admitted: Reason For Study: Blood Flow Screening Carotid Duplex Ultrasound Abdominal Aorta The right maximum ICA velocity is 79.7/24 cm/s. The maximal outside diameter of the proximal aorta The left maximum ICA velocity is 77.4/22.9 cm/s. measures 1.46 x 1.54 cm in the cross-sectional The right ECA velocity is less than 125 cm/s. axis. The left ECA velocity is less than 125 cm/s. The maximal outside diameter of the proximal aorta There is insignificant plaque formation noted on measures 1.62 cm in the longitudinal axis. the right side. There is no plaque formation noted on the left side. Ankle Brachial Index The right ankle/ brachial index is 1.17. The left ankle/ brachial index is 1.15. Medical History and Assessment The heart rate is 60 beats per minute. The heart rhythm is regular. The right blood pressure is 120/68. The left blood pressure is 120/68. The assessment was preformed by Will Cummins RDCS, RVT. Interpretation Summary Normal carotid artery screening (0 to 15% narrowing). Normal aortic ultrasound exam. The ankle/brachial index is normal (1.0 or greater). Performed By: Sue Cummins RVT, RDCS and Student 02/20/18 1326 Date Ambrosio Agudelo MD CC: Sia Tinajero DO; Self Referred Date Dictated: 02/20/18 0803 Date Transcribed: 02/20/181325 [employer]: Signed Sia Tinajero Start: 02-13-2018 End: 02-13-2018 Cardiology Visit Report Comments: See Note; NOTES: [facility] [address] [place], [place] [address]luis [address] [place] [address] OFFICE VISIT Date of Service: 02/13/18 MR#: [id number] Acct: [id number] Name: KAT LEGER Rep #: [id number] : 1940 Provider: Dave Beckham MD Age/Sex: 77/M Location: [facility] Status: Signed HPI HPI Chief Complaint: Follow up Details: KAT LEGER, is a 77 M who presents to the office today for a follow-up visit. He is a gentleman with a history of minimal atherosclerotic cardiovascular disease and coronary risk factors he also has a mildly dilated aortic root. You do remember he underwent a cardiac catheterization [address]ogram. He demonstrated no sore obstructive significant coronary artery disease he remains very active and continues to play tennis and work. He has had no neck arm or jaw discomfort suggest angina no dizziness or diaphoresis no near syncope or syncope. He has been compliant with all his medications. His physical exam demonstrates clear lung cam regular rate and rhythm no carotid bruit no pedal edema his blood pressure is under excellent control. Intake Vital Signs02/13/18 Height 5 ft 6 in 02/13/18 Weight: 144 lb 02/13/18 Body Mass Index (BMI) 23.2 02/13/18 Blood Pressure 90/52 L 02/13/18 Respiratory Rate 16 02/13/18 Pulse Rate 70 Intake Visit Reasons: 1 Y FU Allergies No Known Allergies Allergy (Unverified 02/13/18 14:21) Medications aspirin 81 mg tablet,delayed release 81 mg PO DAILY 02/13/18 [History Confirmed 02/13/18] simvastatin 10 mg tablet 10 mg PO QHS 02/13/18 [History Confirmed 02/13/18] PFS Medical History Ascending aorta dilatation (Chronic) Hyperlipidemia (Chronic) Surgical History History of left heart catheterization (Resolved 11/19/12) lower extremity surgery (Resolved) Family History Grandfather No problems noted. Father Sudden cardiac Age 65 Hypertension Other Heart disease Social History Smoking Status: Never smoker ROS Const Const: Negative for fatigue, weakness, difficulty sleeping, frequent falls, excessive sweating or headache(s) Eyes Eyes: Negative for loss of peripheral vision, transient loss of vision, blurry vision, tunnel vision or double vision ENT ENT: Negative for headache(s), dizziness, Nosebleed/epistaxis or balance problems Cardio Chest Pain: No Palpitations: No Edema: None Muscle aches with walking: None Resp Respiratory: Negative for SOB with activity, SOB at rest, SOB orthopnea\SOB lying down, paroxysmal nocturnal dyspnea or Cough GI GI: Negative nausea, heartburn, black,tarry stools or vomiting : Negative for hematuria Musc Musc: Negative for balance problems, muscle aches/ myalgia, muscle weakness or joint pain Skin Skin: Negative non-healing lesions, unusual bruising or rash Neuro Neuro: Negative for weakness, frequent falls, headache(s), blurry vision, double vision, dizziness, lightheadedness, orthostatic symptoms, near syncope, syncope or lack of coordination Abdiel Hematologic/Lymphatic: Negative for easy bruising or easy bleeding Endo Endo: Negative for fatigue, excessive sweating or increased thirst/drinking Psych Psych: Negative for anxiety or depression Allergy Allergy/Immunology: Negative for hives, Negative for rash Cardiology Exam Const Appearance: cooperative, healthy appearing, well developed, well groomed and no acute distress Nutritional Appearance: well nourished and average body habitus Orientation: alert, awake and oriented x3 Head Head: normal to inspection, normocephalic and atraumatic Ears: hearing grossly normal bilaterally and external ears normal Nose: external nose normal, nasal mucous membranes and turbinates normal, nares normal, septum normal, no nasal discharge Face and Sinus: face symmetric Mouth: oral mucosae normal, tongue normal, oropharynx normal and moist mucous membranes Teeth and gingiva: dentition normal Throat: posterior oropharynx normal, tonsils normal and uvula midline Eyes General: appearance normal, both eyes and all related structures Eyelids: eyelids normal Conjunctivae: conjunctivae normal Pupils: PERRL, normal by confrontation and accommodation normal EOM: EOM intact bilaterally Neck Neck: normal visual inspection, trachea midline and no JVD JVD: +5 Carotids: normal carotid upstroke and bounding pulses Chest Chest inspection: normal inspection of the chest, symmetric chest movement and normal respiratory effort Auscultation: Bilateral: Clear to Auscultation Cardio Palpation: normal PMI Rate: regular rate Rhythm: regular rhythm Heart sounds: S1 normal, S2 normal and normal, physiologic split S2; negative rub, gallop or murmur GI GI: normal to inspection, soft, no hepatosplenomegaly and bowel sounds present Neuro General: alert, awake, oriented x3, no focal sensory deficit, gait normal and moves all extremities Skin Skin: no rashes or lesions noted Extremities Pulses: Normal: Right Femoral Pulse, Left Femoral Pulse, Right Dorsalis Pedis Pulse, Left Dorsalis Pedis Pulse, Right Posterior Tibial Pulse, Left Posterior Tibial Pulse, Right Radial Pulse, Left Radial Pulse Lower Extremity Edema: None: Bilateral Musculoskel Musculoskeletal: No joint tenderness Psych Psychological: normal affect Assessment AND Plan 1. Ascending aorta dilatation I77.810 Plan He does have a mildly dilated ascending aorta which has been stable via CT scans it last measured 4.1 cm. With his blood pressure under excellent control I would not suggest any repeat at this particular time. It may however be helpful for him to have a triple screen of the carotid, abdominal aorta as well as peripheral vascular. This will be done via the [employer] program. 2. Hyperlipidemia E78.5 Plan His lipid status is excellent with a recent lipid profile demonstrating a total cholesterol 106, LDL of 50 and HDL of 57. No other changes will be made. Thank you for allowing me to participate in the care of your patient. 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) Coding Level of Care Code Off vis,est,level 3 Diagnoses Ascending aorta dilatation I77.810 Hyperlipidemia E78.5 Coding Level of Care Code Off vis,est,level 3 Diagnoses Ascending aorta dilatation I77.810 Hyperlipidemia E78.5 02/13/18 1458 <Electronically signed by Dave Beckham MD> Date Dave Beckham MD Cosigner Signature: Date (if applicable) CC: Sia Scott Start: 02-20-2016 End: 02-20-2016 CTA Chest W/WO Contrast Comments: See Note; NOTES: [facility] Imaging Services [address] [place] [address] Tasneemdalisa 4d CTA Chest W/WO Contrast MR#: [id number] Acct: [id number] Name: KAT LEGER Rep #: [id number] : 1940 M 75 From: Joshua Johnson MD PCP: Sia Tinajero DO Status: REG CLI Study: CTA Chest W/WO Contrast Date of Exam: 02/20/16 Exam# [id number] Ordering Dr: Dave Beckham MD STUDY: CTA CHEST REASON FOR EXAM: Male, 75 years old. Dilatation of the ascending thoracic aorta. RADIATION DOSAGE (If Supplied By Facility): CTDIvol = ( 8.35 ) mGy, DLP = ( 372.35 ) mGycm TECHNIQUE: The examination was performed with the intravenous administration of 100cc ml of Isovue 300 contrast material. Post-processing of the angiographic images was performed, with multiplanar reformation and 3D reconstruction. Individualized dose optimization techniques were used for this CT. COMPARISON: Comparison is made with prior study dated October 06, 2012. FINDINGS: Normal enhancement of the main pulmonary artery and right and left pulmonary arteries. Normal enhancement of the bilateral peripheral pulmonary arteries. There is no demonstrated pulmonary embolism. There is aneurysmal dilatation of the ascending aorta. The transverse diameter of the ascending aorta measures 41 mm's. This is unchanged. There is no demonstrated aortic dissection. Normal heart and pericardium. There are calcifications of the coronary arteries. Normal mediastinum. Normal hilar regions. Normal visualized trachea and bronchi. Stable 6 mm noncalcified pleural-based nodule in the posterior medial aspect of the left upper lobe. This is unchanged as compared to prior examinations. Normal pulmonary parenchyma. Normal pleura. Normal chest wall structures. There are degenerative changes of thoracic spine. Normal visualized upper abdomen. CT/CTA Chest W/WO Contrast IMPRESSION: Stable examination. Electronically Signed: Joshua Johnson MD at 12:39 EST Tel [phone], Service support [phone], CC: Dave Beckham MD; Sia Tinajero DO Hand [employer] Butter: Signed Sia Tinajero Start: 02-16-2016 End: 02-16-2016 Echocardiogram Complete Comments: See Note; NOTES: [facility] Cardiovascular Services [address] [place] [address] Echo Complete 02/16/16 0959 MR#: [id number] Acct: [id number] Name: KAT LEGER Rep #: [id number] : 1940 75 From: Dave Beckham MD Attending Dr: Aleena GREENFIELD,Dave Status: REG CLI Ordering Dr: Dave Beckham MD Date: 02/16/16 Location: [facility] Sex: M C Admitted: Reason For Study: Aortic root dilitation Procedure This was a 2D Doppler, Color Flow transthoracic echocardiogram. Exam performed in department. Left Ventricle Normal LV size. Left ventricular systolic function is normal. The estimated ejection fraction is 65 %. No regional wall motion abnormalities noted. Right Ventricle Normal RV size. Normal systolic function. Atria Normal left atrium. Normal right atrium. Mitral Valve Normal mitral valve. Trivial eccentric mitral valve insufficiency. Tricuspid Valve Normal tricuspid valve. Mild tricuspid valve insufficiency. Pulmonary artery systolic pressure is 26 mmHg. Aortic Valve Trisinus/trileaflet aortic valve. Pulmonic Valve Normal pulmonic valve. Great Vessels Mildly dilated aortic root. Maximum measurement at ascending aorta is 4.1 cm. The pulmonary artery is normal size. Normal inferior vena cava. Pericardium/Pleural No pericardial effusion. MMode/2D Measurements & Calculations LVIDd: 3.5 cm IVSd: 1.0 cm Ao root diam: 4.1 cm LVIDs: 1.9 cm LVPWd: 0.93 cm LA dimension: 3.5 cm RVDd: 3.1 cm FS: 46.1 % LAV(MOD-bp): 29.8 ml LA A4 area: 12.0 cm2 RA A4 area: 13.0 cm2 LAV(MOD-bp) Indexed: 17.4 ml/m2 LAV(MOD-sp2): 32.8 ml LAV(MOD-sp4): 26.7 ml Doppler Measurements & Calculations MV E max elizabeth: 70.6 cm/sec Lat Peak E' Elizabeth: 14.1 cm/sec Med Peak E' Elizabeth: 6.3 cm/sec MV A max elizabeth: 103.5 cm/sec E/E' lat: 5.0 E/E' med: 11.3 MV E/A: 0.68 Ao V2 max: 135.9 cm/sec LV V1 max: 93.8 cm/sec PA V2 max: 98.2 cm/sec Ao max P.4 mmHg LV V1 max P.5 mmHg TR max elizabeth: 236.7 cm/sec TR max P.4 mmHg Interpretation Summary Normal LV size. Left ventricular systolic function is normal. The estimated ejection fraction is 65 %. Mildly dilated aortic root. Maximum measurement at ascending aorta is 4.1 cm Ordering Physician: Dave Beckham Referring Physician: Sia Tinajero M.D. Performed By: Paloma Marino RDCS 02/16/16 1246 Date Dave Beckham MD CC: Dave Beckham MD; Sia Tinajero DO Date Dictated: 02/16/1659 Date Transcribed: 02/16/16 124 Hand Welt Butter: Signed Sia Tinajero Start: 12-18-2013 PSA screening Sia Tinajero Comment on above: This test was performed using the TPSA a ssay method [facility]. Values obtained with differentassay methods cannot be used interchangably.When changing PSA assays in the course of monitoring apatient, additional sequential testing should be carriedout to confirm baseline values. Measurement of occul t blood in stool specimen using immunoassay Dr. Sia Tinajero Work Phone: Plan of Treatment Date Care Activity Detail Author Start: 12-23-2024 End: 12-23-2024 Evaluation of diagnostic study results [facility] Start: 08-19-2022 Patient discharge [facility] Start: 08-19-2022 Blood chemistry [facility] Start: 08-18-2022 Following clinical pathway protocol [facility] Start: 08-18-2022 Ambulation without limitation [facility] Start: 08-18-2022 Following clinical pathway protocol [facility] Start: 08-18-2022 Measuring intake and output [facility] Start: 08-18-2022 Taking patient vital signs [facility] Start: 08-18-2022 [facility] Start: 08-18-2022 Admission procedure [facility] Start: 01-11-2022 Procedure Education Eprescribe d prescriptions (G8553) [facility]; [facility] Work Phone: Start: 01-11-2022 Provider Instruction s for Treatment [facility]; [facility] Work Phone: Start: 01-11-2022 Assay of prostate specific antigen total PSA (PROSTATE SPECIFIC ANTIGEN) (V76.44) [facility]; [facility] Work Phone: Comment on above: do after 02-16-22 Start: 12-28-2020 Procedure Education Eprescribe d prescriptions (G8553) [facility]; [facility] Work Phone: Start: 12-28-2020 Provider Instruction s for Treatment [facility]; [facility] Work Phone: Start: 02-11-2020 Procedure Education Eprescribe d prescriptions (G8553) [facility] Work Phone: Start: 02-11-2020 Provider Instruction s for Treatment [facility] Work Phone: Start: 01-28-2020 Comprehensive metabo lic panel METABOLIC PANEL, COMPREHENSIVE (02241) [facility] Work Phone: Start: 01-28-2020 TSH Qn TSH (THYROID STIMULATING HORMONE) (47599) [facility] Work Phone: Start: 01-28-2020 Assay of prostate specific antigen total PSA (PROSTATE SPECIFIC ANTIGEN) (84264) [facility] Work Phone: Start: 01-28-2020 Lipoprotein blood qu an numbers & subclasses NMR Profile (46837) [facility] Work Phone: Start: 01-28-2020 Blood count complete auto&auto difrntl wbc CBC, PLATELETS & AUT DIFF (88495) [facility] Work Phone: Start: 02-12-2019 Assay of thyroid stimulating hormone tsh TSH (16979) [facility]; [facility] Work Phone: Start: 02-12-2019 TSH Qn TSH (86376) [facility] Work Phone: Start: 02-12-2019 Comprehensive metabo lic panel METABOLIC PANEL, COMPREHENSIVE (41980) [facility] Work Phone: Start: 02-12-2019 Blood count complete auto&auto difrntl wbc CBC W/AUTO DIFF WBC (35446) [facility] Work Phone: Start: 02-12-2019 Lipoprotein blood qu an numbers & subclasses NMR Profile (94045) [facility] Work Phone: Start: 02-12-2019 Procedure Education Eprescribe d prescriptions (G8553) [facility] Work Phone: Start: 02-12-2019 Provider Instruction s for Treatment [facility] Work Phone: Start: 02-06-2018 Calcium mass conc CALCIUM SERUM (823 10) [facility] Work Phone: Start: 02-06-2018 Calcium total CALCIUM SERUM (16389) [facility] Medicine; [facility] Work Phone: Start: 02-06-2018 Provider Instruction s for Treatment [facility] Work Phone: Start: 01-19-2018 Assay of prostate specific antigen total PSA (Medicare - G0103) (23736) [facility] Work Phone: Start: 01-19-2018 Comprehensive metabo lic panel METABOLIC PANEL, COMPREHENSIVE (23562) [facility] Work Phone: Start: 01-19-2018 Assay of thyroid stimulating hormone tsh TSH (THYROID STIMULATING HORMONE) (04834) [facility]; [facility] Work Phone: Start: 01-19-2018 Thyrotropin Qn TSH (THYROID STIMULATING HORMONE) (67499) [facility] Work Phone: Start: 01-19-2018 CBC, PLATELETS & MAN UAL DIFF (05021) CBC, PLATELETS & MANUAL DIFF (93162) [facility] Work Phone: Start: 01-19-2018 Urnls dip stick/tabl et rgnt non-auto w/o micrscp URINALYSIS W/O MICROSCOPY (01745) [facility] Work Phone: Start: 01-19-2018 Urine albumin quantitative MICROALBUMIN: CREATININE RATIO (44428) AND (78642) [facility] Work Phone: Start: 01-19-2018 C-reactive protein h igh sensitivity C-REACT PROT HIGH SENS(hsCRP) (91078) [facility] Work Phone: Start: 01-19-2018 Lipid panel Lipid Panel (18693) [facility] Work Phone: Start: 01-19-2018 Lipoprotein blood qu an numbers & subclasses LIPOPROTEIN, BLD, BY NMR (94662) [facility]; [facility] Work Phone: Start: 01-19-2018 Protein mass conc Compr [facility] Work Phone: Start: 02-14-2017 Provider Instruction s for Treatment [facility] Work Phone: Start: 12-22-2015 Provider Instruction s for Treatment [facility] Work Phone: Start: 10-29-2011 Hepatitis a antibody haab HEPATITIS A ANTBDY-IGG/IGM (06792) [facility] Work Phone: Start: 01-04-2008 25 hydroxy includes fractions if performed CALCIFIDIOL (92235) VIT D 25 [facility] Work Phone: Start: 01-04-2008 Calcium mass conc Calcium Serum (823 10) [facility] Work Phone: Start: 01-04-2008 Calcium total Calcium Serum (46294) [facility]; [facility] Work Phone: Start: 01-04-2008 Hepatic function panel HEPATIC FUNCTION PANEL (49417) [facility] Work Phone: Start: 01-04-2008 Lipid panel Lipid Panel (63939) [facility] Work Phone: Start: 03-10-2007 Comprehensive metabo lic panel Metabolic Panel, Comprehensive (59031) [facility] Work Phone: Comment on above: in six months (appro ximately) Start: 03-10-2007 Lipid panel Lipid Panel (00494) [facility] Work Phone: Start: 03-10-2007 Provider Instruction s for Treatment [facility] Work Phone: Anion gap measurement [facility] Blood chemistry [facility] Work Phone: BUN/Creatinine ratio [facility] Calcium [Mass/volume ] in Serum or Plasma [facility] Carbon dioxide, tota l [Moles/volume] in Serum or Plasma [facility] Chloride [Moles/volu me] in Serum or Plasma [facility] Creatinine [Moles/volume] in Serum or Plasma [facility] CTA Heart and Mao ry arteries W contrast IV [facility] Glucose [Mass/volume ] in Serum or Plasma [facility] Lipid 1996 panel - Serum or Plasma [facility] Work Phone: Measurement of renal function [facility] Patient referral [facility] Work Phone: Potassium [Moles/volume] in Serum or Plasma [facility] Sodium [Moles/volume ] in Serum or Plasma [facility] Urea nitrogen [Mass/volume] in Serum or Plasma [facility] Work Phone: [facility] Work Phone: [facility] Work Phone: [facility] Work Phone: [facility] Work Phone: [facility] Work Phone: [facility] Immunizations Immunization Date Immunization Notes Care Provider Raudel kraus 01-17-2022 influenza, injectabl e, quadrivalent, preservative free Dr. Sia Tinajero Work Phone: [facility] 01-17-2022 influenza, seasonal, injectable Dr. Sia Tinajero Work Phone: [facility] 10-26-2021 Covid (Moderna) Dr. Sia Tinajero Work Phone: [facility] 01-31-2021 Covid (Moderna) Dr. Sia Tinajero Work Phone: [facility] 05-02-2020 Covfl (Moderna) [facility] 04-04-2020 Covid (Moderna) [facility] 10-22-[address] Sia Tinajero Work Phone: [facility] 09-06-2019 zoster vaccine, live Sia Tinajero [facility] Work Phone: 07-20-[address] Sia Tinajero Work Phone: [facility] 07-07-2019 zoster vaccine, live Sia Tinajero [facility] Work Phone: 12-07-2015 pneumococcal conjuga te vaccine, 13 valent Sia Tinajero [facility] Work Phone: Comment on above: Prevnar 01-04-2008 varicella zoster immune globulin Sia Tinajero [facility] Work Phone: 04-07-2007 zoster vaccine, live Sia Tinajero [facility] Work Phone: Payers Date Payer Category Payer Self-pay [id number] 2016 Unknown [id number] 2007 Medicare [id number] 2007 Medicare [id number] 1940 Unknown [id number] Unknown Unknown [id number] Unknown [id number] 2.16.8 [id number] Unknown [id number] 2.16.8 [id number] Unknown [id number] 2.16.8 [id number] Unknown [id number] 2.16.8 [id number] Unknown [id number] 2.16.8 [id number] Unknown [id number] 2.16.8 [id number] Social History Date Type Detail Facility Alcohol Use [facility] Work Phone: Comment on above: Occasional alcohol u se 1 QD Tennis 1-2 X a week , Lives with spouse Physician never smoker Start: 12-22-2020 End: 12-27-2022 Tobacco smoking status NHIS Unknown if ever smoked [facility] Start: 1940 Sex Assigned At Male [facility] Start: 12-27-2022 Tobacco smoking stat us OKIS Never smoked tobacco (finding) [facility] Start: 07-19-2024 Sex Male (finding) [facility] Sex Male [facility] Goals Date Patient Goal Desired Activity /State Functional Status Date Assessment Result Facility 08-19-2022 Functional status Ambulates;Bath room Privilege [facility] Work Phone: 12-14-2020 LP-IR Score LP-IR Score <25 Comprehensiv e Internal Medicine; [facility] Work Phone: Comment on above: INSULIN RESISTANCE M NELLY <--Insulin Sensitive Insulin Resistant--> Percentile in Reference PopulationInsulin Resistance ScoreLP-IR Score Low 25th 50th 75th High <27 27 45 63 >63LP-IR Score is inaccurate if patient is non-fasting. .The LP-IR score is a laboratory developed index that has beenassociated with insulin resistance and diabetes risk and should beused as one component of a physician's clinical assessment. Test(s) 634433-FGT-A ; 023062-PPG-M; 689615-Ibmgxexlydxgv; 300470-Eajmheueqef, Total; 794251-DKW-Y (Total); 901658-Uajfn LDL-P; 371588-UKT Size; 627461-QU-SF Scorewas developed and its performance characteristics determinedby [employer]!. It has not been cleared or approved by the Foodand Drug Administration.PATIENT WAS FASTINGPERFORMED BY: judoMeadowlands Hospital Medical CenterCbvhyqzfhd0307 [facility] [id number] BY: Micro[employer] Dis[employer] GroupMymichigan Medical Center Alma6[address] [facility] [id number] 02-01-2020 LP-IR Score LP-IR Score 25 [facility] Work Phone: Comment on above: INSULIN RESISTANCE Salome VILLEGAS <--Insulin Sensitive Insulin Resistant--> Percentile in Reference PopulationInsulin Resistance ScoreLP-IR Score Low 25th 50th 75th High <27 27 45 63 >63LP-IR Score is inaccurate if patient is non-fasting. .The LP-IR score is a laboratory developed index that has beenassociated with insulin resistance and diabetes risk and should beused as one component of a physician's clinical assessment. Test(s) 620503-KAH-V ; 824604-QGX-R; 301720-Xofhvldmvpsfu; 542524-Zgverpyzsfg, Total; 786022-WDK-S (Total); 833913-Orzhh LDL-P; 820043-SVF Size; 988546-AS-IY Scorewas developed and its performance characteristics determinedby [employer]. It has not been cleared or approved by the Foodand Drug Administration.PATIENT WAS FASTINGPERFORMED BY: judoMeadowlands Hospital Medical CenterWujdmdvzrh0826 [facility] [id number] BY: judoEast Orange General HospitalGqjvpc1459 [facility] [id number] Mental Status Date Assessment Result Facility 08-19-2022 Cognitive function Voice/Name [facility] Work Phone: Clinical Notes 08-18-2022 to 12-23-2024 Note Date & Type Note Facility 12-23-2024 Progress note [facility] 08-19-2022 Discharge summary Note Date/Time August 19, 2022 8:16am [facility] Medical Records Department [address] [place] [address] Discharge Summary 08/19/22 0812 MR#: [id number] Acct: [id number] Name: KAT LEGER Rep #:[id number] : 1940 82 From: Shahriar thayer MD PCP: Dr. Sia Tinajero DO Status:AD M HARSH Location: [place] [id number] Providers Date of Admission: 08/18/22 Primary Care Physician: Dr. Sia Tinajero DO Reason For Visit: GASTROENTERITIS Diagnosis Discharge Diagnosis (1) Gastroenteritis: Status: Acute Code(s): K52.9 - Noninfective gastroenteritis and colitis, unspecified Plan: Patient's creatinine has improved and he feels much better. As long as he is able to tolerate clear liquids and keep himself high. He can go home and advance diet as tolerated. Shahriar Middleton MD Pager: [facility] [address] [place] [address] [address] [place] [address] Office: Medications at Discharge Home Medications simvastatin 10 mg tablet (Zocor) 10 mg PO QHS 02/13/18 Hospital Course Summary of Care Provided Hospital Course: Patient was admitted due to dehydration and gastroenteritis. Overnight the patient says he is feeling better and he is tolerating clear liquids. Weight / BMI Weight Weight: 142 lb Body Mass Index (BMI) 22.8 ABG / Lab / Microbiology Data Result Diagrams: 08/18/22 17:25 08/19/22 06:00 Laboratory: Laboratory Results - last 24 hr 08/18/22 17:25: WBC 7.5, RBC 5.45, Hgb 16.0, Hct 49.8, MCV 91.4, MCH 29.4, MCHC 32.1, RDW Std Deviation 46.1 H, RDW Coeff of Dalia 13.6, Plt Count 228, MPV 9.6, Immature Gran % (Auto) 0.300, Neut % (Auto) 75.3 H, Lymph % (Auto) 16.1 L, Crook % (Auto) 7.0, Eos % (Auto) 0.9, Baso % (Auto) 0.4, Absolute Neuts (auto) 5.6, Absolute Lymphs (auto) 1.20, Nucleated RBC % 0 08/18/22 17:25: Sodium 133 L, Potassium 4.7, Chloride 99, Carbon Dioxide 25.0, Anion Gap 9, BUN 24 H, Creatinine 1.35 H, Estim Creat Clear Calc 38.64, Est GFR (MDRD) Af Amer 65, Est GFR (MDRD) Non-Af 54 L, BUN/Creatinine Ratio 17.8, Glucose 139 H, Calcium 9.8, Total Bilirubin 1.30 H, Direct Bilirubin 0.29, AST 33, ALT 18, Alkaline Phosphatase 69, Troponin I High Sens 5, Total Protein 8.7 H, Albumin 4.0, Globulin 4.7 H, Lipase 85 H 08/18/22 17:25: Lactic Acid 1.7 08/18/22 17:25: PT 13.1, INR 1.0, APTT 25.0 08/19/22 06:00: Sodium 139, Potassium 4.2, Chloride 109 H, Carbon Dioxide 24.0, Anion Gap 6, BUN 19 H, Creatinine 0.94, Estim Creat Clear Calc 56.56, Est GFR (MDRD) Af Amer 99, Est GFR (MDRD) Non-Af 82, BUN/Creatinine Ratio 20.2 H, Glucose 94, Calcium 7.8 L Microbiology: Microbiology 08/18/22 17:35 Stool Stool Occult Blood (SILVER) - Final Radiography Diagnostic Testing: Radiology Impression Abdomen/Pelvis CT 08/18/22 17:18 IMPRESSION: There are some nonspecific fluid-filled loops of proximal small bowel with gradual transition to some small fluid-filled loops of distal small bowel. No focal transition point appreciated. There is some colonic fluid. Consider infectious or inflammatory enterocolitis in the appropriate clinical setting. Partial early obstruction is not excluded given the disproportionate prominence of jejunal loops compared with more collapsed ileal loops. Electronically Signed: Thang Yeung MD at 18:54 EDT , Chest X-Ray 08/18/22 18:15 IMPRESSION: No acute cardiopulmonary disease identified radiographically. Electronically Signed: Thang Yeung MD at 18:31 EDT , D/C Instructions Discharge Diet: Light diet - advance as tolerated Discharge Activity: Return to Normal Activity Call your doctor if your incision/area has: Increased Pain/ Swelling Call your doctor if you observe: Inability to have a bowel movement Please Follow Up With: Shahriar Middleton MD When: As needed [phone] Meaningful Use Info Meaningful Use Diagnoses (Choose all that apply): None applicable Discharge Plan Admission Admit Date/Time: 08/18/22 20:13 Attending Provider: Shahriar Middleton Primary Care Provider: Sia Tinajero Discharge Orders/Prescriptions Prescriptions: Continued simvastatin [Zocor] 10 mg tablet 10 mg PO QHS Referrals / Follow Up: Sia Tinajero DO [Primary Care Provider] - Disposition Disposition (needs filled in before D/C Order can be placed): Home, Self Care 08/19/22 08 <Electronically signed by Shahriar Middleton MD> Cosigner Signature (if applicable): CC: Dr. Shahriar Middleton MD; Dr. Sia Tinajero DO~ Signed [facility] Work Phone: 1(795) 962-544105-15-[address] Middleton [facility] August 19, 2022 8:12am Note Date/Time August 19, 2022 8:12a m [facility] Medical Records Department [address] [place] [address] Progress Note - Surgery 08/19/22 0811 MR#: [id number] Acct: [id number] Name: KAT ELGER DAIN Rep #:[id number] : 1940 82 From: Shahriar thayer MD PCP: Dr. Sia Tinajero DO Status:AD M HARSH Location: [place] [id number] Subjective Subjective Patient reports feeling much better today. No nausea or vomiting. No epigastric pain. Objective Data Objective Data Vital Signs: Vital Signs Temp Pulse Resp BP Pulse Ox O2 Del Method 97.8 F 54 L 16 107/46 L 95 Room Air 08/19/22 06:01 08/19/22 06:01 08/19/22 06:01 08/19/22 06:01 08/19/22 06:01 08/19/22 06:01 Oxygen Delivery Method Room Air Weight: 142 lb Body Mass Index (BMI) 22.8 Intake & Output: Intake and Output for Last 24 Hours 08/17/22 08/18/22 08/19/22 23:59 23:59 23:59 Intake Total 1000 / 1300 1030 / 1030 Output Total 600 / 600 Balance 1000 / 1000 430 / 430 Lab / Micro Data Result Diagrams: 08/18/22 17:25 08/19/22 06:00 Labs: Laboratory Results - last 24 hr 08/18/22 17:25: WBC 7.5, RBC 5.45, Hgb 16.0, Hct 49.8, MCV 91.4, MCH 29.4, MCHC 32.1, RDW Std Deviation 46.1 H, RDW Coeff of Dalia 13.6, Plt Count 228, MPV 9.6, Immature Gran % (Auto) 0.300, Neut % (Auto) 75.3 H, Lymph % (Auto) 16.1 L, Crook % (Auto) 7.0, Eos % (Auto) 0.9, Baso % (Auto) 0.4, Absolute Neuts (auto) 5.6, Absolute Lymphs (auto) 1.20, Nucleated RBC % 0 08/18/22 17:25: Sodium 133 L, Potassium 4.7, Chloride 99, Carbon Dioxide 25.0, Anion Gap 9, BUN 24 H, Creatinine 1.35 H, Estim Creat Clear Calc 38.64, Est GFR (MDRD) Af Amer 65, Est GFR (MDRD) Non-Af 54 L, BUN/Creatinine Ratio 17.8, Glucose 139 H, Calcium 9.8, Total Bilirubin 1.30 H, Direct Bilirubin 0.29, AST 33, ALT 18, Alkaline Phosphatase 69, Troponin I High Sens 5, Total Protein 8.7 H, Albumin 4.0, Globulin 4.7 H, Lipase 85 H 08/18/22 17:25: Lactic Acid 1.7 08/18/22 17:25: PT 13.1, INR 1.0, APTT 25.0 08/19/22 06:00: Sodium 139, Potassium 4.2, Chloride 109 H, Carbon Dioxide 24.0, Anion Gap 6, BUN 19 H, Creatinine 0.94, Estim Creat Clear Calc 56.56, Est GFR (MDRD) Af Amer 99, Est GFR (MDRD) Non-Af 82, BUN/Creatinine Ratio 20.2 H, Glucose 94, Calcium 7.8 L Micro: Microbiology 08/18/22 17:35 Stool Stool Occult Blood (SILVER) - Final Radiography Diagnostic Testing: Radiology Impression Abdomen/Pelvis CT 08/18/22 17:18 IMPRESSION: There are some nonspecific fluid-filled loops of proximal small bowel with gradual transition to some small fluid-filled loops of distal small bowel. No focal transition point appreciated. There is some colonic fluid. Consider infectious or inflammatory enterocolitis in the appropriate clinical setting. Partial early obstruction is not excluded given the disproportionate prominence of jejunal loops compared with more collapsed ileal loops. Electronically Signed: Thang Yeung MD at 18:54 EDT , Chest X-Ray 08/18/22 18:15 IMPRESSION: No acute cardiopulmonary disease identified radiographically. Electronically Signed: Thang Yeung MD at 18:31 EDT , Physical Exam Const oriented x3 Resp normal respiratory effort GI soft to palpation and non-tender Assessment & Plan Assessment/Plan (1) Gastroenteritis: PLAN: Patient's creatinine has improved and he feels much better. As long as heis able to tolerate clear liquids and keep himself high. He can go home and advance diet as tolerated. Shahriar Middleton MD Pager: [facility] [address] [place] [address] Outpatient [place], [address] [place] [address] Office: 08/19/22 1481 <Electronically signed by Shahriar Middleton MD> Cosigner Signature (if applicable): CC: ~ Signed [facility] Work Phone: 1(695) 855-192805-14-[address] Fletcher [facility] August 18, 2022 9:11pm Note Date/Time August 18, 2022 5:05p [facility] Medical Records Department [address] [place] [address] Emergency Department Summary 08/18/22 MR#: [id number] Acct: [id number] Name: KAT LEGER Rep #:[id number] : 1940 82 From: Jean-Claude Pineda PCP: Dr. Sia Tinajero, DO Status:AD M HARSH Location: [address] History of Present Illness Chief Complaint: GI Bleed PFSH [facility] Medical History Abnormal electrocardiogram Ascending aorta dilatation Hyperlipidemia Home Medications simvastatin 10 mg tablet (Zocor) 10 mg PO QHS 02/13/18 [History Last Taken Unknown] Allergy/AdvReac Type Severity Reaction Status Date / Time No Known Allergies Allergy Verified 08/18/22 17:01 Family History Grandfather No problems noted. Father Sudden cardiac Age 65 Hypertension Other Heart disease Surgical History History of left heart catheterization (11/19/12) History of surgery on lower extremity Social History Smoking Status: Never smoker EXAM Physical Exam Const Vital Signs: 08/18/22 16:58 Temperature 96.9 F L Temperature Source Temporal Pulse Rate 83 Respiratory Rate 18 Blood Pressure 141/77 H Blood Pressure Mean 98 Pulse Ox 98 Oxygen Delivery Method Room Air MDM MDM MDM Narrative Medical decision making narrative: HISTORY OF PRESENT ILLNESS: 82 M here with abdominal pain. The patient states he developed acute onset of generalized abdominal pain started yesterday approximately 5 PM. He states thisthen turned to heartburn which lasted until about 4 AM. At this time he starteddeveloping dark but not coffee-ground vomitus. He states after this he started developing dark stools. He is concerned he may be having a GI bleed. Denies any liver dysfunction. Denies any history of esophageal pathology or varices. Denies any recent alcohol use. He denies any urinary complaints. Denies any fever. Denies any chest pain or shortness of breath at this time. REVIEW OF SYSTEMS: Pertinent positives: Abdominal pain, dark vomit, dark stools Pertinent negatives: Syncope, urinary complaint PHYSICAL EXAM: Nursing triage notes reviewed, Vital signs reviewed Constitutional: please see [facility] HENT: MMM Eyes: Pupils equal round and reactive to light, Extraocular muscles intact Neck: No stridor, no JVD, full neck ROM Lungs: Clear to auscultation, No wheezing or rales. No increased work of breathing, no conversational dyspnea, no accessory muscle use, no nasal flaring. No respiratory distress noted Heart: Regular rate and rhythm, No murmurs, No rubs and No gallops, 2+ distal pulses (radial, femoral, posterior tibial) in all extremities Abdomen: Soft, there is no tenderness, rigidity, rebound or guarding, no obviousperitoneal signs, no palpable pulsatile abdominal masses, no auscultated abdominal bruit : No CVAT Rectal: No obvious melena or hematochezia noted on rectal exam. Will send for Hemoccult Extremities: No edema Neuro: No focal neurological deficits, cranial nerves II through XII intact, 5/5strength in all extremities. Intact sensation to light touch in all extremities,2+ reflexes bilateral patella tendons. Normal gait. No ataxia. Skin: No rash or lesions noted MEDICAL DECISION MAKING: Chief Complaint: Abdominal pain, melena External records reviewed: No recent advanced imaging of the abdomen or pelvis [facility] Narrative: Patient was hemodynamically stable, afebrile, abdominal exam was benign, minimally tender. There are no peritoneal signs. He had no jaundice or signs of liver dysfunction. He had no signs of thrombocytopenia on exam. I considered the following differential diagnosis: GI bleed, acute intra- abdominal mass, acute intra-abdominal pathology including obstruction, perforation, mesenteric ischemia, pancreatitis, hepatobiliary obstruction, coagulopathy. I obtained a broad lab and imaging work-up to further elucidate the etiology thepatient complaints. I treat the patient symptomatically with normal saline and Zofran. Labs without evidence of acute kidney injury, severe electrolyte abnormalities or signs of endorgan hypoperfusion with a negative anion gap and negative lactate (lower suspicion for mesenteric ischemia). CBC without leukocytosis to suggest systemic inflammation. CBC did show signs of hemoconcentration with elevated hemoglobin. BMP showed signs of mild renal insufficiency. These findings suggest dehydration. Fluid resuscitation was continued with 100 cc of normal saline per hour. No significant anemia to suggest severe GI bleed. EKG and troponin without evidence of myocardial ischemia. There is no evidence of liver dysfunction, acute hepatitis or signs of coagulopathy to explain the patient's bleeding. Chest x- ray showed NO evidence of pneumomediastinum to suggest esophageal rupture explain the patient's dark vomitus. CT scan abdomen pelvis was remarkable for signs of small bowel distention, possible partial bowel obstruction, enterocolitis. Given concerning findings I did consult general surgery Dr. Middleton. He reviewed the patient's history, labs, images and recommended inpatient admissionfor hydration and to advance his diet slowly. He agreed he agreed to admit the patient to his service. I had a shared decision-making discussion with the patient described his lab and imaging findings. Patient decided to be admitted. Patient admitted under the general surgery service in stable condition. Factors affecting care: Hyperlipidemia Social determinants of health: Never smoker, elderly History obtained from others: Shared decision making: I will have a discussion with the patient and or visitors regarding risk/benefits of further testing or admission. They will be made aware of of the risk/benefits inherent in this decision they will be given the opportunity to voice understanding. Consults: General surgery Lab Data Attestation: I reviewed the patient's lab results. Lab results narrative: EKG with normal sinus rhythm, left ax deviation, no intervals, no STEMI CBC without leukocytosis, severe anemia, no thrombocytopenia. No evidence of coagulopathy Lactate is wnl indicating no end-organ hypoperfusion and/or hypoxia. BMP with mild hyponatremia, no other significant electrolyte abnormalities, no acute kidney injury, no anion gap to suggest endorgan hypoperfusion LFTs with essentially baseline hyperbilirubinemia, no significant elevation liver enzymes, no obstructive liver pathology noted with a normal alkaline phosphatase Lipase is mildly elevated but not consistent with acute pancreatitis Troponin is negative, no evidence of myocardial ischemia Labs: Laboratory Results - last 24 hr 08/18/22 08/18/22 08/18/22 17:25 17:25 17:25 WBC 7.5 RBC 5.45 Hgb 16.0 Hct 49.8 MCV 91.4 MCH 29.4 MCHC 32.1 RDW Std Deviation 46.1 H RDW Coeff of Dalia 13.6 Plt Count 228 MPV 9.6 Immature Gran % (Auto) 0.300 Neut % (Auto) 75.3 H Lymph % (Auto) 16.1 L Crook % (Auto) 7.0 Eos % (Auto) 0.9 Baso % (Auto) 0.4 Absolute Neuts (auto) 5.6 Absolute Lymphs (auto) 1.20 Nucleated RBC % 0 PT INR APTT Sodium 133 L Potassium 4.7 Chloride 99 Carbon Dioxide 25.0 Anion Gap 9 BUN 24 H Creatinine 1.35 H Estim Creat Clear Calc 38.64 Est GFR (MDRD) Af Amer 65 Est GFR (MDRD) Non-Af 54 L BUN/Creatinine Ratio 17.8 Glucose 139 H Lactic Acid 1.7 Calcium 9.8 Total Bilirubin 1.30 H Direct Bilirubin 0.29 AST 33 ALT 18 Alkaline Phosphatase 69 Troponin I High Sens 5 Total Protein 8.7 H Albumin 4.0 Globulin 4.7 H Lipase 85 H 08/18/22 17:25 WBC RBC Hgb Hct MCV MCH MCHC RDW Std Deviation RDW Coeff of Dalia Plt Count MPV Immature Gran % (Auto) Neut % (Auto) Lymph % (Auto) Crook % (Auto) Eos % (Auto) Baso % (Auto) Absolute Neuts (auto) Absolute Lymphs (auto) Nucleated RBC % PT 13.1 INR 1.0 APTT 25.0 Sodium Potassium Chloride Carbon Dioxide Anion Gap BUN Creatinine Estim Creat Clear Calc Est GFR (MDRD) Af Amer Est GFR (MDRD) Non-Af BUN/Creatinine Ratio Glucose Lactic Acid Calcium Total Bilirubin Direct Bilirubin AST ALT Alkaline Phosphatase Troponin I High Sens Total Protein Albumin Globulin Lipase Radiography Chest X-Ray - ED: Read by ED Physician Diagnostic Testing: Clinical Impression(s) from Imaging Studies Abdomen/Pelvis CT 08/18/22 17:18 IMPRESSION: There are some nonspecific fluid-filled loops of proximal small bowel with gradual transition to some small fluid-filled loops of distal small bowel. No focal transition point appreciated. There is some colonic fluid. Consider infectious or inflammatory enterocolitis in the appropriate clinical setting. Partial early obstruction is not excluded given the disproportionate prominence of jejunal loops compared with more collapsed ileal loops. Electronically Signed: Thang Yeung MD at 18:54 EDT , Chest X-Ray 08/18/22 18:15 IMPRESSION: No acute cardiopulmonary disease identified radiographically. Electronically Signed: Thang Yeung MD at 18:31 EDT , I have personally reviewed the patient's chest x-ray. Chest x-ray is unremarkable for pulmonary edema, pneumothorax, pneumonia or focal cardiopulmonary abnormality. Specifically no signs of esophageal rupture, no pneumo-mediastinum Discharge Plan Triage Chief Complaint: GI Bleed ED Provider: Jean-Claude Fletcher Dx/Rx/DC Orders Primary Care Provider: Sia Tinajero What to do if you have Problems For any increased pain, shortness of breath, bleeding, nausea or vomiting, chestpain, or any unexpected problems, contact your Primary Care Provider. Call [facility] ([phone]) or report to the closest Emergency Room. Call 911 if necessary. 08/18/222110 <Electronically signed by Jean-Claude Fletcher DO> Cosigner Signature (if applicable): CC: Dr. Sia Tinajero DO ~ Signed [facility] Work Phone: [phone]) 738-104305-14-2023 History and physical note Author Dr. Middleton [facility] August 18, 2022 8:19pm Note Date/Time August 18, 2022 8:19p [facility] Medical Records Department [address] [place] [address] H&P Exam - Surgical 08/18/222016 MR#: [id number] Acct: [id number] Name: KAT LEGER Rep #:[id number] : 1940 82 From: Shahriar thayer MD PCP: Dr. Sia Tinajero DO Status:RE G ER Location: ED HPI - General HPI Narrative KAT LEGER, is a 82 M who presents with nausea diarrhea. Patient reports this started yesterday afternoon. He says that whenever he ate anything he began to have indigestion and hiccups. He says that he has been having dark diarrhea anddark vomiting. He had some epigastric pain but currently he is having no abdominal pain. He reports he does not know the last time he passed flatus but he has been having liquid stools. [facility] Medical History Abnormal electrocardiogram Ascending aorta dilatation Hyperlipidemia Home Medications simvastatin 10 mg tablet (Zocor) 10 mg PO QHS 02/13/18 [History Last Taken Unknown] Allergy/AdvReac Type Severity Reaction Status Date / Time No Known Allergies Allergy Verified 08/18/22 17:01 Family History Grandfather No problems noted. Father Sudden cardiac Age 65 Hypertension Other Heart disease Surgical History History of left heart catheterization (11/19/12) History of surgery on lower extremity Social History Smoking Status: Never smoker ROS Constitutional Constitutional: Reports anorexia; Denies chills or fatigue Eyes Eyes: Denies blurry vision ENT HEENT: Denies abnormal hearing Cardiovascular Cardiovascular: Denies chest pain Gastrointestinal Gastrointestinal: Reports abdominal pain, diarrhea, nausea and vomiting; Denies coffee ground emesis, constipation or rectal bleeding Genitourinary Genitourinary: Denies change in urinary stream Musculoskeletal Musculoskeletal: Denies abnormal gait Integumentary Integumentary: Denies new lesions Neurologic Neurologic: Denies abnormal gait Psychiatric Psychiatric: Denies anxiety Endocrine Endocrinology: Denies flushing Hematologic/Lymphatic Hematologic/Lymphatic: Denies easy bleeding Vital Signs Vital Signs Vital Signs: 08/18/22 16:58 Temperature 96.9 F L Temperature Source Temporal Pulse Rate 83 Respiratory Rate 18 Blood Pressure 141/77 H Blood Pressure Mean 98 Pulse Ox 98 Oxygen Delivery Method Room Air Weight Weight: 138 lb Body Mass Index (BMI) 22.2 Physical Exam Const oriented x3 Resp normal respiratory effort Cardio regular rate and regular rhythm GI normal to inspection, nondistended, normoactive bowel sounds Extremity normal to inspection Results Lab / Micro Data Result Diagrams: 08/18/22 17:25 08/18/22 17:25 Labs: Laboratory Results - last 24 hr 08/18/22 17:25: WBC 7.5, RBC 5.45, Hgb 16.0, Hct 49.8, MCV 91.4, MCH 29.4, MCHC 32.1, RDW Std Deviation 46.1 H, RDW Coeff of Dalia 13.6, Plt Count 228, MPV 9.6, Immature Gran % (Auto) 0.300, Neut % (Auto) 75.3 H, Lymph % (Auto) 16.1 L, Crook % (Auto) 7.0, Eos % (Auto) 0.9, Baso % (Auto) 0.4, Absolute Neuts (auto) 5.6, Absolute Lymphs (auto) 1.20, Nucleated RBC % 0 08/18/22 17:25: Sodium 133 L, Potassium 4.7, Chloride 99, Carbon Dioxide 25.0, Anion Gap 9, BUN 24 H, Creatinine 1.35 H, Estim Creat Clear Calc 38.64, Est GFR (MDRD) Af Amer 65, Est GFR (MDRD) Non-Af 54 L, BUN/Creatinine Ratio 17.8, Glucose 139 H, Calcium 9.8, Total Bilirubin 1.30 H, Direct Bilirubin 0.29, AST 33, ALT 18, Alkaline Phosphatase 69, Troponin I High Sens 5, Total Protein 8.7 H, Albumin 4.0, Globulin 4.7 H, Lipase 85 H 08/18/22 17:25: Lactic Acid 1.7 08/18/22 17:25: PT 13.1, INR 1.0, APTT 25.0 Micro: Microbiology 08/18/22 17:35 Stool Stool Occult Blood (SILVER) - Final Radiology Impression Abdomen/Pelvis CT 08/18/22 17:18 IMPRESSION: There are some nonspecific fluid-filled loops of proximal small bowel with gradual transition to some small fluid-filled loops of distal small bowel. No focal transition point appreciated. There is some colonic fluid. Consider infectious or inflammatory enterocolitis in the appropriate clinical setting. Partial early obstruction is not excluded given the disproportionate prominence of jejunal loops compared with more collapsed ileal loops. Electronically Signed: Thang Yeung MD at 18:54 EDT , Chest X-Ray 08/18/22 18:15 IMPRESSION: No acute cardiopulmonary disease identified radiographically. Electronically Signed: Thang Yeung MD at 18:31 EDT Reading Location ID and State: [facility] / [place] Tel , Service support , Assessment & Plan Assessment/Plan (1) Gastroenteritis: PLAN: Patient came in with nausea vomiting and diarrhea. I reviewed the patientCT scan shows some dilation of bowel but it seems like before and after these areas of dilation there were normal caliber bowel with liquid. Patient is neverhad surgery so there is no reason for adhesions. White count is normal. Patient has also got a fluid-filled colon and he has been having diarrhea along with his vomiting. Patient denies any abdominal pain at this time but he did have some abdominal pain and epigastric pain earlier today. Patient likely has gastroenteritis. Due to his elevated creatinine and hematocrit I recommended him being admitted for observation and hydration. I will start him on IV fluidsand clear liquids as tolerated. If he is tolerating clear liquids and his nausea has resolved tomorrow I will advance his diet and hopefully discharge himhome. Shahriar Middleton MD Pager: [facility] [address] [place] [address], [address] [place] [phone] Office: 08/18/222018 <Electronically signed by Shahriar Middleton MD> Cosigner Signature (if applicable): CC: Dr. Shahriar Middleton MD; Dr. Sia Tinajero, DO~ Signed [facility] Work Phone: [phone]) 547-684305-14-[address] Fletcher [facility] August 18, 2022 9:11pm Note Date/Time August 18, 2022 5:05p m [facility] Medical Records Department [address] [place] [address] Emergency Department Summary 08/18/22 MR#: [id number] Acct: [id number] Name: KAT LEGER Rep #:[id number] : 1940 82 From: Jean-Claude Pineda PCP: Dr. Sia Tinajero, DO Status:AD M [facility] Location: [address] History of Present Illness Chief Complaint: GI Bleed PFSH PFS Medical History Abnormal electrocardiogram Ascending aorta dilatation Hyperlipidemia Home Medications simvastatin 10 mg tablet (Zocor) 10 mg PO QHS 02/13/18 [History Last Taken Unknown] Allergy/AdvReac Type Severity Reaction Status Date / Time No Known Allergies Allergy Verified 08/18/22 17:01 Family History Grandfather No problems noted. Father Sudden cardiac Age 65 Hypertension Other Heart disease Surgical History History of left heart catheterization (11/19/12) History of surgery on lower extremity Social History Smoking Status: Never smoker EXAM Physical Exam Const Vital Signs: 08/18/22 16:58 Temperature 96.9 F L Temperature Source Temporal Pulse Rate 83 Respiratory Rate 18 Blood Pressure 141/77 H Blood Pressure Mean 98 Pulse Ox 98 Oxygen Delivery Method Room Air MDM MDM MDM Narrative Medical decision making narrative: HISTORY OF PRESENT ILLNESS: 82 M here with abdominal pain. The patient states he developed acute onset of generalized abdominal pain started yesterday approximately 5 PM. He states thisthen turned to heartburn which lasted until about 4 AM. At this time he starteddeveloping dark but not coffee-ground vomitus. He states after this he started developing dark stools. He is concerned he may be having a GI bleed. Denies any liver dysfunction. Denies any history of esophageal pathology or varices. Denies any recent alcohol use. He denies any urinary complaints. Denies any fever. Denies any chest pain or shortness of breath at this time. REVIEW OF SYSTEMS: Pertinent positives: Abdominal pain, dark vomit, dark stools Pertinent negatives: Syncope, urinary complaint PHYSICAL EXAM: Nursing triage notes reviewed, Vital signs reviewed Constitutional: please see [facility] HENT: MMM Eyes: Pupils equal round and reactive to light, Extraocular muscles intact Neck: No stridor, no JVD, full neck ROM Lungs: Clear to auscultation, No wheezing or rales. No increased work of breathing, no conversational dyspnea, no accessory muscle use, no nasal flaring. No respiratory distress noted Heart: Regular rate and rhythm, No murmurs, No rubs and No gallops, 2+ distal pulses (radial, femoral, posterior tibial) in all extremities Abdomen: Soft, there is no tenderness, rigidity, rebound or guarding, no obviousperitoneal signs, no palpable pulsatile abdominal masses, no auscultated abdominal bruit : No CVAT Rectal: No obvious melena or hematochezia noted on rectal exam. Will send for Hemoccult Extremities: No edema Neuro: No focal neurological deficits, cranial nerves II through XII intact, 5/5strength in all extremities. Intact sensation to light touch in all extremities,2+ reflexes bilateral patella tendons. Normal gait. No ataxia. Skin: No rash or lesions noted MEDICAL DECISION MAKING: Chief Complaint: Abdominal pain, melena External records reviewed: No recent advanced imaging of the abdomen or pelvis [facility] Narrative: Patient was hemodynamically stable, afebrile, abdominal exam was benign, minimally tender. There are no peritoneal signs. He had no jaundice or signs of liver dysfunction. He had no signs of thrombocytopenia on exam. I considered the following differential diagnosis: GI bleed, acute intra- abdominal mass, acute intra-abdominal pathology including obstruction, perforation, mesenteric ischemia, pancreatitis, hepatobiliary obstruction, coagulopathy. I obtained a broad lab and imaging work-up to further elucidate the etiology thepatient complaints. I treat the patient symptomatically with normal saline and Zofran. Labs without evidence of acute kidney injury, severe electrolyte abnormalities or signs of endorgan hypoperfusion with a negative anion gap and negative lactate (lower suspicion for mesenteric ischemia). CBC without leukocytosis to suggest systemic inflammation. CBC did show signs of hemoconcentration with elevated hemoglobin. BMP showed signs of mild renal insufficiency. These findings suggest dehydration. Fluid resuscitation was continued with 100 cc of normal saline per hour. No significant anemia to suggest severe GI bleed. EKG and troponin without evidence of myocardial ischemia. There is no evidence of liver dysfunction, acute hepatitis or signs of coagulopathy to explain the patient's bleeding. Chest x- ray showed NO evidence of pneumomediastinum to suggest esophageal rupture explain the patient's dark vomitus. CT scan abdomen pelvis was remarkable for signs of small bowel distention, possible partial bowel obstruction, enterocolitis. Given concerning findings I did consult general surgery Dr. Middleton. He reviewed the patient's history, labs, images and recommended inpatient admissionfor hydration and to advance his diet slowly. He agreed he agreed to admit the patient to his service. I had a shared decision-making discussion with the patient described his lab and imaging findings. Patient decided to be admitted. Patient admitted under the general surgery service in stable condition. Factors affecting care: Hyperlipidemia Social determinants of health: Never smoker, elderly History obtained from others: Shared decision making: I will have a discussion with the patient and or visitors regarding risk/benefits of further testing or admission. They will be made aware of of the risk/benefits inherent in this decision they will be given the opportunity to voice understanding. Consults: General surgery Lab Data Attestation: I reviewed the patient's lab results. Lab results narrative: EKG with normal sinus rhythm, left ax deviation, no intervals, no STEMI CBC without leukocytosis, severe anemia, no thrombocytopenia. No evidence of coagulopathy Lactate is wnl indicating no end-organ hypoperfusion and/or hypoxia. BMP with mild hyponatremia, no other significant electrolyte abnormalities, no acute kidney injury, no anion gap to suggest endorgan hypoperfusion LFTs with essentially baseline hyperbilirubinemia, no significant elevation liver enzymes, no obstructive liver pathology noted with a normal alkaline phosphatase Lipase is mildly elevated but not consistent with acute pancreatitis Troponin is negative, no evidence of myocardial ischemia Labs: Laboratory Results - last 24 hr 08/18/22 08/18/22 08/18/22 17:25 17:25 17:25 WBC 7.5 RBC 5.45 Hgb 16.0 Hct 49.8 MCV 91.4 MCH 29.4 MCHC 32.1 RDW Std Deviation 46.1 H RDW Coeff of Dalia 13.6 Plt Count 228 MPV 9.6 Immature Gran % (Auto) 0.300 Neut % (Auto) 75.3 H Lymph % (Auto) 16.1 L Crook % (Auto) 7.0 Eos % (Auto) 0.9 Baso % (Auto) 0.4 Absolute Neuts (auto) 5.6 Absolute Lymphs (auto) 1.20 Nucleated RBC % 0 PT INR APTT Sodium 133 L Potassium 4.7 Chloride 99 Carbon Dioxide 25.0 Anion Gap 9 BUN 24 H Creatinine 1.35 H Estim Creat Clear Calc 38.64 Est GFR (MDRD) Af Amer 65 Est GFR (MDRD) Non-Af 54 L BUN/Creatinine Ratio 17.8 Glucose 139 H Lactic Acid 1.7 Calcium 9.8 Total Bilirubin 1.30 H Direct Bilirubin 0.29 AST 33 ALT 18 Alkaline Phosphatase 69 Troponin I High Sens 5 Total Protein 8.7 H Albumin 4.0 Globulin 4.7 H Lipase 85 H 08/18/22 17:25 WBC RBC Hgb Hct MCV MCH MCHC RDW Std Deviation RDW Coeff of Dalia Plt Count MPV Immature Gran % (Auto) Neut % (Auto) Lymph % (Auto) Crook % (Auto) Eos % (Auto) Baso % (Auto) Absolute Neuts (auto) Absolute Lymphs (auto) Nucleated RBC % PT 13.1 INR 1.0 APTT 25.0 Sodium Potassium Chloride Carbon Dioxide Anion Gap BUN Creatinine Estim Creat Clear Calc Est GFR (MDRD) Af Amer Est GFR (MDRD) Non-Af BUN/Creatinine Ratio Glucose Lactic Acid Calcium Total Bilirubin Direct Bilirubin AST ALT Alkaline Phosphatase Troponin I High Sens Total Protein Albumin Globulin Lipase Radiography Chest X-Ray - ED: Read by ED Physician Diagnostic Testing: Clinical Impression(s) from Imaging Studies Abdomen/Pelvis CT 08/18/22 17:18 IMPRESSION: There are some nonspecific fluid-filled loops of proximal small bowel with gradual transition to some small fluid-filled loops of distal small bowel. No focal transition point appreciated. There is some colonic fluid. Consider infectious or inflammatory enterocolitis in the appropriate clinical setting. Partial early obstruction is not excluded given the disproportionate prominence of jejunal loops compared with more collapsed ileal loops. Electronically Signed: Thang Yeung MD at 18:54 EDT , Chest X-Ray 08/18/22 18:15 IMPRESSION: No acute cardiopulmonary disease identified radiographically. Electronically Signed: Thang Yeung MD at 18:31 EDT , I have personally reviewed the patient's chest x-ray. Chest x-ray is unremarkable for pulmonary edema, pneumothorax, pneumonia or focal cardiopulmonary abnormality. Specifically no signs of esophageal rupture, no pneumo-mediastinum Discharge Plan Triage Chief Complaint: GI Bleed ED Provider: Jean-Claude Fletcher Dx/Rx/DC Orders Primary Care Provider: Sia Tinajero What to do if you have Problems For any increased pain, shortness of breath, bleeding, nausea or vomiting, chestpain, or any unexpected problems, contact your Primary Care Provider. Call [facility] ([phone]) or report to the closest Emergency Room. Call 911 if necessary. 08/18/222110 <Electronically signed by Jean-Claude Fletcher DO> Cosigner Signature (if applicable): CC: Dr. Sia Tinajero DO ~ Signed [facility] Work Phone: Evaluation noteNo assessment information available [facility] Work Phone: Evaluation note* Diagnosis Onset Date Resolution Status Ascending aorta dilatation c hronic [facility] Work Phone: Evaluation note* Diagnosis Onset Date Resolution Status Acute dehydration acute Gastroenteritis acute [facility] Work Phone: Evaluation note* Diagnosis Onset Date Resolution Status Admit Date Ascending aorta dilatation chronic December 23, 2024 11:44am [facility] Work Phone: History and physical note Author Dr. Middleton [facility] August 18, 2022 8:19pm Note Date/Time August 18, 2022 8:19p m [facility] Medical Records Department [address] [place] [address] H&P Exam - Surgical 08/18/222016 MR#: [id number] Acct: [id number] Name: KAT LEGER Rep #:[id number] : 1940 82 From: Shahriar thayer MD PCP: Dr. Sia Tinajero, DO Status:RE G ER Location: ED HPI - General HPI Narrative KAT LEGER, is a 82 M who presents with nausea diarrhea. Patient reports this started yesterday afternoon. He says that whenever he ate anything he began to have indigestion and hiccups. He says that he has been having dark diarrhea anddark vomiting. He had some epigastric pain but currently he is having no abdominal pain. He reports he does not know the last time he passed flatus but he has been having liquid stools. [facility] Medical History Abnormal electrocardiogram Ascending aorta dilatation Hyperlipidemia Home Medications simvastatin 10 mg tablet (Zocor) 10 mg PO QHS 02/13/18 [History Last Taken Unknown] Allergy/AdvReac Type Severity Reaction Status Date / Time No Known Allergies Allergy Verified 08/18/22 17:01 Family History Grandfather No problems noted. Father Sudden cardiac Age 65 Hypertension Other Heart disease Surgical History History of left heart catheterization (11/19/12) History of surgery on lower extremity Social History Smoking Status: Never smoker ROS Constitutional Constitutional: Reports anorexia; Denies chills or fatigue Eyes Eyes: Denies blurry vision ENT HEENT: Denies abnormal hearing Cardiovascular Cardiovascular: Denies chest pain Gastrointestinal Gastrointestinal: Reports abdominal pain, diarrhea, nausea and vomiting; Denies coffee ground emesis, constipation or rectal bleeding Genitourinary Genitourinary: Denies change in urinary stream Musculoskeletal Musculoskeletal: Denies abnormal gait Integumentary Integumentary: Denies new lesions Neurologic Neurologic: Denies abnormal gait Psychiatric Psychiatric: Denies anxiety Endocrine Endocrinology: Denies flushing Hematologic/Lymphatic Hematologic/Lymphatic: Denies easy bleeding Vital Signs Vital Signs Vital Signs: 08/18/22 16:58 Temperature 96.9 F L Temperature Source Temporal Pulse Rate 83 Respiratory Rate 18 Blood Pressure 141/77 H Blood Pressure Mean 98 Pulse Ox 98 Oxygen Delivery Method Room Air Weight Weight: 138 lb Body Mass Index (BMI) 22.2 Physical Exam Const oriented x3 Resp normal respiratory effort Cardio regular rate and regular rhythm GI normal to inspection, nondistended, normoactive bowel sounds Extremity normal to inspection Results Lab / Micro Data Result Diagrams: 08/18/22 17:25 08/18/22 17:25 Labs: Laboratory Results - last 24 hr 08/18/22 17:25: WBC 7.5, RBC 5.45, Hgb 16.0, Hct 49.8, MCV 91.4, MCH 29.4, MCHC 32.1, RDW Std Deviation 46.1 H, RDW Coeff of Dalia 13.6, Plt Count 228, MPV 9.6, Immature Gran % (Auto) 0.300, Neut % (Auto) 75.3 H, Lymph % (Auto) 16.1 L, Crook % (Auto) 7.0, Eos % (Auto) 0.9, Baso % (Auto) 0.4, Absolute Neuts (auto) 5.6, Absolute Lymphs (auto) 1.20, Nucleated RBC % 0 08/18/22 17:25: Sodium 133 L, Potassium 4.7, Chloride 99, Carbon Dioxide 25.0, Anion Gap 9, BUN 24 H, Creatinine 1.35 H, Estim Creat Clear Calc 38.64, Est GFR (MDRD) Af Amer 65, Est GFR (MDRD) Non-Af 54 L, BUN/Creatinine Ratio 17.8, Glucose 139 H, Calcium 9.8, Total Bilirubin 1.30 H, Direct Bilirubin 0.29, AST 33, ALT 18, Alkaline Phosphatase 69, Troponin I High Sens 5, Total Protein 8.7 H, Albumin 4.0, Globulin 4.7 H, Lipase 85 H 08/18/22 17:25: Lactic Acid 1.7 08/18/22 17:25: PT 13.1, INR 1.0, APTT 25.0 Micro: Microbiology 08/18/22 17:35 Stool Stool Occult Blood (SILVER) - Final Radiology Impression Abdomen/Pelvis CT 08/18/22 17:18 IMPRESSION: There are some nonspecific fluid-filled loops of proximal small bowel with gradual transition to some small fluid-filled loops of distal small bowel. No focal transition point appreciated. There is some colonic fluid. Consider infectious or inflammatory enterocolitis in the appropriate clinical setting. Partial early obstruction is not excluded given the disproportionate prominence of jejunal loops compared with more collapsed ileal loops. Electronically Signed: Thang Yeung MD at 18:54 EDT , Chest X-Ray 08/18/22 18:15 IMPRESSION: No acute cardiopulmonary disease identified radiographically. Electronically Signed: Thang Yeung MD at 18:31 EDT , Assessment & Plan Assessment/Plan (1) Gastroenteritis: PLAN: Patient came in with nausea vomiting and diarrhea. I reviewed the patientCT scan shows some dilation of bowel but it seems like before and after these areas of dilation there were normal caliber bowel with liquid. Patient is neverhad surgery so there is no reason for adhesions. White count is normal. Patient has also got a fluid-filled colon and he has been having diarrhea along with his vomiting. Patient denies any abdominal pain at this time but he did have some abdominal pain and epigastric pain earlier today. Patient likely has gastroenteritis. Due to his elevated creatinine and hematocrit I recommended him being admitted for observation and hydration. I will start him on IV fluidsand clear liquids as tolerated. If he is tolerating clear liquids and his nausea has resolved tomorrow I will advance his diet and hopefully discharge himhome. Shahriar Middleton MD Pager: [facility] [address] [place] [address], [address] [place] [address] Office: 08/18/222018 <Electronically signed by Shahriar Middleton MD> Cosigner Signature (if applicable): CC: Dr. Shahriar Middleton MD; Dr. Sia Tinajero DO~ Signed [facility] Work Phone: Instructions* Name Dates Details Patient Instructions Indication:Non-smoker Start:28-Dec-2020 Instruction Type:Provider Instructions for Treatment How to Access Health Informa tion Online using Patient Portal and [employer] Apps Indication:Non-smoker Start:28-Dec-2020 Instruction Type:Patient Education How to access health informa tion online Indication:Non-smoker Start:11-Feb-2020 Instruction Type:Patient Education How to access health informa tion online - Detail Indication:Non-smoker Start:11-Feb-2020 Instruction Type:Patient Education Patient Instructions Indication:Non-smoker Start:11-Feb-2020 Instruction Type:Provider Instructions for Treatment cardiovascular counseling Indication:Coronary artery disease Start:12-Feb-2019 Instruction Type:Provider Instructions for Treatment How to access health informa tion online Indication:BMI 28.0-28.9,adult Start:12-Feb-2019 Instruction Type:Patient Education How to access health informa tion online - Detail Indication:BMI 28.0-28.9,adult Start:12-Feb-2019 Instruction Type:Patient Education Patient Instructions Indication:BMI 28.0-28.9,adult Start:12-Feb-2019 Instruction Type:Provider Instructions for Treatment How to access health informa tion online Indication:BMI 28.0-28.9,adult Start:06-Feb-2018 Instruction Type:Patient Education How to access health informa tion online - Detail Indication:BMI 28.0-28.9,adult Start:06-Feb-2018 Instruction Type:Patient Education Patient Instructions Indication:BMI 28.0-28.9,adult Start:06-Feb-2018 Instruction Type:Provider Instructions for Treatment How to access health informa tion online Indication:Non-smoker Start:14-Feb-2017 Instruction Type:Patient Education How to access health informa tion online - Detail Indication:Non-smoker Start:14-Feb-2017 Instruction Type:Patient Education Patient Instructions Indication:Non-smoker Start:14-Feb-2017 Instruction Type:Provider Instructions for Treatment [facility] Work Phone: Instructions* Name Dates Details Patient Instructions Indication:Non-smoker Start:28-Dec-2020 Instruction Type:Provider Instructions for Treatment How to Access Health Informa tion Online using Patient Portal and [employer] Apps Indication:Non-smoker Start:28-Dec-2020 Instruction Type:Patient Education How to access health informa tion online Indication:Non-smoker Start:11-Feb-2020 Instruction Type:Patient Education How to access health informa tion online - Detail Indication:Non-smoker Start:11-Feb-2020 Instruction Type:Patient Education Patient Instructions Indication:Non-smoker Start:11-Feb-2020 Instruction Type:Provider Instructions for Treatment cardiovascular counseling Indication:Coronary artery disease Start:12-Feb-2019 Instruction Type:Provider Instructions for Treatment How to access health informa tion online Indication:BMI 28.0-28.9,adult Start:12-Feb-2019 Instruction Type:Patient Education How to access health informa tion online - Detail Indication:BMI 28.0-28.9,adult Start:12-Feb-2019 Instruction Type:Patient Education Patient Instructions Indication:BMI 28.0-28.9,adult Start:12-Feb-2019 Instruction Type:Provider Instructions for Treatment How to access health informa tion online Indication:BMI 28.0-28.9,adult Start:06-Feb-2018 Instruction Type:Patient Education How to access health informa tion online - Detail Indication:BMI 28.0-28.9,adult Start:06-Feb-2018 Instruction Type:Patient Education Patient Instructions Indication:BMI 28.0-28.9,adult Start:06-Feb-2018 Instruction Type:Provider Instructions for Treatment How to access health informa tion online Indication:Non-smoker Start:14-Feb-2017 Instruction Type:Patient Education How to access health informa tion online - Detail Indication:Non-smoker Start:14-Feb-2017 Instruction Type:Patient Education Patient Instructions Indication:Non-smoker Start:14-Feb-2017 Instruction Type:Provider Instructions for Treatment [facility] Work Phone: Instructions* Name Dates Details Patient Instructions Indication:BMI 28.0-28.9,adult Start:11-Jan-2022 Instruction Type:Provider Instructions for Treatment How to Access Health Informa tion Online using Patient Portal and [employer] Republican Apps Indication:BMI 28.0-28.9,adult Start:11-Jan-2022 Instruction Type:Patient Education Patient Instructions Indication:Non-smoker Start:28-Dec-2020 Instruction Type:Provider Instructions for Treatment How to Access Health Informa tion Online using Patient Portal and [employer] Republican Apps Indication:Non-smoker Start:28-Dec-2020 Instruction Type:Patient Education How to access health informa tion online Indication:Non-smoker Start:11-Feb-2020 Instruction Type:Patient Education How to access health informa tion online - Detail Indication:Non-smoker Start:11-Feb-2020 Instruction Type:Patient Education Patient Instructions Indication:Non-smoker Start:11-Feb-2020 Instruction Type:Provider Instructions for Treatment cardiovascular counseling Indication:Coronary artery disease Start:12-Feb-2019 Instruction Type:Provider Instructions for Treatment How to access health informa tion online Indication:BMI 28.0-28.9,adult Start:12-Feb-2019 Instruction Type:Patient Education How to access health informa tion online - Detail Indication:BMI 28.0-28.9,adult Start:12-Feb-2019 Instruction Type:Patient Education Patient Instructions Indication:BMI 28.0-28.9,adult Start:12-Feb-2019 Instruction Type:Provider Instructions for Treatment How to access health informa tion online Indication:BMI 28.0-28.9,adult Start:06-Feb-2018 Instruction Type:Patient Education How to access health informa tion online - Detail Indication:BMI 28.0-28.9,adult Start:06-Feb-2018 Instruction Type:Patient Education Patient Instructions Indication:BMI 28.0-28.9,adult Start:06-Feb-2018 Instruction Type:Provider Instructions for Treatment How to access health informa tion online Indication:Non-smoker Start:14-Feb-2017 Instruction Type:Patient Education How to access health informa tion online - Detail Indication:Non-smoker Start:14-Feb-2017 Instruction Type:Patient Education Patient Instructions Indication:Non-smoker Start:14-Feb-2017 Instruction Type:Provider Instructions for Treatment [facility]; [facility] Work Phone: Instructions* Name Dates Details Patient Instructions Indication:BMI 28.0-28.9,adult Start:11-Jan-2022 Instruction Type:Provider Instructions for Treatment How to Access Health Informa tion Online using Patient Portal and [employer] Apps Indication:BMI 28.0-28.9,adult Start:11-Jan-2022 Instruction Type:Patient Education Patient Instructions Indication:Non-smoker Start:28-Dec-2020 Instruction Type:Provider Instructions for Treatment How to Access Health Informa tion Online using Patient Portal and [employer] Apps Indication:Non-smoker Start:28-Dec-2020 Instruction Type:Patient Education How to access health informa tion online Indication:Non-smoker Start:11-Feb-2020 Instruction Type:Patient Education How to access health informa tion online - Detail Indication:Non-smoker Start:11-Feb-2020 Instruction Type:Patient Education Patient Instructions Indication:Non-smoker Start:11-Feb-2020 Instruction Type:Provider Instructions for Treatment cardiovascular counseling Indication:Coronary artery disease Start:12-Feb-2019 Instruction Type:Provider Instructions for Treatment How to access health informa tion online Indication:BMI 28.0-28.9,adult Start:12-Feb-2019 Instruction Type:Patient Education How to access health informa tion online - Detail Indication:BMI 28.0-28.9,adult Start:12-Feb-2019 Instruction Type:Patient Education Patient Instructions Indication:BMI 28.0-28.9,adult Start:12-Feb-2019 Instruction Type:Provider Instructions for Treatment How to access health informa tion online Indication:BMI 28.0-28.9,adult Start:06-Feb-2018 Instruction Type:Patient Education How to access health informa tion online - Detail Indication:BMI 28.0-28.9,adult Start:06-Feb-2018 Instruction Type:Patient Education Patient Instructions Indication:BMI 28.0-28.9,adult Start:06-Feb-2018 Instruction Type:Provider Instructions for Treatment How to access health informa tion online Indication:Non-smoker Start:14-Feb-2017 Instruction Type:Patient Education How to access health informa tion online - Detail Indication:Non-smoker Start:14-Feb-2017 Instruction Type:Patient Education Patient Instructions Indication:Non-smoker Start:14-Feb-2017 Instruction Type:Provider Instructions for Treatment [facility]; [facility] Work Phone: Instructions* Name Dates Details Patient Instructions Indication:BMI 28.0-28.9,adult Start:11-Jan-2022 Instruction Type:Provider Instructions for Treatment How to Access Health Informa tion Online using Patient Portal and [employer] Apps Indication:BMI 28.0-28.9,adult Start:11-Jan-2022 Instruction Type:Patient Education Patient Instructions Indication:Non-smoker Start:28-Dec-2020 Instruction Type:Provider Instructions for Treatment How to Access Health Informa tion Online using Patient Portal and [employer] Apps Indication:Non-smoker Start:28-Dec-2020 Instruction Type:Patient Education How to access health informa tion online Indication:Non-smoker Start:11-Feb-2020 Instruction Type:Patient Education How to access health informa tion online - Detail Indication:Non-smoker Start:11-Feb-2020 Instruction Type:Patient Education Patient Instructions Indication:Non-smoker Start:11-Feb-2020 Instruction Type:Provider Instructions for Treatment cardiovascular counseling Indication:Coronary artery disease Start:12-Feb-2019 Instruction Type:Provider Instructions for Treatment How to access health informa tion online Indication:BMI 28.0-28.9,adult Start:12-Feb-2019 Instruction Type:Patient Education How to access health informa tion online - Detail Indication:BMI 28.0-28.9,adult Start:12-Feb-2019 Instruction Type:Patient Education Patient Instructions Indication:BMI 28.0-28.9,adult Start:12-Feb-2019 Instruction Type:Provider Instructions for Treatment How to access health informa tion online Indication:BMI 28.0-28.9,adult Start:06-Feb-2018 Instruction Type:Patient Education How to access health informa tion online - Detail Indication:BMI 28.0-28.9,adult Start:06-Feb-2018 Instruction Type:Patient Education Patient Instructions Indication:BMI 28.0-28.9,adult Start:06-Feb-2018 Instruction Type:Provider Instructions for Treatment How to access health informa tion online Indication:Non-smoker Start:14-Feb-2017 Instruction Type:Patient Education How to access health informa tion online - Detail Indication:Non-smoker Start:14-Feb-2017 Instruction Type:Patient Education Patient Instructions Indication:Non-smoker Start:14-Feb-2017 Instruction Type:Provider Instructions for Treatment [facility] Work Phone: progress note [facility] Date/Time December 23, 2024 12:14pm [facility] [address] [place] [address]. [address] [place] [address] OFFICE VISIT Date of Service: 12/23/24 MR#: [id number] Acct: [id number] Name: KAT LEGER Rep #: [id number] : 1940 Provider: Dr. Doroteo Beckham MD Age/Sex: 84/M Location: [facility] Status: Signed HPI HPI History of Present Illness Details: 84-year-old man with a history of hyperlipidemia mildly dilated aortic root who presents for a follow-up visit. He remains active and continues to play tennis and still works. He denies any chest pain or shortness of breath or paroxysmal nocturnal dyspnea or pedal edema, he has had no dizziness or diaphoresis no nearsyncope or syncope. He has been compliant with all his medications. He is actually on very little other than lipid-lowering medications. His blood pressure today is elevated and on recheck it was still elevated. His physical exam otherwise is unremarkable. He remembered that he underwent a stress test in January 2023 demonstrating no evidence of ischemia at a high workload. His echocardiogram also demonstrated preserved ejection fraction, mild mitral regurgitation and a mildly dilated aortic root. Intake Vital Signs 01/02/24 13:03 12/23/24 11:46 Height 5 ft 6 in 5 ft 6 in Weight: 140 lb BMI 22.6 BP 170/68 H Blood Pressure Location Lt brachial Position Sitting Respiration 16 Pulse 51 L Pulse Source Monitor Intake Visit Reasons: 1 Y [employer] Required: No Accompanied by: Self Is patient in pain?: No Allergies No Known Allergies Allergy (Verified 12/23/24 11:50) Medications ?Medication ?Instructions ?Recorded ?Confirmed ?Type simvastatin 10 mg tablet (Zocor) 10 mg PO QHS 02/13/18 12/23/24 History Ejection fraction %: 70 Have you fallen in the past year?: No PFSH Medical History Abnormal electrocardiogram Ascending aorta dilatation Hyperlipidemia Surgical History History of surgery on lower extremity History of left heart catheterization (11/19/12) Family History Grandfather No problems noted. Father Sudden cardiac Age 65 Hypertension Other Heart disease Social History Smoking Status: Never smoker alcohol intake: current alcohol intake frequency: holidays/special occasions only substance use type: does not use caffeine: No ROS Const Const: Negative for fatigue, weakness, daytime sleepiness or difficulty sleeping ENT ENT: Negative for dizziness or Nosebleed/epistaxis Cardio Chest Pain: No Palpitations: No Edema: None Resp Respiratory: Negative for SOB with activity, SOB at rest, SOB orthopnea\SOB lying down or Cough GI GI: Negative nausea, vomiting or heartburn Neuro Neuro: Negative for dizziness, lightheadedness, near syncope or weakness Endo Endo: Negative for fatigue Cardiology Exam Const Appearance: cooperative, healthy appearing, no acute distress, well developed and well groomed Nutritional Appearance: average body habitus and well nourished Orientation: alert, awake and oriented x3 Head Head: normal to inspection, normocephalic and atraumatic Ears: hearing grossly normal bilaterally and external ears normal Nose: external nose normal, nares normal, nasal mucous membranes and turbinates normal, septum normal and no nasal discharge Face and Sinus: face symmetric Mouth: oral mucosae normal, tongue normal, oropharynx normal and moist mucous membranes Teeth and gingiva: dentition normal Throat: posterior oropharynx normal, tonsils normal and uvula midline Eyes General: appearance normal, both eyes and all related structures Eyelids: eyelids normal Conjunctivae: conjunctivae normal Pupils: PERRL, normal by confrontation and accommodation normal EOM: EOM intact bilaterally Neck Neck: normal visual inspection, trachea midline and no JVD JVD: +5 Carotids: normal carotid upstroke and bounding pulses Chest Chest inspection: normal inspection of the chest, symmetric chest movement and normal respiratory effort Auscultation: Bilateral: Clear to Auscultation Cardio Palpation: normal PMI Rate: regular rate Rhythm: regular rhythm Heart sounds: S1 normal, S2 normal and normal, physiologic split S2; Negative rub, gallop or murmur GI GI: normal to inspection, soft, no hepatosplenomegaly and bowel sounds present Neuro General: patient alert, patient awake, patient oriented x3, gait normal, moves all extremities and no focal sensory deficit Skin Skin: no rashes or lesions noted Extremities Pulses: Normal: Right Femoral Pulse, Left Femoral Pulse, Right Dorsalis Pedis Pulse, Left Dorsalis Pedis Pulse, Right Posterior Tibial Pulse, Left Posterior Tibial Pulse, Right Radial Pulse and Left Radial Pulse Lower Extremity Edema: None: Bilateral Musculoskel Musculoskeletal: No joint tenderness Psych Psychological: normal affect Supplemental Info Supplemental Information Echocardiogram from 01/17/2023: Interpretation Summary Normal LV size. Left ventricular systolic function is normal. The estimated ejection fraction is 70 %. Mild (1+) eccentric mitral valve insufficiency. Mildly dilated aortic root. Compared to the previous the aortic root is unchanged. The global longitudinal strain is normal. The global longitudinal strain = - 19.8% (normal). ECHOCARDIOGRAM 02/23/2021 Interpretation Summary Normal LV size. Left ventricular systolic function is normal. The estimated ejection fraction is 65 %. Stage 1 diastolic dysfunction. Mildly dilated aortic root. Structurally normal valves. Stress test on 01/17/2023: Conclusion: Normal exercise myocardial perfusion stress test at a high workload Preserved ejection fraction. CT Chest 12/21/21 FINDINGS: Stable small benign-appearing bilateral axillary lymph nodes. Stable mild degree of scarring at the right lung apex. There is no demonstratedpleural abnormality. There are calcifications of the coronary arteries. Normal mediastinum. Normal hilar regions. Normal unenhanced pulmonary arteries. Stable mild dilatation of the root of the ascending thoracic aorta measuring 4.2 cm. Scattered atherosclerotic plaque formation is seen. CT/CTA Chest W/WO Contrast 03/26/2024: IMPRESSION: 47 mm aneurysm dilation of the ascending thoracic aorta. This is slightly largerthan the previous study. Addendum: The ascending aorta measures 4.5 cm in AP diameter on image 115/247, compared to4.2 cm on image 66/120 of the prior examination. CTA Chest 01/05/2021 FINDINGS: Normal enhancement of the main pulmonary artery and right and left pulmonary arteries.? Normal enhancement of the bilateral peripheral pulmonary arteries.? There is no demonstrated pulmonary embolism. There is aneurysmal dilatation of the ascending aorta. The transverse diameter of the ascending aorta measures? 44 mm''s.? This is essentially unchanged.? Scattered atherosclerotic plaque of the aortic arch and descending thoracic aorta. There is no demonstrated aortic dissection. There are calcifications of the coronary arteries. Labs: LDL Cholesterol, (0-130) 40 mg/dL HDL Cholesterol, (40-) 66 mg/dL Cholesterol, (200) 119 mg/dL Triglycerides, (-199) 65 mg/dL Diagnostics: Electrocardiogram Echocardiogram Stress Test Stress Test Nuclear Medicine Chest X-Ray Chest CTA Abdomen/Pelvis CT Past Visits: Cardiology Visit Today Assessment and Plan Assessment and Plan (1) Ascending aorta dilatation: Status: Chronic Comment: There is aneurysmal dilatation of the ascending aorta. The transverse diameter of the ascending aorta measures [address] 01/2021 Plan: He does have mild aortic root dilatation. He did have a CAT scan performed in 2023 demonstrating the transverse diameter of the ascending aorta measuring 45 millimeters which was unchanged from before. I would recommend that we evaluatethis repeat CAT scan. His blood pressure noted here today is elevated but he tells me that his blood pressures at home have been normal. I would like us to obtain a CT angiogram which will look at his aorta and also look at his coronary arteries. He tells me that he is due to see you in a few weeks and a lipid profile will be obtainedat that time. He also remembered that he underwent a blood flow screening test earlier this month and no significant abnormalities were noted. Overall he appears to be in great health. Thank you for allowing me to participate in the care of your patient. Please don't hesitate to call if any issues arise. 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 Sia Tinajero, DO ~ [facility] Work Phone: Reason for referral (narrative)No reason for referral information availableWilson [facility] Work Phone: Family History No Family History Records FoundUnknown Family Member Name Dates Details Father Comments:[place] at 61, , smo ker, ETOH, Obese Status:Active Mother Comments:DM, HTN 1990 M I Status:Active Unknown Family Member Name Dates Details Father Comments:[place] at 61, , smo ker, ETOH, Obese Status:Active Mother Comments:DM, HTN 1990 M I Status:Active Unknown Family Member Name Dates Details Father Comments:[place] at 61, , [place] ker, ETOH, Obese Status:Active Mother Comments:DM, HTN 1990 M I Status:Active Unknown Family Member Name Dates Details Father Comments:[place] at 61, , smo ker, ETOH, Obese Status:Active Mother Comments:DM, HTN 1990 M I Status:Active Unknown Family Member Name Dates Details Father Comments:[place] at 61, , smo ker, ETOH, Obese Status:Active Mother Comments:DM, HTN 1990 M I Status:Active Unknown Family Member Name Dates Details Father Comments:[place] at 61, , smo ker, ETOH, Obese Status:Active Mother Comments:DM, HTN 1990 M I Status:Active Unknown Family Member Name Dates Details Father Comments:[place] at 61, , smo ker, ETOH, Obese Status:Active Mother Comments:DM, HTN 1990 M I Status:Active Unknown Family Member Name Dates Details Father Comments:[place] at 61, , smo ker, ETOH, Obese Status:Active Mother Comments:DM, HTN 1990 M I Status:Active Unknown Family Member Name Dates Details Father Comments:[place] at 61, , [place] ker, ETOH, Obese Status:Active Mother Comments:DM, HTN 1990 M I Status:Active Relationship Condition Age at Onset Recorded Date/T tae Not Specified Cardiac disease Unknown father Sudden cardiac Unknown Hypertension Unknown Unknown Family Member Name Dates Details Father Comments:[place] at 61, , smo ker, ETOH, Obese Status:Active Mother Comments:DM, HTN 1990 M I Status:Active Unknown Family Member Name Dates Details Father Comments:[place] at 61, , smo ker, ETOH, Obese Status:Active Mother Comments:DM, HTN 1990 I Status:Active Unknown Family Member Name Dates Details Father Comments:[place] at 61, , smo ker, ETOH, Obese Status:Active Mother Comments:DM, HTN 1990 M I Status:Active Unknown Family Member Name Dates Details Father Comments:[place] at 61, , smo ker, ETOH, Obese Status:Active Mother Comments:DM, HTN 1990 M I Status:Active Instructions Name Dates Details Non-smoker : How to access h ealth information online Indication:Non-smoker Non-smoker : How to access h ealth information online - Detail Indication:Non-smoker Non-smoker : Patient Instruc tions Indication:Non-smoker Name Dates Details BMI 28.0-28.9,adult : How to access health information online Indication:BMI 28.0-28.9,adult BMI 28.0-28.9,adult : How to access health information online - Detail Indication:BMI 28.0-28.9,adult BMI 28.0-28.9,adult : Patien t Instructions Indication:BMI 28.0-28.9,adult Non-smoker : How to access h ealth information online Indication:Non-smoker Non-smoker : How to access h ealth information online - Detail Indication:Non-smoker Non-smoker : Patient Instruc tions Indication:Non-smoker Name Dates Details cardiovascular counseling Indication:Coronary artery disease Start:12-Feb-2019 Instruction Type:Provider Instructions for Treatment How to access health informa tion online Indication:BMI 28.0-28.9,adult Start:12-Feb-2019 Instruction Type:Patient Education How to access health informa tion online - Detail Indication:BMI 28.0-28.9,adult Start:12-Feb-2019 Instruction Type:Patient Education Patient Instructions Indication:BMI 28.0-28.9,adult Start:12-Feb-2019 Instruction Type:Provider Instructions for Treatment How to access health informa tion online Indication:BMI 28.0-28.9,adult Start:06-Feb-2018 Instruction Type:Patient Education How to access health informa tion online - Detail Indication:BMI 28.0-28.9,adult Start:06-Feb-2018 Instruction Type:Patient Education Patient Instructions Indication:BMI 28.0-28.9,adult Start:06-Feb-2018 Instruction Type:Provider Instructions for Treatment How to access health informa tion online Indication:Non-smoker Start:14-Feb-2017 Instruction Type:Patient Education How to access health informa tion online - Detail Indication:Non-smoker Start:14-Feb-2017 Instruction Type:Patient Education Patient Instructions Indication:Non-smoker Start:14-Feb-2017 Instruction Type:Provider Instructions for Treatment Name Dates Details How to access health informa tion online Indication:Non-smoker Start:11-Feb-2020 Instruction Type:Patient Education How to access health informa tion online - Detail Indication:Non-smoker Start:11-Feb-2020 Instruction Type:Patient Education Patient Instructions Indication:Non-smoker Start:11-Feb-2020 Instruction Type:Provider Instructions for Treatment cardiovascular counseling Indication:Coronary artery disease Start:12-Feb-2019 Instruction Type:Provider Instructions for Treatment How to access health informa tion online Indication:BMI 28.0-28.9,adult Start:12-Feb-2019 Instruction Type:Patient Education How to access health informa tion online - Detail Indication:BMI 28.0-28.9,adult Start:12-Feb-2019 Instruction Type:Patient Education Patient Instructions Indication:BMI 28.0-28.9,adult Start:12-Feb-2019 Instruction Type:Provider Instructions for Treatment How to access health informa tion online Indication:BMI 28.0-28.9,adult Start:06-Feb-2018 Instruction Type:Patient Education How to access health informa tion online - Detail Indication:BMI 28.0-28.9,adult Start:06-Feb-2018 Instruction Type:Patient Education Patient Instructions Indication:BMI 28.0-28.9,adult Start:06-Feb-2018 Instruction Type:Provider Instructions for Treatment How to access health informa tion online Indication:Non-smoker Start:14-Feb-2017 Instruction Type:Patient Education How to access health informa tion online - Detail Indication:Non-smoker Start:14-Feb-2017 Instruction Type:Patient Education Patient Instructions Indication:Non-smoker Start:14-Feb-2017 Instruction Type:Provider Instructions for Treatment Name Dates Details How to access health informa tion online Indication:Non-smoker Start:11-Feb-2020 Instruction Type:Patient Education How to access health informa tion online - Detail Indication:Non-smoker Start:11-Feb-2020 Instruction Type:Patient Education Patient Instructions Indication:Non-smoker Start:11-Feb-2020 Instruction Type:Provider Instructions for Treatment cardiovascular counseling Indication:Coronary artery disease Start:12-Feb-2019 Instruction Type:Provider Instructions for Treatment How to access health informa tion online Indication:BMI 28.0-28.9,adult Start:12-Feb-2019 Instruction Type:Patient Education How to access health informa tion online - Detail Indication:BMI 28.0-28.9,adult Start:12-Feb-2019 Instruction Type:Patient Education Patient Instructions Indication:BMI 28.0-28.9,adult Start:12-Feb-2019 Instruction Type:Provider Instructions for Treatment How to access health informa tion online Indication:BMI 28.0-28.9,adult Start:06-Feb-2018 Instruction Type:Patient Education How to access health informa tion online - Detail Indication:BMI 28.0-28.9,adult Start:06-Feb-2018 Instruction Type:Patient Education Patient Instructions Indication:BMI 28.0-28.9,adult Start:06-Feb-2018 Instruction Type:Provider Instructions for Treatment How to access health informa tion online Indication:Non-smoker Start:14-Feb-2017 Instruction Type:Patient Education How to access health informa tion online - Detail Indication:Non-smoker Start:14-Feb-2017 Instruction Type:Patient Education Patient Instructions Indication:Non-smoker Start:14-Feb-2017 Instruction Type:Provider Instructions for Treatment Name Dates Details How to access health informa tion online Indication:Non-smoker Start:11-Feb-2020 Instruction Type:Patient Education How to access health informa tion online - Detail Indication:Non-smoker Start:11-Feb-2020 Instruction Type:Patient Education Patient Instructions Indication:Non-smoker Start:11-Feb-2020 Instruction Type:Provider Instructions for Treatment cardiovascular counseling Indication:Coronary artery disease Start:12-Feb-2019 Instruction Type:Provider Instructions for Treatment How to access health informa tion online Indication:BMI 28.0-28.9,adult Start:12-Feb-2019 Instruction Type:Patient Education How to access health informa tion online - Detail Indication:BMI 28.0-28.9,adult Start:12-Feb-2019 Instruction Type:Patient Education Patient Instructions Indication:BMI 28.0-28.9,adult Start:12-Feb-2019 Instruction Type:Provider Instructions for Treatment How to access health informa tion online Indication:BMI 28.0-28.9,adult Start:06-Feb-2018 Instruction Type:Patient Education How to access health informa tion online - Detail Indication:BMI 28.0-28.9,adult Start:06-Feb-2018 Instruction Type:Patient Education Patient Instructions Indication:BMI 28.0-28.9,adult Start:06-Feb-2018 Instruction Type:Provider Instructions for Treatment How to access health informa tion online Indication:Non-smoker Start:14-Feb-2017 Instruction Type:Patient Education How to access health informa tion online - Detail Indication:Non-smoker Start:14-Feb-2017 Instruction Type:Patient Education Patient Instructions Indication:Non-smoker Start:14-Feb-2017 Instruction Type:Provider Instructions for Treatment Name Dates Details How to access health informa tion online Indication:Non-smoker Start:11-Feb-2020 Instruction Type:Patient Education How to access health informa tion online - Detail Indication:Non-smoker Start:11-Feb-2020 Instruction Type:Patient Education Patient Instructions Indication:Non-smoker Start:11-Feb-2020 Instruction Type:Provider Instructions for Treatment cardiovascular counseling Indication:Coronary artery disease Start:12-Feb-2019 Instruction Type:Provider Instructions for Treatment How to access health informa tion online Indication:BMI 28.0-28.9,adult Start:12-Feb-2019 Instruction Type:Patient Education How to access health informa tion online - Detail Indication:BMI 28.0-28.9,adult Start:12-Feb-2019 Instruction Type:Patient Education Patient Instructions Indication:BMI 28.0-28.9,adult Start:12-Feb-2019 Instruction Type:Provider Instructions for Treatment How to access health informa tion online Indication:BMI 28.0-28.9,adult Start:06-Feb-2018 Instruction Type:Patient Education How to access health informa tion online - Detail Indication:BMI 28.0-28.9,adult Start:06-Feb-2018 Instruction Type:Patient Education Patient Instructions Indication:BMI 28.0-28.9,adult Start:06-Feb-2018 Instruction Type:Provider Instructions for Treatment How to access health informa tion online Indication:Non-smoker Start:14-Feb-2017 Instruction Type:Patient Education How to access health informa tion online - Detail Indication:Non-smoker Start:14-Feb-2017 Instruction Type:Patient Education Patient Instructions Indication:Non-smoker Start:14-Feb-2017 Instruction Type:Provider Instructions for Treatment Name Dates Details cardiovascular counseling Indication:Coronary artery disease Start:12-Feb-2019 Instruction Type:Provider Instructions for Treatment How to access health informa tion online Indication:BMI 28.0-28.9,adult Start:12-Feb-2019 Instruction Type:Patient Education How to access health informa tion online - Detail Indication:BMI 28.0-28.9,adult Start:12-Feb-2019 Instruction Type:Patient Education Patient Instructions Indication:BMI 28.0-28.9,adult Start:12-Feb-2019 Instruction Type:Provider Instructions for Treatment How to access health informa tion online Indication:BMI 28.0-28.9,adult Start:06-Feb-2018 Instruction Type:Patient Education How to access health informa tion online - Detail Indication:BMI 28.0-28.9,adult Start:06-Feb-2018 Instruction Type:Patient Education Patient Instructions Indication:BMI 28.0-28.9,adult Start:06-Feb-2018 Instruction Type:Provider Instructions for Treatment How to access health informa tion online Indication:Non-smoker Start:14-Feb-2017 Instruction Type:Patient Education How to access health informa tion online - Detail Indication:Non-smoker Start:14-Feb-2017 Instruction Type:Patient Education Patient Instructions Indication:Non-smoker Start:14-Feb-2017 Instruction Type:Provider Instructions for Treatment Advance Directives No Advanced Directives Records Found Name Dates Details Immunization Registry [place] - Effective on 02/06/2018. Expiration date unspecified Effective:06-Feb-2018 Name Dates Details Immunization Registry [place] - Effective on 02/06/2018. Expiration date unspecified Effective:06-Feb-2018 Name Dates Details Immunization Registry [place] - Effective on 02/06/2018. Expiration date unspecified Effective:06-Feb-2018 Name Dates Details Immunization Registry [place] - Effective on 02/06/2018. Expiration date unspecified Effective:06-Feb-2018 Name Dates Details Immunization Registry [place] - Effective on 02/06/2018. Expiration date unspecified Effective:06-Feb-2018 Name Dates Details Immunization Registry [place] - Effective on 02/06/2018. Expiration date unspecified Effective:06-Feb-2018 Name Dates Details Immunization Registry [place] - Effective on 02/06/2018. Expiration date unspecified Effective:06-Feb-2018 Advance Directive Response Recorded Date/ Time Living Will Yes June 26, 2019 12:51pm Power of Spray Painter Helper Yes June 25 12:51pm Name Dates Details Immunization Registry [place] - Effective on 02/06/2018. Expiration date unspecified Effective:06-Feb-2018 Name Dates Details Immunization Registry [place] - Effective on 02/06/2018. Expiration date unspecified Effective:06-Feb-2018 Name Dates Details Immunization Registry [place] - Effective on 02/06/2018. Expiration date unspecified Effective:06-Feb-2018 Advance Directive Response Recorded Date/ Time Living Will Yes June 26, 2019 11:51am Power of Spray Painter Helper Yes June 25 11:51am Name Dates Details Immunization Registry [place] - Effective on 02/06/2018. Expiration date unspecified Effective:06-Feb-2018 Advance Directive Response Recorded Date/ Time Name of Medical Power of Spray Painter Helper KATHLEEN- August 18, 2022 5:10pm Living Will Yes August 18, 2022 5 :10pm Power of Spray Painter Helper Yes August 18, 2022 5:10pm Advance Directive Response Recorded Date/ Time Name of Medical Power of Spray Painter Helper KATHLEEN- August 18, 2022 9:35pm Living Will Yes August 18, 2022 9 :35pm Power of Spray Painter Helper Yes August 18, 2022 9:35pm Advance Directive Response Recorded Date/ Time Living Will Yes August 18, 2022 9 :35pm Power of Spray Painter Helper Yes August 18, 2022 9:35pm Advance Directive Response Recorded Date/ Time Living Will Yes August 18, 2022 8 :35pm Power of Spray Painter Helper Yes August 18, 2022 8:35pm Advance Directive Response Recorded Date/ Time Living Will Yes August 18, 2022 9 :35pm Do you have a Healthcare Power of Spray Painter Helper? Yes August 18, 2022 9:35pm Chief Complaint and Reason for Visit Chief Complaint FOREHEAD LESION LEFT SINCITIS Chief Complaint 1 Y FU DILATED AORTA Reason for Visit Ascending aorta dila tation Chief Complaint 1 Y FU DILATED AORTA NEED ORDER Reason for Visit Ascending aorta dila tation Chief Complaint GASTROENTERITIS gi bleed Reason for Visit Acute dehydration Gastroenteritis Chief Complaint GASTROENTERITIS gi bleed GASTROENTERITIS Reason for Visit Acute dehydration Gastroenteritis Chief Complaint 1 y fu (PT NEEDS FRI DAY AM) CHEST PAIN Amb Documentation Reason for Visit Ascending aorta dila tation Chief Complaint Admit Date Thoracic aortic ectasia March 26, 2 024 5:41pm 2 DRS/ 2 ORDERS March 27, 2024 8:17am PHARYNGITIS July 14, 2024 3:09 pm Chief Complaint Admit Date hyperlipidemia December 10, 2024 7:47am 1 Y FU December 23, 2024 11:44am Reason for Visit Admit Date Ascending aorta dilatation December 11:44am Summary Purpose Additional Source Comments Goals (unrecognized section and content) Goals may be documented in a n alternate sectionGoals may be documented in an alternate sectionGoals may be documented in an alternate sectionGoals may be documented in an alternate sectionGoals may be documented in an alternate sectionGoals may be documented in an alternate sectionGoals may be documented in an alternate sectionGoals may be documented in an alternate sectionGoals may be documented in an alternate section (unrecognized sect ion and content) No Status Records FoundNo Status Records Found INFORMATION SOURCE (unrecogn ized section and content) DATE CREATED AUTHOR 01/01/2022 [facility] DATE CREATED AUTHOR AUTHOR'S ORGANIZ ATION [facility]/20[facility] Care Teams (unrecognized sec tion and content) Team Status: Active Member Role Status Dates Dr. Sia Tinajero , DO Family Provider Active Dr. Sia Tinajero , DO Primary Care Provider Active Team Status: Active Member Role Status Dates Dr. Sia Tinajero DO Primary Care Provider Active Dr. Jean-Claude Fletcher DO Emergency Provider Active Dr. Shahriar Middleton MD Attending Provider Active Team Status: Active Member Role Status Dates Dr. Sia Tinajero , DO Primary Care Provider Active Dr. Jean-Claude Fletcher DO Emergency Provider Active Dr. Shahriar Middleton MD Admit Provider, Attending Provider Active Team Status: Active Member Role Status Dates Dr. Sia Tinajero DO Primary Care Provider Active Dr. Jean-Claude Fletcher , DO Emergency Provider Active Dr. Shahriar Middleton MD Admit Provid er, Attending Provider, Other Provider Active Team Status: Inactive Member Role Status Dates Dr. Sia Tinajero DO Primary Care Provider Active Dr. Jean-Claude Fletcher , DO Emergency Provider Active Dr. Shahriar Middleton MD Admit Provider, Attending Provider Active Team Status: Inactive Member Role Status Dates Dr. Sia Tinajero DO Primary Care Provider, Referr ing Provider Active Dr. Dave Beckham MD Attending Provider Active Team Status: Active Member Role Status Dates Dr. Sia Tinajero DO Primary Care Provider Active Dr. Dave Beckham MD Attending Provider Active Team Status: Active Member Role Status Dates Dr. Sia Tinajero DO Primary Care Provider Active Marcelino Morales [employer] CODER, [employer] INSURANCE CODER-C Attending Provider Active Team Status: Inactive Member Role Status Dates Dr. Sia Tinajero DO Primary Care Provider Active Dr. Dave Beckham MD Attending Provider, Referring Pro vider Active Team Status: Inactive Member Role Status Dates Dr. Sia Tinajero DO Primary Care Provider Active Diane Holbrook Attending Provider, Referring Provide r Active Team Status: Inactive Member Role Status Dates Dr. Sia Tinajero DO Primary Care Provider Active Start: March 26, 2024 End: March 26, 2024 Dr. Dave Beckham MD Attending Provider Active S tart: March 26, 2024 End: March 26, 2024 Dr. Dave Beckham MD Referring Provider Active S tart: March 26, 2024 End: March 26, 2024 Team Status: Inactive Member Role Status Dates Dr. Sia Tinajero DO Primary Care Provider Active Start: March 27, 2024 End: March 27, 2024 Dr. Sia Tinajero DO Attending Provider Active Start: March 27, 2024 End: March 27, 2024 Dr. Sia Tinajero DO Referring Provider Active Start: March 27, 2024 End: March 27, 2024 Dr. Kendall Reynolds MD Other Provider Active Start: March 27, 2024 End: March 27, 2024 Team Status: Inactive Member Role Status Dates Dr. Sia Tinajero DO Primary Care Provider Active Start: July 14, 2024 End: July 14, 2024 Dr. Wisam Sheets MD Attending Provider Activ e Start: July 14, 2024 End: July 14, 2024 Dr. Wisam Sheets MD Referring Provider Activ e Start: July 14, 2024 End: July 14, 2024 Team Status: Active Member Role/Relationship Status Dates Dr. Sia Tinajero DO Primary care physician Active Team Status: Active Member Role/Relationship Status Dates Dr. Sia Tinajero DO Primary care physician Active Start: December 10, 2024 Self Referred Attending physician Active Start: December 10, 2024 Self Referred Referring Provider Active Start: [place] brady 2024 Team Status: Inactive Member Role/Relationship Status Dates Dr. Sia Tinajero DO Primary care physician Active Start: December 23, 2024 End: December 23, 2024 Dr. Sia Tinajero DO Referring Provider Active Start: December 23, 2024 End: December 23, 2024 Dr. Dave Beckham MD Attending physician Active Start: December 23, 2024 End: December 23, 2024 FOR RECORDS PERTAINING TO PATIENTS WHO ARE OR HAVE BEEN ENROLLED IN A CHEMICAL DEPENDENCY/SUBSTANCEABUSE PROGRAM, SOME INFORMATION MAY BE OMITTED. This clinical summary was aggregated from multiple sources. Caution should be exercised in using it in the provision of clinical care. This summary normalizes information from multiple sources, and as a consequence, information in this document may materially change the coding, format and clinical context of patient data. In addition, data may be omitted in some cases. CLINICAL DECISIONS SHOULD BE BASED ON THE PRIMARY CLINICAL RECORDS. [facility]. provides no warranty or guarantee of the accuracy or completeness of information in this document.
[2025-02-24 08:53] LABS: PSA,Total - Annual Screen 1.13 ng/mL (0.02-4.00)
[2025-02-24 11:01] LABS: Hematocrit 41.8 % (40-54); Hemoglobin 13.8 g/dL (13.0-16.5); Immature Granulocytes Count 0.020 X10^3/uL (0.0-0.0); Mean Corp Hgb Conc 33.0 g/dL (32-36); Mean Corpuscular Volume 89.1 fL (80-94); Mean Platelet Vol. 9.3 fl (6.2-12.0); NRBC Flagged by Analyzer 0 % (0-5); Platelet Count 239 K/mm3 (150-450); RBC Distribution Width CV 13.2 % (11.6-14.6); RBC Distribution Width SD 43.0 fl (35.1-43.9); Red Blood Count 4.69 M/mm3 (4.6-6.2); White Blood Count 7.0 K/mm3 (4.4-11.0)
[2025-02-24 11:18] LABS: AST(SGOT) 28 U/L (<=37); Alanine Aminotransfer ALT/SGPT 9 U/L (<=46); Albumin, Serum 4.1 g/dL (3.4-4.8); Alkaline Phosphatase 60 U/L (40-129); Anion Gap 10 (5-15); BUN 14 mg/dL (4-19); BUN/Creat Ratio 13.2 RATIO (10-20); Calcium,Total 8.7 mg/dL (7.6-11.0); Carbon Dioxide 24.8 mmol/L (21.0-32.0); Chloride 99 mmol/L (98-108); Free T3 3.1 pg/mL (2.18-3.98); Globulin 2.9 g/dL (2.2-4.2); Glucose 93 mg/dL (70-99); Potassium 4.4 mmol/L (3.3-5.1)
== END | disposition home or self-care (01) ==
PROVIDERS: PCP Internal Medicine; Referring Provider Otolaryngology; Visit Provider Urology
DX: E78.5 Hyperlipidemia, unspecified (principal); E03.9 Hypothyroidism, unspecified; D64.9 Anemia, unspecified; Z12.5 Encounter for screening for malignant neoplasm of prostate
CPT/HCPCS: 36415; 80053; 84153; 84439; 84443; 84481; 85025; G0103